=== PATIENT | female | born 1955 | race Caucasian/White ===

== ENCOUNTER 2022-06-09 13:28 | Inpatient (IN) ==
--- NOTE | 2022-06-09 14:03 | Emergency Department Note ---
Impression & Plan Acute respiratory failure with hypoxia, Right lower lobe pneumonia ED Provider Note Name: RAMSES MOREIRA Age: 67 Sex: F Arrives Via: Walk-In Informant: Patient ED Provider: Ariel Gamez MD Chief Complaint: Shortness of breath Impression: As per impressions above Medical Decision Makin-year-old female with a history of lung cancer metastasized to lymph nodes, CLL amongst other medical issues. She arrives for worsening shortness of breath over the last few days. She is significantly hypoxic on arrival and quite short of breath. Her laboratory work-up is consistent with an elevated D-dimer but given her history CTA had already been ordered. Her examination does not reveal any acute abnormalities other than mildly tachycardic on arrival. A CT was obtained which reveals consolidation in the right lower lobe. I would favor this to be pneumonia possibly obstructive in nature as opposed to just the mask especially given the significant worsening over the last few days. In that setting blood cultures and lactic were obtained along with giving her empiric IV Zosyn. I did obtain a MRSA swab which is negative so we will hold off on vanco mycin at this time. In the setting of hypoxia and infiltrate hospitalist was consulted for further management and evaluation. Prior Medical Record and Triage/Nursing Notes reviewed by Me Additional history obtained from chart Differentials:Reactive airway disease, pneumonia, pneumothorax, COPD, CHF, infections, cardiac ischemia, pulmonary embolism, musculoskeletal, gastrointestinal, as well as other pathologies. Vital Signs: reviewed and remarkable for hypoxia, tachy Interventions: nss bolus, zosyn iv Labs:Reviewed and remarkable for elevated dimer Imaging:CTA of the chest as per radiologist read on chart, consolidation right lower lobe and multiple lymph node swelling. I did note to patient that the lymph nodes appear larger and she is aware of this. EKG: Per My Interpretation: Indication shob: NSR 98 bpm, qtc 434. No Ectopy. No Ischemia. Compared to EKG 02/14/22, no significant changes. Cardiac/Tele Monitoring: Cardiac Monitoring: An Order was placed for continuous cardiac monitoring. The monitor shows a rate of 90 with a normal sinus rhythm. Consults:Dr Esvin ACOSTA hospitalist Plan: Disposition:Hospitalization. Condition: Good History of Present Illness:67-year-old female arrives for evaluation of shortness of breath. Patient notes 3 days of increasing shortness of breath. Worse with exertion. She has no chest pain, syncope, lightheadedness, nausea, vomiting, fevers, chills, abdominal pain, back pain or other concerning symptoms. She notes that she had some swelling in the right ankle for the last few months. She has had x-rays as well as an ultrasound of the right leg wi thout any acute findings. He denies any history of DVT or PE but does have a family history of PE in her mother. Patient notes that she was recently started on immunotherapy for her lung cancer which over the summer she received chemotherapy and radiation. She also has a history of CLL. Patient denies any falls, trauma, injury. She denies any symptoms when laying still but as soon as she started exerting herself she becomes very short of breath and weak. She was sent by PCP for further evaluation. ROS: See above HPI for pertinent positives & negatives. A total of 10 systems reviewed and were otherwise negative. 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 EYES: No scleral icterus, unremarkable pupils. ENT: Mucous membranes moist, no nasal congestion. NECK: No masses appreciated, nomeningismus, trachea is midline. RESPIRATORY: Moderate dyspnea/tachypnea. Clear to auscultation and equal bilaterally. No wheeze, no rhonchi. CARDIOVASCULAR: Regular rate and rhythm.No murmurs, rubs, gallops appreciated. GASTROINTESTINAL: Abdomen soft, non-tender, no peritonitis.Bowel sounds positive.No masses appreciated. BACK: No midline tenderness, no CVA tenderness EXTREMITIES: Normal motion all extremities, no cyanosis, no edema. NEUROLOGIC: Alert and oriented, no acute motor or sensory deficits, no focal weakness, cranial nerves grossly intact. SKIN: No rash, no jaundice, no diaphoresis. PSYCH: Appropriate GCS: 15 ED Course: Times/Reassessments: Multiple repeat evaluations patient feeling much better on nasal cannula O2 and agreeable to hospitalization. Ariel Gamez MD Past Med/Surg History Medical History Chronic lymphocytic leukemia Depression GERD (gastroesophageal reflux disease) History of squamous cell carcinoma of skin On chest and on abdomen Hypercholesterolemia Motion sickness Nausea and vomiting after administration of anesthetic agent Non-small cell lung cancer with metastasis Osteoporosis Primary cancer of right lower lobe of lung (12/13/21) SNHL (sensorineural hearing loss) Ulcerative proctitis Surgical History Dental root implant present Ganglion cyst right wrist 1993 History of biopsy (01/23/22) Lymph Node, Left Axilla, Core Biopsy History of bronchoscopy (12/13/21) Fiberoptic Bronchoscopy + Endobronchial Ultrasound with Transbronchial [place] Aspiration of LN Dr. Compa Lemons at [facility] History of colonoscopy with polypectomy History of squamous cell carcinoma excision x2--one off chest, one off abdomen History of tooth extraction Hx of colonoscopy Port-A-Cath in place (02/19/22) Port Placement with Fluoroscope(Right) - Patel Shea, DO S/P biopsy of cervix Family History Mother Bone cancer unknown primary Cancer Sister Uterine cancer Cancer Grandfather (Maternal) Pancreatic cancer Cancer Family/Other Family hx of colon cancer cousin Grandmother (Paternal) Cancer Melanoma Family/Other Cancer Father No problems noted. Sister No problems noted. Other Colorectal cancer Has no children Denies family history of Ovarian cancer Prostate cancer No family history of adverse response to anesthesia No family history of bleeding disorder Heart disease Allergies Myocardial infarction Breast cancer Hypertension Stroke Asthma Social History (Updated 06/09/22 @ 17:49 by Lilly Mcallister MD) Smoking Status: Former smoker Tobacco Type: Cigarettes Age Started Using Tobacco: 20; Age Quit Using Tobacco: 41; packs per day: 1; Years Smoked: 20; Number of Years Since Quit: 25; Second Hand Exposure: No; Hx Alcohol Use: No Hx Substance Use: No Preferred Language: Turkish Communication Ability: Effective Visual Impairment: No Limitations 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: Normal Naval Engineer Required: No Beliefs That Will Affect Care: None marital status: Current Living Situation: Alone current occupational status: retired 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 Uncoded 06/09/22 17:56 Home Meds Home Medications Medication Instructions Recorded Confirmed pantoprazole 40 mg tablet,delayed 40 mg PO QAM 12/20/21 06/09/22 release mesalamine 1,000 mg rectal 1 g AZ QPM 02/13/22 06/09/22 suppository raloxifene 60 mg tablet 60 mg PO QAM 02/13/22 06/09/22 gabapentin 300 mg capsule 300 mg PO TID 06/09/22 06/09/22 multivitamin with minerals 1 tab PO DAILY 06/09/22 06/09/22 (Multiple Vitamin-Minerals tablet) Previous Rx's Medication Instructions Recorded bupropion HCl 300 mg 24 hr tablet, 300 mg PO QAM #90 tabs 05/02/22 extended release Results & Data (ED) Vital Signs Vital Signs - 24 hr 06/09/22 13:47 06/09/22 14:23 06/09/22 14:44 Temperature 36.6 C Temperature Source Temporal Artery Scan Pulse Rate 102 H Pulse Rate [Apical] Pulse Rate from SpO2 Sensor Respiratory Rate 22 Respiratory Effort / Characteristics Non-Labored Respiratory Depth Normal Blood Pressure 131/70 117/81 Blood Pressure Mean 90 93 Pulse Oximetry 84 L 82 L Oxygen Delivery Method Room Air Room Air Oxygen Flow Rate 0 Sepsis Recent Fever Within 48 Hours No Sepsis New/Unexplained Change in Mental Status N/A Sepsis Action Taken by Nursing No Action Required Oxygen Flow Rate - Titration 3 Pulse Oximetry Post Tiitration 96 06/09/22 14:44 06/09/22 15:07 06/09/22 15:07 Temperature Temperature Source Pulse Rate 92 H Pulse Rate [Apical] Pulse Rate from SpO2 Sensor 93 H 98 H Respiratory Rate 18 Respiratory Effort / Characteristics Respiratory Depth Blood Pressure 138/88 Blood Pressure Mean 104 Pulse Oximetry 93 97 Oxygen Delivery Method Oxygen Flow Rate Sepsis Recent Fever Within 48 Hours Sepsis New/Unexplained Change in Mental Status Sepsis Action Taken by Nursing Oxygen Flow Rate - Titration Pulse Oximetry Post Tiitration 06/09/22 15:40 Temperature Temperature Source Pulse Rate Pulse Rate [Apical] 95 H Pulse Rate from SpO2 Sensor Respiratory Rate 16 Respiratory Effort / Characteristics Respiratory Depth Blood Pressure Blood Pressure Mean Pulse Oximetry 96 Oxygen Delivery Method Oxygen Flow Rate Sepsis Recent Fever Within 48 Hours Sepsis New/Unexplained Change in Mental Status Sepsis Action Taken by Nursing Oxygen Flow Rate - Titration Pulse Oximetry Post Tiitration Laboratory Data Result diagrams: 06/09/22 14:10 06/09/22 14:10 Lab Results 06/09/22 06/09/22 06/09/22 Range/Units 14:10 14:10 14:10 WBC 13.21 H (4.8-10.8) K/ul RBC 3.83 L (3.93-5.22) M/uL Hgb 11.5 L (12.0-16.0) g/dl POC Hgb (12.0-16.0) g/dl Hct 33.5 L (34.1-44.9) % POC Hct (37-47) % MCV 87.5 (80.0-100.0) fL MCH 30.0 (25.0-34.0) pg MCHC 34.3 (32.0-36.0) g/dL RDW Std Deviation 49.5 H (36.4-46.3) fL RDW Coeff of Aftab 15.6 H (11.5-14.5) % Plt Count 147 (130-400) K/uL MPV 9.2 L (9.4-12.3) fL Immature Gran % (Auto) 0.3 % Neut % (Auto) 27.1 % Lymph % (Auto) 62.9 % Porter % (Auto) 8.4 % Eos % (Auto) 0.9 % Baso % (Auto) 0.4 % Neut # (Auto) 3.58 (1.4-6.5) K/uL Lymph # (Auto) 8.31 H (1.2-3.4) K/uL Porter # (Auto) 1.11 H (0.24-0.82) K/uL Eos # (Auto) 0.12 (0-0.50) K/uL Baso # (Auto) 0.05 (0-0.2) K/uL Immature Gran # (Auto) 0.04 H (0.00-0.02) K/uL Smudge Cells Present PT 10.9 (9.0-12.0) Seconds INR 1.0 (0.9-1.1) APTT 29.0 (21.0-31.0) Seconds PTT Ratio 1.1 D-Dimer 3170 H* (0-500) ug/L FEU POC Sodium (135-144) mmol/L Sodium 138 (136-145) mmol/L POC Potassium (3.3-5.0) mmol/L Potassium 4.1 (3.5-5.1) mmol/L POC Chloride (101-112) mmol/L Chloride 107 (98-107) mmol/L Carbon Dioxide 23 (21-32) mmol/L POC Total CO2 (24-31) mmol/L Anion Gap 8 (3-11) POC Anion Gap (16-25) mmol/L POC BUN (7-18) mg/dl BUN 21 (6-23) mg/dl Creatinine 0.77 (0.6-1.2) mg/dl POC Creatinine (0.6-1.3) mg/dl Est Cr Clr Drug Dosing 61.1 ml/min Est GFR ( Amer) 93.9 ml/min Est GFR (Non-Af Amer) 81.0 ml/min BUN/Creatinine Ratio 27.3 H (10-20) Glucose 85 (70-99(Fasting)) mg/dl POC Glucose (other) (70-99) mg/dl Lactate (0.4-2.0) mmol/L Calcium 8.8 (8.5-10.1) mg/dl POC Ioniz Calcium Eloise (1.12-1.32) mmol/l Magnesium 1.8 (1.7-2.4) mg/dl Troponin I High Sens 7.4 (0-14) pg/ml Adenovirus (PCR) (NotDetected) B. pertussis DNA (PCR) (NotDetected) B.parapertussis DNA PCR (NotDetected) C. pneumoniae DNA (PCR) (NotDetected) Coronavirus OC43 (PCR) (NotDetected) Coronavirus HKU1 (PCR) (NotDetected) Coronavirus 229E (PCR) (NotDetected) SARS-CoV-2 (PCR) (NotDetected) Coronavirus NL63 (PCR) (NotDetected) Human Metapneumovir PCR (NotDetected) Influenza Type A (PCR) (NotDetected) Influenza Type B (PCR) (NotDetected) M. pneumoniae (PCR) (NotDetected) Parainfluenza 1 (PCR) (NotDetected) Parainfluenza 2 (PCR) (NotDetected) Parainfluenza 3 (PCR) (NotDetected) Parainfluenza 4 (PCR) (NotDetected) RSV (PCR) (NotDetected) Entero/Rhino (PCR) (NotDetected) 06/09/22 06/09/22 06/09/22 Range/Units 14:10 14:19 15:32 WBC (4.8-10.8) K/ul RBC (3.93-5.22) M/uL Hgb (12.0-16.0) g/dl POC Hgb 11.2 L (12.0-16.0) g/dl Hct (34.1-44.9) % POC Hct 33 L (37-47) % MCV (80.0-100.0) fL MCH (25.0-34.0) pg MCHC (32.0-36.0) g/dL RDW Std Deviation (36.4-46.3) fL RDW Coeff of Aftab (11.5-14.5) % Plt Count (130-400) K/uL MPV (9.4-12.3) fL Immature Gran % (Auto) % Neut % (Auto) % Lymph % (Auto) % Porter % (Auto) % Eos % (Auto) % Baso % (Auto) % Neut # (Auto) (1.4-6.5) K/uL Lymph # (Auto) (1.2-3.4) K/uL Porter # (Auto) (0.24-0.82) K/uL Eos # (Auto) (0-0.50) K/uL Baso # (Auto) (0-0.2) K/uL Immature Gran # (Auto) (0.00-0.02) K/uL Smudge Cells PT (9.0-12.0) Seconds INR (0.9-1.1) APTT (21.0-31.0) Seconds PTT Ratio D-Dimer (0-500) ug/L FEU POC Sodium 138 (135-144) mmol/L Sodium (136-145) mmol/L POC Potassium 4.1 (3.3-5.0) mmol/L Potassium (3.5-5.1) mmol/L POC Chloride 107 (101-112) mmol/L Chloride (98-107) mmol/L Carbon Dioxide (21-32) mmol/L POC Total CO2 21 L (24-31) mmol/L Anion Gap (3-11) POC Anion Gap 15.0 L (16-25) mmol/L POC BUN 19 H (7-18) mg/dl BUN (6-23) mg/dl Creatinine (0.6-1.2) mg/dl POC Creatinine 0.8 (0.6-1.3) mg/dl Est Cr Clr Drug Dosing ml/min Est GFR ( Amer) ml/min Est GFR (Non-Af Amer) ml/min BUN/Creatinine Ratio (10-20) Glucose (70-99(Fasting)) mg/dl POC Glucose (other) 89 (70-99) mg/dl Lactate 0.7 (0.4-2.0) mmol/L Calcium (8.5-10.1) mg/dl POC Ioniz Calcium Eloise 1.14 (1.12-1.32) mmol/l Magnesium (1.7-2.4) mg/dl Troponin I High Sens (0-14) pg/ml Adenovirus (PCR) Not Detected (NotDetected) B. pertussis DNA (PCR) Not Detected (NotDetected) B.parapertussis DNA PCR Not Detected (NotDetected) C. pneumoniae DNA (PCR) Not Detected (NotDetected) Coronavirus OC43 (PCR) Not Detected (NotDetected) Coronavirus HKU1 (PCR) Not Detected (NotDetected) Coronavirus 229E (PCR) Not Detected (NotDetected) SARS-CoV-2 (PCR) Not Detected (NotDetected) Coronavirus NL63 (PCR) Not Detected (NotDetected) Human Metapneumovir PCR Not Detected (NotDetected) Influenza Type A (PCR) Not Detected (NotDetected) Influenza Type B (PCR) Not Detected (NotDetected) M. pneumoniae (PCR) Not Detected (NotDetected) Parainfluenza 1 (PCR) Not Detected (NotDetected) Parainfluenza 2 (PCR) Not Detected (NotDetected) Parainfluenza 3 (PCR) Not Detected (NotDetected) Parainfluenza 4 (PCR) Not Detected (NotDetected) RSV (PCR) Not Detected (NotDetected) Entero/Rhino (PCR) Not Detected (NotDetected) Administered Medications Discontinued Medications Sodium Chloride (Nss 1000ml) 1,000 mls @ 999 mls/hr IV .[id number] ONE Stop: 06/09/22 16:19 Last Infusion: 06/09/22 16:53 Dose: 0 mls/hr Documented By: Admin: 06/09/22 15:39 Dose: 999 mls/hr Documented By: KV Piperacillin Sod/Tazobactam Sod (Zosyn) 4.5 gm in 120 mls @ 240 mls/hr IV NOW ONE Stop: 06/09/22 15:48 Last Infusion: 06/09/22 16:53 Dose: 0 mls/hr Documented By: Admin: 06/09/22 15:39 Dose: 240 mls/hr Documented By: KV Ioversol (Optiray 320 500ml) 105 ml IV ONCE ONE Stop: 06/09/22 15:04 Last Admin: 06/09/22 15:03 Dose: 105 ml Documented By: JAR Imaging Data Radiologist's Impression: Chest CTA 06/09/22 13:59 CT ANGIOGRAPHY OF THE CHEST, PULMONARY EMBOLUS PROTOCOL CLINICAL HISTORY: Shortness of breath. Lung cancer. Lymphoma. COMPARISON STUDY: Chest CT April 18, 2022. PET/CT December 11, 2021. TECHNIQUE: Following IV administration of 105 mL of Optiray, helical axial images of the chest were obtained utilizing the pulmonary embolus protocol. Maximal intensity projections and sagittal and coronal reformats were viewed on an independent 3D workstation. IV contrast was administered without complication. Automated exposure control was utilized for the study. A dose lowering technique was utilized adhering to the principles of ALARA. CT DOSE: 247.67 mGy.cm FINDINGS: Right internal jugular [id number] is in place. No pulmonary emboli are identified. There is no thoracic aortic dissection. Size of the heart is normal. There is no pericardial effusion. A small right pleural effusion has developed since CT of April 18, 2022. There is no pneumothorax. There is a 7.2 x 4.7 cm masslike opacity within the right lower lobe. This has increased since exam of April 18, 2022 and is at site of primary tumor shown on CT of January 15, 2022. Differentiation between the known malignancy and consolidation is difficult. Multifocal airspace opacities within the right lung have developed since prior CT. There is underlying emphysema. Interlobular septal thickening is greater within the right lung. A few patchy left lung opacities are present. Enlarged bilateral axillary lymph nodes are similar to prior chest CT. These have decreased in size since earlier PET/CT. Right supraclavicular and mediastinal lymphadenopathy has progressed since CT of April 18, 2022. Index right supraclavicular lymph node on axial image 259 of 298 measures 2.2 x 1.7 cm. It previously measured 1.6 x 1 cm. Right paratracheal lymph node on image 216 measures 2.8 x 2 cm. It previously measured 1.9 x 1.6 cm. These lymph nodes are heterogeneous. Mild splenomegaly is unchanged. No suspicious lesions are identified within the bony thorax. IMPRESSION: 1. No pulmonary emboli identified. 2. Progression of right subclavicular and mediastinal lymphadenopathy. This adenopathy is likely neoplastic and favors progression of metastatic lung cancer over lymphoma. 3. Increase in size of a right lower lobe masslike opacity at site of known tumor. Differentiation between the primary tumor and consolidation is difficult however this favors progression of the primary tumor. 4. Multifocal airspace opacities within the right lung which could reflect pneumonia or post radiation change. Small right pleural effusion. 5. Asymmetric interlobular septal thickening within the right lung. This may reflect asymmetric pulmonary edema however lymphangitic spread of tumor could a ppear similar. 6. No significant change in bilateral axillary lymphadenopathy which favors lymphoma. ACT 112: Negative or not required by law. Electronically signed by: José Miguel Denis M.D. 06/09/2022 3:41 PM Discharge Plan Visit Data Chief Complaint: Referred by Doctor Stated Complaint: REF BY , POSSIBLE BLOOD CLOT IN LUNG ED Provider: Ariel Gamez Discharge Problem: Acute respiratory failure with hypoxia, Right lower lobe pneumonia : Right lower lobe pneumonia Qualifiers: Pneumonia type: due to unspecified organism Qualified Code(s): J18.9 - Pneumonia, unspecified organism
[2022-06-09 14:29] LABS: Hematocrit (blood only) 33.5 % (34.1-44.9); Hemoglobin 11.5 g/dl (12.0-16.0); Mean Corpuscular Hgb Conc 34.3 g/dL (32.0-36.0); Mean Corpuscular Volume 87.5 fL (80.0-100.0); Mean Platelet Volume 9.2 fL (9.4-12.3); Platelet Count 147 K/uL (130-400); RDW Coefficient of Variation 15.6 % (11.5-14.5); RDW Standard Deviation 49.5 fL (36.4-46.3); Red Blood Count 3.83 M/uL (3.93-5.22); White Blood Count 13.21 K/ul (4.8-10.8)
[2022-06-09 14:31] LABS: iSTAT Creatinine 0.8 mg/dl (0.6-1.3); iSTAT Hemoglobin 11.2 g/dl (12.0-16.0); iSTAT Ionized Calcium 1.14 mmol/l (1.12-1.32); iSTAT Potassium 4.1 mmol/L (3.3-5.0)
[2022-06-09 14:45] LABS: Partial Thromboplastin Ratio 1.1; Prothrombin Time 10.9 Seconds (9.0-12.0)
[2022-06-09 14:51] LABS: D Dimer 3170 ug/L FEU (0-500)
[2022-06-09 14:57] LABS: Troponin I High Sensitivity 7.4 pg/ml (0-14)
[2022-06-09] MEDS ORDERED: OPTIRAY 320 500ml IV ONE (15:03)
[2022-06-09] MEDS ORDERED: PIPERACILLIN/TAZOBACTAM 4.5 GM/120 ML BAG IV ONE (15:19)
[2022-06-09] MEDS ORDERED: SODIUM CHLORIDE 0.9% 1000ML 1,000 ML IV ONE (15:19)
[2022-06-09 15:20] LABS: BUN Creatinine Ratio 27.3 (10-20); Calcium 8.8 mg/dl (8.5-10.1); Creatinine Clr Calc Pharmacy 61.1 ml/min; Est GFR (African American) 93.9 ml/min; Magnesium 1.8 mg/dl (1.7-2.4); Potassium 4.1 mmol/L (3.5-5.1)
[2022-06-09 15:36] LABS: Adenovirus PCR Not Detected (NotDetected); Bordetella parapertussis PCR Not Detected (NotDetected); Bordetella pertussis PCR Not Detected (NotDetected); Chlamydia pneumoniae PCR Not Detected (NotDetected); Coronavirus 229E PCR Not Detected (NotDetected); Coronavirus CoV-2 (COVID19)PCR Not Detected (NotDetected); Coronavirus HKU1 PCR Not Detected (NotDetected); Coronavirus NL63 PCR Not Detected (NotDetected); Coronavirus OC43PCR Not Detected (NotDetected); Human Metapneumovirus PCR Not Detected (NotDetected); Influenza A PCR Not Detected (NotDetected); Influenza B PCR Not Detected (NotDetected); Mycoplasma pneumoniae PCR Not Detected (NotDetected); Parainfluenza Virus 1 PCR Not Detected (NotDetected); Parainfluenza Virus 2 PCR Not Detected (NotDetected); Parainfluenza Virus 3 PCR Not Detected (NotDetected); Parainfluenza Virus 4 PCR Not Detected (NotDetected); Respiratory Syncytial VirusPCR Not Detected (NotDetected); Rhinovirus/Enterovirus PCR Not Detected (NotDetected)
[2022-06-09 15:40] LABS: Basophils # (auto) 0.05 K/uL (0-0.2); Basophils % (auto) 0.4 %; Eosinophils # (auto) 0.12 K/uL (0-0.50); Eosinophils % (auto) 0.9 %; Immature Granulocytes # (auto) 0.04 K/uL (0.00-0.02); Immature Granulocytes % (auto) 0.3 %; Lymphocytes # (auto) 8.31 K/uL (1.2-3.4); Lymphocytes % (auto) 62.9 %; Monocytes # (auto) 1.11 K/uL (0.24-0.82); Monocytes % (auto) 8.4 %; Neutrophils # (auto) 3.58 K/uL (1.4-6.5); Neutrophils % (auto) 27.1 %; Smudge Cells Present
--- NOTE | 2022-06-09 15:42 | CT Scan Report ---
CT ANGIOGRAPHY OF THE CHEST, PULMONARY EMBOLUS PROTOCOL CLINICAL HISTORY: Shortness of breath. Lung cancer. Lymphoma. COMPARISON STUDY: Chest CT April 18, 2022. PET/CT December 11, 2021. TECHNIQUE: Following IV administration of 105 mL of Optiray, helical axial images of the chest were o btained utilizing the pulmonary embolus protocol. Maximal intensity projections and sagittal and cor onal reformats were viewed on an independent 3D workstation. IV contrast was administered without co mplication. Automated exposure control was utilized for the study. A dose lowering technique was ut ilized adhering to the principles of ALARA. CT DOSE: 247.67 mGy.cm FINDINGS: Right internal jugular [id number] is in place. No pulmonary emboli are identified. Ther e is no thoracic aortic dissection. Size of the heart is normal. There is no pericardial effusion. A small right pleural effusion has developed since CT of April 18, 2022. There is no pneumothorax. T here is a 7.2 x 4.7 cm masslike opacity within the right lower lobe. This has increased since exam of April 18, 2022 and is at site of primary tumor shown on CT of January 15, 2022. Differentiation betwe en the known malignancy and consolidation is difficult. Multifocal airspace opacities within the righ t lung have developed since prior CT. There is underlying emphysema. Interlobular septal thickening i s greater within the right lung. A few patchy left lung opacities are present. Enlarged bilateral axi llary lymph nodes are similar to prior chest CT. These have decreased in size since earlier PET/CT. R ight supraclavicular and mediastinal lymphadenopathy has progressed since CT of April 18, 2022. In dex right supraclavicular lymph node on axial image 259 of 298 measures 2.2 x 1.7 cm. It previously m easured 1.6 x 1 cm. Right paratracheal lymph node on image 216 measures 2.8 x 2 cm. It previously rebecca sured 1.9 x 1.6 cm. These lymph nodes are heterogeneous. Mild splenomegaly is unchanged. No suspiciou s lesions are identified within the bony thorax. IMPRESSION: 1. No pulmonary emboli identified. 2. Progression of right subclavicular and mediastinal lymphadenopathy. This adenopathy is likely neop lastic and favors progression of metastatic lung cancer over lymphoma. 3. Increase in size of a right lower lobe masslike opacity at site of known tumor. Differentiation be tween the primary tumor and consolidation is difficult however this favors progression of the primary tumor. 4. Multifocal airspace opacities within the right lung which could reflect pneumonia or post radiatio n change. Small right pleural effusion. 5. Asymmetric interlobular septal thickening within the right lung. This may reflect asymmetric pulmo nary edema however lymphangitic spread of tumor could appear similar. 6. No significant change in bilateral axillary lymphadenopathy which favors lymphoma. ACT 112: Negative or not required by law. Electronically signed by: José Miguel Denis M.D. 06/09/2022 3:41 PM
--- NOTE | 2022-06-09 16:39 | History & Physical Report ---
Date of Service June 09, 2022 Assessment & Plan (1) Pneumonia: Plan: Patient presents with chills but no objective fever, leukocytosis, tachycardia, mild sputum production, and chest CT images consistent with infiltrates in the right lower lobe around her known lung mass Could be pneumonia versus immunotherapy induced pneumonitis versus radiation pneumonitis? Also with acute respiratory failure with hypoxia requiring supplemental O2 as below Afebrile but had subjective chills at home. With leukocytosis and tachycardia---> sepsis, POA Was given a dose of IV Zosyn in the ER [facility] viral respiratory panel is negative -Admit to PCU for telemetry monitoring -Continue supplemental O2 to keep pulse ox greater than 92% -Continue IV Zosyn for now to cover for gram-negative pneumonia -Check MRSA swab and start vancomycin if MRSA swab is positive -Follow blood cultures -Check sputum culture -Consult pulmonology given complexity of case-appreciate any further recommendations -Check proBNP and procalcitonin to further delineate if there is any component of heart failure and procalcitonin to see if points more towards bacterial infection -Add flutter valve and incentive spirometry for pulmonary toilet -DuoNebs [id number] (2) Acute respiratory failure with hypoxia: Plan: Secondary to history of lung cancer and with possible pneumonia as above Also with [id number] smoking history DuoNebs, supplemental O2 as above (3) Non-small cell lung cancer with metastasis: Plan: First diagnosed in 11/2021, with mets to bone marrow and lymph nodes with massive retroperitoneal and mediastinal lymphadenopathy There is still a possibility that this may be breast primary versus lung primary as per oncology notes. Further testing on tumor sample is pending on this as well as a pending breast MRI MRI brain 12/2021 without evidence of metastatic disease Initially completed chemotherapy with carboplatin and paclitaxel completed on 04/03/2022 and radiation therapy Now on durvalumab immunotherapy-just received second round last week Follows with Dr. Lama of oncology. (4) Neuropathy: Plan: Suffering with right ankle pain and swelling that was spontaneous without traumatic event since being on chemotherapy Seen by orthopedic surgery who thought this was a neuropathic issue Recently started on gabapentin by her PCP -Continue gabapentin 300 Mg p.o. 3 times daily -Can also give acetaminophen as needed for pain (5) CLL (chronic lymphocytic leukemia): Plan: Followed by oncology since 2018, with shotty lymphadenopathy of the cervical/supraclavicular/axillary regions and lymphocytosis. Considered to be intermediate risk due to FISH +13 q. deletion Not on specific therapy for this (6) Depression: Plan: Continue home bupropion (7) Osteoporosis: Plan: Continue home raloxifene (8) Ulcerative proctitis: Plan: Continue home SC mesalamine No acute issues Plan DVT prophylaxis-Lovenox Disposition-admit to PCU DNR/DNI as per discussion with patient She designates her sister, Patricia Adame, as her healthcare power of director of photography/spokesperson if she is unable to make decisions for herself. History of Present Illness Chief Complaint: Shortness of breath Primary Care Provider: Deirdre Vallecillo MD This patient is a 67-year-old female with a history of metastatic non-small cell lung cancer, CLL with lymphadenopathy, depression, osteoporosis, ulcerative proctitis, GERD, who presents to the ER with increasing shortness of breath and was found to be hypoxic and have possibly postobstructive pneumonia. She reports slight increase in sputum production but no hemoptysis over the last couple of days along with some chills but no documented fevers at home. She denies chest pains or nausea or vomiting, no abdominal pains or diarrhea. She has now started on immunotherapy and had her second dose this past week of Imfinzi. She was noted to be hypoxic with a pulse ox in the low 80s on arrival and was placed on supplemental O2 and feels much improved already. She was afebrile and mildly tachycardic in the ER but not tachypneic and her blood pressures were normal. In the ER, she was found to have an elevated WBC count of 13.2 but also with a known history of CLL, mild anemia with hemoglobin of 11.5, elevated D-dimer at 3170, and a negative bio fire viral respiratory panel to include a negative COVID-19. Chemistry was otherwise unremarkable and troponin was negative. A lactate was negative. A CT angiogram of the chest was performed which was negative for PE but did show progression of right subclavicular and mediastinal lymphadenopathy as well as increase in the size of an RLL masslike opacity at site of known tumor with differentiation between the primary tumor and consolidation difficult, also with multifocal airspace opacities in the right lung which could reflect pneumonia or postradiation change and a small right pleural effusion. Also with asymmetric interlobular septal thickening within the right lung which may reflect asymmetric pulmonary edema versus lymphangitic spread of tumor. Bilateral axillary lymphadenopathy was unchanged which is known secondary to her CLL. She will be admitted for acute respiratory failure with hypoxia and likely pneumonia in the setting of lung cancer. Cannot exclude some sort of immunotherapy induced pneumonitis or other atypical or opportunistic lung infection. Allergies Allergy/AdvReac Type Severity Reaction Status Date / Time No Known Drug Allergies Allergy Verified 06/09/22 17:50 RED MEAT AdvReac . Uncoded 06/09/22 17:56 Home Medications Medication Instructions Recorded Confirmed Type pantoprazole 40 mg tablet,delayed 40 mg PO QAM 12/20/21 06/09/22 History release mesalamine 1,000 mg rectal 1 g SC QPM 02/13/22 06/09/22 History suppository raloxifene 60 mg tablet 60 mg PO QAM 02/13/22 06/09/22 History bupropion HCl 300 mg 24 hr tablet, 300 mg PO QAM #90 tabs 05/02/22 06/09/22 Rx extended release gabapentin 300 mg capsule 300 mg PO TID 06/09/22 06/09/22 History multivitamin with minerals 1 tab PO DAILY 06/09/22 06/09/22 History (Multiple Vitamin-Minerals tablet) Past Med/Surg History Medical History Chronic lymphocytic leukemia Depression GERD (gastroesophageal reflux disease) History of squamous cell carcinoma of skin On chest and on abdomen Hypercholesterolemia Motion sickness Nausea and vomiting after administration of anesthetic agent Non-small cell lung cancer with metastasis Osteoporosis Primary cancer of right lower lobe of lung (12/13/21) SNHL (sensorineural hearing loss) Ulcerative proctitis Surgical History Dental root implant present Ganglion cyst right wrist 1993 History of biopsy (01/23/22) Lymph Node, Left Axilla, Core Biopsy History of bronchoscopy (12/13/21) Fiberoptic Bronchoscopy + Endobronchial Ultrasound with Transbronchial [place] Aspiration of LN Dr. Compa Lemons at [facility] History of colonoscopy with polypectomy History of squamous cell carcinoma excision x2--one off chest, one off abdomen History of tooth extraction Hx of colonoscopy Port-A-Cath in place (02/19/22) Port Placement with Fluoroscope(Right) - Patel Shea, S/P biopsy of cervix Family History Mother Bone cancer unknown primary Cancer Sister Uterine cancer Cancer Grandfather (Maternal) Pancreatic cancer Cancer Family/Other Family hx of colon cancer cousin Grandmother (Paternal) Cancer Melanoma Family/Other Cancer Father No problems noted. Sister No problems noted. Other Colorectal cancer Has no children Denies family history of Ovarian cancer Prostate cancer No family history of adverse response to anesthesia No family history of bleeding disorder Heart disease Allergies Myocardial infarction Breast cancer Hypertension Stroke Asthma Social History (Updated 06/09/22 @ 17:49 by Lilly Mcallister MD) Smoking Status: Former smoker Tobacco Type: Cigarettes Age Started Using Tobacco: 20; Age Quit Using Tobacco: 41; packs per day: 1; Years Smoked: 20; Number of Years Since Quit: 25; Second Hand Exposure: No; Hx Alcohol Use: No Hx Substance Use: No Preferred Language: Thai Communication Ability: Effective Visual Impairment: No Limitations 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: Normal 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 Surface Required: No Beliefs That Will Affect Care: None marital status: Current Living Situation: Alone current occupational status: retired 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 This came on spontaneously and without injury. She has been seen by orthopedics who thought it was neuropathic in nature. She was unable To get a neurology appointment until several months from now. Her PCP recently started her on gabapentin last week and she has been slowly titrating up. No constipation or diarrhea, no abdominal pains, no nausea or vomiting, no headaches, no sore throat. Did just have a cyst removed from her upper mid back about a week ago and sutures remain in place Physical Exam Constitutional: WD/WN, vitals as above Eyes: PERRL, conjunctivae normal, anicteric sclerae ENMT: external ear and nose normal, oropharynx normal Neck: trachea midline, no thyromegaly Respiratory: normal respiratory effort; no cough Auscultation: + diminished lung sounds (Right lung base) and + crackles (right base); no rhonchi and no wheezes Cardiovascular: Rate/Rhythm: regular rate and regular rhythm Heart Sounds: no murmur Vessels: dorsalis pedis pulses present; no JVD Extremities: + edema (Trace right ankle edema, no edema on the left leg) Chest (Breasts): Chest: + vascular access device or port (Right anterior chest wall port accessed without surrounding erythema) Gastrointestinal (Abdomen): normal bowel sounds, soft, nontender, no hepatosplenomegaly Musculoskeletal: Extremities: + extremities abnormal to inspection (Right ankle trace edema, no erythema, FROM right ankle, no TTP), no cyanosis and no clubbing Skin: no rashes, warm and dry Mid upper back with 3 cm incision with running stitch, surrounding dark red discoloration of the skin but also with maculopapular erythematous rash in a rectangular pattern where the adhesive from the Band-Aid is placed-bandage removed Neurologic: moves all extremities and awake; no focal motor deficits Psychiatric: A+Ox3, euthymic affect Results & Data Results & Data ([facility]) Vital Signs (Past 12 Hours) Vital Signs Temp Pulse Pulse Resp BP Pulse Ox O2 Del Method 06/09/22 15:40 95 H 16 96 06/09/22 15:07 97 06/09/22 15:07 138/88 06/09/22 14:44 92 H 18 93 06/09/22 14:44 117/81 06/09/22 14:23 82 L Room Air 06/09/22 13:47 36.6 C 102 H 22 131/70 84 L Room Air O2 Flow Rate 06/09/22 15:40 06/09/22 15:07 06/09/22 15:07 06/09/22 14:44 06/09/22 14:44 06/09/22 14:23 0 06/09/22 13:47 Laboratory Results 10/24/22 10/24/22 10/24/22 Range/Units 15:32 14:19 14:10 WBC (4.8-10.8) K/ul RBC (3.93-5.22) M/uL Hgb (12.0-16.0) g/dl POC Hgb 11.2 L (12.0-16.0) g/dl Hct (34.1-44.9) % POC Hct 33 L (37-47) % MCV (80.0-100.0) fL MCH (25.0-34.0) pg MCHC (32.0-36.0) g/dL RDW Std Deviation (36.4-46.3) fL RDW Coeff of Aftab (11.5-14.5) % Plt Count (130-400) K/uL MPV (9.4-12.3) fL Immature Gran % (Auto) % Neut % (Auto) % Lymph % (Auto) % [place] % (Auto) % Eos % (Auto) % Baso % (Auto) % Neut # (Auto) (1.4-6.5) K/uL Lymph # (Auto) (1.2-3.4) K/uL [place] # (Auto) (0.24-0.82) K/uL Eos # (Auto) (0-0.50) K/uL Baso # (Auto) (0-0.2) K/uL Immature Gran # (Auto) (0.00-0.02) K/uL Smudge Cells PT (9.0-12.0) Seconds INR (0.9-1.1) APTT (21.0-31.0) Seconds PTT Ratio D-Dimer (0-500) ug/L FEU POC Sodium 138 (135-144) mmol/L Sodium (136-145) mmol/L POC Potassium 4.1 (3.3-5.0) mmol/L Potassium (3.5-5.1) mmol/L POC Chloride 107 (101-112) mmol/L Chloride (98-107) mmol/L Carbon Dioxide (21-32) mmol/L POC Total CO2 21 L (24-31) mmol/L Anion Gap (3-11) POC Anion Gap 15.0 L (16-25) mmol/L POC BUN 19 H (7-18) mg/dl BUN (6-23) mg/dl Creatinine (0.6-1.2) mg/dl POC Creatinine 0.8 (0.6-1.3) mg/dl Est Cr Clr Drug Dosing ml/min Est GFR ( Amer) ml/min Est GFR (Non-Af Amer) ml/min BUN/Creatinine Ratio (10-20) Glucose (70-99(Fasting)) mg/dl POC Glucose (other) 89 (70-99) mg/dl Lactate 0.7 (0.4-2.0) mmol/L Calcium (8.5-10.1) mg/dl POC Ioniz Calcium Eloise 1.14 (1.12-1.32) mmol/l Magnesium (1.7-2.4) mg/dl Troponin I High Sens (0-14) pg/ml Adenovirus (PCR) Not Detected (NotDetected) B. pertussis DNA (PCR) Not Detected (NotDetected) B.parapertussis DNA PCR Not Detected (NotDetected) C. pneumoniae DNA (PCR) Not Detected (NotDetected) Coronavirus OC43 (PCR) Not Detected (NotDetected) Coronavirus HKU1 (PCR) Not Detected (NotDetected) Coronavirus 229E (PCR) Not Detected (NotDetected) SARS-CoV-2 (PCR) Not Detected (NotDetected) Coronavirus NL63 (PCR) Not Detected (NotDetected) Human Metapneumovir PCR Not Detected (NotDetected) Influenza Type A (PCR) Not Detected (NotDetected) Influenza Type B (PCR) Not Detected (NotDetected) M. pneumoniae (PCR) Not Detected (NotDetected) Parainfluenza 1 (PCR) Not Detected (NotDetected) Parainfluenza 2 (PCR) Not Detected (NotDetected) Parainfluenza 3 (PCR) Not Detected (NotDetected) Parainfluenza 4 (PCR) Not Detected (NotDetected) RSV (PCR) Not Detected (NotDetected) Entero/Rhino (PCR) Not Detected (NotDetected) 06/09/22 06/09/22 06/09/22 Range/Units 14:10 14:10 14:10 WBC 13.21 H (4.8-10.8) K/ul RBC 3.83 L (3.93-5.22) M/uL Hgb 11.5 L (12.0-16.0) g/dl POC Hgb (12.0-16.0) g/dl Hct 33.5 L (34.1-44.9) % POC Hct (37-47) % MCV 87.5 (80.0-100.0) fL MCH 30.0 (25.0-34.0) pg MCHC 34.3 (32.0-36.0) g/dL RDW Std Deviation 49.5 H (36.4-46.3) fL RDW Coeff of Aftab 15.6 H (11.5-14.5) % Plt Count 147 (130-400) K/uL MPV 9.2 L (9.4-12.3) fL Immature Gran % (Auto) 0.3 % Neut % (Auto) 27.1 % Lymph % (Auto) 62.9 % [place] % (Auto) 8.4 % Eos % (Auto) 0.9 % Baso % (Auto) 0.4 % Neut # (Auto) 3.58 (1.4-6.5) K/uL Lymph # (Auto) 8.31 H (1.2-3.4) K/uL [place] # (Auto) 1.11 H (0.24-0.82) K/uL Eos # (Auto) 0.12 (0-0.50) K/uL Baso # (Auto) 0.05 (0-0.2) K/uL Immature Gran # (Auto) 0.04 H (0.00-0.02) K/uL Smudge Cells Present PT 10.9 (9.0-12.0) Seconds INR 1.0 (0.9-1.1) APTT 29.0 (21.0-31.0) Seconds PTT Ratio 1.1 D-Dimer 3170 H* (0-500) ug/L FEU POC Sodium (135-144) mmol/L Sodium 138 (136-145) mmol/L POC Potassium (3.3-5.0) mmol/L Potassium 4.1 (3.5-5.1) mmol/L POC Chloride (101-112) mmol/L Chloride 107 (98-107) mmol/L Carbon Dioxide 23 (21-32) mmol/L POC Total CO2 (24-31) mmol/L Anion Gap 8 (3-11) POC Anion Gap (16-25) mmol/L POC BUN (7-18) mg/dl BUN 21 (6-23) mg/dl Creatinine 0.77 (0.6-1.2) mg/dl POC Creatinine (0.6-1.3) mg/dl Est Cr Clr Drug Dosing 61.1 ml/min Est GFR ( Amer) 93.9 ml/min Est GFR (Non-Af Amer) 81.0 ml/min BUN/Creatinine Ratio 27.3 H (10-20) Glucose 85 (70-99(Fasting)) mg/dl POC Glucose (other) (70-99) mg/dl Lactate (0.4-2.0) mmol/L Calcium 8.8 (8.5-10.1) mg/dl POC Ioniz Calcium [place]oise (1.12-1.32) mmol/l Magnesium 1.8 (1.7-2.4) mg/dl Troponin I High Sens 7.4 (0-14) pg/ml Adenovirus (PCR) (NotDetected) B. pertussis DNA (PCR) (NotDetected) B.parapertussis DNA PCR (NotDetected) C. pneumoniae DNA (PCR) (NotDetected) Coronavirus OC43 (PCR) (NotDetected) Coronavirus HKU1 (PCR) (NotDetected) Coronavirus 229E (PCR) (NotDetected) SARS-CoV-2 (PCR) (NotDetected) Coronavirus NL63 (PCR) (NotDetected) Human Metapneumovir PCR (NotDetected) Influenza Type A (PCR) (NotDetected) Influenza Type B (PCR) (NotDetected) M. pneumoniae (PCR) (NotDetected) Parainfluenza 1 (PCR) (NotDetected) Parainfluenza 2 (PCR) (NotDetected) Parainfluenza 3 (PCR) (NotDetected) Parainfluenza 4 (PCR) (NotDetected) RSV (PCR) (NotDetected) Entero/Rhino (PCR) (NotDetected) Diagnostic Findings Chest CTA 06/09/22 13:59 CT ANGIOGRAPHY OF THE CHEST, PULMONARY EMBOLUS PROTOCOL CLINICAL HISTORY: Shortness of breath. Lung cancer. Lymphoma. COMPARISON STUDY: Chest CT April 18, 2022. PET/CT December 11, 2021. TECHNIQUE: Following IV administration of 105 mL of Optiray, helical axial images of the chest were obtained utilizing the pulmonary embolus protocol. Maximal intensity projections and sagittal and coronal reformats were viewed on an independent 3D workstation. IV contrast was administered without complication. Automated exposure control was utilized for the study. A dose lowering technique was utilized adhering to the principles of ALARA. CT DOSE: 247.67 mGy.cm FINDINGS: Right internal jugular [id number] is in place. No pulmonary emboli are identified. There is no thoracic aortic dissection. Size of the heart is normal. There is no pericardial effusion. A small right pleural effusion has developed since CT of April 18, 2022. There is no pneumothorax. There is a 7.2 x 4.7 cm masslike opacity within the right lower lobe. This has increased since exam of April 18, 2022 and is at site of primary tumor shown on CT of January 15, 2022. Differentiation between the known malignancy and consolidation is difficult. Multifocal airspace opacities within the right lung have developed since prior CT. There is underlying emphysema. Interlobular septal thickening is greater within the right lung. A few patchy left lung opacities are present. Enlarged bilateral axillary lymph nodes are similar to prior chest CT. These have decreased in size since earlier PET/CT. Right supraclavicular and mediastinal lymphadenopathy has progressed since CT of April 18, 2022. Index right supraclavicular lymph node on axial image 259 of 298 measures 2.2 x 1.7 cm. It previously measured 1.6 x 1 cm. Right paratracheal lymph node on image 216 measures 2.8 x 2 cm. It previously measured 1.9 x 1.6 cm. These lymph nodes are heterogeneous. Mild splenomegaly is unchanged. No suspicious lesions are identified within the bony thorax. IMPRESSION: 1. No pulmonary emboli identified. 2. Progression of right subclavicular and mediastinal lymphadenopathy. This adenopathy is likely neoplastic and favors progression of metastatic lung cancer over lymphoma. 3. Increase in size of a right lower lobe masslike opacity at site of known tumor. Differentiation between the primary tumor and consolidation is difficult however this favors progression of the primary tumor. 4. Multifocal airspace opacities within the right lung which could reflect pneumonia or post radiation change. Small right pleural effusion. 5. Asymmetric interlobular septal thickening within the right lung. This may reflect asymmetric pulmonary edema however lymphangitic spread of tumor could appear similar. 6. No significant change in bilateral axillary lymphadenopathy which favors lymphoma. ACT 112: Negative or not required by law. Electronically signed by: José Miguel Denis M.D. 06/09/2022 3:41 PM ECG Additional Comments: ECG on 06/09/2022 with normal sinus rhythm, normal rates, no ischemic changes Code Status & VTE Plan Code Status DNR/DNI as discussed with patient VTE Prophylaxis Plan VTE Prophylaxis will be ordered: Yes PG Care Time/CCT Total # of Minutes Spent Total Time Spent with Patient: Total time spent is greater than 50% in coordination of care (as documented) at patient's floor/unit and/or counseling patient: Coding Level of Care Code 18547 Initial Inpt Care Lvl 3 Diagnoses Pneumonia J18.9 Acute respiratory failure with hypoxia J96.01 Non-small cell lung cancer with metastasis C34.90 Neuropathy G62.9 CLL (chronic lymphocytic leukemia) C91.10 Depression F32.9 Osteoporosis M81.0 Ulcerative proctitis K51.20
[2022-06-09 18:33] LABS: Appearance Urine Clear (Clear); Bilirubin Urine Negative (Negative); Blood Urine Negative (Negative); Color Urine Yellow; Glucose Urine UA Negative (Negative); Ketones Urine Negative (Negative); Leukocyte Esterase Urine Negative (Negative); Nitrite Urine Negative (Negative); Protein Urine Negative (Negative); Specific Gravity Urine 1.034 (1.000-1.030); Urobilinogen Urine Negative (Negative)
[2022-06-09] MEDS ORDERED: POLYETHYLENE (MIRALAX) 17 GM PACK PO PRN (19:45)
[2022-06-09] MEDS ORDERED: ONDANSETRON INJ 2 MG/ML 2 ML VIAL IV PRN (19:45)
[2022-06-09] MEDS: ENOXAPARIN INJ 40 MG/0.4 ML SYR SQ SCH (20:40)
[2022-06-09] MEDS: GABAPENTIN 300 MG CAP PO SCH (20:40)
[2022-06-09] MEDS: PIPERACILLIN/TAZOBACTAM 3.375 GM in DEXTROSE 5% 100 ML IV SCH (20:41)
[2022-06-09] MEDS: ALBUT/IPRATROP 3MG/0.5MG NEB 3 ML VIAL NEB SCH (20:44)
[2022-06-10] MEDS: PIPERACILLIN/TAZOBACTAM 3.375 GM in DEXTROSE 5% 100 ML IV SCH ×3 (04:36→22:26)
--- NOTE | 2022-06-10 06:03 | Electrocardiogram Report ---
Test Reason : Blood Pressure : / mmHG Vent. Rate : 098 BPM Atrial Rate : 098 BPM P-R Int : 148 ms QRS Dur : 080 ms QT Int : 340 ms P-R-T Axes : 058 060 063 degrees QTc Int : 434 ms Normal sinus rhythm Nonspecific ST abnormality When compared with ECG of 14-FEB-2022 10:48, No significant change Confirmed by Adeel Luz ([id number]) on 06/10/2022 6:03:24 AM Referred By: REFERRED SELF Confirmed By:Adeel Luz
[2022-06-10 06:19] LABS: Hematocrit (blood only) 30.5 % (34.1-44.9); Hemoglobin 10.2 g/dl (12.0-16.0); Mean Corpuscular Hgb Conc 33.4 g/dL (32.0-36.0); Mean Corpuscular Volume 89.7 fL (80.0-100.0); Platelet Count 144 K/uL (130-400); RDW Coefficient of Variation 15.1 % (11.5-14.5); RDW Standard Deviation 48.4 fL (36.4-46.3); White Blood Count 10.94 K/ul (4.8-10.8)
[2022-06-10 06:46] LABS: Albumin Globulin Ratio 1.4 (0.9-2); Albumin Level 3.3 gm/dl (3.4-5.0); Bilirubin,Total 0.6 mg/dl (0.2-1.0); Calcium 8.4 mg/dl (8.5-10.1); Creatinine Clr Calc Pharmacy 53.5 ml/min; Est GFR (African American) 83.3 ml/min; Est GFR (Non-African American) 71.9 ml/min; Globulin 2.3 gm/dl (2.5-4.0); Magnesium 1.8 mg/dl (1.7-2.4); Potassium 3.7 mmol/L (3.5-5.1); Total Protein 5.6 gm/dl (6.0-8.3)
[2022-06-10] MEDS: ALBUT/IPRATROP 3MG/0.5MG NEB 3 ML VIAL NEB SCH ×4 (07:07→17:57)
[2022-06-10 07:51] LABS: Basophils # (auto) 0.03 K/uL (0-0.2); Basophils % (auto) 0.3 %; Eosinophils # (auto) 0.11 K/uL (0-0.50); Immature Granulocytes # (auto) 0.02 K/uL (0.00-0.02); Immature Granulocytes % (auto) 0.2 %; Lymphocytes # (auto) 6.61 K/uL (1.2-3.4); Lymphocytes % (auto) 60.4 %; Monocytes # (auto) 1.02 K/uL (0.24-0.82); Monocytes % (auto) 9.3 %; Neutrophils # (auto) 3.15 K/uL (1.4-6.5); Neutrophils % (auto) 28.8 %; Smudge Cells Present
--- NOTE | 2022-06-10 09:11 | Pulmonary Consultation ---
Date of Consultation June 10, 2022 Assessment & Plan (1) Acute respiratory failure with hypoxia: (2) Non-small cell lung cancer with metastasis: (3) COPD with emphysema: (4) Abnormal CT scan of lung: Plan CT chest 06/09/2022 personally reviewed: Centrilobular emphysema appreciated bilaterally with mild interlobular thickening Right-sided pleural effusion with right lower lobe mass Mediastinal adenopathy at station 2P, 10R -- Acute respiratory failure with hypoxia Multifactorial Worsening of underlying lung cancer is a possibility Although the patient's BNP is negative I do see some interlobular thickening which could be lymphatic spread from underlying cancer Respiratory bio fire negative BNP 25 Procalcitonin 0.96 --COPD with emphysema Not on any inhalers at home I will start the patient on Anoro to be used on a daily basis Not in exacerbation, no need for steroids -- Metastatic non-small cell lung cancer Adenocarcinoma of unknown primary S/p chemoradiation, carboplatin/paclitaxel completed 04/03/2022 -- History of CLL Plan: Continue with antibiotic I did speak with Dr. Lama Start the patient on Anoro. Plan will be to see if he can biopsy right upper lobe supraclavicular lymph node so radiology. Consult placed Case discussed with Please note the above document was generated using voice recognition software. It may contain grammatical, syntax or spelling errors.Any formal questions or concerns about the content, text or information contained within the body of this dictation should be directly addressed to the provider for clarification. History of Present Illness Attending Physician: Tulio Altman History of Present Illness 67-year-old female admitted to the hospital for worsening shortness of breath Past medical history: Undifferentiated adenocarcinoma metastatic, CLL, COPD with emphysema, GERD Pulmonary were consulted for history of cancer as well as enlarging lung mass Patient is follows up with Dr. Lemons as an outpatient. Previous records and notes reviewed At the time of examination patient was saturating 93% on 5 L, I was able to go down to 4 L where she maintained a saturation around 90-91% She says she is feeling better after coming to the hospital She is coughing and bringing up clear phlegm. Denies any hemoptysis No chest pain No nausea or vomiting No diarrhea, no dysuria Does complain of tingling sensation in the right foot which has been chronic. No headache or blurry vision. Social history: Quit smoking approximately 10 years ago Allergies Allergy/AdvReac Type Severity Reaction Status Date / Time No Known Drug Allergies Allergy Verified 06/09/22 17:50 RED MEAT AdvReac . Uncoded 06/09/22 17:56 Home Medications Medication Instructions Recorded Confirmed Type pantoprazole 40 mg tablet,delayed 40 mg PO QAM 12/20/21 06/09/22 History release mesalamine 1,000 mg rectal 1 g CA QPM 02/13/22 06/09/22 History suppository raloxifene 60 mg tablet 60 mg PO QAM 02/13/22 06/09/22 History bupropion HCl 300 mg 24 hr tablet, 300 mg PO QAM #90 tabs 05/02/22 06/09/22 Rx extended release gabapentin 300 mg capsule 300 mg PO TID 06/09/22 06/09/22 History multivitamin with minerals 1 tab PO DAILY 06/09/22 06/09/22 History (Multiple Vitamin-Minerals tablet) Patient History Medical History Chronic lymphocytic leukemia Depression GERD (gastroesophageal reflux disease) History of squamous cell carcinoma of skin On chest and on abdomen Hypercholesterolemia Motion sickness Nausea and vomiting after administration of anesthetic agent Non-small cell lung cancer with metastasis Osteoporosis Primary cancer of right lower lobe of lung (12/13/21) SNHL (sensorineural hearing loss) Ulcerative proctitis Surgical History Dental root implant present Ganglion cyst right wrist 1993 History of biopsy (01/23/22) Lymph Node, Left Axilla, Core Biopsy History of bronchoscopy (12/13/21) Fiberoptic Bronchoscopy + Endobronchial Ultrasound with Transbronchial [place] Aspiration of LN Dr. Compa Lemons at [facility] History of colonoscopy with polypectomy History of squamous cell carcinoma excision x2--one off chest, one off abdomen History of tooth extraction Hx of colonoscopy Port-A-Cath in place (02/19/22) Port Placement with Fluoroscope(Right) - Patel Shea, DO S/P biopsy of cervix Family History Mother Bone cancer unknown primary Cancer Sister Uterine cancer Cancer Grandfather (Maternal) Pancreatic cancer Cancer Family/Other Family hx of colon cancer cousin Grandmother (Paternal) Cancer Melanoma Family/Other Cancer Father No problems noted. Sister No problems noted. Other Colorectal cancer Has no children Denies family history of Ovarian cancer Prostate cancer No family history of adverse response to anesthesia No family history of bleeding disorder Heart disease Allergies Myocardial infarction Breast cancer Hypertension Stroke Asthma Social History (Updated 06/09/22 @ 17:49 by Lilly Mcallister MD) Smoking Status: Former smoker Tobacco Type: Cigarettes Age Started Using Tobacco: 20; Age Quit Using Tobacco: 41; packs per day: 1; Years Smoked: 20; Number of Years Since Quit: 25; Second Hand Exposure: No; Hx Alcohol Use: No Hx Substance Use: No Preferred Language: Northern Irish Communication Ability: Effective Visual Impairment: No Limitations 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: Normal Estate Planning Counselor Required: No Beliefs That Will Affect Care: None marital status: Current Living Situation: Alone current occupational status: retired 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 How many Children do You have: 0 Feels Safe at Home: Yes Childhood Exposure to Second-Hand Smoke: Yes Diet Comment: No red meat caffeine: Yes during the past year weight has: decreased > 10 lbs Dental Care, Regularly: Yes Physical Activity Frequency: Daily Seatbelt Use: always Sunscreen Use: Yes Assistive Devices: None Review of Systems Review of Systems: All systems reviewed & are unremarkable except as noted in HPI & below Physical Exam Physical Exam: Constitutional: No acute distress HEENT: EOMI, PERRLA Respiratory system: Decreased air entry bilaterally, no wheeze, no rhonchi, positive crackles bilateral lower lobes more on the right side CVS: S1-S2 positive, no murmurs or gallops Abdomen: Soft, nontender, nondistended, positive bowel sounds x4 Extremities: +2 pulses bilaterally radialis/ dorsalis pedis, no cyanosis, no edema Neuro: Awake alert oriented x3 Psych: Normal mood and affect G/U: No Ruff Skin: no rashes, warm and dry Lymphatic: no cervical or axillary lymphadenopathy Results & Data Results & Data ([facility]) Vital Signs (Past 12 Hours) Vital Signs Temp Pulse Pulse Resp BP Pulse Ox O2 Del Method 06/10/22 07:48 36.6 C 105 H 19 102/64 91 Nasal Cannula 06/10/22 07:08 91 H 18 92 Nasal Cannula 06/10/22 03:00 37.2 C 105 H 16 111/66 91 Nasal Cannula 06/09/22 22:45 36.7 C 66 18 127/72 94 Nasal Cannula 06/10/22 00:37 116 H O2 Flow Rate 06/10/22 07:48 5 06/10/22 07:08 5 06/10/22 03:00 5 06/09/22 22:45 5 06/10/22 00:37 Laboratory Results 06/10/22 05:46 06/10/22 05:46 PG Care Time/CCT Total # of Minutes Spent Total Time Spent with Patient: Total time spent is greater than 50% in coordination of care (as documented) at patient's floor/unit and/or counseling patient: Coding Level of Care Code 22804 Initial Inpt Care Lvl 3 Diagnoses Acute respiratory failure with hypoxia J96.01 Non-small cell lung cancer with metastasis C34.90 COPD with emphysema J43.[address] scan of lung R91.8
[2022-06-10] MEDS: buPROPion XL 300 MG TABCR PO SCH (09:32)
[2022-06-10] MEDS: GABAPENTIN 300 MG CAP PO SCH ×3 (09:32→22:26)
[2022-06-10] MEDS: PANTOprazole 40 MG TAB PO SCH (09:33)
[2022-06-10] MEDS: CEROVITE ADV FORMULA TAB PO SCH (09:33)
[2022-06-10] MEDS: RALOXIFENE HCL 60 MG TAB PO SCH (09:34)
[2022-06-10] MEDS: ACETAMINOPHEN 325 MG TAB PO PRN ×4 (09:37→22:26)
[2022-06-10] MEDS: UMECLIDINIUM/VILANTEROL 62.5/25MCG 7 PUFFS/INHALER INH SCH (10:38)
--- NOTE | 2022-06-10 15:29 | Ultrasound Report ---
ULTRASOUND GUIDED CORE BIOPSY AND FINE NEEDLE ASPIRATION OF RIGHT SUPRACLAVICULAR LYMPH NODE CLINICAL HISTORY: Supraclavicular right sided LN biopsy COMPARISON STUDY: Chest CT June 09, 2022. PROCEDURE: Sonography of the right supraclavicular region demonstrated multiple pathologically enlarg ed supraclavicular lymph nodes. Index 1.8 cm right supraclavicular lymph node was targeted for biopsy . The procedure, risks and benefits were discussed with the patient and informed written consent was obtained. The procedure was performed by Dr. Denis following a timeout. Skin of the right neck wa s prepped and draped in sterile fashion and local anesthesia was achieved with 1% lidocaine. Under di rect ultrasound guidance, a 25-gauge fine needle aspiration of the right supraclavicular lymph node w as performed. Suspicious cells were noted. An 18-gauge core sample was then obtained. Samples were de emed preliminarily adequate. The patient tolerated the procedure well and no immediate complications were evident. IMPRESSION: Successful ultrasound guided core biopsy and fine-needle aspiration of a right supraclav icular lymph node. ACT 112: Negative or not required by law. Electronically signed by: José Miguel Denis M.D. 06/10/2022 3:28 PM
--- NOTE | 2022-06-10 17:30 | XRay Report ---
XR ankle RT 2V CLINICAL HISTORY: pain, swelling R ankle COMPARISON STUDY: Right ankle 05/08/2022. FINDINGS: Mild soft tissue swelling within the right ankle, unchanged. No acute fracture or dislocati on. The ankle mortise is intact. Mild cartilage space narrowing at the tibiotalar joint, unchanged. N o erosive changes. IMPRESSION: Mild soft tissue swelling within the right ankle. No fractures. ACT 112: Negative or not required by law. Electronically signed by: Ramo Mcintosh M.D. 06/10/2022 5:29 PM
[2022-06-10] MEDS: DICLOFENAC SOD 1% GEL 100 GM TUBE EXT SCH ×2 (17:47→22:27)
--- NOTE | 2022-06-10 19:48 | Hospitalist Progress Note ---
Date of Service June 10, 2022 Assessment & Plan (1) Pneumonia: Plan: chest CT with infiltrates in the right lower lobe around her known lung mass Could be pneumonia versus immunotherapy induced pneumonitis versus radiation pneumonitis elevated procal suggestive of infectious process cont zosyn IV MRSA swab neg thus defer on MRSA coverage appreciate pulmonary consultation and recs cont NC O2 + pulmonary toilet (2) Sepsis: Plan: 2nd to RLL pneumonia blood cx's thus far negative (3) Acute respiratory failure with hypoxia: Plan: 2nd to RLL pneumonia abx nebs O2 (4) Non-small cell lung cancer with metastasis: Plan: First diagnosed in 11/2021, with mets to bone marrow and lymph nodes with massive retroperitoneal and mediastinal lymphadenopathy There is still a possibility that this may be breast primary versus lung primary as per oncology notes. Further testing on tumor sample is pending on this as well as a pending breast MRI MRI brain 12/2021 without evidence of metastatic disease Initially completed chemotherapy with carboplatin and paclitaxel completed on 04/03/2022 and radiation therapy Now on durvalumab immunotherapy-just received second round last week Follows with Dr. Lama of oncology. s/p supraclavicular lymph node biopsy on the right today to delineate if extensive lymphadenopathy is from this issue vs CLL vs other (5) Neuropathy: Plan: ? neuropathy of distal RLE ? continue gabapentin but it has not been helpful to date see below under R ankle pain. (6) CLL (chronic lymphocytic leukemia): Plan: Followed by oncology since 2018. Considered to be intermediate risk due to FISH +13 q. deletion She has not required Rx s/p supraclavicular lymph node bx today to exclude that the lymphadenopathy seen is due to metastatic disease from the lung (or breast) vs CLL or other (7) Depression: Plan: Continue home bupropion (8) Osteoporosis: Plan: Continue home raloxifene (9) Ulcerative proctitis: Plan: Continue home [place] mesalamine (10) Right ankle pain: Plan: etiology uncertain. prior x-rays unremarkable. no response to gabapentin. will repeat x-rays again. doppler to r/o DVT. if the above are negative then ankle MRI to r/o ligamentous injury, tendon injury, joint issue. in meantime - voltaren gel 4gm qid. Plan DVT prophylaxis-Lovenox She designates her sister, Patricia Adame, as her healthcare power of county attorney/spokesperson if she is unable to make decisions for herself. Admission and Anticipated Discharge Date Admission Date: June 09, 2022 Subjective patient's main complaint is that of right ankle pain that radiates into the right achilles region hurts both day and night hurts to weight-bear started on gabapentin recently for such without improvement the right ankle and foot are mildly swollen she denies any prior injury her breathing is more comfortable today she is less dyspneic she is coughing although sputum production is not that great patient underwent uncomplicated supraclavicular lymph node biopsy as ordered by pulmonary Review of Systems Review of Systems: gen - no fevers cv - no chest pain pulm - no dyspnea at rest GI - no abd pain, nausea, emesis Physical Exam Physical Exam: gen - NAD, pleasant, thin mouth - MMM neck - no JVD heart - RRR, s1 s2, no murmur lungs - rales R base, otherwise CTA b/l abd - soft NT ND BS+ ext - pulses 2+ b/l feet musculo - right ankle - moderate swelling, pain over ankle mortise with compression, no pain with eversion in inversion; mild pain with flexion/extension; no pain over lateral ankle ligaments or the achilles skin - no rash Results & Data Results & Data ([facility]) Vital Signs (Past 12 Hours) Vital Signs Temp Pulse Resp BP Pulse Ox O2 Del Method O2 Flow Rate 06/10/22 17:57 75 18 89 L Nasal Cannula 3.5 06/10/22 15:33 36.9 C 101 H 19 130/76 91 Nasal Cannula 3.5 06/10/22 11:25 36.6 C 94 H 18 112/67 92 Nasal Cannula 5 06/10/22 11:09 91 H 18 94 Nasal Cannula 5 06/10/22 09:59 Nasal Cannula 5 06/10/22 07:48 36.6 C 105 H 19 102/64 91 Nasal Cannula 5 PG Care Time/CCT Total # of Minutes Spent Total Time Spent with Patient: Total time spent is greater than 50% in coordination of care (as documented) at patient's floor/unit and/or counseling patient: Coding Level of Care Code 83351 Subseq Hosp Care Lvl 3 Diagnoses Pneumonia J18.9 Sepsis A41.9 Acute respiratory failure with hypoxia J96.01 Non-small cell lung cancer with metastasis C34.90 Neuropathy G62.9 CLL (chronic lymphocytic leukemia) C91.10 Depression F32.9 Osteoporosis M81.0 Ulcerative proctitis K51.20 Right ankle pain M25.571
[2022-06-11] MEDS: ACETAMINOPHEN 325 MG TAB PO PRN ×2 (04:31→10:34)
[2022-06-11] MEDS: PIPERACILLIN/TAZOBACTAM 3.375 GM in DEXTROSE 5% 100 ML IV SCH ×3 (04:32→21:15)
[2022-06-11] MEDS: ALBUT/IPRATROP 3MG/0.5MG NEB 3 ML VIAL NEB SCH ×4 (05:35→18:13)
[2022-06-11 06:13] LABS: Hematocrit (blood only) 31.5 % (34.1-44.9); Hemoglobin 10.5 g/dl (12.0-16.0); Mean Corpuscular Hemoglobin 29.8 pg (25.0-34.0); Mean Corpuscular Hgb Conc 33.3 g/dL (32.0-36.0); Mean Corpuscular Volume 89.5 fL (80.0-100.0); Platelet Count 140 K/uL (130-400); RDW Coefficient of Variation 15.3 % (11.5-14.5); RDW Standard Deviation 48.7 fL (36.4-46.3); Red Blood Count 3.52 M/uL (3.93-5.22); White Blood Count 11.07 K/ul (4.8-10.8)
--- NOTE | 2022-06-11 06:30 | Ultrasound Report ---
US venous doppler LE RT HISTORY: 67 years-old Female right distal leg pain, cancer; eval DVT acute pain and swelling of the right lower extremity COMPARISON: 04/28/2022 TECHNIQUE: Multiple real-time sonographic images of the right lower extremity deep venous structures were obtained assessing grayscale appearance, color and spectral flow. FINDINGS: Normal flow, compressibility, phasicity and augmentation. Right inguinal adenopathy with lymph nodes measuring up to 1.9 x 0.7 cm. IMPRESSION: No sonographic evidence of deep venous thrombosis. ACT 112: Negative or not required by law. The above report was generated using voice recognition software. It may contain grammatical, syntax o r spelling errors. Electronically signed by: Brandon Morales M.D. 06/11/2022 6:28 AM
[2022-06-11 06:34] LABS: BUN Creatinine Ratio 19.8 (10-20); Calcium 8.6 mg/dl (8.5-10.1); Creatinine Clr Calc Pharmacy 56.5 ml/min; Est GFR (African American) 82.2 ml/min; Est GFR (Non-African American) 70.9 ml/min; Potassium 3.7 mmol/L (3.5-5.1)
[2022-06-11] MEDS: UMECLIDINIUM/VILANTEROL 62.5/25MCG 7 PUFFS/INHALER INH SCH (08:09)
[2022-06-11] MEDS: CEROVITE ADV FORMULA TAB PO SCH (08:09)
[2022-06-11] MEDS: GABAPENTIN 300 MG CAP PO SCH ×3 (08:09→20:21)
[2022-06-11] MEDS: RALOXIFENE HCL 60 MG TAB PO SCH (08:09)
[2022-06-11] MEDS: PANTOprazole 40 MG TAB PO SCH (08:09)
[2022-06-11] MEDS: buPROPion XL 300 MG TABCR PO SCH (08:10)
[2022-06-11] MEDS: DICLOFENAC SOD 1% GEL 100 GM TUBE EXT SCH ×4 (08:10→20:21)
--- NOTE | 2022-06-11 09:09 | Pulmonology Progress Note ---
Date of Service June 11, 2022 Assessment & Plan (1) Acute respiratory failure with hypoxia: (2) Non-small cell lung cancer with metastasis: (3) COPD with emphysema: (4) Abnormal CT scan of lung: Plan CT chest 06/09/2022 personally reviewed: Centrilobular emphysema appreciated bilaterally with mild interlobular thickening Right-sided pleural effusion with right lower lobe mass Mediastinal adenopathy at station 2P, 10R -- Acute respiratory failure with hypoxia Multifactorial Worsening of underlying lung cancer is a possibility Although the patient's BNP is negative I do see some interlobular thickening which could be lymphatic spread from underlying cancer Respiratory bio fire negative BNP 25 Procalcitonin 0.96 --COPD with emphysema Not on any inhalers at home I will start the patient on Anoro to be used on a daily basis Not in exacerbation, no need for steroids -- Metastatic non-small cell lung cancer Adenocarcinoma of unknown primary S/p chemoradiation, carboplatin/paclitaxel completed 04/03/2022 The right lower lobe mass is increasing in size along with right hilar and mediastinal lymphadenopathy S/p ultrasound-guided biopsy of the supraclavicular lymph node on the right side. We will await pathology if it is nondiagnostic then would recommend to have CT-guided biopsy of the right lower lobe lung mass -- History of CLL Plan: Continue with antibiotic Give a dose of Lasix 20 mg today. S/p ultrasound-guided biopsy of the supraclavicular lymph node on the right side. We will await pathology if it is nondiagnostic then would recommend to have CT-guided biopsy of the right lower lobe lung mass Case discussed with Please note the above document was generated using voice recognition software. It may contain grammatical, syntax or spelling errors.Any formal questions or concerns about the content, text or information contained within the body of this dictation should be directly addressed to the provider for clarification. Admission and Anticipated Discharge Date Admission Date: June 09, 2022 Subjective Patient seen and examined at bedside. No acute distress, no adverse events overnight She was saturating 90% on 4 L nasal cannula at rest Overall stated she is feeling the same. Coughing up clear phlegm. Denies any hemoptysis. Fair appetite. Review of Systems 2 Review of Systems: All systems reviewed & are unremarkable except as noted in Subjective Physical Exam Physical Exam: Constitutional: No acute distress HEENT: EOMI, PERRLA Respiratory system: Decreased air entry bilaterally, no wheeze, no rhonchi, positive crackles bilateral lower lobes more on the right side CVS: S1-S2 positive, no murmurs or gallops Abdomen: Soft, nontender, nondistended, positive bowel sounds x4 Extremities: +2 pulses bilaterally radialis/ dorsalis pedis, no cyanosis, no edema Neuro: Awake alert oriented x3 Psych: Normal mood and affect G/U: No Ruff Skin: no rashes, warm and dry Lymphatic: no cervical or axillary lymphadenopathy Results & Data Results & Data ([facility]) Vital Signs (Past 12 Hours) Vital Signs Temp Pulse Resp BP Pulse Ox O2 Del Method O2 Flow Rate 06/11/22 07:50 36.3 C L 89 18 110/66 91 Nasal Cannula 4 06/11/22 07:41 Nasal Cannula 4 06/11/22 02:57 36.5 C 84 18 105/64 92 Room Air 06/10/22 22:54 37.0 C 91 H 20 135/72 91 Room Air 06/10/22 22:17 Nasal Cannula 4 Laboratory Results 06/11/22 05:51 06/11/22 05:51 PG Care Time/CCT Total # of Minutes Spent Total Time Spent with Patient: Total time spent is greater than 50% in coordination of care (as documented) at patient's floor/unit and/or counseling patient: Coding Level of Care Code 38556 Subseq Hosp Care Lvl 2 Diagnoses Acute respiratory failure with hypoxia J96.01 Non-small cell lung cancer with metastasis C34.90 COPD with emphysema J43.[address] scan of lung R91.8
--- NOTE | 2022-06-11 11:32 | Magnetic Resonance Report ---
MR ankle RT wo con CLINICAL HISTORY: 67 years-old Female with ongoing pain, swelling. Subacute pain and swelling of the right ankle, most pronounced laterally. History of lung cancer. COMPARISON: Duplex venous Doppler study of same day, right foot and ankle radiographs 05/08/2022, ankl e radiographs 06/10/2022. TECHNIQUE: Multiplanar, multi sequence MRI of the right ankle was performed without contrast. FINDINGS: LATERAL LIGAMENT COMPLEX: Mild thickening of the anterior talofibular ligament suggestive of chronic sprain. The calcaneofibular ligament and posterior talofibular ligaments are intact. SYNDESMOTIC LIGAMENTS: Mild thickening of the anterior-inferior tibiofibular ligament, interosseous m embrane and posterior-inferior tibiofibular ligament suggestive of chronic sprain. DELTOID LIGAMENT COMPLEX: The superficial and deep components of the deltoid ligament are intact. ANTERIOR TENDONS: The tibialis anterior, extensor hallucis longus and extensor digitorum longus tendo ns are normal in position, morphology and signal. LATERAL TENDONS: The peroneus longus and brevis tendons are intact. Mild tenosynovitis of the peroneu s longus. MEDIAL TENDONS: The posterior tibialis, flexor digitorum longus and flexor hallucis longus tendons ar e intact. Mild tenosynovitis of the tibialis posterior. PLANTAR FASCIA: The medial and lateral bundles of the plantar fascia are normal in morphology and sig nal. There is no evidence of acute plantar fasciitis or tear. No evidence of plantar fascial nodule s. ACHILLES TENDON: The Achilles tendon is normal in position, morphology and signal. No associated burs itis. SINUS TARSI: Edema noted within the sinus Tarsi. The interosseous and cervical ligaments are normal. The navicular-calcaneal (spring) ligament is without acute abnormality. TARSAL TUNNEL: There are no obstructing lesions within the tarsal tunnel. BONE MARROW: There is diffuse marrow replacement with correspondingly decreased T1 and increased T2/S TIR signal throughout the foot, ankle and lower leg. No acute pathologic fracture identified. There i s diffuse periosteal edema. There is additional diffuse subcutaneous, deep tissue and intramuscular edema throughout the foot and ankle. IMPRESSION: 1. Diffuse marrow replacement throughout the imaged bony structures suggestive of osseous metastasis. Findings appear to have progressed from the comparison 05/08/2022 radiographs. 2. Additional subcutaneous, deep tissue and intramuscular edema is also likely related to the aforeme ntioned metastatic disease. A nonspecific cellulitis with myositis could appear similarly. 3. No acute pathologic fracture identified. ACT 112: Negative or not required by law. The above report was generated using voice recognition software. It may contain grammatical, syntax o r spelling errors. Electronically signed by: Brandon Morales M.D. 06/11/2022 11:31 AM
[2022-06-11] MEDS ORDERED: FUROSEMIDE INJ 20 MG/2 ML VIAL IV ONE (12:04)
[2022-06-11] MEDS: oxyCODONE HCL IR 5 MG TAB (IMMEDIATE RELEASE) PO PRN ×2 (12:09→16:40)
[2022-06-11] MEDS ORDERED: oxyCODONE HCL IR 5 MG TAB (IMMEDIATE RELEASE) PO STA (17:59)
--- NOTE | 2022-06-11 19:15 | Hospitalist Progress Note ---
Date of Service June 11, 2022 Assessment & Plan (1) Pneumonia: Plan: Chest CT with infiltrates in the right lower lobe around her known lung mass Could be pneumonia versus immunotherapy induced pneumonitis versus radiation pneumonitis elevated procal suggestive of infectious process cont zosyn IV - day #3 of such MRSA swab neg thus defer on MRSA coverage this evening her oxygen requirement worsened from 4 L to 10 L NC CXR obtained - my reading - extensive infiltrates right base; I don't see obvious pulmonary edema Perhaps she has mucous plugging of the right lung vs new-onset PEs vs worsening immunotherapy-induced pneumonitis vs worsening bacterial pneumonia vs other Plan - * continue aggressive pulmonary toilet * low threshold to repeat her chest CTA as she was off lovenox for 2 days for her lymph node biopsy; however, CTA chest just a few days ago was neg for PE * consider IV steroids * may need to go on high-flow NC tonight if things worsen further * consider additional IV lasix 20mg tonight but she received such earlier in the day and she had no clinical change with such (2) Sepsis: Plan: 2nd to RLL pneumonia blood cx's remain negative (3) Acute respiratory failure with hypoxia: Plan: worse this evening 2nd to RLL pneumonia, extensive lung ca can't rule out pulm edema can't rule out new PE can't rule out immunotherapy-induced pneumonitis cont IV abx cont pulm toilet consider repeat CTA chest consider another dose of IV lasix tonight stop oxycodone - perhaps this led to modest hypoventilating and worsening of her hypoxia switch the oxy to norco which tends to be less sedating (4) Non-small cell lung cancer with metastasis: Plan: First diagnosed in 11/2021, with mets to bone marrow and lymph nodes with massive retroperitoneal and mediastinal lymphadenopathy There is still a possibility that this may be breast primary versus lung primary as per oncology notes. Further testing on tumor sample is pending on this as well as a pending breast MRI MRI brain 12/2021 without evidence of metastatic disease Initially completed chemotherapy with carboplatin and paclitaxel completed on 04/03/2022 and radiation therapy Now on durvalumab immunotherapy-just received second round last week Follows with Dr. Lama of oncology. s/p supraclavicular lymph node biopsy 06/10 this showed metastatic adenocarcinoma R ankle MRI also showed bone mets as the cause of her pain (5) CLL (chronic lymphocytic leukemia): Plan: Followed by oncology since 2018. Considered to be intermediate risk due to FISH +13 q. deletion She has not required Rx s/p supraclavicular lymph node bx 06/10 -- enlarged lymph node is not from CLL but metastatic adenocarcinoma (6) Depression: Plan: Continue home bupropion (7) Osteoporosis: Plan: Continue home raloxifene (8) Ulcerative proctitis: Plan: Continue home [place] mesalamine (9) Right ankle pain: Plan: x-rays neg for fracture doppler RLE neg for DVT R ankle MRI is positive for bone mets voltaren gel, heat helpful but does not relief pain tried 5mg of oxycodone - this helped, but did not give complete relief increased to 10mg of oxycodone - this led to her being slightly "off" thus, change oxy to norco 7.5mg prn consider palliative radiation to right ankle (10) Tachycardia: Plan: this is sinus tach. she has had low-grade sinus tach (low 100s) since admission. attributed to sepsis, her respiratory issues/pneumonia, nebs, anxiety, etc. tachycardia worse this evening -- will stop the duonebs; she is not wheezing, and she does not feel any better with the nebs. worsening tachycardia could be sign of PE - if tachycardia persists consider repeat study. dedicated EKG ordered but still pending Plan DVT prophylaxis-Lovenox; resume such today She designates her sister, Patricia Adame, as her healthcare power of [place] attorney/spokesperson if she is unable to make decisions for herself. total time today over 3 separate visits - 70 minutes Admission and Anticipated Discharge Date Admission Date: June 09, 2022 Subjective multiple visits to pt's room today first was on am rounds we discussed her right leg imaging results which ultimately showed, via ankle MRI, that she has bone mets she was distraught by this news she did mention the combination of pain meds with voltaren gel does help she has also been using heat to the right ankle with respect to her breathing she reports things are "a little better" still coughing; minimal sputum production mild dyspnea with walking to the bathroom 2nd visit was to inform her that I had corresponded with both rad onc and oncology about the bone mets in the right ankle discussed that XRT might be an option for her for pain relief at the 2nd visit she reported that the oxycodone 5mg was not taking away the pain that well a 2nd dose of oxycodone was ordered for her about 1844 I was informed by her nurse that her HR was in the 120-130 range and that her O2 had been increased from 4l to 10l by respiratory she received a duoneb about 1800 I went to reassess her about 1899 she was resting comfortably in bed without any distress she denied feeling dyspneic she was slightly fuzzy when talking about her care - likely due to recent oxycodone usage denied any chest pain she did state she was tired and that it was an emotionally exhausting day for her finally, she reported that she did not notice any change in her breathing when she took the duonebs Review of Systems Review of Systems: gen - no fevers or chills cv - no chest pain pulm - no dyspnea at rest, mild cough gi - no abd pain or nausea/vomiting Physical Exam Physical Exam: gen - NAD, tearful at times today due to the news about her ankle, etc mouth - MMM neck - no JVD heart - tachy, RR, s1 s2, no murmur lungs - rales extending from R base to about [address] up back; fine rales L base; no wheezes; no increased work of breathing abd - soft NT ND BS+ ext - pulses 2+ b/l feet musculo - right ankle - mild swelling, pain over ankle mortise with compression like yesterday psych - tearful, but a/o x 3 throughout the day (slightly a little "off" during 3rd visit likely due to recent oxycodone usage) Results & Data Results & Data ([facility]) Vital Signs (Past 12 Hours) Vital Signs Temp Pulse Resp BP Pulse Ox O2 Del Method O2 Flow Rate 06/11/22 18:16 117 H 18 90 Nasal Cannula 10 06/11/22 16:27 36.7 C 117 H 19 108/69 91 Nasal Cannula 4 06/11/22 14:47 115 H 20 90 Nasal Cannula 5 06/11/22 11:36 36.6 C 103 H 129/78 92 Nasal Cannula 06/11/22 11:08 101 H 18 90 Nasal Cannula 4 06/11/22 07:50 36.3 C L 89 18 110/66 91 Nasal Cannula 4 06/11/22 07:41 Nasal Cannula 4 Laboratory Results Laboratory Results - last 24 hr 06/09/22 06/11/22 06/11/22 Unknown 05:51 05:51 WBC 11.07 H RBC 3.52 L Hgb 10.5 L Hct 31.5 L MCV 89.5 MCH 29.8 MCHC 33.3 RDW Std Deviation 48.7 H RDW Coeff of Aftab 15.3 H Plt Count 140 MPV 9.0 L Sodium 138 Potassium 3.7 Chloride 107 Carbon Dioxide 24 Anion Gap 7 BUN 17 Creatinine 0.86 Est Cr Clr Drug Dosing 56.5 Est GFR ( Amer) 82.2 Est GFR (Non-Af Amer) 70.9 BUN/Creatinine Ratio 19.8 Glucose 87 Calcium 8.6 Bacon-TRK (I[facility]) Pending FISH Oncology Pending IHC St[facility]p [facility] Pending PG Care Time/CCT Total # of Minutes Spent Total Time Spent with Patient: Total time spent is greater than 50% in coordination of care (as documented) at patient's floor/unit and/or counseling patient: Prolonged Care Time Prolonged Care Time: Yes Total Prolonged Care Time: 70 Coding Level of Care Code 89798 Subseq Hosp Care Lvl 3 (25 - SIGNIFICANT, SEPARATELY IDENTIFIABLE ) Diagnoses Pneumonia J18.9 Sepsis A41.9 Acute respiratory failure with hypoxia J96.01 Non-small cell lung cancer with metastasis C34.90 CLL (chronic lymphocytic leukemia) C91.10 Depression F32.9 Osteoporosis M81.0 Ulcerative proctitis K51.20 Right ankle pain M25.571 Tachycardia R00.0 Additional Codes Prolonged Care Time - Prolonged Care Time: Yes ([id number])
[2022-06-11] MEDS ORDERED: ALBUT/IPRATROP 3MG/0.5MG NEB 3 ML VIAL NEB PRN (19:37)
[2022-06-11] MEDS ORDERED: MELATONIN 3 MG TAB PO PRN (19:40)
--- NOTE | 2022-06-11 19:49 | XRay Report ---
SINGLE VIEW CHEST CLINICAL HISTORY: Hypoxia. FINDINGS: An AP, portable, upright chest radiograph is compared to study dated 02/18/2022 and correlate d with chest CT dated 06/09/2022. A right internal jugular central venous infusion port is unchanged in position. The cardiomediastinal silhouette is unremarkable noting atherosclerotic calcification of the thoracic aorta.. Emphysema and chronic interstitial thickening is similar to previous. There is airspace consolidation in the right mid to lower lung. Right basilar opacity likely corresponds to marshal serna's known lung mass. There is a small right pleural effusion. Scarring/atelectasis is seen at the right lung base. No pneumothorax is seen. The skeletal structures are osteopenic. The bony thorax is grossly intact. IMPRESSION: 1. Emphysema and right lower lobe lung mass. 2. Airspace consolidation in the right mid lung could represent pneumonia/aspiration pneumonitis vers us treatment related change. Clinical correlation will be essential. 3. Small right pleural effusion. ACT 112: Negative or not required by law. Electronically signed by: Edwin Wilhelm M.D. 06/11/2022 7:46 PM
[2022-06-11] MEDS: ENOXAPARIN INJ 40 MG/0.4 ML SYR SQ SCH (21:17)
[2022-06-11] MEDS ORDERED: oxyCODONE HCL IR 5 MG TAB (IMMEDIATE RELEASE) PO PRN (22:00)
[2022-06-11] MEDS ORDERED: HYDROCODONE/ACETAMINOPHEN 7.5/325MG TAB PO PRN (22:00)
--- NOTE | 2022-06-12 01:53 | Communication Note ---
Date of Service: June 12, 2022 cxr w/ emphysema, RLL lung mass, and airspace consolidation at R mid lung. is already on zosyn. considered cta if worsened tachycardia or o2 req beyond 10L. defer for now. will order abg and procal w/ am labs. on my exam ~2AM, rate 113 (per telemetry, 90s-100s), breathing comfortably, on 10L O2. denies chest pain or SOB. R middle lung field w/ inspiratory crackles. zosyn dose 3.375 q8 (extended infusion. at next dose (~1PM, will increase to 4.5 q8) given the severity of the presumed CAP vs aspiration, requiring 10L of supplemental oxygen.
[2022-06-12] MEDS: PIPERACILLIN/TAZOBACTAM 3.375 GM in DEXTROSE 5% 100 ML IV SCH (04:48)
[2022-06-12 06:28] LABS: Base Excess ABG 0.1 mEq/L (-9-1.8); HCO3 ABG 24 mmol/L (19-24); Oxygen Saturation ABG 94.4 % (90-95); PCO2 ABG 34 mmHg (35-46); PO2 ABG 68 mmHg (80-95); pH ABG 7.45 (7.35-7.45)
[2022-06-12 06:30] LABS: Allen Test Pos (Pos); Hematocrit (blood only) 33.9 % (34.1-44.9); Hemoglobin 11.5 g/dl (12.0-16.0); Mean Corpuscular Hemoglobin 30.3 pg (25.0-34.0); Mean Corpuscular Hgb Conc 33.9 g/dL (32.0-36.0); Mean Corpuscular Volume 89.2 fL (80.0-100.0); Mean Platelet Volume 9.2 fL (9.4-12.3); Platelet Count 170 K/uL (130-400); RDW Standard Deviation 48.3 fL (36.4-46.3); White Blood Count 13.87 K/ul (4.8-10.8)
[2022-06-12 07:22] LABS: Albumin Globulin Ratio 1.2 (0.9-2); Albumin Level 3.6 gm/dl (3.4-5.0); BUN Creatinine Ratio 27.5 (10-20); Bilirubin,Total 0.7 mg/dl (0.2-1.0); C Reactive Protein 2.07 mg/dl (0-0.5); Creatinine Clr Calc Pharmacy 58.9 ml/min; Est GFR (African American) 89.7 ml/min; Est GFR (Non-African American) 77.4 ml/min; Globulin 2.9 gm/dl (2.5-4.0); Magnesium 1.8 mg/dl (1.7-2.4); Potassium 3.8 mmol/L (3.5-5.1); Total Protein 6.5 gm/dl (6.0-8.3)
[2022-06-12 07:23] LABS: Basophils # (auto) 0.04 K/uL (0-0.2); Basophils % (auto) 0.3 %; Eosinophils # (auto) 0.11 K/uL (0-0.50); Eosinophils % (auto) 0.8 %; Immature Granulocytes # (auto) 0.04 K/uL (0.00-0.02); Immature Granulocytes % (auto) 0.3 %; Lymphocytes # (auto) 6.94 K/uL (1.2-3.4); Monocytes # (auto) 1.37 K/uL (0.24-0.82); Monocytes % (auto) 9.9 %; Neutrophils # (auto) 5.37 K/uL (1.4-6.5); Neutrophils % (auto) 38.7 %
[2022-06-12] MEDS: buPROPion XL 300 MG TABCR PO SCH (08:14)
[2022-06-12] MEDS: UMECLIDINIUM/VILANTEROL 62.5/25MCG 7 PUFFS/INHALER INH SCH (08:14)
[2022-06-12] MEDS: RALOXIFENE HCL 60 MG TAB PO SCH (08:14)
[2022-06-12] MEDS: PANTOprazole 40 MG TAB PO SCH (08:14)
[2022-06-12] MEDS: GABAPENTIN 300 MG CAP PO SCH ×3 (08:15→20:39)
[2022-06-12] MEDS: CEROVITE ADV FORMULA TAB PO SCH (08:15)
[2022-06-12] MEDS: DICLOFENAC SOD 1% GEL 100 GM TUBE EXT SCH ×4 (08:15→20:38)
[2022-06-12] MEDS ORDERED: FUROSEMIDE INJ 20 MG/2 ML VIAL IV ONE (08:57)
--- NOTE | 2022-06-12 08:58 | Pulmonology Progress Note ---
Date of Service June 12, 2022 Assessment & Plan (1) Acute respiratory failure with hypoxia: (2) Non-small cell lung cancer with metastasis: (3) COPD with emphysema: (4) Abnormal CT scan of lung: Plan CT chest 06/09/2022 personally reviewed: Centrilobular emphysema appreciated bilaterally with mild interlobular thickening Right-sided pleural effusion with right lower lobe mass Mediastinal adenopathy at station 2P, 10R -- Acute respiratory failure with hypoxia Multifactorial Worsening of underlying lung cancer is a possibility Although the patient's BNP is negative I do see some interlobular thickening which could be lymphatic spread from underlying cancer Respiratory bio fire negative BNP 25 Procalcitonin 0.96 --COPD with emphysema Not on any inhalers at home I will start the patient on Anoro to be used on a daily basis Not in exacerbation, no need for steroids -- Metastatic non-small cell lung cancer Adenocarcinoma of unknown primary S/p chemoradiation, carboplatin/paclitaxel completed 04/03/2022 The right lower lobe mass is increasing in size along with right hilar and mediastinal lymphadenopathy S/p ultrasound-guided biopsy of the supraclavicular lymph node on the right side. Positive for poorly differentiated adenocarcinoma --Abnormal chest CT The interlobular thickening which the patient has could be lymphatic spread of the underlying cancer Patient also got radiation on the right side radiation pneumonitis can present the same way Patient is already being treated for possible pneumonia -- History of CLL Plan: Given a dose of Lasix today Because of the need of oxygen requirement significantly as overnight. Abdomen change Lovenox to 50 mg every 12 hours. Patient did have right lower extremity Doppler done on 06/10/2022 which was negative. I will do Doppler bilateral lower extremities to see if she has any DVT. Patient already had a CTA chest done on 06/09/2022 which did not show PE. If the lower extremity Dopplers are negative bilaterally then I will consider CTA. Please note the above document was generated using voice recognition software. It may contain grammatical, syntax or spelling errors.Any formal questions or concerns about the content, text or information contained within the body of this dictation should be directly addressed to the provider for clarification. Admission and Anticipated Discharge Date Admission Date: June 09, 2022 Subjective Patient seen and examined at bedside. No acute distress Overnight patient desaturated while going to the commode. Her oxygen re quirement has gone up to 10 L now from 4 L. She was saturating 91% on 10 L nasal cannula the time of examination Denies any chest pain Occasional cough with clear phlegm. No nausea or vomiting Review of Systems Review of Systems: All systems reviewed & are unremarkable except as noted in Subjective Physical Exam Physical Exam: Constitutional: No acute distress HEENT: EOMI, PERRLA Respiratory system: Decreased air entry bilaterally, no wheeze, no rhonchi, positive crackles bilateral lower lobes more on the right side CVS: S1-S2 positive, no murmurs or gallops Abdomen: Soft, nontender, nondistended, positive bowel sounds x4 Extremities: +2 pulses bilaterally radialis/ dorsalis pedis, no cyanosis, no demetra ma Neuro: Awake alert oriented x3 Psych: Normal mood and affect G/U: No Ruff Skin: no rashes, warm and dry Lymphatic: no cervical or axillary lymphadenopathy Results & Data Results & Data ([facility]) Vital Signs (Past 12 Hours) Vital Signs Temp Pulse Pulse Resp BP Pulse Ox O2 Del Method 06/12/22 07:41 36.7 C 106 H 107/67 91 Nasal Cannula 06/12/22 03:45 37.0 C 102 H 16 106/70 90 Nasal Cannula 06/12/22 00:37 112 H 06/11/22 23:43 Nasal Cannula 06/11/22 22:50 36.9 C 116 H 20 98/62 L 90 Nasal Cannula O2 Flow Rate 06/12/22 07:41 9 06/12/22 03:45 10 06/12/22 00:37 06/11/22 23:43 10 06/11/22 22:50 8 Laboratory Results 06/12/22 06:04 06/12/22 06:04 PG Care Time/CCT Total # of Minutes Spent Total Time Spent with Patient: Total time spent is greater than 50% in coordination of care (as documented) at patient's floor/unit and/or counseling patient: Coding Level of Care Code 93662 Subseq Hosp Care Lvl 3 Diagnoses Acute respiratory failure with hypoxia J96.01 Non-small cell lung cancer with metastasis C34.90 COPD with emphysema J43.[address] scan of lung R91.8
[2022-06-12] MEDS ORDERED: oxyCODONE/APAP 7.5/325MG TAB PO PRN (09:29)
[2022-06-12] MEDS ORDERED: KETOROLAC TROMETHAMINE 15 MG/ML VIAL IV ONE (09:45)
[2022-06-12] MEDS: DOXYCYCLINE HYCLATE 100 MG in DEXTROSE 5% 100 ML IV SCH ×2 (10:30→20:39)
[2022-06-12] MEDS: PIPERACILLIN/TAZOBACTAM 4.5 GM in DEXTROSE 5% 100 ML IV SCH ×2 (13:08→20:39)
--- NOTE | 2022-06-12 15:48 | Ultrasound Report ---
ULTRASOUND BILATERAL LOWER EXTREMITY VENOUS CLINICAL HISTORY: Leg pain. Cancer history. COMPARISON STUDY: Right lower extremity venous ultrasound dated 06/10/2022. TECHNIQUE: Real-time, grayscale, and color Doppler sonography of the deep veins of the right and left lower extremity was performed from the inguinal crease to the calf. Compression and augmentation wer e utilized. FINDINGS: There is no sonographic evidence of deep venous thrombosis identified in the right or left lower extremity. The common femoral, superficial femoral, and popliteal veins are patent and normally compressible bilaterally. The greater saphenous vein and the profunda femoris vein at the junction w ith the common femoral vein are clear in both legs. The visualized calf veins are patent bilaterally. IMPRESSION: There is no sonographic evidence of deep venous thrombosis identified in the right or lef t lower extremity. ACT 112: Negative or not required by law. Electronically signed by: Edwin Wilhelm M.D. 06/12/2022 3:46 PM
--- NOTE | 2022-06-12 16:20 | XRay Report ---
XR chest 1V portable HISTORY: Shortness of breath. COMPARISON: Chest 06/11/2022. FINDINGS: No pneumothorax. The heart remains normal in size. Emphysema again noted. A right jugular P ort-A-Cath terminates in the SVC. Right perihilar airspace opacity and a small right pleural effusion persist. Left basilar linear densities favor subsegmental atelectasis. The patient's known right janis g mass is obscured by the airspace opacity. IMPRESSION: No change in the right perihilar airspace opacity/mass and small right pleural effusion. ACT 112: Negative or not required by law. Electronically signed by: Ramo Mcintosh M.D. 06/12/2022 4:19 PM
[2022-06-12] MEDS: KETOROLAC TROMETHAMINE 15 MG/ML VIAL IV PRN ×2 (16:24→22:33)
[2022-06-12] MEDS: ACETAMINOPHEN 325 MG TAB PO SCH ×2 (16:26→20:37)
--- NOTE | 2022-06-12 19:46 | Hospitalist Progress Note ---
Date of Service June 12, 2022 Assessment & Plan (1) Pneumonia: Plan: Chest CT with infiltrates in the right lower lobe around her known lung mass Could be pneumonia versus immunotherapy induced pneumonitis versus radiation pneumonitis elevated procal suggestive of infectious process cont zosyn IV - day #4 of such MRSA swab neg thus defer on MRSA coverage Worsening oxygen requirement but no worsening dyspneawork-up thus far fairly bland, appreciate pulmonary input. Continue supportive care Continue flutter valve, add incentive spirometer (2) Sepsis: Plan: 2nd to RLL pneumonia Improving (3) Acute respiratory failure with hypoxia: Plan: Related to pneumonia, extensive lung cancer, probably pulmonary edema, hard to rule out immunotherapy induced pneumonitiscontinue IV antibiotics pulmonary toilet Lasix supportive care further work-up as per pulmonary. Fortunately she does not show worse dyspnea although she does have much escalated oxygen requirement (4) Non-small cell lung cancer with metastasis: Plan: Escalated pain regimenpain control better. Outpatient follow-up with hematology/oncology as well as radiation oncology (5) CLL (chronic lymphocytic leukemia): Plan: Followed by oncology since 2018. Considered to be intermediate risk due to FISH +13 q. 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 Admission and Anticipated Discharge Date Admission Date: June 09, 2022 Subjective Pain under better control. Needing more oxygen, but not having any more dyspnea. Discussed the big picture of her situation as best as I could, answered all questions the best my ability. Reviewed pathology with her. Review of Systems Review of Systems: All systems reviewed & are unremarkable except as noted in HPI & below Physical Exam Physical Exam: In general she is awake and alert pleasant no distress. HEENT normocephalic atraumatic mucous membranes moist. Breathing unlabored but her lungs shows coarse scattered rhonchi and mucus sounds throughout. Breathing shows no accessory muscle use, no conversational dyspnea. Skin shows no rashes no pallor or icterus. Results & Data Results & Data ([facility]) Vital Signs (Past 12 Hours) Vital Signs Temp Pulse Pulse Resp BP Pulse Ox O2 Del Method 06/12/22 19:37 97.9 F 99 H 18 112/75 91 Free Flow/Blow-by 06/12/22 16:36 98.1 F 94 H 19 112/72 95 Nasal Cannula 06/12/22 12:18 97.7 F 100 H 19 112/75 90 Nasal Cannula 06/12/22 08:00 106 H 06/12/22 08:00 High Flow Nasal Cannula O2 Flow Rate 06/12/22 19:37 10 06/12/22 16:36 10 06/12/22 12:18 10 06/12/22 08:00 06/12/22 08:00 PG Care Time/CCT Total # of Minutes Spent Total Time Spent with Patient: Total time spent is greater than 50% in coordination of care (as documented) at patient's floor/unit and/or counseling patient: Coding Level of Care Code 06188 Subseq Hosp Care Lvl 3 Diagnoses Pneumonia J18.9 Sepsis A41.9 Acute respiratory failure with hypoxia J96.01 Non-small cell lung cancer with metastasis C34.90 CLL (chronic lymphocytic leukemia) C91.10 Depression F32.9 Osteoporosis M81.0 Ulcerative proctitis K51.20 Right ankle pain M25.571 Tachycardia R00.0
[2022-06-12] MEDS ORDERED: ENOXAPARIN INJ 60 MG/0.6 ML SYR SQ SCH (21:00)
[2022-06-13 05:59] LABS: Hematocrit (blood only) 32.8 % (34.1-44.9); Mean Corpuscular Hgb Conc 33.5 g/dL (32.0-36.0); Mean Corpuscular Volume 89.4 fL (80.0-100.0); Mean Platelet Volume 9.3 fL (9.4-12.3); Platelet Count 164 K/uL (130-400); RDW Coefficient of Variation 14.7 % (11.5-14.5); RDW Standard Deviation 47.4 fL (36.4-46.3); Red Blood Count 3.67 M/uL (3.93-5.22); White Blood Count 13.64 K/ul (4.8-10.8)
[2022-06-13] MEDS: PIPERACILLIN/TAZOBACTAM 4.5 GM in DEXTROSE 5% 100 ML IV SCH ×3 (06:01→19:33)
[2022-06-13 06:23] LABS: BUN Creatinine Ratio 31.3 (10-20); Calcium 8.8 mg/dl (8.5-10.1); Creatinine Clr Calc Pharmacy 49.1 ml/min; Est GFR (African American) 71.9 ml/min; Est GFR (Non-African American) 62.1 ml/min; Potassium 3.6 mmol/L (3.5-5.1)
[2022-06-13 07:18] LABS: Basophils # (auto) 0.05 K/uL (0-0.2); Basophils % (auto) 0.4 %; Eosinophils # (auto) 0.21 K/uL (0-0.50); Eosinophils % (auto) 1.5 %; Immature Granulocytes # (auto) 0.04 K/uL (0.00-0.02); Immature Granulocytes % (auto) 0.3 %; Monocytes # (auto) 1.14 K/uL (0.24-0.82); Monocytes % (auto) 8.4 %; Neutrophils % (auto) 26.4 %; Smudge Cells Present
--- NOTE | 2022-06-13 08:12 | Hospitalist Progress Note ---
Date of Service June 13, 2022 Assessment & Plan (1) Pneumonia: Plan: Chest CT with infiltrates in the right lower lobe around her known lung mass Could be pneumonia versus immunotherapy (last 2 weeks ago) induced pneumonitis versus radiation pneumonitis (radiation in april 07) elevated procal suggestive of infectious process cont zosyn IV - day #5 of such MRSA swab neg thus defer on MRSA coverage Worsening oxygen requirement but no worsening dyspnea Pulmonology consulted, started Anoro, solumedrol, possibility of PE low Continue flutter valve, add incentive spirometer (2) Sepsis: Plan: 2nd to RLL pneumonia Improving Note CBC shows lymph predominance (3) Acute respiratory failure with hypoxia: Plan: Related to pneumonia, extensive lung cancer, probably pulmonary edema, hard to rule out immunotherapy induced pneumonitiscontinue IV antibiotics pulmonary toilet Lasix supportive care further work-up as per pulmonary. Fortunately she does not show worse dyspnea although she does have much escalated oxygen requirement (4) Non-small cell lung cancer with metastasis: Plan: Escalated pain regimenpain control better. Outpatient follow-up with hematology/oncology as well as radiation oncology (5) CLL (chronic lymphocytic leukemia): Plan: Followed by oncology since 2018. Considered to be intermediate risk due to FISH +13 q. deletion She has not required Rx s/p supraclavicular lymph node bx 06/10 -- enlarged lymph node is not from CLL but metastatic adenocarcinoma (6) Depression: Plan: Continue home bupropion (7) Osteoporosis: Plan: Continue home raloxifene (8) Ulcerative proctitis: Plan: Continue home [place] mesalamine (9) Right ankle pain: Plan: x-rays neg for fracture doppler RLE neg for DVT R ankle MRI is positive for bone mets Escalated pain regimenbetter pain control today consider palliative radiation to right ankle (10) Tachycardia: Plan: Sinus/reactive Plan DVT prophylaxis-Lovenox She designates her sister, Patricia Adame, as her healthcare power of edge stitcher/spokesperson if she is unable to make decisions for herself. Admission and Anticipated Discharge Date Admission Date: June 09, 2022 Supervising Physician Co-Signing Physician Notes I personally examined the patient and verified all arriola points of history and exam, discussed case, and agree with decision making with Dr Byrne. Breathing feels pretty good. No significant dyspnea. Still needing pretty significant amounts of oxygen though. Pain under control. Vitals noted, in general she is awake and alert pleasant no distress. HEENT normocephalic atraumatic mucous membranes moist. Lungs show a little bit more open air entry but ongoing rales diffusely throughout the right lung left is surprisingly clear, no accessory muscle use good effort no wheezing. Acute hypoxic respiratory failureappearing to be due to mass, obstructive pneumonia, surrounding inflammationclinically stable feeling well, seems to be slowly improving. Continue current care, follow closely. Pain controlled. Otherwise as above. Subjective Patient seen at bedside, calm comfortable cooperative, states her breathing is slightly better today compared to yesterday. She complains of pain in her ankle secondary to her cancer. She is aware at this time we are continuing her antibiotics and other treatments and monitoring her for changes. She does not have home oxygen but understands she may end up with a new oxygen requirement. Denies nausea vomitting Review of Systems Review of Systems: see hpi Physical Exam Constitutional: well developed, well nourished, cooperative and comfortable Eyes: PERRL, conjunctivae normal, anicteric sclerae ENMT: external ear and nose normal, oropharynx normal Neck: trachea midline, no thyromegaly Respiratory: Auscultation: + crackles (R>L) Cardiovascular: Rate/Rhythm: regular rate and regular rhythm Extremities: no edema Gastrointestinal (Abdomen): Inspection/Auscultation: abdomen normal to inspection Percussion/Palpation: abdomen soft; abdomen nontender Skin: no rashes, warm and dry Results & Data Results & Data ([facility]) Vital Signs (Past 12 Hours) Vital Signs Temp Pulse Pulse Resp BP Pulse Ox O2 Del Method 06/13/22 07:26 36.5 C 98 H 20 112/69 91 High Flow Nasal Cannula 06/13/22 03:26 90 18 100/62 92 Free Flow/Blow-by 06/12/22 23:14 36.6 C 93 H 18 104/65 94 Free Flow/Blow-by 06/12/22 22:55 Nasal Cannula 06/12/22 22:54 107 H O2 Flow Rate 06/13/22 07:26 10 06/13/22 03:26 10 06/12/22 23:14 10 06/12/22 22:55 10 06/12/22 22:54 Diagnostic Findings Laboratory Results WBC 13.64 K/ul (4.8-10.8) H 06/13/22 05:36 RBC 3.67 M/uL (3.93-5.22) L 06/13/22 05:36 Hgb 11.0 g/dl (12.0-16.0) L 06/13/22 05:36 POC Hgb 11.2 g/dl (12.0-16.0) L 06/09/22 14:19 Hct 32.8 % (34.1-44.9) L 06/13/22 05:36 POC Hct 33 % (37-47) L 06/09/22 14:19 MCV 89.4 fL (80.0-100.0) 06/13/22 05:36 MCH 30.0 pg (25.0-34.0) 06/13/22 05:36 MCHC 33.5 g/dL (32.0-36.0) 06/13/22 05:36 RDW Std Deviation 47.4 fL (36.4-46.3) H 06/13/22 05:36 RDW Coeff of Aftab 14.7 % (11.5-14.5) H 06/13/22 05:36 Plt Count 164 K/uL (130-400) 06/13/22 05:36 MPV 9.3 fL (9.4-12.3) L 06/13/22 05:36 Immature Gran % (Auto) 0.3 % 06/13/22 05:36 Neut % (Auto) 26.4 % 06/13/22 05:36 Lymph % (Auto) 63.0 % 06/13/22 05:36 [place] % (Auto) 8.4 % 06/13/22 05:36 Eos % (Auto) 1.5 % 06/13/22 05:36 Baso % (Auto) 0.4 % 06/13/22 05:36 Neut # (Auto) 3.60 K/uL (1.4-6.5) 06/13/22 05:36 Lymph # (Auto) 8.60 K/uL (1.2-3.4) H 06/13/22 05:36 [place] # (Auto) 1.14 K/uL (0.24-0.82) H 06/13/22 05:36 Eos # (Auto) 0.21 K/uL (0-0.50) 06/13/22 05:36 Baso # (Auto) 0.05 K/uL (0-0.2) 06/13/22 05:36 Immature Gran # (Auto) 0.04 K/uL (0.00-0.02) H 06/13/22 05:36 Smudge Cells Present 06/13/22 05:36 PT 10.9 Seconds (9.0-12.0) 06/09/22 14:10 INR 1.0 (0.9-1.1) 06/09/22 14:10 APTT 29.0 Seconds (21.0-31.0) 06/09/22 14:10 PTT Ratio 1.1 06/09/22 14:10 D-Dimer 3170 ug/L FEU (0-500) H* 06/09/22 14:10 ABG pH 7.45 (7.35-7.45) 06/12/22 06:04 ABG pCO2 34 mmHg (35-46) L 06/12/22 06:04 ABG pO2 68 mmHg (80-95) L 06/12/22 06:04 ABG HCO3 24 mmol/L (19-24) 06/12/22 06:04 ABG O2 Saturation 94.4 % (90-95) 06/12/22 06:04 ABG Base Excess 0.1 mEq/L (-9-1.8) 06/12/22 06:04 Jeremi Test Pos (Pos) 06/12/22 06:04 Oxygen Given 06/12/22 06:04 POC Sodium 138 mmol/L (135-144) 06/09/22 14:19 Sodium 134 mmol/L (136-145) L 06/13/22 05:36 POC Potassium 4.1 mmol/L (3.3-5.0) 06/09/22 14:19 Potassium 3.6 mmol/L (3.5-5.1) 06/13/22 05:36 POC Chloride 107 mmol/L (101-112) 06/09/22 14:19 Chloride 101 mmol/L (98-107) 06/13/22 05:36 Carbon Dioxide 24 mmol/L (21-32) 06/13/22 05:36 POC Total CO2 21 mmol/L (24-31) L 06/09/22 14:19 Anion Gap 9 (3-11) 06/13/22 05:36 POC Anion Gap 15.0 mmol/L (16-25) L 06/09/22 14:19 POC BUN 19 mg/dl (7-18) H 06/09/22 14:19 BUN 30 mg/dl (6-23) H 06/13/22 05:36 Creatinine 0.96 mg/dl (0.6-1.2) 06/13/22 05:36 POC Creatinine 0.8 mg/dl (0.6-1.3) 06/09/22 14:19 Est Cr Clr Drug Dosing 49.1 ml/min 06/13/22 05:36 Est GFR ( Amer) 71.9 ml/min 06/13/22 05:36 Est GFR (Non-Af Amer) 62.1 ml/min 06/13/22 05:36 BUN/Creatinine Ratio 31.3 (10-20) H 06/13/22 05:36 Glucose 89 mg/dl (70-99(Fasting)) 06/13/22 05:36 POC Glucose (other) 89 mg/dl (70-99) 06/09/22 14:19 Lactate 0.7 mmol/L (0.4-2.0) 06/09/22 15:32 Calcium 8.8 mg/dl (8.5-10.1) 06/13/22 05:36 POC Ioniz Calcium [place] 1.14 mmol/l (1.12-1.32) 06/09/22 14:19 Magnesium 1.8 mg/dl (1.7-2.4) 06/12/22 06:04 Total Bilirubin 0.7 mg/dl (0.2-1.0) 06/12/22 06:04 AST 38 U/L (13-39) 06/12/22 06:04 ALT 25 U/L (7-52) 06/12/22 06:04 Alkaline Phosphatase 219 U/L (34-104) H 06/12/22 06:04 Troponin I High Sens 7.4 pg/ml (0-14) 06/09/22 14:10 C-Reactive Protein 2.07 mg/dl (0-0.5) H 06/12/22 06:04 B-Natriuretic Peptide 25 pg/ml (0-100) 06/09/22 17:03 Total Protein 6.5 gm/dl (6.0-8.3) 06/12/22 06:04 Albumin 3.6 gm/dl (3.4-5.0) 06/12/22 06:04 Globulin 2.9 gm/dl (2.5-4.0) 06/12/22 06:04 Albumin/Globulin Ratio 1.2 (0.9-2) 06/12/22 06:04 Procalcitonin 1.66 ng/ml (0-0.5) H 06/12/22 06:04 Urine Color Yellow 06/09/22 17:03 Urine Appearance Clear (Clear) 06/09/22 17:03 Urine pH 5.0 (4.5-7.5) 06/09/22 17:03 Ur Specific [place] 1.034 (1.000-1.030) H 06/09/22 17:03 Urine Protein Negative (Negative) 06/09/22 17:03 Urine Glucose (UA) Negative (Negative) 06/09/22 17:03 Urine Ketones Negative (Negative) 06/09/22 17:03 Urine Blood Negative (Negative) 06/09/22 17:03 Urine Nitrite Negative (Negative) 06/09/22 17:03 Urine Bilirubin Negative (Negative) 06/09/22 17:03 Urine Urobilinogen Negative (Negative) 06/09/22 17:03 Ur Leukocyte Esterase Negative (Negative) 06/09/22 17:03 Nasal Screen MRSA (PCR) Negative (Negative) 06/09/22 17:03 Adenovirus (PCR) Not Detected (NotDetected) 06/09/22 14:10 B. pertussis DNA (PCR) Not Detected (NotDetected) 06/09/22 14:10 B.parapertussis DNA PCR Not Detected (NotDetected) 06/09/22 14:10 C. pneumoniae DNA (PCR) Not Detected (NotDetected) 06/09/22 14:10 Coronavirus OC43 (PCR) Not Detected (NotDetected) 06/09/22 14:10 Coronavirus HKU1 (PCR) Not Detected (NotDetected) 06/09/22 14:10 Coronavirus 229E (PCR) Not Detected (NotDetected) 06/09/22 14:10 SARS-CoV-2 (PCR) Not Detected (NotDetected) 06/09/22 14:10 Coronavirus NL63 (PCR) Not Detected (NotDetected) 06/09/22 14:10 Human Metapneumovir PCR Not Detected (NotDetected) 06/09/22 14:10 Influenza Type A (PCR) Not Detected (NotDetected) 06/09/22 14:10 Influenza Type B (PCR) Not Detected (NotDetected) 06/09/22 14:10 M. pneumoniae (PCR) Not Detected (NotDetected) 06/09/22 14:10 Parainfluenza 1 (PCR) Not Detected (NotDetected) 06/09/22 14:10 Parainfluenza 2 (PCR) Not Detected (NotDetected) 06/09/22 14:10 Parainfluenza 3 (PCR) Not Detected (NotDetected) 06/09/22 14:10 Parainfluenza 4 (PCR) Not Detected (NotDetected) 06/09/22 14:10 RSV (PCR) Not Detected (NotDetected) 06/09/22 14:10 Entero/Rhino (PCR) Not Detected (NotDetected) 06/09/22 14:10 Impressions Chest CTA 06/09/22 13:59 CT ANGIOGRAPHY OF THE CHEST, PULMONARY EMBOLUS PROTOCOL CLINICAL HISTORY: Shortness of breath. Lung cancer. Lymphoma. COMPARISON STUDY: Chest CT April 18, 2022. PET/CT December 11, 2021. TECHNIQUE: Following IV administration of 105 mL of Optiray, helical axial images of the chest were obtained utilizing the pulmonary embolus protocol. Maximal intensity projections and sagittal and coronal reformats were viewed on an independent 3D workstation. IV contrast was administered without complication. Automated exposure control was utilized for the study. A dose lowering technique was utilized adhering to the principles of ALARA. CT DOSE: 247.67 mGy.cm FINDINGS: Right internal jugular [id number] is in place. No pulmonary emboli are identified. There is no thoracic aortic dissection. Size of the heart is normal. There is no pericardial effusion. A small right pleural effusion has developed since CT of April 18, 2022. There is no pneumothorax. There is a 7.2 x 4.7 cm masslike opacity within the right lower lobe. This has increased since exam of April 18, 2022 and is at site of primary tumor shown on CT of January 15, 2022. Differentiation between the known malignancy and consolidation is difficult. Multifocal airspace opacities within the right lung have developed since prior CT. There is underlying emphysema. Interlobular septal thickening is greater within the right lung. A few patchy left lung opacities are present. Enlarged bilateral axillary lymph nodes are similar to prior chest CT. These have decreased in size since earlier PET/CT. Right supraclavicular and mediastinal lymphadenopathy has progressed since CT of April 18, 2022. Index right supraclavicular lymph node on axial image 259 of 298 measures 2.2 x 1.7 cm. It previously measured 1.6 x 1 cm. Right paratracheal lymph node on image 216 measures 2.8 x 2 cm. It previously measured 1.9 x 1.6 cm. These lymph nodes are heterogeneous. Mild splenomegaly is unchanged. No suspicious lesions are identified within the bony thorax. IMPRESSION: 1. No pulmonary emboli identified. 2. Progression of right subclavicular and mediastinal lymphadenopathy. This adenopathy is likely neoplastic and favors progression of metastatic lung cancer over lymphoma. 3. Increase in size of a right lower lobe masslike opacity at site of known tumor. Differentiation between the primary tumor and consolidation is difficult however this favors progression of the primary tumor. 4. Multifocal airspace opacities within the right lung which could reflect pneumonia or post radiation change. Small right pleural effusion. 5. Asymmetric interlobular septal thickening within the right lung. This may reflect asymmetric pulmonary edema however lymphangitic spread of tumor could appear similar. 6. No significant change in bilateral axillary lymphadenopathy which favors lymphoma. ACT 112: Negative or not required by law. Electronically signed by: José Miguel Denis M.D. 06/09/2022 3:41 PM Aspiration 06/10/22 13:07 ULTRASOUND GUIDED CORE BIOPSY AND FINE NEEDLE ASPIRATION OF RIGHT SUPRACLAVICULAR LYMPH NODE CLINICAL HISTORY: Supraclavicular right sided LN biopsy COMPARISON STUDY: Chest CT June 09, 2022. PROCEDURE: Sonography of the right supraclavicular region demonstrated multiple pathologically enlarged supraclavicular lymph nodes. Index 1.8 cm right supraclavicular lymph node was targeted for biopsy. The procedure, risks and benefits were discussed with the patient and informed written consent was obtained. The procedure was performed by Dr. Denis following a timeout. Skin of the right neck was prepped and draped in sterile fashion and local anesthesia was achieved with 1% lidocaine. Under direct ultrasound guidance, a 25-gauge fine needle aspiration of the right supraclavicular lymph node was performed. Suspicious cells were noted. An 18-gauge core sample was then obtained. Samples were deemed preliminarily adequate. The patient tolerated the procedure well and no immediate complications were evident. IMPRESSION: Successful ultrasound guided core biopsy and fine-needle aspiration of a right supraclavicular lymph node. ACT 112: Negative or not required by law. Electronically signed by: José Miguel Denis M.D. 06/10/2022 3:28 PM Lymph Node Biopsy Ultrasound 06/10/22 15:07 ULTRASOUND GUIDED CORE BIOPSY AND FINE NEEDLE ASPIRATION OF RIGHT SUPRACLAVICULAR LYMPH NODE CLINICAL HISTORY: Supraclavicular right sided LN biopsy COMPARISON STUDY: Chest CT June 09, 2022. PROCEDURE: Sonography of the right supraclavicular region demonstrated multiple pathologically enlarged supraclavicular lymph nodes. Index 1.8 cm right supraclavicular lymph node was targeted for biopsy. The procedure, risks and benefits were discussed with the patient and informed written consent was obtained. The procedure was performed by Dr. Denis following a timeout. Skin of the right neck was prepped and draped in sterile fashion and local anesthesia was achieved with 1% lidocaine. Under direct ultrasound guidance, a 25-gauge fine needle aspiration of the right supraclavicular lymph node was performed. Suspicious cells were noted. An 18-gauge core sample was then obtained. Samples were deemed preliminarily adequate. The patient tolerated the procedure well and no immediate complications were evident. IMPRESSION: Successful ultrasound guided core biopsy and fine-needle aspiration of a right supraclavicular lymph node. ACT 112: Negative or not required by law. Electronically signed by: José Miguel Denis M.D. 06/10/2022 3:28 PM Ankle X-Ray 06/10/22 16:30 XR ankle RT 2V CLINICAL HISTORY: pain, swelling R ankle COMPARISON STUDY: Right ankle 05/08/2022. FINDINGS: Mild soft tissue swelling within the right ankle, unchanged. No acute fracture or dislocation. The ankle mortise is intact. Mild cartilage space narrowing at the tibiotalar joint, unchanged. No erosive changes. IMPRESSION: Mild soft tissue swelling within the right ankle. No fractures. ACT 112: Negative or not required by law. Electronically signed by: Ramo Mcintosh M.D. 06/10/2022 5:29 PM Ankle MRI 06/10/22 19:48 MR ankle RT wo con CLINICAL HISTORY: 67 years-old Female with ongoing pain, swelling. Subacute pain and swelling of the right ankle, most pronounced laterally. History of lung cancer. COMPARISON: Duplex venous Doppler study of same day, right foot and ankle radiographs 05/08/2022, ankle radiographs 06/10/2022. TECHNIQUE: Multiplanar, multi sequence MRI of the right ankle was performed without contrast. FINDINGS: LATERAL LIGAMENT COMPLEX: Mild thickening of the anterior talofibular ligament suggestive of chronic sprain. The calcaneofibular ligament and posterior talofibular ligaments are intact. SYNDESMOTIC LIGAMENTS: Mild thickening of the anterior-inferior tibiofibular ligament, interosseous membrane and posterior-inferior tibiofibular ligament suggestive of chronic sprain. DELTOID LIGAMENT COMPLEX: The superficial and deep components of the deltoid ligament are intact. ANTERIOR TENDONS: The tibialis anterior, extensor hallucis longus and extensor digitorum longus tendons are normal in position, morphology and signal. LATERAL TENDONS: The peroneus longus and brevis tendons are intact. Mild tenosynovitis of the peroneus longus. MEDIAL TENDONS: The posterior tibialis, flexor digitorum longus and flexor hallucis longus tendons are intact. Mild tenosynovitis of the tibialis posterior. PLANTAR FASCIA: The medial and lateral bundles of the plantar fascia are normal in morphology and signal. There is no evidence of acute plantar fasciitis or tear. No evidence of plantar fascial nodules. ACHILLES TENDON: The Achilles tendon is normal in position, morphology and signal. No associated bursitis. SINUS TARSI: Edema noted within the sinus Tarsi. The interosseous and cervical ligaments are normal. The navicular-calcaneal (spring) ligament is without acute abnormality. TARSAL TUNNEL: There are no obstructing lesions within the tarsal tunnel. BONE MARROW: There is diffuse marrow replacement with correspondingly decreased T1 and increased T2/STIR signal throughout the foot, ankle and lower leg. No acute pathologic fracture identified. There is diffuse periosteal edema. There is additional diffuse subcutaneous, deep tissue and intramuscular edema throughout the foot and ankle. IMPRESSION: 1. Diffuse marrow replacement throughout the imaged bony structures suggestive of osseous metastasis. Findings appear to have progressed from the comparison 05/08/2022 radiographs. 2. Additional subcutaneous, deep tissue and intramuscular edema is also likely related to the aforementioned metastatic disease. A nonspecific cellulitis with myositis could appear similarly. 3. No acute pathologic fracture identified. ACT 112: Negative or not required by law. The above report was generated using voice recognition software. It may contain grammatical, syntax or spelling errors. Electronically signed by: Brandon Morales M.D. 06/11/2022 11:31 AM Chest X-Ray 06/12/22 07:00 XR chest 1V portable HISTORY: Shortness of breath. COMPARISON: Chest 06/11/2022. FINDINGS: No pneumothorax. The heart remains normal in size. Emphysema again noted. A right jugular Port-A-Cath terminates in the SVC. Right perihilar airspace opacity and a small right pleural effusion persist. Left basilar linear densities favor subsegmental atelectasis. The patient's known right lung mass is obscured by the airspace opacity. IMPRESSION: No change in the right perihilar airspace opacity/mass and small right pleural effusion. ACT 112: Negative or not required by law. Electronically signed by: Ramo Mcintosh M.D. 06/12/2022 4:19 PM Venous Doppler Study 06/12/22 15:00 ULTRASOUND BILATERAL LOWER EXTREMITY VENOUS CLINICAL HISTORY: Leg pain. Cancer history. COMPARISON STUDY: Right lower extremity venous ultrasound dated 06/10/2022. TECHNIQUE: Real-time, grayscale, and color Doppler sonography of the deep veins of the right and left lower extremity was performed from the inguinal crease to the calf. Compression and augmentation were utilized. FINDINGS: There is no sonographic evidence of deep venous thrombosis identified in the right or left lower extremity. The common femoral, superficial femoral, and popliteal veins are patent and normally compressible bilaterally. The greater saphenous vein and the profunda femoris vein at the junction with the common femoral vein are clear in both legs. The visualized calf veins are patent bilaterally. IMPRESSION: There is no sonographic evidence of deep venous thrombosis identified in the right or left lower extremity. ACT 112: Negative or not required by law. Electronically signed by: Edwin Wilhelm M.D. 06/12/2022 3:46 PM Medications Administered Current Inpatient Medications Acetaminophen (Acetaminophen 325 Mg Tab) 650 mg PO TID KRIS Stop: 07/12/22 14:59 Last Admin: 06/13/22 12:33 Dose: Not Given Albuterol (Albut/Ipratrop 3mg/0.5mg Neb 3 Ml Vial) 3 ml NEB QIDR PRN; Protocol PRN Reason: dyspnea/wheezing/cough Stop: 07/09/22 19:44 Bupropion HCl (Bupropion Xl 300 Mg Tabcr) 300 mg PO QAM KRIS Stop: 07/10/22 08:59 Last Admin: 06/13/22 09:17 Dose: 300 mg Diclofenac Sodium (Diclofenac Sod 1% Gel 100 Gm Tube) 4 gm EXT QID KRIS; Protocol Stop: 07/10/22 16:59 Last Admin: 06/13/22 13:10 Dose: 4 gm Docusate Sodium (Docusate Sodium 100 Mg Cap) 100 mg PO DAILY KRIS Stop: 07/13/22 08:59 Last Admin: 06/13/22 09:22 Dose: 100 mg Enoxaparin Sodium (Enoxaparin Inj 40 Mg/0.4 Ml Syr) 40 mg SQ DAILY KRIS Stop: 07/13/22 08:59 Last Admin: 06/13/22 09:18 Dose: 40 mg Gabapentin (Gabapentin 300 Mg Cap) 300 mg PO TID KRIS Stop: 07/09/22 20:59 Last Admin: 06/13/22 13:11 Dose: 300 mg Heparin Sodium (Porcine) (Heparin 100 Unit/Ml 5ml Flush) 5 ml FLUSH PRN PRN PRN Reason: Flush Stop: 07/11/22 01:08 Piperacillin Sod/Tazobactam (Sod 4.5 gm/ Dextrose) 120 mls @ 30 mls/hr IV Q8H KRIS; Protocol Stop: 06/19/22 12:59 Last Admin: 06/13/22 13:10 Dose: 30 mls/hr Doxycycline Hyclate 100 mg/ (Dextrose) 110 mls @ 50 mls/hr IV Q12H KRIS Stop: 06/19/22 09:59 Last Infusion: 06/13/22 12:34 Dose: Infused Methylprednisolone 40 mg/ (Syringe) 0.64 mls @ 1.5 mls/min IV Q8H KRIS Stop: 07/13/22 08:29 Last Admin: 06/13/22 09:16 Dose: 1.5 mls/min Ketorolac Tromethamine (Ketorolac Tromethamine 15 Mg/Ml Vial) 15 mg IV Q6H PRN PRN Reason: MODERATE Pain Stop: 06/17/22 09:40 Last Admin: 06/13/22 09:21 Dose: 15 mg Melatonin (Melatonin 3 Mg Tab) 3 mg PO HS PRN PRN Reason: Sleep Stop: 07/11/22 19:39 Miscellaneous (Order Awaiting Action [Mesalamine 1,000 Mg Suppository]) 1 each N/A QS [facility] Stop: 07/10/22 00:00 Last Admin: 06/13/22 09:15 Dose: Not Given Multivitamins/Minerals (Cerovite Adv Formula Tab) 1 tab PO DAILY KRIS Stop: 07/10/22 08:59 Last Admin: 06/13/22 09:17 Dose: 1 tab Ondansetron HCl (Ondansetron Inj 2 Mg/Ml 2 Ml Vial) 4 mg IV Q6H PRN PRN Reason: Nausea Stop: 07/09/22 19:44 Oxycodone/Acetaminophen (Oxycodone/Apap 7.5/325mg Tab) 1 tab PO Q4H PRN PRN Reason: SEVERE Pain Stop: 06/26/22 09:28 Last Admin: 06/13/22 12:33 Dose: 1 tab Pantoprazole Sodium (Pantoprazole 40 Mg Tab) 40 mg PO QAM [facility] Stop: 07/10/22 08:59 Last Admin: 06/13/22 09:17 Dose: 40 mg Polyethylene Glycol (Polyethylene (Miralax) 17 Gm Pack) 17 gm PO DAILY PRN PRN Reason: Constipation Stop: 07/09/22 19:44 Raloxifene HCl (Raloxifene Hcl 60 Mg Tab) 60 mg PO QAM KRIS Stop: 07/10/22 08:59 Last Admin: 06/13/22 09:17 Dose: 60 mg Umeclidinium/Vilanterol (Umeclidinium/Vilanterol 62.5/25mcg 7 Puffs/Inhaler) 1 puffs INH QDR KRIS Stop: 07/10/22 09:14 Last Admin: 06/13/22 09:16 Dose: 1 puffs Resident Activity Tracking Resident Involvement: Resident Care Provided Care Provided: Adult Hospital Medicine
[2022-06-13] MEDS: ACETAMINOPHEN 325 MG TAB PO SCH ×3 (08:22→19:25)
--- NOTE | 2022-06-13 08:45 | Pulmonology Progress Note ---
Date of Service June 13, 2022 Assessment & Plan (1) Acute respiratory failure with hypoxia: (2) Non-small cell lung cancer with metastasis: (3) COPD with emphysema: (4) Abnormal CT scan of lung: Plan CT chest 06/09/2022 personally reviewed: Centrilobular emphysema appreciated bilaterally with mild interlobular thickening Right-sided pleural effusion with right lower lobe mass Mediastinal adenopathy at station 2P, 10R -- Acute respiratory failure with hypoxia Multifactorial Worsening of underlying lung cancer is a possibility Although the patient's BNP is negative I do see some interlobular thickening which could be lymphatic spread from underlying cancer Patient is also getting immunotherapy, pneumonitis from it is also possibility --> patient started on Solu-Medrol .Doppler bilateral lower extremity - 06/12/2022 Respiratory bio fire negative BNP 25 Procalcitonin 0.96 --COPD with emphysema Not on any inhalers at home I will start the patient on Anoro to be used on a daily basis Not in exacerbation, no need for steroids -- Metastatic non-small cell lung cancer Adenocarcinoma of unknown primary S/p chemoradiation, carboplatin/paclitaxel completed 04/03/2022 The right lower lobe mass is increasing in size along with right hilar and mediastinal lymphadenopathy S/p ultrasound-guided biopsy of the supraclavicular lymph node on the right side. Positive for poorly differentiated adenocarcinoma --Abnormal chest CT The interlobular thickening which the patient has could be lymphatic spread of the underlying cancer Patient also got radiation on the right side radiation pneumonitis can present the same way Patient is already being treated for possible pneumonia -- History of CLL Plan: Continue with Solu-Medrol 40 mg every 8 hours O2 supplementation to keep O2 saturation 90-92% Incentive spirometry will be beneficial Change Lovenox to prophylactic dose again as possibility of PE is low. Case was discussed with RN Please note the above document was generated using voice recognition software. It may contain grammatical, syntax or spelling errors.Any formal questions or concerns about the content, text or information contained within the body of this dictation should be directly addressed to the provider for clarification. Admission and Anticipated Discharge Date Admission Date: June 09, 2022 Subjective Patient seen and examined at bedside. No acute distress, no adverse events overnight. Patient is still requiring 10 L of oxygen. She is saturating 90-91% on 8 Overall she feels the same when it comes to her breathing Denies any chest pain, has been bringing up phlegm, no hemoptysis No nausea or vomiting Patient does complain of pain in the right ankle. She has been getting pain medications for it Review of Systems Review of Systems: All systems reviewed & are unremarkable except as noted in Subjective Physical Exam Physical Exam: Constitutional: No acute distress HEENT: EOMI, PERRLA Respiratory system: Decreased air entry bilaterally, no wheeze, no rhonchi, positive crackles bilateral lower lobes more on the right side CVS: S1-S2 positive, no murmurs or gallops Abdomen: Soft, nontender, nondistended, positive bowel sounds x4 Extremities: +2 pulses bilaterally radialis/ dorsalis pedis, no cyanosis, no edema Neuro: Awake alert oriented x3 Psych: Normal mood and affect G/U: No Ruff Skin: no rashes, warm and dry Lymphatic: no cervical or axillary lymphadenopathy Results & Data Results & Data ([facility]) Vital Signs (Past 12 Hours) Vital Signs Temp Pulse Pulse Resp BP Pulse Ox O2 Del Method 06/13/22 07:26 36.5 C 98 H 20 112/69 91 High Flow Nasal Cannula 06/13/22 03:26 90 18 100/62 92 Free Flow/Blow-by 06/12/22 23:14 36.6 C 93 H 18 104/65 94 Free Flow/Blow-by 06/12/22 22:55 Nasal Cannula 06/12/22 22:54 107 H O2 Flow Rate 06/13/22 07:26 10 06/13/22 03:26 10 06/12/22 23:14 10 06/12/22 22:55 10 06/12/22 22:54 Laboratory Results 06/13/22 05:36 06/13/22 05:36 PG Care Time/CCT Total # of Minutes Spent Total Time Spent with Patient: Total time spent is greater than 50% in coordination of care (as documented) at patient's floor/unit and/or counseling patient: Coding Level of Care Code 91372 Subseq Hosp Care Lvl 2 Diagnoses Acute respiratory failure with hypoxia J96.01 Non-small cell lung cancer with metastasis C34.90 COPD with emphysema J43.[address] scan of lung R91.8
[2022-06-13] MEDS: methylPREDNISolone 40 MG in SYRINGE 0 ML IV SCH ×3 (09:16→22:45)
[2022-06-13] MEDS: DICLOFENAC SOD 1% GEL 100 GM TUBE EXT SCH ×4 (09:16→19:26)
[2022-06-13] MEDS: UMECLIDINIUM/VILANTEROL 62.5/25MCG 7 PUFFS/INHALER INH SCH (09:16)
[2022-06-13] MEDS: GABAPENTIN 300 MG CAP PO SCH ×3 (09:16→19:27)
[2022-06-13] MEDS: PANTOprazole 40 MG TAB PO SCH (09:17)
[2022-06-13] MEDS: buPROPion XL 300 MG TABCR PO SCH (09:17)
[2022-06-13] MEDS: CEROVITE ADV FORMULA TAB PO SCH (09:17)
[2022-06-13] MEDS: RALOXIFENE HCL 60 MG TAB PO SCH (09:17)
[2022-06-13] MEDS: ENOXAPARIN INJ 40 MG/0.4 ML SYR SQ SCH (09:18)
[2022-06-13] MEDS: KETOROLAC TROMETHAMINE 15 MG/ML VIAL IV PRN ×3 (09:21→22:44)
[2022-06-13] MEDS: DOCUSATE SODIUM 100 MG CAP PO SCH (09:22)
[2022-06-13] MEDS: DOXYCYCLINE HYCLATE 100 MG in DEXTROSE 5% 100 ML IV SCH ×2 (10:19→19:32)
[2022-06-13] MEDS ORDERED: Nursing to Pharmacy Communication SCH (16:45)
[2022-06-13] MEDS: HEPARIN 100 UNIT/ML 5ML FLUSH FLUSH PRN (17:08)
--- NOTE | 2022-06-13 19:33 | Billing Data ---
Date of Service June 13, 2022 Coding Level of Care Code 71182 Subseq Hosp Care Lvl 3
--- NOTE | 2022-06-13 22:54 | Electrocardiogram Report ---
Test Reason : Blood Pressure : / mmHG Vent. Rate : 107 BPM Atrial Rate : 107 BPM P-R Int : 168 ms QRS Dur : 082 ms QT Int : 348 ms P-R-T Axes : 054 047 051 degrees QTc Int : 464 ms Sinus tachycardia Possible Anterior infarct , age undetermined Abnormal ECG When compared with ECG of 09-JUN-2022 14:00, No significant change was found Confirmed by Adeel Luz ([id number]) on 06/13/2022 10:54:03 PM Referred By: REFERRED SELF Confirmed By:Adeel Luz
[2022-06-14] MEDS: PIPERACILLIN/TAZOBACTAM 4.5 GM in DEXTROSE 5% 100 ML IV SCH ×3 (04:08→22:51)
[2022-06-14] MEDS: KETOROLAC TROMETHAMINE 15 MG/ML VIAL IV PRN ×2 (05:33→17:59)
[2022-06-14 06:10] LABS: Hematocrit (blood only) 30.6 % (34.1-44.9); Hemoglobin 10.5 g/dl (12.0-16.0); Mean Corpuscular Hgb Conc 34.3 g/dL (32.0-36.0); Mean Corpuscular Volume 87.4 fL (80.0-100.0); Mean Platelet Volume 9.8 fL (9.4-12.3); Platelet Count 186 K/uL (130-400); RDW Coefficient of Variation 14.2 % (11.5-14.5); RDW Standard Deviation 44.4 fL (36.4-46.3); White Blood Count 14.03 K/ul (4.8-10.8)
[2022-06-14 06:35] LABS: BUN Creatinine Ratio 42.7 (10-20); Calcium 8.7 mg/dl (8.5-10.1); Creatinine Clr Calc Pharmacy 62.5 ml/min; Est GFR (African American) 96.9 ml/min; Est GFR (Non-African American) 83.6 ml/min; Potassium 4.2 mmol/L (3.5-5.1)
--- NOTE | 2022-06-14 06:57 | Hospitalist Progress Note ---
Date of Service June 14, 2022 Assessment & Plan (1) Pneumonia: Plan: Chest CT with infiltrates in the right lower lobe around her known lung mass Could be pneumonia versus immunotherapy (last 2 weeks ago) induced pneumonitis versus radiation pneumonitis (radiation in april 07) elevated procal suggestive of infectious process cont zosyn IV - day #6 MRSA swab neg thus defer on MRSA coverage gradually improving oxygen requirements dropping from 10L --> 5L CXR today relatively unchanged from previous Worsening oxygen requirement but no worsening dyspnea Pulmonology consulted, started Anoro, solumedrol, possibility of PE low Continue flutter valve, add incentive spirometer (2) Sepsis: Plan: 2nd to RLL pneumonia Improving Note CBC shows lymph predominance (3) Acute respiratory failure with hypoxia: Plan: Related to pneumonia, extensive lung cancer, probably pulmonary edema, hard to rule out immunotherapy induced pneumonitiscontinue IV antibiotics pulmonary toilet Lasix supportive care further work-up as per pulmonary. Fortunately she does not show worse dyspnea although she does have much escalated oxygen requirement (4) Non-small cell lung cancer with metastasis: Plan: Escalated pain regimenpain control better. Outpatient follow-up with hematology/oncology as well as radiation oncology (5) CLL (chronic lymphocytic leukemia): Plan: Followed by oncology since 2018. Considered to be intermediate risk due to FISH +13 q. deletion She has not required Rx s/p supraclavicular lymph node bx 06/10 -- enlarged lymph node is not from CLL but metastatic adenocarcinoma (6) Depression: Plan: Continue home bupropion (7) Osteoporosis: Plan: Continue home raloxifene (8) Ulcerative proctitis: Plan: Continue home PA mesalamine (9) Right ankle pain: Plan: x-rays neg for fracture doppler RLE neg for DVT R ankle MRI is positive for bone mets Escalated pain regimen- scheduled tylenol, PRN percocet, NA calcitonin consider palliative radiation to right ankle (10) Tachycardia: Plan: Sinus/reactive Plan DVT prophylaxis-Lovenox She designates her sister, Patricia Adame, as her healthcare power of commercial attorney/spokesperson if she is unable to make decisions for herself. Admission and Anticipated Discharge Date Admission Date: June 09, 2022 Supervising Physician Co-Signing Physician Notes I personally examined the patient and verified all arriola points of history and exam, discussed case, and agree with decision making with Dr Byrne. Breathing feeling better. Feeling better overall. Asks a lot of good questions about going home. Vitals noted, in general she is awake and alert pleasant no distress. HEENT normocephalic atraumatic mucous membranes moist. Breathing unlabored no accessory muscle use good effort. Skin shows no rashes no pallor or icterus. Neuro without focal deficits. Now down to 5 L. Acute hypoxic respiratory failureappearing to be due to mass, obstructive pneumonia, surrounding inflammationclinically stable feeling well, seems to be slowly improving. Continue current care, follow closely. Pain controlled. Otherwise as above. Probably home in the next few days on home oxygenwould definitely want to make sure we have coordinated plans with hematology/oncology and radiation oncology prior to discharge as well Subjective Patient seen at bedside, calm comfortable cooperative, breathing slightly better today states she is slowly better, would like to know for how long she will be in the hospital and if she can get dry shampoo. Denies SOB while on O2 and minimally while walking to bathroom, no chest pain abd pain. Patient states she has been getting visitors and is happy to see them. She understands we are continuing our current course and watching for improvement. Review of Systems Review of Systems: see hpi Physical Exam Constitutional: well developed, well nourished, cooperative and comfortable Eyes: PERRL, conjunctivae normal, anicteric sclerae ENMT: external ear and nose normal, oropharynx normal Neck: trachea midline, no thyromegaly Respiratory: Auscultation: + crackles (R>L) Cardiovascular: Rate/Rhythm: regular rate and regular rhythm Extremities: no edema Gastrointestinal (Abdomen): Inspection/Auscultation: abdomen normal to inspection Percussion/Palpation: abdomen soft; abdomen nontender Skin: no rashes, warm and dry Results & Data Results & Data ([facility]) Vital Signs (Past 12 Hours) Vital Signs Temp Pulse Pulse Resp BP Pulse Ox O2 Del Method 06/14/22 03:31 36.5 C 95 H 18 118/65 93 Oxymask 06/13/22 23:08 36.7 C 102 H 20 108/67 92 Oxymask 06/13/22 22:55 102 H 06/13/22 20:42 Oxymask 06/13/22 19:37 36.4 C L 99 H 20 117/70 92 Oxymask O2 Flow Rate 06/14/22 03:31 10 06/13/22 23:08 10 06/13/22 22:55 06/13/22 20:42 10 06/13/22 19:37 10 Diagnostic Findings Laboratory Results WBC 14.03 K/ul (4.8-10.8) H 06/14/22 05:31 RBC 3.50 M/uL (3.93-5.22) L 06/14/22 05:31 Hgb 10.5 g/dl (12.0-16.0) L 06/14/22 05:31 POC Hgb 11.2 g/dl (12.0-16.0) L 06/09/22 14:19 Hct 30.6 % (34.1-44.9) L 06/14/22 05:31 POC Hct 33 % (37-47) L 06/09/22 14:19 MCV 87.4 fL (80.0-100.0) 06/14/22 05:31 MCH 30.0 pg (25.0-34.0) 06/14/22 05:31 MCHC 34.3 g/dL (32.0-36.0) 06/14/22 05:31 RDW Std Deviation 44.4 fL (36.4-46.3) 06/14/22 05:31 RDW Coeff of Aftab 14.2 % (11.5-14.5) 06/14/22 05:31 Plt Count 186 K/uL (130-400) 06/14/22 05:31 MPV 9.8 fL (9.4-12.3) 06/14/22 05:31 Immature Gran % (Auto) 0.1 % 06/14/22 05:31 Neut % (Auto) 27.5 % 06/14/22 05:31 Lymph % (Auto) 68.0 % 06/14/22 05:31 Lares % (Auto) 4.3 % 06/14/22 05:31 Eos % (Auto) 0.0 % 06/14/22 05:31 Baso % (Auto) 0.1 % 06/14/22 05:31 Neut # (Auto) 3.85 K/uL (1.4-6.5) 06/14/22 05:31 Lymph # (Auto) 9.54 K/uL (1.2-3.4) H 06/14/22 05:31 Lares # (Auto) 0.61 K/uL (0.24-0.82) 06/14/22 05:31 Eos # (Auto) 0.00 K/uL (0-0.50) 06/14/22 05:31 Baso # (Auto) 0.01 K/uL (0-0.2) 06/14/22 05:31 Immature Gran # (Auto) 0.02 K/uL (0.00-0.02) 06/14/22 05:31 Smudge Cells Present 06/14/22 05:31 PT 10.9 Seconds (9.0-12.0) 06/09/22 14:10 INR 1.0 (0.9-1.1) 06/09/22 14:10 APTT 29.0 Seconds (21.0-31.0) 06/09/22 14:10 PTT Ratio 1.1 06/09/22 14:10 D-Dimer 3170 ug/L FEU (0-500) H* 06/09/22 14:10 ABG pH 7.45 (7.35-7.45) 06/12/22 06:04 ABG pCO2 34 mmHg (35-46) L 06/12/22 06:04 ABG pO2 68 mmHg (80-95) L 06/12/22 06:04 ABG HCO3 24 mmol/L (19-24) 06/12/22 06:04 ABG O2 Saturation 94.4 % (90-95) 06/12/22 06:04 ABG Base Excess 0.1 mEq/L (-9-1.8) 06/12/22 06:04 Jeremi Test Pos (Pos) 06/12/22 06:04 Oxygen Given 06/12/22 06:04 POC Sodium 138 mmol/L (135-144) 06/09/22 14:19 Sodium 132 mmol/L (136-145) L 06/14/22 05:31 POC Potassium 4.1 mmol/L (3.3-5.0) 06/09/22 14:19 Potassium 4.2 mmol/L (3.5-5.1) 06/14/22 05:31 POC Chloride 107 mmol/L (101-112) 06/09/22 14:19 Chloride 99 mmol/L (98-107) 06/14/22 05:31 Carbon Dioxide 26 mmol/L (21-32) 06/14/22 05:31 POC Total CO2 21 mmol/L (24-31) L 06/09/22 14:19 Anion Gap 7 (3-11) 06/14/22 05:31 POC Anion Gap 15.0 mmol/L (16-25) L 06/09/22 14:19 POC BUN 19 mg/dl (7-18) H 06/09/22 14:19 BUN 32 mg/dl (6-23) H 06/14/22 05:31 Creatinine 0.75 mg/dl (0.6-1.2) 06/14/22 05:31 POC Creatinine 0.8 mg/dl (0.6-1.3) 06/09/22 14:19 Est Cr Clr Drug Dosing 62.5 ml/min 06/14/22 05:31 Est GFR ( Amer) 96.9 ml/min 06/14/22 05:31 Est GFR (Non-Af Amer) 83.6 ml/min 06/14/22 05:31 BUN/Creatinine Ratio 42.7 (10-20) H 06/14/22 05:31 Glucose 139 mg/dl (70-99(Fasting)) H 06/14/22 05:31 POC Glucose (other) 89 mg/dl (70-99) 06/09/22 14:19 Lactate 0.7 mmol/L (0.4-2.0) 06/09/22 15:32 Calcium 8.7 mg/dl (8.5-10.1) 06/14/22 05:31 POC Ioniz Calcium Eloise 1.14 mmol/l (1.12-1.32) 06/09/22 14:19 Magnesium 1.8 mg/dl (1.7-2.4) 06/12/22 06:04 Total Bilirubin 0.7 mg/dl (0.2-1.0) 06/12/22 06:04 AST 38 U/L (13-39) 06/12/22 06:04 ALT 25 U/L (7-52) 06/12/22 06:04 Alkaline Phosphatase 219 U/L (34-104) H 06/12/22 06:04 Troponin I High Sens 7.4 pg/ml (0-14) 06/09/22 14:10 C-Reactive Protein 2.07 mg/dl (0-0.5) H 06/12/22 06:04 B-Natriuretic Peptide 25 pg/ml (0-100) 06/09/22 17:03 Total Protein 6.5 gm/dl (6.0-8.3) 06/12/22 06:04 Albumin 3.6 gm/dl (3.4-5.0) 06/12/22 06:04 Globulin 2.9 gm/dl (2.5-4.0) 06/12/22 06:04 Albumin/Globulin Ratio 1.2 (0.9-2) 06/12/22 06:04 Procalcitonin 1.66 ng/ml (0-0.5) H 06/12/22 06:04 Urine Color Yellow 06/09/22 17:03 Urine Appearance Clear (Clear) 06/09/22 17:03 Urine pH 5.0 (4.5-7.5) 06/09/22 17:03 Ur Specific [place] 1.034 (1.000-1.030) H 06/09/22 17:03 Urine Protein Negative (Negative) 06/09/22 17:03 Urine Glucose (UA) Negative (Negative) 06/09/22 17:03 Urine Ketones Negative (Negative) 06/09/22 17:03 Urine Blood Negative (Negative) 06/09/22 17:03 Urine Nitrite Negative (Negative) 06/09/22 17:03 Urine Bilirubin Negative (Negative) 06/09/22 17:03 Urine Urobilinogen Negative (Negative) 06/09/22 17:03 Ur Leukocyte Esterase Negative (Negative) 06/09/22 17:03 Nasal Screen MRSA (PCR) Negative (Negative) 06/09/22 17:03 Adenovirus (PCR) Not Detected (NotDetected) 06/09/22 14:10 B. pertussis DNA (PCR) Not Detected (NotDetected) 06/09/22 14:10 B.parapertussis DNA PCR Not Detected (NotDetected) 06/09/22 14:10 C. pneumoniae DNA (PCR) Not Detected (NotDetected) 06/09/22 14:10 Coronavirus OC43 (PCR) Not Detected (NotDetected) 06/09/22 14:10 Coronavirus HKU1 (PCR) Not Detected (NotDetected) 06/09/22 14:10 Coronavirus 229E (PCR) Not Detected (NotDetected) 06/09/22 14:10 SARS-CoV-2 (PCR) Not Detected (NotDetected) 06/09/22 14:10 Coronavirus NL63 (PCR) Not Detected (NotDetected) 06/09/22 14:10 Human Metapneumovir PCR Not Detected (NotDetected) 06/09/22 14:10 Influenza Type A (PCR) Not Detected (NotDetected) 06/09/22 14:10 Influenza Type B (PCR) Not Detected (NotDetected) 06/09/22 14:10 M. pneumoniae (PCR) Not Detected (NotDetected) 06/09/22 14:10 Parainfluenza 1 (PCR) Not Detected (NotDetected) 06/09/22 14:10 Parainfluenza 2 (PCR) Not Detected (NotDetected) 06/09/22 14:10 Parainfluenza 3 (PCR) Not Detected (NotDetected) 06/09/22 14:10 Parainfluenza 4 (PCR) Not Detected (NotDetected) 06/09/22 14:10 RSV (PCR) Not Detected (NotDetected) 06/09/22 14:10 Entero/Rhino (PCR) Not Detected (NotDetected) 06/09/22 14:10 Impressions Chest CTA 06/09/22 13:59 CT ANGIOGRAPHY OF THE CHEST, PULMONARY EMBOLUS PROTOCOL CLINICAL HISTORY: Shortness of breath. Lung cancer. Lymphoma. COMPARISON STUDY: Chest CT April 18, 2022. PET/CT December 11, 2021. TECHNIQUE: Following IV administration of 105 mL of Optiray, helical axial images of the chest were obtained utilizing the pulmonary embolus protocol. Maximal intensity projections and sagittal and coronal reformats were viewed on an independent 3D workstation. IV contrast was administered without complication. Automated exposure control was utilized for the study. A dose lowering technique was utilized adhering to the principles of ALARA. CT DOSE: 247.67 mGy.cm FINDINGS: Right internal jugular [id number] is in place. No pulmonary emboli are identified. There is no thoracic aortic dissection. Size of the heart is normal. There is no pericardial effusion. A small right pleural effusion has developed since CT of April 18, 2022. There is no pneumothorax. There is a 7.2 x 4.7 cm masslike opacity within the right lower lobe. This has increased since exam of April 18, 2022 and is at site of primary tumor shown on CT of January 15, 2022. Differentiation between the known malignancy and consolidation is difficult. Multifocal airspace opacities within the right lung have developed since prior CT. There is underlying emphysema. Interlobular septal thickening is greater within the right lung. A few patchy left lung opacities are present. Enlarged bilateral axillary lymph nodes are similar to prior chest CT. These have decreased in size since earlier PET/CT. Right supraclavicular and mediastinal lymphadenopathy has progressed since CT of April 18, 2022. Index right supraclavicular lymph node on axial image 259 of 298 measures 2.2 x 1.7 cm. It previously measured 1.6 x 1 cm. Right paratracheal lymph node on image 216 measures 2.8 x 2 cm. It previously measured 1.9 x 1.6 cm. These lymph nodes are heterogeneous. Mild splenomegaly is unchanged. No suspicious lesions are identified within the bony thorax. IMPRESSION: 1. No pulmonary emboli identified. 2. Progression of right subclavicular and mediastinal lymphadenopathy. This adenopathy is likely neoplastic and favors progression of metastatic lung cancer over lymphoma. 3. Increase in size of a right lower lobe masslike opacity at site of known tumor. Differentiation between the primary tumor and consolidation is difficult however this favors progression of the primary tumor. 4. Multifocal airspace opacities within the right lung which could reflect pneumonia or post radiation change. Small right pleural effusion. 5. Asymmetric interlobular septal thickening within the right lung. This may reflect asymmetric pulmonary edema however lymphangitic spread of tumor could appear similar. 6. No significant change in bilateral axillary lymphadenopathy which favors lymphoma. ACT 112: Negative or not required by law. Electronically signed by: José Miguel Denis M.D. 06/09/2022 3:41 PM Aspiration 06/10/22 13:07 ULTRASOUND GUIDED CORE BIOPSY AND FINE NEEDLE ASPIRATION OF RIGHT SUPRACLAVICULAR LYMPH NODE CLINICAL HISTORY: Supraclavicular right sided LN biopsy COMPARISON STUDY: Chest CT June 09, 2022. PROCEDURE: Sonography of the right supraclavicular region demonstrated multiple pathologically enlarged supraclavicular lymph nodes. Index 1.8 cm right supraclavicular lymph node was targeted for biopsy. The procedure, risks and benefits were discussed with the patient and informed written consent was obtained. The procedure was performed by Dr. Denis following a timeout. Skin of the right neck was prepped and draped in sterile fashion and local anesthesia was achieved with 1% lidocaine. Under direct ultrasound guidance, a 25-gauge fine needle aspiration of the right supraclavicular lymph node was performed. Suspicious cells were noted. An 18-gauge core sample was then obtained. Samples were deemed preliminarily adequate. The patient tolerated the procedure well and no immediate complications were evident. IMPRESSION: Successful ultrasound guided core biopsy and fine-needle aspiration of a right supraclavicular lymph node. ACT 112: Negative or not required by law. Electronically signed by: José Miguel Denis M.D. 06/10/2022 3:28 PM Lymph Node Biopsy Ultrasound 06/10/22 15:07 ULTRASOUND GUIDED CORE BIOPSY AND FINE NEEDLE ASPIRATION OF RIGHT SUPRACLAVICULAR LYMPH NODE CLINICAL HISTORY: Supraclavicular right sided LN biopsy COMPARISON STUDY: Chest CT June 09, 2022. PROCEDURE: Sonography of the right supraclavicular region demonstrated multiple pathologically enlarged supraclavicular lymph nodes. Index 1.8 cm right supraclavicular lymph node was targeted for biopsy. The procedure, risks and benefits were discussed with the patient and informed written consent was obtained. The procedure was performed by Dr. Denis following a timeout. Skin of the right neck was prepped and draped in sterile fashion and local anesthesia was achieved with 1% lidocaine. Under direct ultrasound guidance, a 25-gauge fine needle aspiration of the right supraclavicular lymph node was performed. Suspicious cells were noted. An 18-gauge core sample was then obtained. Samples were deemed preliminarily adequate. The patient tolerated the procedure well and no immediate complications were evident. IMPRESSION: Successful ultrasound guided core biopsy and fine-needle aspiration of a right supraclavicular lymph node. ACT 112: Negative or not required by law. Electronically signed by: José Miguel Denis M.D. 06/10/2022 3:28 PM Ankle X-Ray 06/10/22 16:30 XR ankle RT 2V CLINICAL HISTORY: pain, swelling R ankle COMPARISON STUDY: Right ankle 05/08/2022. FINDINGS: Mild soft tissue swelling within the right ankle, unchanged. No acute fracture or dislocation. The ankle mortise is intact. Mild cartilage space narrowing at the tibiotalar joint, unchanged. No erosive changes. IMPRESSION: Mild soft tissue swelling within the right ankle. No fractures. ACT 112: Negative or not required by law. Electronically signed by: Ramo Mcintosh M.D. 06/10/2022 5:29 PM Ankle MRI 06/10/22 19:48 MR ankle RT wo con CLINICAL HISTORY: 67 years-old Female with ongoing pain, swelling. Subacute pain and swelling of the right ankle, most pronounced laterally. History of lung cancer. COMPARISON: Duplex venous Doppler study of same day, right foot and ankle radiographs 05/08/2022, ankle radiographs 06/10/2022. TECHNIQUE: Multiplanar, multi sequence MRI of the right ankle was performed without contrast. FINDINGS: LATERAL LIGAMENT COMPLEX: Mild thickening of the anterior talofibular ligament suggestive of chronic sprain. The calcaneofibular ligament and posterior talofibular ligaments are intact. SYNDESMOTIC LIGAMENTS: Mild thickening of the anterior-inferior tibiofibular ligament, interosseous membrane and posterior-inferior tibiofibular ligament suggestive of chronic sprain. DELTOID LIGAMENT COMPLEX: The superficial and deep components of the deltoid ligament are intact. ANTERIOR TENDONS: The tibialis anterior, extensor hallucis longus and extensor digitorum longus tendons are normal in position, morphology and signal. LATERAL TENDONS: The peroneus longus and brevis tendons are intact. Mild tenosynovitis of the peroneus longus. MEDIAL TENDONS: The posterior tibialis, flexor digitorum longus and flexor hallucis longus tendons are intact. Mild tenosynovitis of the tibialis posterior. PLANTAR FASCIA: The medial and lateral bundles of the plantar fascia are normal in morphology and signal. There is no evidence of acute plantar fasciitis or tear. No evidence of plantar fascial nodules. ACHILLES TENDON: The Achilles tendon is normal in position, morphology and signal. No associated bursitis. SINUS TARSI: Edema noted within the sinus Tarsi. The interosseous and cervical ligaments are normal. The navicular-calcaneal (spring) ligament is without acute abnormality. TARSAL TUNNEL: There are no obstructing lesions within the tarsal tunnel. BONE MARROW: There is diffuse marrow replacement with correspondingly decreased T1 and increased T2/STIR signal throughout the foot, ankle and lower leg. No acute pathologic fracture identified. There is diffuse periosteal edema. There is additional diffuse subcutaneous, deep tissue and intramuscular edema throughout the foot and ankle. IMPRESSION: 1. Diffuse marrow replacement throughout the imaged bony structures suggestive of osseous metastasis. Findings appear to have progressed from the comparison 05/08/2022 radiographs. 2. Additional subcutaneous, deep tissue and intramuscular edema is also likely related to the aforementioned metastatic disease. A nonspecific cellulitis with myositis could appear similarly. 3. No acute pathologic fracture identified. ACT 112: Negative or not required by law. The above report was generated using voice recognition software. It may contain grammatical, syntax or spelling errors. Electronically signed by: Brandon Morales M.D. 06/11/2022 11:31 AM Venous Doppler Study 06/12/22 15:00 ULTRASOUND BILATERAL LOWER EXTREMITY VENOUS CLINICAL HISTORY: Leg pain. Cancer history. COMPARISON STUDY: Right lower extremity venous ultrasound dated 06/10/2022. TECHNIQUE: Real-time, grayscale, and color Doppler sonography of the deep veins of the right and left lower extremity was performed from the inguinal crease to the calf. Compression and augmentation were utilized. FINDINGS: There is no sonographic evidence of deep venous thrombosis identified in the right or left lower extremity. The common femoral, superficial femoral, and popliteal veins are patent and normally compressible bilaterally. The greater saphenous vein and the profunda femoris vein at the junction with the common femoral vein are clear in both legs. The visualized calf veins are patent bilaterally. IMPRESSION: There is no sonographic evidence of deep venous thrombosis identified in the right or left lower extremity. ACT 112: Negative or not required by law. Electronically signed by: Edwin Wilhelm M.D. 06/12/2022 3:46 PM Chest X-Ray 06/14/22 07:00 XR chest 1V portable CLINICAL HISTORY: Follow. Lung cancer. COMPARISON STUDY: Chest CT June 09, 2022. Chest radiograph June 12, 2022. FINDINGS: Right internal jugular [id number] is in place. There is no pneumothorax. A trace right pleural effusion is unchanged. Right perihilar and right lower lung airspace opacity similar to prior exam. Right lower lobe mass is better depicted on prior CT. Asymmetric interstitial thickening within the right lung is present. Cardiac size is normal. Mediastinal contours are stable. IMPRESSION: No change in appearance of the chest. Right perihilar/basilar airspace opacity and mass, better depicted on prior chest CT. Small right pleural effusion. ACT 112: Negative or not required by law. Electronically signed by: José Miguel Denis M.D. 06/14/2022 7:21 AM Medications Administered Current Inpatient Medications Acetaminophen (Acetaminophen 325 Mg Tab) 650 mg PO TID [facility] Stop: 07/12/22 14:59 Last Admin: 06/14/22 08:45 Dose: 650 mg Albuterol (Albut/Ipratrop 3mg/0.5mg Neb 3 Ml Vial) 3 ml NEB QIDR PRN; Protocol PRN Reason: dyspnea/wheezing/cough Stop: 07/09/22 19:44 Bupropion HCl (Bupropion Xl 300 Mg Tabcr) 300 mg PO QAM [facility] Stop: 07/10/22 08:59 Last Admin: 06/14/22 08:45 Dose: 300 mg Calcitonin [place] (Calcitonin [place] Na 200 Iu/Ac 3.7 Ml Btl) 1 sprays NA DAILY [facility] Stop: 07/14/22 08:59 Last Admin: 06/14/22 10:08 Dose: 1 sprays Diclofenac Sodium (Diclofenac Sod 1% Gel 100 Gm Tube) 4 gm EXT QID KRIS; Protocol Stop: 07/10/22 16:59 Last Admin: 06/14/22 12:47 Dose: 4 gm Docusate Sodium (Docusate Sodium 100 Mg Cap) 100 mg PO DAILY [facility] Stop: 07/13/22 08:59 Last Admin: 06/14/22 08:45 Dose: 100 mg Enoxaparin Sodium (Enoxaparin Inj 40 Mg/0.4 Ml Syr) 40 mg SQ DAILY KRIS Stop: 07/13/22 08:59 Last Admin: 06/14/22 08:46 Dose: 40 mg Gabapentin (Gabapentin 300 Mg Cap) 300 mg PO TID KRIS Stop: 07/09/22 20:59 Last Admin: 06/14/22 08:45 Dose: 300 mg Heparin Sodium (Porcine) (Heparin 100 Unit/Ml 5ml Flush) 5 ml FLUSH PRN PRN PRN Reason: Flush Stop: 07/11/22 01:08 Last Admin: 06/13/22 17:08 Dose: 5 ml Piperacillin Sod/Tazobactam (Sod 4.5 gm/ Dextrose) 120 mls @ 30 mls/hr IV Q8H [facility]; Protocol Stop: 06/19/22 12:59 Last Admin: 06/14/22 12:47 Dose: 30 mls/hr Doxycycline Hyclate 100 mg/ (Dextrose) 110 mls @ 50 mls/hr IV Q12H [facility] Stop: 06/19/22 09:59 Last Infusion: 06/14/22 11:35 Dose: Infused Methylprednisolone 40 mg/ (Syringe) 0.64 mls @ 1.5 mls/min IV Q8H KRIS Stop: 07/13/22 08:29 Last Admin: 06/14/22 08:44 Dose: 1.5 mls/min Ketorolac Tromethamine (Ketorolac Tromethamine 15 Mg/Ml Vial) 15 mg IV Q6H PRN PRN Reason: MODERATE Pain Stop: 06/17/22 09:40 Last Admin: 06/14/22 05:33 Dose: 15 mg Melatonin (Melatonin 3 Mg Tab) 3 mg PO HS PRN PRN Reason: Sleep Stop: 07/11/22 19:39 Multivitamins/Minerals (Cerovite Adv Formula Tab) 1 tab PO DAILY [facility] Stop: 07/10/22 08:59 Last Admin: 06/14/22 08:45 Dose: 1 tab Ondansetron HCl (Ondansetron Inj 2 Mg/Ml 2 Ml Vial) 4 mg IV Q6H PRN PRN Reason: Nausea Stop: 07/09/22 19:44 Oxycodone/Acetaminophen (Oxycodone/Apap 7.5/325mg Tab) 1 tab PO BID PRN PRN Reason: SEVERE Pain Stop: 06/26/22 09:28 Last Admin: 06/14/22 09:11 Dose: 1 tab Pantoprazole Sodium (Pantoprazole 40 Mg Tab) 40 mg PO QAM [facility] Stop: 07/10/22 08:59 Last Admin: 06/14/22 08:45 Dose: 40 mg Polyethylene Glycol (Polyethylene (Miralax) 17 Gm Pack) 17 gm PO DAILY PRN PRN Reason: Constipation Stop: 07/09/22 19:44 Raloxifene HCl (Raloxifene Hcl 60 Mg Tab) 60 mg PO QAM [facility] Stop: 07/10/22 08:59 Last Admin: 06/14/22 08:45 Dose: 60 mg Umeclidinium/Vilanterol (Umeclidinium/Vilanterol 62.5/25mcg 7 Puffs/Inhaler) 1 puffs INH QDR [facility] Stop: 07/10/22 09:14 Last Admin: 06/14/22 08:45 Dose: 1 puffs Resident Activity Tracking Resident Involvement: Resident Care Provided Care Provided: Adult Hospital Medicine
[2022-06-14 07:14] LABS: Basophils # (auto) 0.01 K/uL (0-0.2); Basophils % (auto) 0.1 %; Immature Granulocytes # (auto) 0.02 K/uL (0.00-0.02); Immature Granulocytes % (auto) 0.1 %; Lymphocytes # (auto) 9.54 K/uL (1.2-3.4); Monocytes # (auto) 0.61 K/uL (0.24-0.82); Monocytes % (auto) 4.3 %; Neutrophils # (auto) 3.85 K/uL (1.4-6.5); Neutrophils % (auto) 27.5 %; Smudge Cells Present
--- NOTE | 2022-06-14 07:23 | XRay Report ---
XR chest 1V portable CLINICAL HISTORY: Follow. Lung cancer. COMPARISON STUDY: Chest CT June 09, 2022. Chest radiograph June 12, 2022. FINDINGS: Right internal jugular [id number] is in place. There is no pneumothorax. A trace right p leural effusion is unchanged. Right perihilar and right lower lung airspace opacity similar to prior exam. Right lower lobe mass is better depicted on prior CT. Asymmetric interstitial thickening within the right lung is present. Cardiac size is normal. Mediastinal contours are stable. IMPRESSION: No change in appearance of the chest. Right perihilar/basilar airspace opacity and mass, better depicted on prior chest CT. Small right pleural effusion. ACT 112: Negative or not required by law. Electronically signed by: José Miguel Denis M.D. 06/14/2022 7:21 AM
--- NOTE | 2022-06-14 08:30 | Pulmonology Progress Note ---
Date of Service June 14, 2022 Assessment & Plan (1) Acute respiratory failure with hypoxia: (2) Non-small cell lung cancer with metastasis: (3) COPD with emphysema: (4) Abnormal CT scan of lung: Plan CT chest 06/09/2022 personally reviewed: Centrilobular emphysema appreciated bilaterally with mild interlobular thickening Right-sided pleural effusion with right lower lobe mass Mediastinal adenopathy at station 2P, 10R -- Acute respiratory failure with hypoxia Multifactorial Worsening of underlying lung cancer is a possibility Although the patient's BNP is negative I do see some interlobular thickening which could be lymphatic spread from underlying cancer Patient is also getting immunotherapy, pneumonitis from it is also possibility --> patient started on Solu-Medrol 06/13/2022 Doppler bilateral lower extremity - 06/12/2022 Respiratory bio fire negative BNP 25 Procalcitonin 0.96 --COPD with emphysema Not on any inhalers at home I will start the patient on Anoro to be used on a daily basis Not in exacerbation, no need for steroids -- Metastatic non-small cell lung cancer Adenocarcinoma of unknown primary S/p chemoradiation, carboplatin/paclitaxel completed 04/03/2022 The right lower lobe mass is increasing in size along with right hilar and mediastinal lymphadenopathy S/p ultrasound-guided biopsy of the supraclavicular lymph node on the right side. Positive for poorly differentiated adenocarcinoma --Abnormal chest CT The interlobular thickening which the patient has could be lymphatic spread of the underlying cancer Patient also got radiation on the right side radiation pneumonitis can present the same way Patient is already being treated for possible pneumonia -- History of CLL Plan: Chest x-ray from today shows mild improvement on the right side compared to before. Continue with Solu-Medrol 40 every 8 hours Incentive spirometry will benefit Case was discussed with TAMAR Zabala at bedside Please note the above document was generated using voice recognition software. It may contain grammatical, syntax or spelling errors.Any formal questions or concerns about the content, text or information contained within the body of this dictation should be directly addressed to the provider for clarification. Admission and Anticipated Discharge Date Admission Date: June 09, 2022 Subjective Seen and examined at bedside. No acute distress, no adverse events overnight Patient was saturating 97% on 10 L. I was able to go down to 7 L she was able to still maintain a saturation of 94% Overall she says she is feeling better Does complain of right leg pain still which for which she has been getting pain medication Denies any chest pain, no headache, no nausea or vomiting Fair appetite Review of Systems Review of Systems: All systems reviewed & are unremarkable except as noted in Subjective Physical Exam Physical Exam: Constitutional: No acute distress HEENT: EOMI, PERRLA Respiratory system: Decreased air entry bilaterally, no wheeze, no rhonchi, positive crackles bilateral lower lobes more on the right side CVS: S1-S2 positive, no murmurs or gallops Abdomen: Soft, nontender, nondistended, positive bowel sounds x4 Extremities: +2 pulses bilaterally radialis/ dorsalis pedis, no cyanosis, no edema Neuro: Awake alert oriented x3 Psych: Normal mood and affect G/U: No Ruff Skin: no rashes, warm and dry Lymphatic: no cervical or axillary lymphadenopathy Results & Data Results & Data ([facility]) Vital Signs (Past 12 Hours) Vital Signs Temp Pulse Pulse Resp BP Pulse Ox O2 Del Method 06/14/22 07:16 36.6 C 93 H 18 110/59 L 93 Nasal Cannula 06/14/22 03:31 36.5 C 95 H 18 118/65 93 Oxymask 06/13/22 23:08 36.7 C 102 H 20 108/67 92 Oxymask 06/13/22 22:55 102 H 06/13/22 20:42 Oxymask O2 Flow Rate 06/14/22 07:16 10 06/14/22 03:31 10 06/13/22 23:08 10 06/13/22 22:55 06/13/22 20:42 10 Laboratory Results 06/14/22 05:31 06/14/22 05:31 PG Care Time/CCT Total # of Minutes Spent Total Time Spent with Patient: Total time spent is greater than 50% in coordination of care (as documented) at patient's floor/unit and/or counseling patient: Coding Level of Care Code 07186 Subseq Hosp Care Lvl 2 Diagnoses Acute respiratory failure with hypoxia J96.01 Non-small cell lung cancer with metastasis C34.90 COPD with emphysema J43.[address] scan of lung R91.8
[2022-06-14] MEDS: methylPREDNISolone 40 MG in SYRINGE 0 ML IV SCH ×3 (08:44→23:04)
[2022-06-14] MEDS: RALOXIFENE HCL 60 MG TAB PO SCH (08:45)
[2022-06-14] MEDS: DOCUSATE SODIUM 100 MG CAP PO SCH (08:45)
[2022-06-14] MEDS: ACETAMINOPHEN 325 MG TAB PO SCH ×3 (08:45→20:39)
[2022-06-14] MEDS: buPROPion XL 300 MG TABCR PO SCH (08:45)
[2022-06-14] MEDS: CEROVITE ADV FORMULA TAB PO SCH (08:45)
[2022-06-14] MEDS: GABAPENTIN 300 MG CAP PO SCH ×3 (08:45→20:40)
[2022-06-14] MEDS: PANTOprazole 40 MG TAB PO SCH (08:45)
[2022-06-14] MEDS: UMECLIDINIUM/VILANTEROL 62.5/25MCG 7 PUFFS/INHALER INH SCH (08:45)
[2022-06-14] MEDS: DICLOFENAC SOD 1% GEL 100 GM TUBE EXT SCH ×4 (08:46→20:40)
[2022-06-14] MEDS: ENOXAPARIN INJ 40 MG/0.4 ML SYR SQ SCH (08:46)
[2022-06-14] MEDS: oxyCODONE/APAP 7.5/325MG TAB PO PRN ×2 (09:11→23:41)
[2022-06-14] MEDS: DOXYCYCLINE HYCLATE 100 MG in DEXTROSE 5% 100 ML IV SCH ×2 (09:12→20:46)
[2022-06-14] MEDS: CALCITONIN SALMON NA 200 IU/AC 3.7 ML BTL SCH (10:08)
--- NOTE | 2022-06-14 17:39 | Billing Data ---
Date of Service June 14, 2022 Coding Level of Care Code 98372 Subseq Hosp Care Lvl 3
[2022-06-15] MEDS: KETOROLAC TROMETHAMINE 15 MG/ML VIAL IV PRN ×4 (02:19→22:01)
[2022-06-15] MEDS: PIPERACILLIN/TAZOBACTAM 4.5 GM in DEXTROSE 5% 100 ML IV SCH ×3 (05:58→20:05)
[2022-06-15 06:45] LABS: Hematocrit (blood only) 30.7 % (34.1-44.9); Hemoglobin 10.4 g/dl (12.0-16.0); Mean Corpuscular Hemoglobin 30.3 pg (25.0-34.0); Mean Corpuscular Hgb Conc 33.9 g/dL (32.0-36.0); Mean Corpuscular Volume 89.5 fL (80.0-100.0); Mean Platelet Volume 9.3 fL (9.4-12.3); Platelet Count 202 K/uL (130-400); RDW Coefficient of Variation 14.2 % (11.5-14.5); RDW Standard Deviation 45.9 fL (36.4-46.3); Red Blood Count 3.43 M/uL (3.93-5.22); White Blood Count 20.38 K/ul (4.8-10.8)
--- NOTE | 2022-06-15 06:53 | Hospitalist Progress Note ---
Date of Service June 15, 2022 Assessment & Plan (1) Pneumonia: Plan: Chest CT with infiltrates in the right lower lobe around her known lung mass Could be pneumonia versus immunotherapy (last 2 weeks ago) induced pneumonitis versus radiation pneumonitis (radiation in april 07) elevated procal suggestive of infectious process cont zosyn IV - day #7, can likely discontinue once her oxygen requirements are minimalized MRSA swab neg thus defer on MRSA coverage gradually improving oxygen requirements dropping from 10L --> 5L --> 3L CXR latest relatively unchanged from previous Worsening oxygen requirement but no worsening dyspnea Pulmonology consulted, started Anoro, solumedrol, possibility of PE low will start downtitrating solumedrol Continue flutter valve, add incentive spirometer (2) Sepsis: Plan: 2nd to RLL pneumonia Improving Note CBC shows lymph predominance (3) Acute respiratory failure with hypoxia: Plan: Related to pneumonia, extensive lung cancer, probably pulmonary edema, hard to rule out immunotherapy induced pneumonitiscontinue IV antibiotics pulmonary toilet Lasix supportive care further work-up as per pulmonary. Fortunately she does not show worse dyspnea although she does have much escalated oxygen requirement (4) Non-small cell lung cancer with metastasis: Plan: Escalated pain regimenpain control better. Outpatient follow-up with hematology/oncology as well as radiation oncology (5) CLL (chronic lymphocytic leukemia): Plan: Followed by oncology since 2018. Considered to be intermediate risk due to FISH +13 q. deletion She has not required Rx s/p supraclavicular lymph node bx 06/10 -- enlarged lymph node is not from CLL but metastatic adenocarcinoma (6) Depression: Plan: Continue home bupropion (7) Osteoporosis: Plan: Continue home raloxifene (8) Ulcerative proctitis: Plan: Continue home [place] mesalamine (9) Right ankle pain: Plan: x-rays neg for fracture doppler RLE neg for DVT R ankle MRI is positive for bone mets Escalated pain regimen- scheduled tylenol, PRN percocet, NA calcitonin, lidocaine patch consider palliative radiation to right ankle (10) Tachycardia: Plan: Sinus/reactive Plan DVT prophylaxis-Lovenox She designates her sister, Patricia Adame, as her healthcare power of collection supervisor/spokesperson if she is unable to make decisions for herself. Admission and Anticipated Discharge Date Admission Date: June 09, 2022 Supervising Physician Co-Signing Physician Notes I personally examined the patient and verified all arriola points of history and exam, discussed case, and agree with decision making with Dr Byrne. Continues to feel better overall. No new complaints today. Vitals noted, in general she is awake and alert pleasant no distress. HEENT normocephalic atraumatic mucous membranes moist. Breathing unlabored no accessory muscle use good effort. Skin shows no rashes no pallor or icterus. Neuro without focal deficits. Now down to 23 L. Acute hypoxic respiratory failureappearing to be due to mass, obstructive pneumonia, surrounding inflammationclinically stable feeling well, showing slow but steady improvement. Continue current care, follow closely. Pain controlled. Otherwise as above. Probably home in the next few days on home oxygenwould definitely want to make sure we have coordinated plans with hematology/oncology and radiation oncology prior to discharge as well, otherwise as above Subjective Patient seen at bedside, calm comfortable cooperative. Her O2 is down to 3L today tolerating well denies sob or pain. She has a friend with her today. States her ankle pain acted up last night toradol and percocet helped but was too sedating, wonders about her pain control for outpatient. Patient aware we are waiting for her oxygen requirements to decrease before sending her home. She states she has a follow up with Ele [facility] in Oncology on thursday that she would like to keep. Otherwise she was able to wash her hair yesterday and feels better. Review of Systems Review of Systems: see hpi Physical Exam Constitutional: well developed, well nourished, cooperative and comfortable Eyes: PERRL, conjunctivae normal, anicteric sclerae ENMT: external ear and nose normal, oropharynx normal Neck: trachea midline, no thyromegaly Respiratory: Auscultation: + crackles (R>L) left lung improved from yesterday Cardiovascular: Rate/Rhythm: regular rate and regular rhythm Extremities: no edema Gastrointestinal (Abdomen): Inspection/Auscultation: abdomen normal to inspection Percussion/Palpation: abdomen soft; abdomen nontender Skin: no rashes, warm and dry Results & Data Results & Data ([facility]) Vital Signs (Past 12 Hours) Vital Signs Temp Pulse Pulse Resp BP Pulse Ox O2 Del Method 06/15/22 00:00 93 H 06/14/22 22:32 36.7 C 90 18 134/74 95 Nasal Cannula 06/14/22 20:00 Nasal Cannula O2 Flow Rate 06/15/22 00:00 06/14/22 22:32 5 06/14/22 20:00 5 Laboratory Results 06/15/22 06/15/22 Range/Units 06: 06:29 WBC 20.38 H (4.8-10.8) K/ul RBC 3.43 L (3.93-5.22) M/uL Hgb 10.4 L (12.0-16.0) g/dl Hct 30.7 L (34.1-44.9) % MCV 89.5 (80.0-100.0) fL MCH 30.3 (25.0-34.0) pg MCHC 33.9 (32.0-36.0) g/dL RDW Std Deviation 45.9 (36.4-46.3) fL RDW Coeff of Aftab 14.2 (11.5-14.5) % Plt Count 202 (130-400) K/uL MPV 9.3 L (9.4-12.3) fL Sodium 130 L (136-145) mmol/L Potassium 4.7 (3.5-5.1) mmol/L Chloride 100 (98-107) mmol/L Carbon Dioxide 24 (21-32) mmol/L Anion Gap 6 (3-11) BUN 30 H (6-23) mg/dl Creatinine 0.72 (0.6-1.2) mg/dl Est Cr Clr Drug Dosing 67.5 ml/min Est GFR ( Amer) 101.9 ml/min Est GFR (Non-Af Amer) 87.9 ml/min BUN/Creatinine Ratio 41.7 H (10-20) Glucose 116 H (70-99(Fasting)) mg/dl Calcium 8.7 (8.5-10.1) mg/dl Medications Administered Current Inpatient Medications Acetaminophen (Acetaminophen 325 Mg Tab) 650 mg PO BID KRIS Stop: 07/15/22 20:59 Albuterol (Albut/Ipratrop 3mg/0.5mg Neb 3 Ml Vial) 3 ml NEB QIDR PRN; Protocol PRN Reason: dyspnea/wheezing/cough Stop: 07/09/22 19:44 Bupropion HCl (Bupropion Xl 300 Mg Tabcr) 300 mg PO QAM [facility] Stop: 07/10/22 08:59 Last Admin: 06/15/22 09:47 Dose: 300 mg Calcitonin [place] (Calcitonin [place] Na 200 Iu/Ac 3.7 Ml Btl) 1 sprays NA DAILY KRIS Stop: 07/14/22 08:59 Last Admin: 06/15/22 09:49 Dose: 1 sprays Diclofenac Sodium (Diclofenac Sod 1% Gel 100 Gm Tube) 4 gm EXT QID [facility]; Protocol Stop: 07/10/22 16:59 Last Admin: 06/15/22 12:49 Dose: 4 gm Docusate Sodium (Docusate Sodium 100 Mg Cap) 100 mg PO DAILY [facility] Stop: 07/13/22 08:59 Last Admin: 06/15/22 09:47 Dose: 100 mg Enoxaparin Sodium (Enoxaparin Inj 40 Mg/0.4 Ml Syr) 40 mg SQ DAILY [facility] Stop: 07/13/22 08:59 Last Admin: 06/15/22 09:46 Dose: 40 mg Gabapentin (Gabapentin 300 Mg Cap) 300 mg PO TID [facility] Stop: 07/09/22 20:59 Last Admin: 06/15/22 13:37 Dose: 300 mg Heparin Sodium (Porcine) (Heparin 100 Unit/Ml 5ml Flush) 5 ml FLUSH PRN PRN PRN Reason: Flush Stop: 07/11/22 01:08 Last Admin: 06/13/22 17:08 Dose: 5 ml Piperacillin Sod/Tazobactam (Sod 4.5 gm/ Dextrose) 120 mls @ 30 mls/hr IV Q8H [facility]; Protocol Stop: 06/19/22 12:59 Last Admin: 06/15/22 12:49 Dose: 30 mls/hr Doxycycline Hyclate 100 mg/ (Dextrose) 110 mls @ 50 mls/hr IV Q12H [facility] Stop: 06/19/22 09:59 Last Infusion: 06/15/22 12:08 Dose: Infused Methylprednisolone 40 mg/ (Syringe) 0.64 mls @ 1.5 mls/min IV Q12 [facility] Stop: 07/15/22 20:59 Ketorolac Tromethamine (Ketorolac Tromethamine 15 Mg/Ml Vial) 15 mg IV Q6H PRN PRN Reason: MODERATE Pain Stop: 06/17/22 09:40 Last Admin: 06/15/22 08:22 Dose: 15 mg Lidocaine (Lidocaine 5% 1 Patch) 1 patch TD QAM [facility] Stop: 07/15/22 14:14 Melatonin (Melatonin 3 Mg Tab) 3 mg PO HS PRN PRN Reason: Sleep Stop: 07/11/22 19:39 Last Admin: 06/14/22 23:41 Dose: 3 mg Miscellaneous (Remove Lidoderm Patch) 1 each N/A DAILY@2100 [facility] Stop: 07/15/22 20:59 Multivitamins/Minerals (Cerovite Adv Formula Tab) 1 tab PO DAILY [facility] Stop: 07/10/22 08:59 Last Admin: 06/15/22 09:47 Dose: 1 tab Ondansetron HCl (Ondansetron Inj 2 Mg/Ml 2 Ml Vial) 4 mg IV Q6H PRN PRN Reason: Nausea Stop: 07/09/22 19:44 Oxycodone/Acetaminophen (Oxycodone/Acetaminophen 5mg/325mg Tab) 1 tab PO TID PRN PRN Reason: Severe Pain Stop: 06/29/22 14:13 Pantoprazole Sodium (Pantoprazole 40 Mg Tab) 40 mg PO QAM [facility] Stop: 07/10/22 08:59 Last Admin: 06/15/22 09:48 Dose: 40 mg Polyethylene Glycol (Polyethylene (Miralax) 17 Gm Pack) 17 gm PO DAILY PRN PRN Reason: Constipation Stop: 07/09/22 19:44 Raloxifene HCl (Raloxifene Hcl 60 Mg Tab) 60 mg PO QAM [facility] Stop: 07/10/22 08:59 Last Admin: 06/15/22 09:47 Dose: 60 mg Umeclidinium/Vilanterol (Umeclidinium/Vilanterol 62.5/25mcg 7 Puffs/Inhaler) 1 puffs INH QDR [facility] Stop: 07/10/22 09:14 Last Admin: 06/15/22 08:24 Dose: 1 puffs Resident Activity Tracking Resident Involvement: Resident Care Provided Care Provided: Adult [place] [facility] Medicine
[2022-06-15 07:14] LABS: BUN Creatinine Ratio 41.7 (10-20); Calcium 8.7 mg/dl (8.5-10.1); Creatinine Clr Calc Pharmacy 67.5 ml/min; Est GFR (African American) 101.9 ml/min; Est GFR (Non-African American) 87.9 ml/min; Potassium 4.7 mmol/L (3.5-5.1)
[2022-06-15] MEDS: oxyCODONE/APAP 7.5/325MG TAB PO PRN (08:21)
[2022-06-15] MEDS: UMECLIDINIUM/VILANTEROL 62.5/25MCG 7 PUFFS/INHALER INH SCH (08:24)
[2022-06-15] MEDS: methylPREDNISolone 40 MG in SYRINGE 0 ML IV SCH ×2 (08:25→20:04)
[2022-06-15] MEDS: ENOXAPARIN INJ 40 MG/0.4 ML SYR SQ SCH (09:46)
[2022-06-15] MEDS: GABAPENTIN 300 MG CAP PO SCH ×3 (09:46→20:03)
[2022-06-15] MEDS: buPROPion XL 300 MG TABCR PO SCH (09:47)
[2022-06-15] MEDS: DOCUSATE SODIUM 100 MG CAP PO SCH (09:47)
[2022-06-15] MEDS: CEROVITE ADV FORMULA TAB PO SCH (09:47)
[2022-06-15] MEDS: RALOXIFENE HCL 60 MG TAB PO SCH (09:47)
[2022-06-15] MEDS: DICLOFENAC SOD 1% GEL 100 GM TUBE EXT SCH ×4 (09:48→20:05)
[2022-06-15] MEDS: PANTOprazole 40 MG TAB PO SCH (09:48)
[2022-06-15] MEDS: CALCITONIN SALMON NA 200 IU/AC 3.7 ML BTL SCH (09:49)
[2022-06-15] MEDS: DOXYCYCLINE HYCLATE 100 MG in DEXTROSE 5% 100 ML IV SCH ×2 (09:53→21:51)
--- NOTE | 2022-06-15 10:12 | Pulmonology Progress Note ---
Date of Service June 15, 2022 Assessment & Plan (1) Acute respiratory failure with hypoxia: (2) Non-small cell lung cancer with metastasis: (3) COPD with emphysema: (4) Abnormal CT scan of lung: Plan CT chest 06/09/2022 personally reviewed: Centrilobular emphysema appreciated bilaterally with mild interlobular thickening Right-sided pleural effusion with right lower lobe mass Mediastinal adenopathy at station 2P, 10R -- Acute respiratory failure with hypoxia Multifactorial Worsening of underlying lung cancer is a possibility Although the patient's BNP is negative I do see some interlobular thickening which could be lymphatic spread from underlying cancer Patient is also getting immunotherapy, pneumonitis from it is also possibility --> patient started on Solu-Medrol 06/13/2022 Doppler bilateral lower extremity - 06/12/2022 Respiratory bio fire negative BNP 25 Procalcitonin 0.96 --COPD with emphysema Not on any inhalers at home I will start the patient on Anoro to be used on a daily basis Not in exacerbation, no need for steroids -- Metastatic non-small cell lung cancer Adenocarcinoma of unknown primary S/p chemoradiation, carboplatin/paclitaxel completed 04/03/2022 The right lower lobe mass is increasing in size along with right hilar and mediastinal lymphadenopathy S/p ultrasound-guided biopsy of the supraclavicular lymph node on the right side. Positive for poorly differentiated adenocarcinoma --Abnormal chest CT The interlobular thickening which the patient has could be lymphatic spread of the underlying cancer Patient also got radiation on the right side radiation pneumonitis can present the same way Patient is already being treated for possible pneumonia -- History of CLL Plan: Go down on Solu-Medrol to 40 mg every 12 hours Gradually titrate down O2 to keep O2 saturation between 90-92% Pulmonary continue to follow Please note the above document was generated using voice recognition software. It may contain grammatical, syntax or spelling errors.Any formal questions or concerns about the content, text or information contained within the body of this dictation should be directly addressed to the provider for clarification. Admission and Anticipated Discharge Date Admission Date: June 09, 2022 Subjective Patient seen and examined at bedside. No acute distress, no adverse events overnight. Patient was saturating 98% on 5 L nasal cannula. However was able to go down to 3 L. Overall Comfortable breathing she is feeling much better. Her main issue is the right lower ankle pain. Fair appetite, denies any nausea or vomiting Review of Systems Review of Systems: All systems reviewed & are unremarkable except as noted in Subjective Physical Exam Physical Exam: Constitutional: No acute distress HEENT: EOMI, PERRLA Respiratory system: Decreased air entry bilaterally, no wheeze, no rhonchi, positive crackles bilateral lower lobes more on the right side CVS: S1-S2 positive, no murmurs or gallops Abdomen: Soft, nontender, nondistended, positive bowel sounds x4 Extremities: +2 pulses bilaterally radialis/ dorsalis pedis, no cyanosis, no edema Neuro: Awake alert oriented x3 Psych: Normal mood and affect G/U: No Ruff Skin: no rashes, warm and dry Lymphatic: no cervical or axillary lymphadenopathy Results & Data Results & Data ([facility]) Vital Signs (Past 12 Hours) Vital Signs Temp Pulse Pulse Resp BP Pulse Ox O2 Del Method 06/15/22 08:00 81 06/15/22 08:00 Nasal Cannula 06/15/22 08:00 36.5 C 81 18 95 Nasal Cannula 06/15/22 00:00 93 H 06/14/22 22:32 36.7 C 90 18 134/74 95 Nasal Cannula O2 Flow Rate 06/15/22 08:00 06/15/22 08:00 5 06/15/22 08:00 5 06/15/22 00:00 06/14/22 22:32 5 Laboratory Results 06/15/22 06:29 06/15/22 06:29 PG Care Time/CCT Total # of Minutes Spent Total Time Spent with Patient: Total time spent is greater than 50% in coordination of care (as documented) at patient's floor/unit and/or counseling patient: Coding Level of Care Code 89589 Subseq Hosp Care Lvl 2 Diagnoses Acute respiratory failure with hypoxia J96.01 Non-small cell lung cancer with metastasis C34.90 COPD with emphysema J43.[address] scan of lung R91.8
[2022-06-15] MEDS: ACETAMINOPHEN 325 MG TAB PO SCH ×3 (10:43→20:01)
[2022-06-15] MEDS ORDERED: oxyCODONE/ACETAMINOPHEN 5mg/325mg TAB PO PRN (14:14)
[2022-06-15] MEDS: LIDOCAINE 5% 1 PATCH TD SCH (15:07)
--- NOTE | 2022-06-15 19:04 | Billing Data ---
Date of Service June 15, 2022 Coding Level of Care Code 71678 Subseq Hosp Care Lvl 3
[2022-06-16] MEDS ORDERED: oxyCODONE/ACETAMINOPHEN 5mg/325mg TAB PO STA (00:29)
[2022-06-16] MEDS: PIPERACILLIN/TAZOBACTAM 4.5 GM in DEXTROSE 5% 100 ML IV SCH (04:34)
[2022-06-16] MEDS: KETOROLAC TROMETHAMINE 15 MG/ML VIAL IV PRN ×3 (04:34→20:59)
--- NOTE | 2022-06-16 07:08 | Hospitalist Progress Note ---
Date of Service June 16, 2022 Assessment & Plan (1) Pneumonia: Plan: Chest CT with infiltrates in the right lower lobe around her known lung mass Could be pneumonia versus immunotherapy (last 2 weeks ago) induced pneumonitis versus radiation pneumonitis (radiation in april 07) elevated procal suggestive of infectious process cont zosyn IV - day #8, discontinued MRSA swab neg thus defer on MRSA coverage gradually improving oxygen requirements dropping from 10L --> 2L CXR latest relatively unchanged from previous Worsening oxygen requirement but no worsening dyspnea Pulmonology consulted, started Anoro, solumedrol, possibility of PE low will start downtitrating solumedrol --> 40 mg prednisone daily, taper over 2- 4 weeks May need 2 step at discharge stop abx Continue flutter valve, add incentive spirometer (2) Sepsis: Plan: 2nd to RLL pneumonia Improving Note CBC shows lymph predominance (3) Acute respiratory failure with hypoxia: Plan: Related to pneumonia, extensive lung cancer, probably pulmonary edema, hard to rule out immunotherapy induced pneumonitiscontinue IV antibiotics pulmonary toilet Lasix supportive care further work-up as per pulmonary. Fortunately she does not show worse dyspnea although she does have much escalated oxygen requirement (4) Non-small cell lung cancer with metastasis: Plan: Escalated pain regimenpain control better Consulted Pain management daily meloxicam, switch to hydrocodone/acetaminophen, lidoderm patch, IV dilaudid for breakthrough pain Consulted Rad Onc, palliative radiation to right ankle started today (5) CLL (chronic lymphocytic leukemia): Plan: Followed by oncology since 2018. Considered to be intermediate risk due to FISH +13 q. deletion She has not required Rx s/p supraclavicular lymph node bx 06/10 -- enlarged lymph node is not from CLL but metastatic adenocarcinoma (6) Depression: Plan: Continue home bupropion (7) Osteoporosis: Plan: Continue home raloxifene (8) Ulcerative proctitis: Plan: Continue home CO mesalamine (9) Right ankle pain: Plan: x-rays neg for fracture doppler RLE neg for DVT R ankle MRI is positive for bone mets Escalated pain regimen, pain management and rad onc consulted (10) Tachycardia: Plan: Sinus/reactive Plan DVT prophylaxis-Lovenox She designates her sister, Patricia Adame, as her healthcare power of securities attorney/spokesperson if she is unable to make decisions for herself. Admission and Anticipated Discharge Date Admission Date: June 09, 2022 Supervising Physician Co-Signing Physician Notes I also saw the patient confirmed arriola portions of the history and physical examination. I agree with the impression plan as noted the resident documentation. EXAM 127/79, 91, 19, 36.4, 90% on nasal cannula 2 L/min Generally good spirits. She has no new complaints this afternoon Respirations are nonlabored Heart is regular DATA WBC 31.11, hemoglobin 11.2, platelet count 241 Sodium 129, potassium 4.0, BUN 26, creatinine 0.64 Procalcitonin 0.95 IMPRESSION & PLAN Acute respiratory failure with hypoxia Stage IIIa NSCLC chronic lymphocytic leukemia Bony metastatic disease to the right ankle Appreciate consultations from pulmonary medicine, pain management, and radiation oncology Simulation completed today, plan is for palliative external beam radiation therapy to the right ankle, 10 fractions Changes to pain medications as recommended by pain management Continue to titrate oxygen; could complete two-step tomorrow to see if home oxygen is necessary Subjective Patient seen at bedside, calm comfortable cooperative. Currently on 2L NC tolerating well willing to try room air only. Per nursing her right ankle pain is no longer managable with her PRN pain medication, would like pain management consulted as patient has had difficulty getting in touch with them. Patient understands radiation has been consulted as well for her ankle. Otherwise she is doing well. Review of Systems Review of Systems: see hpi Physical Exam Constitutional: well developed, well nourished, cooperative and comfortable Eyes: PERRL, conjunctivae normal, anicteric sclerae ENMT: external ear and nose normal, oropharynx normal Neck: trachea midline, no thyromegaly Respiratory: Auscultation: + crackles (R>L) Cardiovascular: Rate/Rhythm: regular rate and regular rhythm Extremities: no edema Gastrointestinal (Abdomen): Inspection/Auscultation: abdomen normal to inspection Percussion/Palpation: abdomen soft; abdomen nontender Skin: no rashes, warm and dry Results & Data Results & Data ([facility]) Vital Signs (Past 12 Hours) Vital Signs Temp Pulse Pulse Resp BP Pulse Ox O2 Del Method 06/15/22 23:14 90 06/15/22 22:33 36.7 C 91 H 17 148/74 H 90 Nasal Cannula 06/15/22 19:15 Nasal Cannula 06/15/22 20:31 36.6 C 86 20 127/79 91 Nasal Cannula O2 Flow Rate 06/15/22 23:14 06/15/22 22:33 2 06/15/22 19:15 3 06/15/22 20:31 2 Laboratory Results 06/16/22 06/16/22 06/16/22 Range/Units 12:17 07:33 07:33 WBC 31.11 H* (4.8-10.8) K/ul RBC 3.71 L (3.93-5.22) M/uL Hgb 11.2 L (12.0-16.0) g/dl Hct 33.0 L (34.1-44.9) % MCV 88.9 (80.0-100.0) fL MCH 30.2 (25.0-34.0) pg MCHC 33.9 (32.0-36.0) g/dL RDW Std Deviation 45.9 (36.4-46.3) fL RDW Coeff of Aftab 14.3 (11.5-14.5) % Plt Count 241 (130-400) K/uL MPV 9.4 (9.4-12.3) fL Immature Gran % (Auto) 0.4 % Neut % (Auto) 24.5 % Lymph % (Auto) 70.2 % [place] % (Auto) 4.7 % Eos % (Auto) 0.0 % Baso % (Auto) 0.2 % Neut # (Auto) 7.63 H (1.4-6.5) K/uL Lymph # (Auto) 21.85 H (1.2-3.4) K/uL [place] # (Auto) 1.45 H (0.24-0.82) K/uL Eos # (Auto) 0.01 (0-0.50) K/uL Baso # (Auto) 0.05 (0-0.2) K/uL Immature Gran # (Auto) 0.12 H (0.00-0.02) K/uL Smudge Cells Present Sodium 129 L (136-145) mmol/L Potassium 4.0 (3.5-5.1) mmol/L Chloride 97 L (98-107) mmol/L Carbon Dioxide 25 (21-32) mmol/L Anion Gap 7 (3-11) BUN 26 H (6-23) mg/dl Creatinine 0.64 (0.6-1.2) mg/dl Est Cr Clr Drug Dosing 78.2 ml/min Est GFR ( Amer) 108.5 ml/min Est GFR (Non-Af Amer) 93.6 ml/min BUN/Creatinine Ratio 40.6 H (10-20) Glucose 76 (70-99(Fasting)) mg/dl Calcium 8.8 (8.5-10.1) mg/dl Procalcitonin 0.95 H (0-0.5) ng/ml Bacon-TRK ([facility]) 06/09/22 Range/Units Unknown WBC (4.8-10.8) K/ul RBC (3.93-5.22) M/uL Hgb (12.0-16.0) g/dl Hct (34.1-44.9) % MCV (80.0-100.0) fL MCH (25.0-34.0) pg MCHC (32.0-36.0) g/dL RDW Std Deviation (36.4-46.3) fL RDW Coeff of Aftab (11.5-14.5) % Plt Count (130-400) K/uL MPV (9.4-12.3) fL Immature Gran % (Auto) % Neut % (Auto) % Lymph % (Auto) % [place] % (Auto) % Eos % (Auto) % Baso % (Auto) % Neut # (Auto) (1.4-6.5) K/uL Lymph # (Auto) (1.2-3.4) K/uL [place] # (Auto) (0.24-0.82) K/uL Eos # (Auto) (0-0.50) K/uL Baso # (Auto) (0-0.2) K/uL Immature Gran # (Auto) (0.00-0.02) K/uL Smudge Cells Sodium (136-145) mmol/L Potassium (3.5-5.1) mmol/L Chloride (98-107) mmol/L Carbon Dioxide (21-32) mmol/L Anion Gap (3-11) BUN (6-23) mg/dl Creatinine (0.6-1.2) mg/dl Est Cr Clr Drug Dosing ml/min Est GFR ( Amer) ml/min Est GFR (Non-Af Amer) ml/min BUN/Creatinine Ratio (10-20) Glucose (70-99(Fasting)) mg/dl Calcium (8.5-10.1) mg/dl Procalcitonin (0-0.5) ng/ml Bacon-TRK ([facility]) Medications Administered Current Inpatient Medications Acetaminophen (Acetaminophen 325 Mg Tab) 650 mg PO BID KRIS Stop: 07/15/22 20:59 Last Admin: 06/16/22 08:25 Dose: 650 mg Hydrocodone Bitart/Acetaminophen (Hydrocodone/Acetamophen 5/325mg Tab) 1 tab PO Q4H PRN PRN Reason: Pain Stop: 06/30/22 15:40 Hydrocodone Bitart/Acetaminophen (Hydrocodone/Acetamophen 5/325mg Tab) 2 tab PO Q4H PRN PRN Reason: Pain Stop: 06/30/22 15:40 Albuterol (Albut/Ipratrop 3mg/0.5mg Neb 3 Ml Vial) 3 ml NEB QIDR PRN; Protocol PRN Reason: dyspnea/wheezing/cough Stop: 07/09/22 19:44 Bupropion HCl (Bupropion Xl 300 Mg Tabcr) 300 mg PO QAM KRIS Stop: 07/10/22 08:59 Last Admin: 06/16/22 08:26 Dose: 300 mg Calcitonin Drift (Calcitonin Drift Na 200 Iu/Ac 3.7 Ml Btl) 1 sprays NA DAILY KRIS Stop: 07/14/22 08:59 Last Admin: 06/16/22 08:27 Dose: 1 sprays Diclofenac Sodium (Diclofenac Sod 1% Gel 100 Gm Tube) 4 gm EXT QID KRIS; Protocol Stop: 07/10/22 16:59 Last Admin: 06/16/22 16:59 Dose: Not Given Docusate Sodium (Docusate Sodium 100 Mg Cap) 100 mg PO DAILY KRIS Stop: 07/13/22 08:59 Last Admin: 06/16/22 08:25 Dose: 100 mg Enoxaparin Sodium (Enoxaparin Inj 40 Mg/0.4 Ml Syr) 40 mg SQ DAILY KRIS Stop: 07/13/22 08:59 Last Admin: 06/16/22 08:25 Dose: 40 mg Gabapentin (Gabapentin 300 Mg Cap) 300 mg PO TID KRIS Stop: 07/09/22 20:59 Last Admin: 06/16/22 13:56 Dose: 300 mg Heparin Sodium (Porcine) (Heparin 100 Unit/Ml 5ml Flush) 5 ml FLUSH PRN PRN PRN Reason: Flush Stop: 07/11/22 01:08 Last Admin: 06/13/22 17:08 Dose: 5 ml Hydromorphone HCl (Hydromorphone Inj 0.5 Mg/0.5 Ml Syr) 0.5 mg IV Q6H PRN PRN Reason: Pain Stop: 06/30/22 15:40 Ketorolac Tromethamine (Ketorolac Tromethamine 15 Mg/Ml Vial) 15 mg IV Q6H PRN PRN Reason: MODERATE Pain Stop: 06/17/22 09:40 Last Admin: 06/16/22 12:56 Dose: 15 mg Lidocaine (Lidocaine 5% 1 Patch) 1 patch TD QAM [facility] Stop: 07/15/22 14:14 Last Admin: 06/16/22 08:25 Dose: 1 patch Melatonin (Melatonin 3 Mg Tab) 3 mg PO HS PRN PRN Reason: Sleep Stop: 07/11/22 19:39 Last Admin: 06/14/22 23:41 Dose: 3 mg Meloxicam (Meloxicam 7.5 Mg Tab) 15 mg PO QAM [facility] Stop: 07/16/22 15:59 Last Admin: 06/16/22 16:28 Dose: 15 mg Miscellaneous (Remove Lidoderm Patch) 1 each N/A DAILY@2100 [facility] Stop: 07/15/22 20:59 Last Admin: 06/15/22 20:05 Dose: 1 each Multivitamins/Minerals (Cerovite Adv Formula Tab) 1 tab PO DAILY KRIS Stop: 07/10/22 08:59 Last Admin: 06/16/22 08:26 Dose: 1 tab Ondansetron HCl (Ondansetron Inj 2 Mg/Ml 2 Ml Vial) 4 mg IV Q6H PRN PRN Reason: Nausea Stop: 07/09/22 19:44 Pantoprazole Sodium (Pantoprazole 40 Mg Tab) 40 mg PO QAM [facility] Stop: 07/10/22 08:59 Last Admin: 06/16/22 08:26 Dose: 40 mg Polyethylene Glycol (Polyethylene (Miralax) 17 Gm Pack) 17 gm PO DAILY PRN PRN Reason: Constipation Stop: 07/09/22 19:44 Prednisone (Prednisone 20 Mg Tab) 20 mg PO BID [facility] Stop: 07/16/22 20:59 Raloxifene HCl (Raloxifene Hcl 60 Mg Tab) 60 mg PO QAM [facility] Stop: 07/10/22 08:59 Last Admin: 06/16/22 08:24 Dose: 60 mg Umeclidinium/Vilanterol (Umeclidinium/Vilanterol 62.5/25mcg 7 Puffs/Inhaler) 1 puffs INH QDR [facility] Stop: 07/10/22 09:14 Last Admin: 06/16/22 08:23 Dose: 1 puffs Resident Activity Tracking Resident Involvement: Resident Care Provided Care Provided: Adult Hospital Medicine
--- NOTE | 2022-06-16 07:14 | XRay Report ---
XR chest 1V portable CLINICAL HISTORY: f/u COMPARISON STUDY: Chest radiograph June 14, 2022. Chest CT June 09, 2022. FINDINGS: Right internal jugular [id number] remains in place. There is no pneumothorax. Trace righ t pleural effusion is noted. Right mid and lower lung airspace opacity is noted. Associated interstit ial thickening is present. Appearance of the chest is similar to prior exam. Linear left basilar opac ity is present. Cardiac size is normal. Mediastinal contours are stable. IMPRESSION: No significant change in appearance of the chest. Right perihilar and basilar airspace o pacity and mass, better depicted on prior chest CT. Small right pleural effusion. ACT 112: Negative or not required by law. Electronically signed by: José Miguel Denis M.D. 06/16/2022 7:13 AM
[2022-06-16 08:16] LABS: Hemoglobin 11.2 g/dl (12.0-16.0); Mean Corpuscular Hemoglobin 30.2 pg (25.0-34.0); Mean Corpuscular Hgb Conc 33.9 g/dL (32.0-36.0); Mean Corpuscular Volume 88.9 fL (80.0-100.0); Mean Platelet Volume 9.4 fL (9.4-12.3); Platelet Count 241 K/uL (130-400); RDW Coefficient of Variation 14.3 % (11.5-14.5); RDW Standard Deviation 45.9 fL (36.4-46.3); Red Blood Count 3.71 M/uL (3.93-5.22); White Blood Count 31.11 K/ul (4.8-10.8)
[2022-06-16] MEDS: UMECLIDINIUM/VILANTEROL 62.5/25MCG 7 PUFFS/INHALER INH SCH (08:23)
[2022-06-16] MEDS: RALOXIFENE HCL 60 MG TAB PO SCH (08:24)
[2022-06-16] MEDS: GABAPENTIN 300 MG CAP PO SCH ×3 (08:24→21:05)
[2022-06-16] MEDS: ENOXAPARIN INJ 40 MG/0.4 ML SYR SQ SCH (08:25)
[2022-06-16] MEDS: DOCUSATE SODIUM 100 MG CAP PO SCH (08:25)
[2022-06-16] MEDS: ACETAMINOPHEN 325 MG TAB PO SCH ×3 (08:25→22:48)
[2022-06-16] MEDS: LIDOCAINE 5% 1 PATCH TD SCH (08:25)
[2022-06-16] MEDS: PANTOprazole 40 MG TAB PO SCH (08:26)
[2022-06-16] MEDS: buPROPion XL 300 MG TABCR PO SCH (08:26)
[2022-06-16] MEDS: CEROVITE ADV FORMULA TAB PO SCH (08:26)
[2022-06-16] MEDS: methylPREDNISolone 40 MG in SYRINGE 0 ML IV SCH (08:27)
[2022-06-16] MEDS: DICLOFENAC SOD 1% GEL 100 GM TUBE EXT SCH ×4 (08:27→21:05)
[2022-06-16] MEDS: CALCITONIN SALMON NA 200 IU/AC 3.7 ML BTL SCH (08:27)
[2022-06-16 08:34] LABS: BUN Creatinine Ratio 40.6 (10-20); Calcium 8.8 mg/dl (8.5-10.1); Creatinine Clr Calc Pharmacy 78.2 ml/min; Est GFR (African American) 108.5 ml/min; Est GFR (Non-African American) 93.6 ml/min
[2022-06-16 09:46] LABS: Basophils # (auto) 0.05 K/uL (0-0.2); Basophils % (auto) 0.2 %; Eosinophils # (auto) 0.01 K/uL (0-0.50); Immature Granulocytes # (auto) 0.12 K/uL (0.00-0.02); Immature Granulocytes % (auto) 0.4 %; Lymphocytes # (auto) 21.85 K/uL (1.2-3.4); Lymphocytes % (auto) 70.2 %; Monocytes # (auto) 1.45 K/uL (0.24-0.82); Monocytes % (auto) 4.7 %; Neutrophils # (auto) 7.63 K/uL (1.4-6.5); Neutrophils % (auto) 24.5 %; Smudge Cells Present
--- NOTE | 2022-06-16 09:59 | Radiation OncologyConsultation ---
Date of Consultation June 16, 2022 Assessment & Plan (1) Pain from bone metastases: Ms. Solorzano is a 67-year-old female with a known history of stage IIIA adenocarcinoma of the lung. She finished combined radiation and chemotherapy on 04/02/2022. She received 6000 cGy. Chemotherapy was comprised of weekly Taxol and carboplatin. Shortly after completing her treatment she began to develop pain in her right ankle. Pain was intermittent but progressive. She was seen and x-rays were obtained. No fractures were seen. She also had a venous Doppler and she had no DVT. She then developed issues with shortness of breath with minimal exertion and was admitted. Currently treated and improving. She continues to have pain in the ankle which is generalized at 5. Oral pain medications do help. Pain can increase to a level 8. There had been swelling in the ankle which improved with steroid therapy as an outpatient. The swelling recurred and now has improved with receiving steroids as an inpatient. She underwent an MRI of the ankle which has shown metastatic disease. Stage IV. Our office has been consulted to evaluate and treat for palliation of pain. Patient was in agreement to undergo CT simulation and begin treatment to the ankle. She will be brought to our office today for the simulation and will begin treatment when treatment plans are complete. Plan ATTENDING ADDENDUM Assessment: Ms. Solorzano is a 67 year old female with a history of CLL who was recently treated for locally advanced NSCLC. She completed concurrent chemotherapy and radiation therapy recently (6000 cGy, 30 fractions, 04/02/2022) and has been on maintenance Durvalumab underneath supervision of Dr. Lama. The patient was recently admitted to the hospital for acute respiratory failure and during this hospital course she has been diagnosed with metastatic lung cancer involving multiple areas. She has been complaining of pain involving her right ankle and MRI imaging did confirm presence of metastatic disease. We have been asked to evaluate her for consideration of palliative external beam radiation therapy. Recommendation: Palliative external beam radiation therapy to right ankle. 10 fractions. Plan: 1. CT simulation today to expedite treatment planning process. Plan for radiation therapy which can be completed in the inpatient or outpatient setting. 2. Pain control as per primary medical team. 3. Patient to follow-up with medical oncology to determine further course for systemic therapy. Dr. Lama. 4. Recommend primary team order bone scan for patient. 5. Patient and family encouraged to call us with any further questions or concerns. Rationale/Explanation of Treatment: I explained the indications, alternatives, benefits, risks and side effects of external beam radiation therapy. I then went on to discuss the acute and late side effects of radiation therapy which include, but are not limited to: skin erythema, dry/moist desquamation, pruritus, skin edema, skin necrosis, hyperpigmentation, telangiectasia, wound complications, lymphedema, pain, decreased range of motion, decreased range of motion and/or loss of function of extremity, bone fracture, pain, neuropathy, secondary malignancy. I then went on to discuss the procedures and scheduling of radiation therapy. History of Present Illness Reason for Consultation: Right ankle pain Requesting Physician: Dr. Altman Attending Physician: Avni Magallon DO History of Present Illness Radiation History 2018 diagnosis of CLL. 10/2021. Development of nausea and weight loss. 11/01/2021. Abdominal ultrasound. Multiple masses/nodules of the ab 11/08/2021. CT abdomen/pelvis. Numerous markedly enlarged mediastinal nodes. Additional enlarged retroperitoneal and jethro hepatitis nodes. 12/11/2021. PET/CT. Right lower lobe lung mass. 4.2 cm markedly FDG avid. FDG avid subcentimeter satellite nodules right lower lobe. Bulky FDG avid right hilar adenopathy. 12/13/2021. Bronchoscopy with EBUS. 10 R lymph node aspiration. Malignant cells consistent with metastatic non-small cell carcinoma. Adenocarcinoma. Stage cT2b N2 M0. Stage III A. 01/06/2022. Thoracic surgery evaluation. 01/17/2022. Pelvis MRI. Changes at the ileum favor lymphoma involvement. 04/02/2022. Status post completion of combined radiation and chemotherapy. She received 6000 cGy utilizing volumetric modulated arc therapy. Chemotherapy comprised of Taxol and carboplatin. Development of right ankle pain. 06/09/2022. Admission with shortness of breath. 06/10/2022. Right ankle MRI. Diffuse marrow replacement throughout the imaged bone structures suggestive of osseous metastasis. Findings appear to have progressed from the comparison of 05/08/2022 radiographs. HPI History Of Present Illness Ms. Solorzano has a prior history of CLL diagnosed proximately 4 years ago. Recent work-up showed a lung lesion with further studies to evaluate it. 2018. Patient diagnosed with CLL, deletion 13 q. via FISH. 11/01/2021. Ultrasound of the abdomen performed for nausea. This showed multiple masses or nodes in the abdomen measuring 6.0 x 2.8 x 4.1 cm. These are consistent with the diagnosis of CLL. 11/08/2021. CT of the abdomen and pelvis with IV contrast and oral. Numerous markedly enlarged mediastinal nodes are seen measuring up to 3 cm in diameter. Additional enlarged retroperitoneal and jethro hepatis nodes are noted. 12/11/2021. PET CT scan performed. This showed a 4.2 cm markedly FDG avid right lower lobe lung mass. The appearance strongly favors a primary bronchogenic neoplasm. Tissue sampling is recommended. In FDG avid subcentimeter satellite nodule in the right lower lobe as well as bulky FDG avid right hilar adenopathy favoring metastatic lung cancer. There were numerous prominent lymph nodes in the lower neck that were not demonstrably FDG avid but difficult to evaluate due to the small size. There are mildly enlarged and FDG avid axillary lymph nodes as well as bulky/confluent FDG avid mesenteric and retroperitoneal lymph nodes there were mildly enlarged and degenerative iliac chain nodes. These are consistent with a history of lymphoma. There was an indeterminant focus of FDG activity in the medial right ilium with no bony lesion identified. Follow-up is recommended. 12/13/2021. Dr. Lemons performed an Endo bronchial ultrasound with transbronchial needle aspiration of lymph nodes. He performed a cyst somatic brief inspection of mediastinal lymph node stations including 2R, 2L, 4R, 4L, 7, 10/11 L and 10/11 R. Pathologic adenopathy was identified in the level 10 R station. Under direct ultrasound visualization utilizing a 21-gauge needle the 10 R lymph node station was sampled. Pathology confirmed malignant cells present in lymph node 10 R consistent with metastatic non-small cell cancer, NOS. The cytologic appearance is more in keeping with adenocarcinoma. HER2 was negative by FISH. Case #: [id number]. 12/17/2021. MRI of the brain with and without contrast was performed and was unremarkable with no evidence of metastatic disease. 12/26/2021. Patient is presented at the multidisciplinary lung cancer conference. Recommendation was to proceed with definitive chemoradiation. Patient will be seen by Dr. Ricci and by radiation oncology. 01/01/2022. Patient seen by Ele Nunes ([facility]). They discussed systemic chemotherapy consistent with cisplatin/docetaxel every 3 weeks for 4 cycles. We discussed MRI of the pelvis to rule out bony disease in the right ilium and discussed possible surgical intervention following adjuvant chemotherapy. 01/02/2022. Patient was seen in follow-up secondary to ulcerative proctitis, nausea and CLL. Conservative management was recommended. 01/06/2022. Dr. Mendoza performed a telehealth visit with the patient. He again discussed the need for MRI of the pelvis to rule out right ilium activity and a CT of the chest with IV contrast to understand relationship between FDG avid relatively bulky hilar adenopathy in the right pulmonary artery for surgical planning. He reviewed the use of neoadjuvant chemotherapy and immunotherapy and possible subsequent surgery. 01/15/2022. Patient undergoes CT of the chest with contrast. This shows interval increase in the size of the lobular necrotic mass within the right lower lobe currently measuring 5.4 x 4.2 cm. There was interval progression of the lymphadenopathy within the chest. 01/21/2022. Patient undergoes bilateral digital screening mammogram. This showed no mammographic evidence of breast malignancy with a 1 year screening recommended. There was incomplete visualization of the prominent appearing bilateral axillary lymph node likely concordant with a history of CLL. Lymph node biopsy was discussed. 01/22/2022. MRI of the pelvis performed. This showed diffuse marrow signal abnormality throughout the hips and bony pelvis of indeterminate significance. A 1.6 cm focal enhancing lesion in the medial right lower ileum adjacent to the SI joint is noted. This corresponds to the focus of abnormal FDG uptake on the recent PET CT scan. The lesion is pathologically indeterminant with neoplasm with diagnosis of exclusion. Lymphomatous involvement is favored over metastatic lung cancer as there are no corresponded findings on recent CT imaging. It also noted a possible second 6 mm enhancing lesion within the left iliac wing. Abdominal pelvic lymphadenopathy noted. 01/23/2022. Ultrasound-guided biopsy of the left abnormal axillary lymph node with clip placement. This showed evidence of chronic lymphocytic leukemia/small lymphocytic lymphoma. Case #: [id number]. 01/23/2022. Patient presented at the multidisciplinary pulmonary lung conference. Dr. Mendoza was present and felt the patient would be best served by chemoradiation with no role for surgery at this time. 01/29/2022. Patient seen in radiation oncology for evaluation and discussion of the role of definitive chemoradiation as primary treatment for her right lower lobe lung cancer with mediastinal and hilar adenopathy. 03/2022. Development of right ankle pain. 04/28/2022. Venous Doppler negative for DVT. 05/08/2022. Right ankle x-rays. Mild soft tissue swelling with no osseous abnormality identified. 06/09/2022. Admission with shortness of breath. Patient has been complaining of months long issue involving right ankle. 06/10/2022. Right ankle MRI. Diffuse marrow replacement throughout the imaged bone structures suggestive of osseous metastasis. Findings appear to have progressed from the comparison of 05/08/2022 radiographs. Allergies Allergy/AdvReac Type Severity Reaction Status Date / Time No Known Drug Allergies Allergy Verified 06/09/22 17:50 Home Medications Medication Instructions Recorded Confirmed Type pantoprazole 40 mg tablet,delayed 40 mg PO QAM 12/20/21 06/09/22 History release mesalamine 1,000 mg rectal 1 g WA QPM 02/13/22 06/09/22 History suppository raloxifene 60 mg tablet 60 mg PO QAM 02/13/22 06/09/22 History bupropion HCl 300 mg 24 hr tablet, 300 mg PO QAM #90 tabs 05/02/22 06/09/22 Rx extended release gabapentin 300 mg capsule 300 mg PO TID 06/09/22 06/09/22 History multivitamin with minerals 1 tab PO DAILY 06/09/22 06/09/22 History (Multiple Vitamin-Minerals tablet) Patient History Medical History Chronic lymphocytic leukemia Depression GERD (gastroesophageal reflux disease) History of squamous cell carcinoma of skin On chest and on abdomen Hypercholesterolemia Motion sickness Nausea and vomiting after administration of anesthetic agent Non-small cell lung cancer with metastasis Osteoporosis Primary cancer of right lower lobe of lung (12/13/21) SNHL (sensorineural hearing loss) Ulcerative proctitis Surgical History Dental root implant present Ganglion cyst right wrist 1993 History of biopsy (01/23/22) Lymph Node, Left Axilla, Core Biopsy History of bronchoscopy (12/13/21) Fiberoptic Bronchoscopy + Endobronchial Ultrasound with Transbronchial [place] Aspiration of LN Dr. Compa Lemons at [facility] History of colonoscopy with polypectomy History of squamous cell carcinoma excision x2--one off chest, one off abdomen History of tooth extraction Hx of colonoscopy Port-A-Cath in place (02/19/22) Port Placement with Fluoroscope(Right) - Patel Shea, DO S/P biopsy of cervix Family History Mother Bone cancer unknown primary Cancer Sister Uterine cancer Cancer Grandfather (Maternal) Pancreatic cancer Cancer Family/Other Family hx of colon cancer cousin Grandmother (Paternal) Cancer Melanoma Family/Other Cancer Father No problems noted. Sister No problems noted. Other Colorectal cancer Has no children Denies family history of Ovarian cancer Prostate cancer No family history of adverse response to anesthesia No family history of bleeding disorder Heart disease Allergies Myocardial infarction Breast cancer Hypertension Stroke Asthma Social History (Updated 06/09/22 @ 17:49 by Lilly Mcallister MD) Smoking Status: Former smoker Tobacco Type: Cigarettes Age Started Using Tobacco: 20; Age Quit Using Tobacco: 41; packs per day: 1; Years Smoked: 20; Number of Years Since Quit: 25; Second Hand Exposure: No; Hx Alcohol Use: No Hx Substance Use: No Preferred Language: Trinidadian Communication Ability: Effective Visual Impairment: No Limitations 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: Normal Wool Sacker Required: No Beliefs That Will Affect Care: None marital status: Current Living Situation: Alone current occupational status: retired 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 Rule out immunotherapy, chemotherapy or radiation pneumonia. Cardiovascular: no problem reported Gastrointestinal: + nausea Related to pain medication. Genitourinary: no problem reported Musculoskeletal: See history of present illness. Physical Exam Constitutional: + thin Eyes: PERRL, conjunctivae normal, anicteric sclerae ENMT: Ears: no hearing impairment Neck: trachea midline, no thyromegaly Respiratory: no respiratory distress and no retractions Auscultation: + diminished lung sounds O2 at 2 L/min via nasal cannula. Cardiovascular: RRR, no murmur, no edema Musculoskeletal: Lidocaine patch dorsum of the right ankle. Mild pain on dorsiflexion and extension. Currently no ankle edema. Good range of motion. Skin: Healing area of her right mid back from recent excision of a cyst. Psychiatric: A+Ox3, euthymic affect Results (Rad Onc) [facility], [phone] Magnetic Resonance Report Patient: RAMSES SOLORZANO Date: 06/09/22#: [id number]: [address] ID:[id number]: Date: 1955[facility] Zip: [place], [place] [address]Epa: 67Location: 4WSex: FRoom/Bed: [address] Phy: Tulio Altman MDDiagnosis: PNEUMONIA, HYPOXIAPri Phy: Deirdre Vallecillo MDService Date: 06/10/22Fa Phy:Interpreting Phy: Brandon MoralesAdmit Phy: Lilly Mcallister MD Ordering Phy: Tulio Altman MD cc: ~ MR ankle RT wo con CLINICAL HISTORY: 67 years-old Female with ongoing pain, swelling. Subacute pain and swelling of the right ankle, most pronounced laterally. History of lung cancer. COMPARISON: Duplex venous Doppler study of same day, right foot and ankle radiographs 05/08/2022, ankle radiographs 06/10/2022. TECHNIQUE: Multiplanar, multi sequence MRI of the right ankle was performed without contrast. FINDINGS: LATERAL LIGAMENT COMPLEX: Mild thickening of the anterior talofibular ligament suggestive of chronic sprain. The calcaneofibular ligament and posterior talofibular ligaments are intact. SYNDESMOTIC LIGAMENTS: Mild thickening of the anterior-inferior tibiofibular ligament, interosseous membrane and posterior-inferior tibiofibular ligament suggestive of chronic sprain. DELTOID LIGAMENT COMPLEX: The superficial and deep components of the deltoid ligament are intact. ANTERIOR TENDONS: The tibialis anterior, extensor hallucis longus and extensor digitorum longus tendons are normal in position, morphology and signal. LATERAL TENDONS: The peroneus longus and brevis tendons are intact. Mild tenosynovitis of the peroneus longus. MEDIAL TENDONS: The posterior tibialis, flexor digitorum longus and flexor hallucis longus tendons are intact. Mild tenosynovitis of the tibialis posterior. PLANTAR FASCIA: The medial and lateral bundles of the plantar fascia are normal in morphology and signal. There is no evidence of acute plantar fasciitis or tear. No evidence of plantar fascial nodules. ACHILLES TENDON: The Achilles tendon is normal in position, morphology and signal. No associated bursitis. SINUS TARSI: Edema noted within the sinus Tarsi. The interosseous and cervical ligaments are normal. The navicular-calcaneal (spring) ligament is without acute abnormality. TARSAL TUNNEL: There are no obstructing lesions within the tarsal tunnel. BONE MARROW: There is diffuse marrow replacement with correspondingly decreased T1 and increased T2/STIR signal throughout the foot, ankle and lower leg. No acute pathologic fracture identified. There is diffuse periosteal edema. There is additional diffuse subcutaneous, deep tissue and intramuscular edema throughout the foot and ankle. IMPRESSION: 1. Diffuse marrow replacement throughout the imaged bony structures suggestive of osseous metastasis. Findings appear to have progressed from the comparison 05/08/2022 radiographs. 2. Additional subcutaneous, deep tissue and intramuscular edema is also likely related to the aforementioned metastatic disease. A nonspecific cellulitis with myositis could appear similarly. 3. No acute pathologic fracture identified. ACT 112: Negative or not required by law. The above report was generated using voice recognition software. It may contain grammatical, syntax or spelling errors. Time Spent Midlevel I spent [10] minutes in preparation for this follow up evaluation including reviewing all the clinical records, reviewing laboratory studies, pathology reports and imaging results. I spent [30] minutes with direct face to face interaction with the patient and/or family including performing a physical exam and answering all questions. I spent [10] minutes documenting this patient's visit.
[2022-06-16] MEDS: DOXYCYCLINE HYCLATE 100 MG in DEXTROSE 5% 100 ML IV SCH (10:04)
--- NOTE | 2022-06-16 12:38 | Pulmonology Progress Note ---
Date of Service June 16, 2022 Assessment & Plan (1) Acute respiratory failure with hypoxia: (2) Non-small cell lung cancer with metastasis: (3) COPD with emphysema: (4) Abnormal CT scan of lung: Plan Impression: 67-year-old female with advanced non-small cell lung cancer despite chemotherapy admitted with increasing oxygen requirement and diffuse parenchymal abnormalities. Differential includes tumor emboli syndrome, progression of underlying malignancy with lymphangitic spread, or chemotherapy/immunotherapy related pulmonary toxicity. She is been treated empirically with steroids and appears to have had significant improvement with this intervention. No evidence of ongoing infection Recommendations: 1. Acute on chronic hypoxemic respiratory failure: Multifactorial. At this point time her oxygen saturations are improving with empiric therapy, see comments below. Continue supplemental oxygen titrated to keep saturations at or above 89%. May require two-step evaluation supplemental oxygen at discharge 2. Differential diagnosis for parenchymal abnormalities as noted above. Would continue steroids but can likely transition to prednisone 40 mg a day. If this is immunotherapy or chemotherapy grade 3 pulmonary toxicity, steroid taper over the next 2 to 4 weeks would be reasonable. Typically, would not recommend rechallenge of those agents but will defer to medical oncology as she may not have other good alternatives. Follow-up imaging per medical oncology 3. COPD: Not particularly bronchospastic. Nevertheless on steroids. Continue Anoro. 4. Advanced non-small cell lung cancer in the setting of advanced CLL. Unfortunately the patient appears to be manifesting signs of an aggressive malignancy which appears to be progressing despite chemoimmunotherapy. Addressing goals of care is certainly reasonable although the patient is already a DO NOT RESUSCITATE DO NOT INTUBATE. Unclear what other options from a chemotherapeutic standpoint the patient may have at this point time. 5. Do not see an indication of infection so antibiotics will be discontinued. Admission and Anticipated Discharge Date Admission Date: June 09, 2022 Subjective Patient seen and examined. EMR reviewed. Discussed with off going p ulmonologist. Patient states that from a respiratory standpoint she feels better. Her oxygen requirement continues to decrease. She is not coughing or expectorating phlegm. She is having difficulty sleeping largely secondary to pain issues in her ankle. She is pending evaluation by radiation oncology this morning Review of Systems Review of Systems: All systems reviewed & are unremarkable except as noted in Subjective Physical Exam Physical Exam: Constitutional: No acute distress Respiratory system: Decreased air entry bilaterally, no wheeze, no rhonchi, positive crackles bilateral lower lobes more on the right side CVS: S1-S2 positive, no murmurs or gallops Abdomen: Soft, nontender, nondistended, positive bowel sounds x4 Extremities: +2 pulses bilaterally radialis/ dorsalis pedis, no cyanosis, no edema Neuro: Awake alert oriented x3 Psych: Normal mood and affect G/U: No Ruff Skin: no rashes, warm and dry Lymphatic: no cervical or axillary lymphadenopathy Results & Data Results & Data ([facility]) Vital Signs (Past 12 Hours) Vital Signs Temp Pulse Pulse Resp BP Pulse Ox O2 Del Method 06/16/22 08:24 36.4 C L 78 20 144/80 H 91 Nasal Cannula 06/16/22 07:54 92 H 06/16/22 07:54 Nasal Cannula O2 Flow Rate 06/16/22 08:24 2.0 06/16/22 07:54 06/16/22 07:54 2 Laboratory Results 06/16/22 07:33 06/16/22 07:33 Diagnostic Findings No new imaging PG Care Time/CCT Total # of Minutes Spent Total Time Spent with Patient: Total time spent is greater than 50% in coordination of care (as documented) at patient's floor/unit and/or counseling patient: Coding Level of Care Code 42675 Subseq Hosp Care Lvl 3 Diagnoses Acute respiratory failure with hypoxia J96.01 Non-small cell lung cancer with metastasis C34.90 COPD with emphysema J43.[address] scan of lung R91.8
[2022-06-16] MEDS ORDERED: HYDROCODONE/ACETAMOPHEN 5/325MG TAB PO PRN (15:41)
[2022-06-16] MEDS ORDERED: HYDROmorphone INJ 0.5 MG/0.5 ML SYR IV PRN (15:41)
--- NOTE | 2022-06-16 15:52 | Pain Management Consultation ---
Date of Consultation June 16, 2022 Assessment & Plan (1) Pain from bone metastases: (2) Right ankle pain: (3) Neuropathy: (4) CLL (chronic lymphocytic leukemia): Plan 1. Recommend utilization of meloxicam 15 mg p.o. every morning as well as Lidoderm patch to assist with pain. 2. Recommend conversion from oxycodone to hydrocodone/acetaminophen 325 mg 1 to 2 tablets pending pain score every 4 hours as needed. We discussed preplanning of at least 30 minutes prior to activity and the patient expresses understanding and all questions were answered. 3. Recommend utilization of IV hydromorphone 0.5 mg IV every 6 as needed pain not controlled with oral medications. 4. Recommend continuation of gabapentin at current dosing. 5. If this is not sufficient to control her pain in combination with radiation therapy may consider utilization of Butrans patch in the future. 6. Recommend continuation of bowel regimen. 7. Thank you very much for this consultation. Please call should you have questions likewise the patient may follow-up in our office postdischarge if desired. History of Present Illness Attending Physician: Avni Magallon DO History of Present Illness 67-year-old female with known history of stage III adenocarcinoma of the lung who finished radiation therapy and chemotherapy on 8 03/03/2022. She subsequently developed right ankle pain and presented to the [facility] emergency room for admission. Stage IV metastatic disease was noted on MRI of the right ankle. Patient states that her pain is solely in her right ankle and is characterized as deep aching cramping pain ranging between 6- 10 of 10 currently 6 out of 10. She states that pain is worst in the evening and best in the morning. She is unable to find any satisfactory pain control at this time and notes that her sleep has been dramatically decreased in volume with pain. She reports that oxycodone is effective in diminishing her pain but leaves her feeling confused and unable to find words at times. She does admit to mild constipation but has been utilizing stool softeners with good benefit. She underwent CT simulation for right ankle palliative radiation therapy this afternoon. She has found mild benefit with Toradol dosing as well as putting direct pressure and massage on the area. She admits to some mild shortness of breath which is being treated by medicine and denies other constitutional complaints at this visit. Pain Assessment Full Body Front + Back: 1. Allergies Allergy/AdvReac Type Severity Reaction Status Date / Time No Known Drug Allergies Allergy Verified 06/09/22 17:50 Home Medications Medication Instructions Recorded Confirmed Type pantoprazole 40 mg tablet,delayed 40 mg PO QAM 12/20/21 06/09/22 History release mesalamine 1,000 mg rectal 1 g FL QPM 02/13/22 06/09/22 History suppository raloxifene 60 mg tablet 60 mg PO QAM 02/13/22 06/09/22 History bupropion HCl 300 mg 24 hr tablet, 300 mg PO QAM #90 tabs 05/02/22 06/09/22 Rx extended release gabapentin 300 mg capsule 300 mg PO TID 06/09/22 06/09/22 History multivitamin with minerals 1 tab PO DAILY 06/09/22 06/09/22 History (Multiple Vitamin-Minerals tablet) Patient History Medical History Chronic lymphocytic leukemia Depression GERD (gastroesophageal reflux disease) History of squamous cell carcinoma of skin On chest and on abdomen Hypercholesterolemia Motion sickness Nausea and vomiting after administration of anesthetic agent Non-small cell lung cancer with metastasis Osteoporosis Primary cancer of right lower lobe of lung (12/13/21) SNHL (sensorineural hearing loss) Ulcerative proctitis Surgical History Dental root implant present Ganglion cyst right wrist 1993 History of biopsy (01/23/22) Lymph Node, Left Axilla, Core Biopsy History of bronchoscopy (12/13/21) Fiberoptic Bronchoscopy + Endobronchial Ultrasound with Transbronchial [place] Aspiration of LN Dr. Compa Lemons at [facility] History of colonoscopy with polypectomy History of squamous cell carcinoma excision x2--one off chest, one off abdomen History of tooth extraction Hx of colonoscopy Port-A-Cath in place (02/19/22) Port Placement with Fluoroscope(Right) - Patel Shea DO S/P biopsy of cervix Family History Mother Bone cancer unknown primary Cancer Sister Uterine cancer Cancer Grandfather (Maternal) Pancreatic cancer Cancer Family/Other Family hx of colon cancer cousin Grandmother (Paternal) Cancer Melanoma Family/Other Cancer Father No problems noted. Sister No problems noted. Other Colorectal cancer Has no children Denies family history of Ovarian cancer Prostate cancer No family history of adverse response to anesthesia No family history of bleeding disorder Heart disease Allergies Myocardial infarction Breast cancer Hypertension Stroke Asthma Social History Smoking Status: Former smoker Tobacco Type: Cigarettes Age Started Using Tobacco: 20; Age Quit Using Tobacco: 41; packs per day: 1; Years Smoked: 20; Number of Years Since Quit: 25; Second Hand Exposure: No; Hx Alcohol Use: No Hx Substance Use: No Preferred Language: Lithuanian Communication Ability: Effective Visual Impairment: No Limitations 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: Normal [employer]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 Beliefs That Will Affect Care: None marital status: Current Living Situation: Alone current occupational status: retired 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 How many Children do You have: 0 Feels Safe at Home: Yes Childhood Exposure to Second-Hand Smoke: Yes Diet Comment: No red meat caffeine: Yes during the past year weight has: decreased > 10 lbs Dental Care, Regularly: Yes Physical Activity Frequency: Daily Seatbelt Use: always Sunscreen Use: Yes Assistive Devices: None Physical Exam Constitutional: WD/WN, vitals as above Eyes: PERRL, conjunctivae normal, anicteric sclerae ENMT: external ear and nose normal, oropharynx normal Neck: normal visual inspection Respiratory: normal respiratory effort; no respiratory distress Cardiovascular: Extremities: + edema (RLE ankle to toes) warm extremities Gastrointestinal (Abdomen): Inspection/Auscultation: abdomen normal to inspection; abdomen not distended Musculoskeletal: no cyanosis or clubbing, extremities motor strength 5/5 Psychiatric: A+Ox3, euthymic affect Insight: good insight Judgement: good judgement Results (Pain Clinic) Diagnostic Review MRI: non enhanced, reports reviewed and findings discussed with patient MRI Findings: 06/10/22 MR ankle RT wo con CLINICAL HISTORY: 67 years-old Female with ongoing pain, swelling. Subacute pain and swelling of the right ankle, most pronounced laterally. History of lung cancer. COMPARISON: Duplex venous Doppler study of same day, right foot and ankle radiographs 05/08/2022, ankle radiographs 06/10/2022. TECHNIQUE: Multiplanar, multi sequence MRI of the right ankle was performed without contrast. FINDINGS: LATERAL LIGAMENT COMPLEX: Mild thickening of the anterior talofibular ligament suggestive of chronic sprain. The calcaneofibular ligament and posterior talofibular ligaments are intact. SYNDESMOTIC LIGAMENTS: Mild thickening of the anterior-inferior tibiofibular ligament, interosseous membrane and posterior-inferior tibiofibular ligament suggestive of chronic sprain. DELTOID LIGAMENT COMPLEX: The superficial and deep components of the deltoid ligament are intact. ANTERIOR TENDONS: The tibialis anterior, extensor hallucis longus and extensor digitorum longus tendons are normal in position, morphology and signal. LATERAL TENDONS: The peroneus longus and brevis tendons are intact. Mild tenosynovitis of the peroneus longus. MEDIAL TENDONS: The posterior tibialis, flexor digitorum longus and flexor hallucis longus tendons are intact. Mild tenosynovitis of the tibialis posterior. PLANTAR FASCIA: The medial and lateral bundles of the plantar fascia are normal in morphology and signal. There is no evidence of acute plantar fasciitis or tear. No evidence of plantar fascial nodules. ACHILLES TENDON: The Achilles tendon is normal in position, morphology and signal. No associated bursitis. SINUS TARSI: Edema noted within the sinus Tarsi. The interosseous and cervical ligaments are normal. The navicular-calcaneal (spring) ligament is without acute abnormality. TARSAL TUNNEL: There are no obstructing lesions within the tarsal tunnel. BONE MARROW: There is diffuse marrow replacement with correspondingly decreased T1 and increased T2/STIR signal throughout the foot, ankle and lower leg. No acute pathologic fracture identified. There is diffuse periosteal edema. There is additional diffuse subcutaneous, deep tissue and intramuscular edema throughout the foot and ankle. IMPRESSION: 1. Diffuse marrow replacement throughout the imaged bony structures suggestive of osseous metastasis. Findings appear to have progressed from the comparison 05/08/2022 radiographs. 2. Additional subcutaneous, deep tissue and intramuscular edema is also likely related to the aforementioned metastatic disease. A nonspecific cellulitis with myositis could appear similarly. 3. No acute pathologic fracture identified.
[2022-06-16] MEDS: MELOXICAM 7.5 MG TAB PO SCH (16:28)
[2022-06-16] MEDS: HYDROCODONE/ACETAMOPHEN 5/325MG TAB PO PRN (20:59)
[2022-06-16] MEDS: predniSONE 20 MG TAB PO SCH (21:05)
[2022-06-17] MEDS: KETOROLAC TROMETHAMINE 15 MG/ML VIAL IV PRN (05:50)
[2022-06-17 06:30] LABS: Hematocrit (blood only) 33.4 % (34.1-44.9); Hemoglobin 11.4 g/dl (12.0-16.0); Mean Corpuscular Hemoglobin 30.4 pg (25.0-34.0); Mean Corpuscular Hgb Conc 34.1 g/dL (32.0-36.0); Mean Corpuscular Volume 89.1 fL (80.0-100.0); Mean Platelet Volume 9.1 fL (9.4-12.3); Platelet Count 231 K/uL (130-400); RDW Coefficient of Variation 14.3 % (11.5-14.5); RDW Standard Deviation 45.9 fL (36.4-46.3); Red Blood Count 3.75 M/uL (3.93-5.22); White Blood Count 29.82 K/ul (4.8-10.8)
[2022-06-17 06:55] LABS: BUN Creatinine Ratio 43.8 (10-20); Calcium 8.7 mg/dl (8.5-10.1); Creatinine Clr Calc Pharmacy 78.2 ml/min; Est GFR (African American) 108.5 ml/min; Est GFR (Non-African American) 93.6 ml/min; Potassium 4.7 mmol/L (3.5-5.1)
--- NOTE | 2022-06-17 07:13 | Hospitalist Progress Note ---
Date of Service June 17, 2022 Assessment & Plan (1) Pneumonia: Plan: Chest CT with infiltrates in the right lower lobe around her known lung mass Could be pneumonia versus immunotherapy (last 2 weeks ago) induced pneumonitis versus radiation pneumonitis (radiation in april 07) elevated procal suggestive of infectious process started zosyn IV - day #8, discontinued MRSA swab neg thus defer on MRSA coverage gradually improving oxygen requirements dropping from 10L --> 2L CXR latest relatively unchanged from previous Worsening oxygen requirement but no worsening dyspnea Pulmonology consulted, started Anoro, solumedrol, possibility of PE low will start downtitrating solumedrol --> 40 mg prednisone daily, taper over 2- 4 weeks May need 2 step at discharge - ordered stop abx pulmonary issues significantly improved Continue flutter valve, add incentive spirometer (2) Non-small cell lung cancer with metastasis: Plan: Escalated pain regimenpain control better Consulted Pain management daily meloxicam, switch to hydrocodone/acetaminophen, lidoderm patch, IV dilaudid for breakthrough pain. Added Butran patch Consulted Rad Onc, palliative radiation to right ankle started today (3) Sepsis: Plan: 2nd to RLL pneumonia resolved Note CBC shows lymph predominance (4) Acute respiratory failure with hypoxia: Plan: Related to pneumonia, extensive lung cancer, probably pulmonary edema, hard to rule out immunotherapy induced pneumonitiscontinue IV antibiotics pulmonary toilet Lasix supportive care further work-up as per pulmonary. Fortunately she does not show worse dyspnea although she does have much escalated oxygen requirement (5) CLL (chronic lymphocytic leukemia): Plan: Followed by oncology since 2018. Considered to be intermediate risk due to FISH +13 q. deletion She has not required Rx s/p supraclavicular lymph node bx 06/10 -- enlarged lymph node is not from CLL but metastatic adenocarcinoma (6) Depression: Plan: Continue home bupropion (7) Osteoporosis: Plan: Continue home raloxifene (8) Ulcerative proctitis: Plan: Continue home MD mesalamine (9) Right ankle pain: Plan: x-rays neg for fracture doppler RLE neg for DVT R ankle MRI is positive for bone mets Escalated pain regimen, pain management and rad onc consulted Palliative radiation started 06/17 (10) Tachycardia: Plan: Sinus/reactive Plan DVT prophylaxis-Lovenox She designates her sister, Patricia Adame, as her healthcare power of creative technologist/spokesperson if she is unable to make decisions for herself. Admission and Anticipated Discharge Date Admission Date: June 09, 2022 Supervising Physician Co-Signing Physician Notes I also saw the patient confirmed arriola portions of the history and physical examination. I also discussed the case with both pulmonary medicine and radiation oncology. Unfortunate she did have some pain overnight which required IV pain medications. Fortunately, this morning, she is actually feeling better. She had her radiation treatment simulation yesterday and tentative plan is to start later today. I agree with the impression plan as noted the resident documentation. EXAM 115/75, 88, 18, 36.4, 90% on nasal cannula 2 L/min Generally good spirits. She has no new complaints this afternoon Respirations are nonlabored Heart is regular DATA WBC 29.82, hemoglobin 11.4, platelet count 231 Sodium 126, potassium 4.7, BUN 28, creatinine 0.64 IMPRESSION & PLAN Acute respiratory failure with hypoxia Stage IIIa NSCLC chronic lymphocytic leukemia Bony metastatic disease to the right ankle Appreciate consultations from pulmonary medicine, pain management, and radiation oncology Radiation therapy to right foot today Add Butrans patch 5 mcg every 72 hours Continue to titrate oxygen; could complete two-step tomorrow to see if home oxygen is necessary If we can adequately control pain, she may be ready for discharge after her second fraction tomorrow Subjective Patient seen at bedside, calm comfortable cooperative. However required IV pain medication for ankle pain overnight. Patient understands we are waiting for palliative radiation of her ankle, hopefully afterwards pain more managable. Review of Systems Review of Systems: see hpi Physical Exam Constitutional: well developed, well nourished, cooperative and comfortable Eyes: PERRL, conjunctivae normal, anicteric sclerae ENMT: external ear and nose normal, oropharynx normal Neck: trachea midline, no thyromegaly Respiratory: Auscultation: + crackles (R>L) Cardiovascular: Rate/Rhythm: regular rate and regular rhythm Extremities: no edema Gastrointestinal (Abdomen): Inspection/Auscultation: abdomen normal to inspection Percussion/Palpation: abdomen soft; abdomen nontender Skin: no rashes, warm and dry Results & Data Results & Data ([facility]) Vital Signs (Past 12 Hours) Vital Signs Temp Pulse Pulse Resp BP Pulse Ox O2 Del Method 06/17/22 04:00 36.6 C 83 18 118/65 92 Nasal Cannula 06/17/22 00:00 101 H 06/16/22 22:53 93 High Flow Nasal Cannula 06/16/22 22:53 36.3 C L 89 20 135/76 87 L Nasal Cannula, High Flow Nasal Cannula 06/16/22 20:30 Nasal Cannula O2 Flow Rate 06/17/22 04:00 4 06/17/22 00:00 06/16/22 22:53 4 06/16/22 22:53 2 06/16/22 20:30 2 Laboratory Results 06/17/22 06/17/22 06/17/22 Range/Units 08:56 08:56 05:44 WBC (4.8-10.8) K/ul RBC (3.93-5.22) M/uL Hgb (12.0-16.0) g/dl Hct (34.1-44.9) % MCV (80.0-100.0) fL MCH (25.0-34.0) pg MCHC (32.0-36.0) g/dL RDW Std Deviation (36.4-46.3) fL RDW Coeff of Aftab (11.5-14.5) % Plt Count (130-400) K/uL MPV (9.4-12.3) fL Immature Gran % (Auto) % Neut % (Auto) % Lymph % (Auto) % [place] % (Auto) % Eos % (Auto) % Baso % (Auto) % Neut # (Auto) (1.4-6.5) K/uL Lymph # (Auto) (1.2-3.4) K/uL [place] # (Auto) (0.24-0.82) K/uL Eos # (Auto) (0-0.50) K/uL Baso # (Auto) (0-0.2) K/uL Immature Gran # (Auto) (0.00-0.02) K/uL Smudge Cells Sodium 126 L (136-145) mmol/L Potassium 4.7 (3.5-5.1) mmol/L Chloride 95 L (98-107) mmol/L Carbon Dioxide 25 (21-32) mmol/L Anion Gap 6 (3-11) BUN 28 H (6-23) mg/dl Creatinine 0.64 (0.6-1.2) mg/dl Est Cr Clr Drug Dosing 78.2 ml/min Est GFR ( Amer) 108.5 ml/min Est GFR (Non-Af Amer) 93.6 ml/min BUN/Creatinine Ratio 43.8 H (10-20) Glucose 91 (70-99(Fasting)) mg/dl Osmolality 274 L (280-300) mOsm/kg Calcium 8.7 (8.5-10.1) mg/dl TSH 2.188 (0.300-4.500) uIu/ml Free T4 1.26 (0.61-1.60) ng/dl 06/17/22 Range/Units 05:44 WBC 29.82 H (4.8-10.8) K/ul RBC 3.75 L (3.93-5.22) M/uL Hgb 11.4 L (12.0-16.0) g/dl Hct 33.4 L (34.1-44.9) % MCV 89.1 (80.0-100.0) fL MCH 30.4 (25.0-34.0) pg MCHC 34.1 (32.0-36.0) g/dL RDW Std Deviation 45.9 (36.4-46.3) fL RDW Coeff of Aftab 14.3 (11.5-14.5) % Plt Count 231 (130-400) K/uL MPV 9.1 L (9.4-12.3) fL Immature Gran % (Auto) 0.5 % Neut % (Auto) 23.7 % Lymph % (Auto) 72.4 % [place] % (Auto) 3.2 % Eos % (Auto) 0.0 % Baso % (Auto) 0.2 % Neut # (Auto) 7.09 H (1.4-6.5) K/uL Lymph # (Auto) 21.58 H (1.2-3.4) K/uL [place] # (Auto) 0.95 H (0.24-0.82) K/uL Eos # (Auto) 0.00 (0-0.50) K/uL Baso # (Auto) 0.06 (0-0.2) K/uL Immature Gran # (Auto) 0.14 H (0.00-0.02) K/uL Smudge Cells Present Sodium (136-145) mmol/L Potassium (3.5-5.1) mmol/L Chloride (98-107) mmol/L Carbon Dioxide (21-32) mmol/L Anion Gap (3-11) BUN (6-23) mg/dl Creatinine (0.6-1.2) mg/dl Est Cr Clr Drug Dosing ml/min Est GFR ( Amer) ml/min Est GFR (Non-Af Amer) ml/min BUN/Creatinine Ratio (10-20) Glucose (70-99(Fasting)) mg/dl Osmolality (280-300) mOsm/kg Calcium (8.5-10.1) mg/dl TSH (0.300-4.500) uIu/ml Free T4 (0.61-1.60) ng/dl Resident Activity Tracking Resident Involvement: Resident Care Provided Care Provided: Adult Hospital Medicine
[2022-06-17 07:22] LABS: Basophils # (auto) 0.06 K/uL (0-0.2); Basophils % (auto) 0.2 %; Immature Granulocytes # (auto) 0.14 K/uL (0.00-0.02); Immature Granulocytes % (auto) 0.5 %; Lymphocytes # (auto) 21.58 K/uL (1.2-3.4); Lymphocytes % (auto) 72.4 %; Monocytes # (auto) 0.95 K/uL (0.24-0.82); Monocytes % (auto) 3.2 %; Neutrophils # (auto) 7.09 K/uL (1.4-6.5); Neutrophils % (auto) 23.7 %; Smudge Cells Present
[2022-06-17] MEDS: HYDROCODONE/ACETAMOPHEN 5/325MG TAB PO PRN ×3 (07:48→21:58)
[2022-06-17] MEDS: HEPARIN 100 UNIT/ML 5ML FLUSH FLUSH PRN (08:45)
[2022-06-17] MEDS: UMECLIDINIUM/VILANTEROL 62.5/25MCG 7 PUFFS/INHALER INH SCH (08:56)
[2022-06-17] MEDS: GABAPENTIN 300 MG CAP PO SCH ×3 (08:57→20:06)
[2022-06-17] MEDS: LIDOCAINE 5% 1 PATCH TD SCH (08:57)
[2022-06-17] MEDS: PANTOprazole 40 MG TAB PO SCH (08:57)
[2022-06-17] MEDS: CALCITONIN SALMON NA 200 IU/AC 3.7 ML BTL SCH (08:57)
[2022-06-17] MEDS: RALOXIFENE HCL 60 MG TAB PO SCH (08:57)
[2022-06-17] MEDS: buPROPion XL 300 MG TABCR PO SCH (08:57)
[2022-06-17] MEDS: DICLOFENAC SOD 1% GEL 100 GM TUBE EXT SCH ×4 (08:57→20:05)
[2022-06-17] MEDS: predniSONE 20 MG TAB PO SCH ×2 (08:57→20:06)
[2022-06-17] MEDS: DOCUSATE SODIUM 100 MG CAP PO SCH (08:57)
[2022-06-17] MEDS: CEROVITE ADV FORMULA TAB PO SCH (08:57)
[2022-06-17] MEDS: ENOXAPARIN INJ 40 MG/0.4 ML SYR SQ SCH (08:58)
[2022-06-17] MEDS: ACETAMINOPHEN 325 MG TAB PO SCH ×2 (09:55→20:04)
[2022-06-17 10:10] LABS: Thyroid Stimulating Hormone 2.188 uIu/ml (0.300-4.500)
[2022-06-17 10:12] LABS: T4 Free Thyroxine 1.26 ng/dl (0.61-1.60)
--- NOTE | 2022-06-17 10:44 | Pulmonology Progress Note ---
Date of Service June 17, 2022 Assessment & Plan (1) Acute respiratory failure with hypoxia: (2) Non-small cell lung cancer with metastasis: (3) COPD with emphysema: (4) Abnormal CT scan of lung: Plan Impression: 67-year-old female with advanced non-small cell lung cancer despite chemotherapy admitted with increasing oxygen requirement and diffuse parenchymal abnormalities. Differential includes tumor emboli syndrome, progression of underlying malignancy with lymphangitic spread, or chemotherapy/immunotherapy related pulmonary toxicity. She is been treated empirically with steroids and appears to have had significant improvement with this intervention. No evidence of ongoing infection Recommendations: 1. Acute on chronic hypoxemic respiratory failure: Multifactorial. At this point time her oxygen saturations are improving with empiric therapy, see comments below. Continue supplemental oxygen titrated to keep saturations at or above 89%. May require two-step evaluation supplemental oxygen at discharge 2. Differential diagnosis for parenchymal abnormalities as noted above. Would continue steroids at prednisone 40 mg a day with plans to taper over the next 4 weeks. Typically, would not recommend rechallenge of those agents but will defer to medical oncology as she may not have other good alternatives. Follow- up imaging per medical oncology 3. COPD: Not particularly bronchospastic. Nevertheless on steroids. Continue Anoro. 4. Advanced non-small cell lung cancer with bone marrow biopsy showing adenocarcinoma with immunohistologic will characteristics of breast cancer in the setting of advanced CLL. Unfortunately the patient appears to be manifesting signs of an aggressive malignancy which appears to be progressing despite chemoimmunotherapy. Follow-up with medical oncology. Discussed with admitting service at bedside. At this point time, her pulmonary issues appear to be significantly improved. She can likely be dismissed from the hospital once her other medical issues are adequately addressed. Pulmonary will sign off at this point time. Feel free to contact us with additional questions or concerns Admission and Anticipated Discharge Date Admission Date: June 09, 2022 Subjective Patient seen and examined. MAR reviewed. Patient continues to have issues with right foot pain. Fortunately from a respiratory standpoint, she appears improved. She is not coughing or wheezing. She is no experiencing any chest pain. She continues to require oxygen intermittently. Review of Systems Review of Systems: All systems reviewed & are unremarkable except as noted in Subjective Physical Exam Constitutional: WD/WN, vitals as above Neck: trachea midline, no thyromegaly Respiratory: no respiratory distress, no labored breathing, no cough and not tachypneic Auscultation: + crackles; no wheezes Cardiovascular: RRR, no murmur, no edema Gastrointestinal (Abdomen): normal bowel sounds, soft, nontender, no hepatosplenomegaly Musculoskeletal: Extremities: extremities normal to inspection Skin: no rashes, warm and dry Neurologic: Nonfocal exam Lymphatic: no cervical lymphadenopathy Results & Data Results & Data ([facility]) Vital Signs (Past 12 Hours) Vital Signs Temp Pulse Pulse Pulse Pulse Pulse Pulse 06/17/22 08:00 87 06/17/22 08:41 96 H 94 H 107 H 108 H 06/17/22 07:32 36.5 C 80 06/17/22 04:00 36.6 C 83 06/17/22 00:00 101 H 06/16/22 22:53 06/16/22 22:53 36.3 C L 89 Pulse Pulse Resp Resp Resp Resp Resp 06/17/22 08:00 06/17/22 08:41 99 H 101 H 16 16 18 18 06/17/22 07:32 18 06/17/22 04:00 18 06/17/22 00:00 06/16/22 22:53 06/16/22 22:53 20 Resp Resp BP Pulse Ox Pulse Ox Pulse Ox Pulse Ox 06/17/22 08:00 06/17/22 08:41 18 16 87 L 91 92 06/17/22 07:32 112/67 92 06/17/22 04:00 118/65 92 06/17/22 00:00 06/16/22 22:53 93 06/16/22 22:53 135/76 87 L Pulse Ox Pulse Ox Pulse Ox O2 Del Method O2 Flow Rate O2 Flow Rate O2 Flow Rate 06/17/22 08:00 06/17/22 08:41 86 L 91 81 L 2 3 06/17/22 07:32 Nasal Cannula 3 06/17/22 04:00 Nasal Cannula 4 06/17/22 00:00 06/16/22 22:53 High Flow Nasal Cannula 4 06/16/22 22:53 Nasal Cannula, High Flow Nasal Cannula 2 O2 Flow Rate O2 Flow Rate O2 Flow Rate 06/17/22 08:00 06/17/22 08:41 4 3 3 06/17/22 07:32 06/17/22 04:00 06/17/22 00:00 06/16/22 22:53 06/16/22 22:53 Laboratory Results 06/17/22 05:44 06/17/22 05:44 Diagnostic Findings No new imaging PG Care Time/CCT Total # of Minutes Spent Total Time Spent with Patient: Total time spent is greater than 50% in coordination of care (as documented) at patient's floor/unit and/or counseling patient: Coding Level of Care Code 45046 Subseq Hosp Care Lvl 2 Diagnoses Acute respiratory failure with hypoxia J96.01 Non-small cell lung cancer with metastasis C34.90 COPD with emphysema J43.[address] scan of lung R91.8
[2022-06-17] MEDS: MELOXICAM 7.5 MG TAB PO SCH (11:17)
[2022-06-17] MEDS ORDERED: BUPRENORPHINE 5 MCG/HR TDSY TD SCH (12:30)
[2022-06-17] MEDS: CHECK BUPRENORPHINE PATCH SCH (16:00)
[2022-06-18] MEDS: HYDROCODONE/ACETAMOPHEN 5/325MG TAB PO PRN ×2 (02:01→18:00)
[2022-06-18] MEDS ORDERED: oxyCODONE HCL IR 5 MG TAB (IMMEDIATE RELEASE) PO STA (06:21)
[2022-06-18 06:41] LABS: BUN Creatinine Ratio 38.6 (10-20); Calcium 8.5 mg/dl (8.5-10.1); Creatinine Clr Calc Pharmacy 89.3 ml/min; Est GFR (African American) 112.7 ml/min; Est GFR (Non-African American) 97.3 ml/min; Hematocrit (blood only) 32.5 % (34.1-44.9); Hemoglobin 10.9 g/dl (12.0-16.0); Mean Corpuscular Hgb Conc 33.5 g/dL (32.0-36.0); Mean Corpuscular Volume 89.5 fL (80.0-100.0); Mean Platelet Volume 9.1 fL (9.4-12.3); Platelet Count 249 K/uL (130-400); Potassium 4.5 mmol/L (3.5-5.1); RDW Coefficient of Variation 14.4 % (11.5-14.5); RDW Standard Deviation 46.3 fL (36.4-46.3); Red Blood Count 3.63 M/uL (3.93-5.22); White Blood Count 34.62 K/ul (4.8-10.8)
[2022-06-18 07:07] LABS: Basophils # (auto) 0.05 K/uL (0-0.2); Basophils % (auto) 0.1 %; Immature Granulocytes # (auto) 0.12 K/uL (0.00-0.02); Immature Granulocytes % (auto) 0.3 %; Lymphocytes # (auto) 26.68 K/uL (1.2-3.4); Lymphocytes % (auto) 77.1 %; Monocytes # (auto) 1.19 K/uL (0.24-0.82); Monocytes % (auto) 3.4 %; Neutrophils # (auto) 6.58 K/uL (1.4-6.5); Neutrophils % (auto) 19.1 %; Smudge Cells Present
--- NOTE | 2022-06-18 07:19 | Hospitalist Progress Note ---
Date of Service June 18, 2022 Assessment & Plan (1) Pneumonia: Plan: Chest CT with infiltrates in the right lower lobe around her known lung mass Could be pneumonia versus immunotherapy (last 2 weeks ago) induced pneumonitis versus radiation pneumonitis (radiation in april 07) elevated procal suggestive of infectious process started zosyn IV - day #8, discontinued MRSA swab neg thus defer on MRSA coverage gradually improving oxygen requirements dropping from 10L --> 2L CXR latest relatively unchanged from previous Worsening oxygen requirement but no worsening dyspnea Pulmonology consulted, started Anoro, solumedrol, possibility of PE low will start downtitrating solumedrol --> 40 mg prednisone daily, taper over 2- 4 weeks May need 2 step at discharge - ordered stop abx pulmonary issues significantly improved Continue flutter valve, add incentive spirometer (2) Non-small cell lung cancer with metastasis: Plan: Escalated pain regimenpain control better Consulted Pain management daily meloxicam, switch to hydrocodone/acetaminophen, lidoderm patch, IV dilaudid for breakthrough pain. Added Butran patch Consulted Rad Onc, palliative radiation to right ankle started today (3) Sepsis: Plan: 2nd to RLL pneumonia resolved Note CBC shows lymph predominance (4) Acute respiratory failure with hypoxia: Plan: Related to pneumonia, extensive lung cancer, probably pulmonary edema, hard to rule out immunotherapy induced pneumonitiscontinue IV antibiotics pulmonary toilet Lasix supportive care further work-up as per pulmonary. Fortunately she does not show worse dyspnea although she does have much escalated oxygen requirement (5) CLL (chronic lymphocytic leukemia): Plan: Followed by oncology since 2018. Considered to be intermediate risk due to FISH +13 q. deletion She has not required Rx s/p supraclavicular lymph node bx 06/10 -- enlarged lymph node is not from CLL but metastatic adenocarcinoma (6) Depression: Plan: Continue home bupropion (7) Osteoporosis: Plan: Continue home raloxifene (8) Ulcerative proctitis: Plan: Continue home [place] mesalamine (9) Right ankle pain: Plan: x-rays neg for fracture doppler RLE neg for DVT R ankle MRI is positive for bone mets Escalated pain regimen, pain management and rad onc consulted Palliative radiation started 06/17 (10) Tachycardia: Plan: Sinus/reactive Plan DVT prophylaxis-Lovenox She designates her sister, Patricia Adame, as her healthcare power of patent prosecution attorney/spokesperson if she is unable to make decisions for herself. Admission and Anticipated Discharge Date Admission Date: June 09, 2022 Results & Data Results & Data ([facility]) Vital Signs (Past 12 Hours) Vital Signs Temp Pulse Pulse Resp BP BP Pulse Ox 06/18/22 02:00 36.4 C L 88 16 124/64 90 06/18/22 00:48 78 06/17/22 20:00 06/17/22 19:43 36.5 C 88 16 112/69 96 O2 Del Method O2 Flow Rate 06/18/22 02:00 Nasal Cannula 3 06/18/22 00:48 06/17/22 20:00 Nasal Cannula 3 06/17/22 19:43 High Flow Nasal Cannula 3
[2022-06-18] MEDS: UMECLIDINIUM/VILANTEROL 62.5/25MCG 7 PUFFS/INHALER INH SCH (08:22)
[2022-06-18] MEDS: CHECK BUPRENORPHINE PATCH SCH ×3 (08:22→16:24)
[2022-06-18] MEDS: CALCITONIN SALMON NA 200 IU/AC 3.7 ML BTL SCH (08:23)
[2022-06-18] MEDS: DICLOFENAC SOD 1% GEL 100 GM TUBE EXT SCH ×3 (08:23→16:24)
[2022-06-18] MEDS: LIDOCAINE 5% 1 PATCH TD SCH (08:23)
[2022-06-18] MEDS: ACETAMINOPHEN 325 MG TAB PO SCH (08:24)
[2022-06-18] MEDS: predniSONE 20 MG TAB PO SCH (08:24)
[2022-06-18] MEDS: GABAPENTIN 300 MG CAP PO SCH ×2 (08:24→13:08)
[2022-06-18] MEDS: ENOXAPARIN INJ 40 MG/0.4 ML SYR SQ SCH (08:25)
[2022-06-18] MEDS: RALOXIFENE HCL 60 MG TAB PO SCH (08:26)
[2022-06-18] MEDS: CEROVITE ADV FORMULA TAB PO SCH (08:26)
[2022-06-18] MEDS: DOCUSATE SODIUM 100 MG CAP PO SCH (08:26)
[2022-06-18] MEDS: PANTOprazole 40 MG TAB PO SCH (08:26)
[2022-06-18] MEDS: buPROPion XL 300 MG TABCR PO SCH (08:26)
[2022-06-18] MEDS: MELOXICAM 7.5 MG TAB PO SCH (08:27)
[2022-06-18 11:12] VITALS: TEMP 97.7
[2022-06-18] MEDS: HEPARIN 100 UNIT/ML 5ML FLUSH FLUSH PRN (14:43)
[2022-06-18 15:59] VITALS: PULSE 94; O2SAT 93
--- NOTE | 2022-06-18 16:40 | Discharge Summary ---
Date of Service June 18, 2022 Admission HPI Per Admitting Provider This patient is a 67-year-old female with a history of metastatic non-small cell lung cancer, CLL with lymphadenopathy, depression, osteoporosis, ulcerative proctitis, GERD, who presents to the ER with increasing shortness of breath and was found to be hypoxic and have possibly postobstructive pneumonia. She reports slight increase in sputum production but no hemoptysis over the last couple of days along with some chills but no documented fevers at home. She denies chest pains or nausea or vomiting, no abdominal pains or diarrhea. She has now started on immunotherapy and had her second dose this past week of Imfinzi. She was noted to be hypoxic with a pulse ox in the low 80s on arrival and was placed on supplemental O2 and feels much improved already. She was afebrile and mildly tachycardic in the ER but not tachypneic and her blood pressures were normal. In the ER, she was found to have an elevated WBC count of 13.2 but also with a known history of CLL, mild anemia with hemoglobin of 11.5, elevated D-dimer at 3170, and a negative Soum viral respiratory panel to include a negative COVID-19. Chemistry was otherwise unremarkable and troponin was negative. A lactate was negative. A CT angiogram of the chest was performed which was negative for PE but did show progression of right subclavicular and mediastinal lymphadenopathy as well as increase in the size of an RLL masslike opacity at site of known tumor with differentiation between the primary tumor and consolidation difficult, also with multifocal airspace opacities in the right lung which could reflect pneumonia or postradiation change and a small right pleural effusion. Also with asymmetric interlobular septal thickening within the right lung which may reflect asymmetric pulmonary edema versus lymphangitic spread of tumor. Bilateral axillary lymphadenopathy was unchanged which is known secondary to her CLL. She will be admitted for acute respiratory failure with hypoxia and likely pneumonia in the setting of lung cancer. Cannot exclude some sort of immunotherapy induced pneumonitis or other atypical or opportunistic lung infection. Admission Exam Per Admitting Provider Constitutional: WD/WN, vitals as above Eyes: PERRL, conjunctivae normal, anicteric sclerae ENMT: external ear and nose normal, oropharynx normal Neck: trachea midline, no thyromegaly Respiratory: normal respiratory effort; no cough Auscultation: + diminished lung sounds (Right lung base) and + crackles (right base); no rhonchi and no wheezes Cardiovascular: Rate/Rhythm: regular rate and regular rhythm Heart Sounds: no murmur Vessels: dorsalis pedis pulses present; no JVD Extremities: + edema (Trace right ankle edema, no edema on the left leg) Chest (Breasts): Chest: + vascular access device or port (Right anterior chest wall port accessed without surrounding erythema) Gastrointestinal (Abdomen): normal bowel sounds, soft, nontender, no hepatosplenomegaly Musculoskeletal: Extremities: + extremities abnormal to inspection (Right ankle trace edema, no erythema, FROM right ankle, no TTP), no cyanosis and no clubbing Skin: no rashes, warm and dry Mid upper back with 3 cm incision with running stitch, surrounding dark red discoloration of the skin but also with maculopapular erythematous rash in a rectangular pattern where the adhesive from the Band-Aid is placed-bandage removed Neurologic: moves all extremities and awake; no focal motor deficits Psychiatric: A+Ox3, euthymic affect Principal Diagnosis Radiation Pneumonitis with Hypoxia Discharge Exam Constitutional WD/WN, vitals as above Eyes PERRL, conjunctivae normal, anicteric sclerae ENMT external ear and nose normal, oropharynx normal Neck trachea midline, no thyromegaly Respiratory normal respiratory effort Auscultation: + crackles (minimal crackles b/l lower lungs) Cardiovascular RRR, no murmur, no edema Gastrointestinal (Abdomen) normal bowel sounds, soft, nontender, no hepatosplenomegaly Skin no rashes, warm and dry Psychiatric A+Ox3, euthymic affect Discharge Data Allergies Allergy/AdvReac Type Severity Reaction Status Date / Time No Known Drug Allergies Allergy Verified 06/09/22 17:50 Consultations 06/09/22 16:07 ED Decision to Admit Stat 06/09/22 19:45 Consult Pulmonology Routine 06/16/22 08:01 Consult Radiation Oncology Routine 06/16/22 10:08 Consult Pain Management Routine Ordered Studies 06/09/22 13:59 CT angio chest PE protocol Stat 06/10/22 13:07 US FNA w/img 1st lesion Routine 06/10/22 15:07 US biopsy lymph node Routine 06/10/22 16:30 US venous doppler LE RT Routine 06/10/22 19:48 MR ankle RT wo con Routine 06/12/22 15:00 US venous doppler LE BI Urgent 06/16/22 10:41 CT guide rad therapy pelvis Routine Hospital Course (1) Pneumonia: -started prednisone taper, 7 days 30mg, 7 days 20mg, 7 days 10mg -started meloxicam 15mg daily -started daily lidocaine patch on right ankle -started weekly butran patch -may use tylenol for mild breakthrough pain -started oxycodone 5mg 1-2 tabs q4h PRN for breakthrough pain -sent home on 3-4L O2 -started palliative radiation for right ankle -follow up with PCP or oncology in 1-2 weeks (1) Pneumonia: Chest CT with infiltrates in the right lower lobe around her known lung mass DDx pneumonia versus immunotherapy (last 2 weeks ago) induced pneumonitis versus radiation pneumonitis (radiation in april 07) elevated procal suggestive of infectious process started zosyn IV - day #8, discontinued MRSA swab neg thus defer on MRSA coverage gradually improving oxygen requirements dropping from 10L --> 2L CXR latest relatively unchanged from previous Worsening oxygen requirement but no worsening dyspnea Pulmonology consulted, started Anoro, solumedrol, possibility of PE low Started downtitrating solumedrol --> 40 mg prednisone daily, taper over 2-4 weeks 2 step at discharge - ordered pulmonary issues significantly improved (2) Non-small cell lung cancer with metastasis: Escalated pain regimenpain control better Consulted Pain management daily meloxicam, lidoderm patch, Added Butran patch oxycodone for breakthrough pain Consulted Rad Onc, palliative radiation to right ankle started recieved 2 doses (3) Sepsis: 2nd to RLL pneumonia resolved Note CBC shows lymph predominance (4) Acute respiratory failure with hypoxia: Related to pneumonia, extensive lung cancer, probably pulmonary edema, hard to rule out immunotherapy induced pneumonitiscontinue IV antibiotics pulmonary toilet Lasix supportive care further work-up as per pulmonary. Fortunately she does not show worse dyspnea although she does have much escalated oxygen requirement (5) CLL (chronic lymphocytic leukemia): Followed by oncology since 2018. Considered to be intermediate risk due to FISH +13 q. deletion She has not required Rx s/p supraclavicular lymph node bx 06/10 -- enlarged lymph node is not from CLL but metastatic adenocarcinoma (6) Depression: Continue home bupropion (7) Osteoporosis: Continue home raloxifene (8) Ulcerative proctitis: Continue home [place] mesalamine (9) Right ankle pain: x-rays neg for fracture doppler RLE neg for DVT R ankle MRI is positive for bone mets Escalated pain regimen, pain management and rad onc consulted Palliative radiation started 06/17 (10) Tachycardia: Sinus/reactive (2) Non-small cell lung cancer with metastasis: (3) Sepsis: (4) Acute respiratory failure with hypoxia: (5) CLL (chronic lymphocytic leukemia): (6) Depression: (7) Osteoporosis: (8) Ulcerative proctitis: (9) Right ankle pain: (10) Tachycardia: Total Time Total Time Spent Total Time Spent (In Minutes): 35 mins Discharge Plan Discharge Items Patient Disposition: Home - Self-Care Reason For Visit: PNEUMONIA, HYPOXIA Discharge Diagnosis: Radiation Pneumonitis with Hypoxia Activity: Resume your previous activity Non-emergency contact: Primary Care Provider Call non-emergency contact if: you have any medication questions, your symptoms worsen and you have a fever Follow-up/Referrals: Deirdre Vallecillo MD [Primary Care Provider] - Isidra Lama MD [Physician] - (Schedule f/u in 1-2 weeks) Diet: Regular Addtl Attending Provider Instructions: You were admitted to the hospital for hypoxia, which may be from a combination of pneumonia and radiation. You were treated with antibiotics and steroids, and your symptoms have improved. We will send you home on oxygen to ensure you have proper breathing support while at home. We will send you home on a prednisone taper to allow your lungs to continue to recover. While in the hospital we noted a metastasis to your ankle causing you pain. We have connected you to Radiation Oncology and Pain management, and have started you on a regime to help manage your pain. Please observe the following: Pain Management Once a week, please use a Butran patch to provide penitentiary low level pain relief. This patch should be changed weekly. On a daily basis, please use a lidocaine patch on your ankle. This patch should be changed daily. We will schedule Meloxicam tablets to be taken each morning to keep ahead of the pain. For mild pain, you may use Tylenol 1000mg up to three times a day. For high levels of pain, you may take 1-2 tabs of oxycodone every 4 hours. If this does not help your pain, please call the ED. Please continue with radiation therapy for your ankle. You will require close followup with your PCP given your chronic medical conditions. Do not drive while on these medications, they can be very sedating. You may consider using stool softeners as these medications can also cause constipation. A discharge summary will be sent to your primary care physician to ensure continuity of care. Please bring this discharge summary with you to your next office appointment so that your provider can review it at that time. Follow-up appointments: Make a follow-up appointment with your PCP within the next week. It is very important that you follow up with them shortly after discharge from the hospital. Keep all your follow-up appointments as already scheduled. If you cannot make an appointment, notify your provider. Medications: Your medication list has been reviewed and reconciled upon discharge to ensure accuracy and continuity of care. An updated list of all your medications is included with your hospital discharge paperwork. Please review this list closely, and make note of any changes. * We sent a new medication called Prednisone to your pharmacy. Please take Prednisone 10mg 3 tablets every morning for 7 days. Afterwards, take 2 tabs every morning for 7 days. After that, take 1 tab everymorning for 7 days. Then stop. * We sent a new medication called Butran patch to your pharmacy. This patch should be removed and replaced every 7 days. * We sent a new medication called Oxycodone to your pharmacy. You may take 1-2 tabs every 4 hours as needed for breakthrough pain. * We sent a new medication called Meloxicam to your pharmacy. Please take 1 tab every morning for pain management. * We sent a new medication called Lidocaine patch to your pharmacy. Please apply to your ankle daily. This patch should be removed and replaced on a daily basis. * We sent you home on Oxygen 3 liters at rest, 4 liters with activity. You may decrease your oxygen as tolerated. You may monitor our oxygen levels with a Pulse Oximeter, available at most pharmacies. Aim for an oxygen saturation over 90%. Take your medications as instructed; do not skip a dose of your medicines. Make sure all of your doctors know every medicine you are taking (including fmgw-gyk-bbqpyhk medicines, vitamins, and supplements). Call your primary care provider before taking any new medicines (including kjda-dtp-admeneu medicines, vitamins, and supplements), because some of these may interact with your current medications, or may make your symptoms worse. Tell your primary care provider if you cannot afford your medications. CONTACT YOUR PRIMARY CARE PROVIDER if you experience any of the following: Difficulty breathing, chest pain, abdominal pain Persistent nausea, confusion Difficulty following your treatment plan, or difficulty taking medications CALL 911 OR GO TO THE EMERGENCY DEPARTMENT if you experience any of the following: Sudden, severe abdominal pain or nausea/vomiting Severe chest pain, or chest pain that radiates (moves) to your jaw or arm Sudden, severe shortness of breath or difficulty breathing Thank you for allowing us to participate in your care. Pending Studies at Discharge: No Stand-Alone Forms: My [facility], Smoking Cessation Medications and DC Order Prescriptions: New meloxicam 7.5 mg Tablet 15 mg PO QAM 30 Days Qty: 60 0RF prednisone 10 mg tablet See Rx Instructions .ROUTE .COMPLEX 21 Days Qty: 42 0RF Rx Instructions: 06/19 Take 3 tablets daily for the next 7 days. 06/26 Take 2 tablets daily for the next 7 days 07/03 take 1 tablet daily for the next 7 days lidocaine 5 % Adhesive Patch,Medicated 1 patch transdermal QAM 30 Days Qty: 30 0RF buprenorphine [Butrans] 5 mcg/hour patch weekly 1 patch transdermal Q7D Qty: 2 0RF oxycodone 5 mg tablet 5 mg PO Q4H MDD 1-2 TABS PO q 4 Hr PRN pain Qty: 30 0RF Rx Instructions: instructions are 1-2 TABS PO q 4 hours PRN pain (cancer patient) Continued bupropion HCl 300 mg tablet extended release 24 hr 300 mg PO QAM Qty: 90 1RF pantoprazole 40 mg tablet,delayed release (DR/EC) 40 mg PO QAM Multiple Vitamin-Minerals Tablet 1 tab PO DAILY gabapentin 300 mg capsule 300 mg PO TID raloxifene 60 mg tablet 60 mg PO QAM mesalamine 1,000 mg suppository 1 g [place] QPM Discharge Orders: Discharge Order (Routine); Ordered 06/18/22 Ordered By: Mariya Byrne Admission Data Admit Date/Time: 06/09/22 16:56 Attending Provider: Avni Magallon Admit Provider: Lilly Mcallister Primary Care Provider: Deirdre Vallecillo Other Providers: Lilly Mcallister ; Colt Bryant ; Tulio Altman ; Jose Miguel Kong ; Timoteo Rincon Other Interventions: Discharge Summary Assessment (RN) Last Done: 06/18/22 17:45 Supervising Physician Co-Signing Physician Notes I also saw the patient confirmed arriola portions of the history and physical examination. Upon examination today, late afternoon, she is feeling better overall. She had that her pain control overnight as well and we could meet her pain control needs without the use of intravenous medications. She has now completed 2 fractions of her radiation. Home oxygen has been arranged for her. EXAM 135/71, 94, 18, 36.5, 93% on nasal cannula at 3 L/min Generally good spirits. She has no new complaints this afternoon Respirations are nonlabored Heart is regular DATA WBC 34.62, hemoglobin 10.9, platelet count 249 Sodium 126, potassium 4.5 IMPRESSION & PLAN Acute respiratory failure with hypoxia Stage IIIa NSCLC chronic lymphocytic leukemia Bony metastatic disease to the right ankle Discharge to home today Follow-up with radiation oncology, she has completed 2/10 fractions Continue Butrans patch 5 mcg every 72 hours Appreciate consultations from pulmonary medicine, pain management, and radiation oncology Radiation therapy to right foot today Continue Butrans patch 5 mcg every 7 days For simplicity, change breakthrough medication oxycodone 5-10 mg p.o. every 4 hours as needed pain Continue meloxicam 50 mg p.o. daily To limit side effects, combined prednisone is a daily dose and slowly taper Home oxygen has been arranged Will follow up with medical oncology next week Resident Activity Tracking Resident Involvement: Resident Care Provided Care Provided: Adult [facility]
[2022-06-18 17:46] VITALS: BP 123/74
[2022-06-19] MEDS ORDERED: ACETAMINOPHEN 325 MG TAB PO SCH (09:00)
== END 2022-06-18 18:53 | disposition home or self-care (01) | DRG 853 ==
LOC: ED 13:28 → SUATTDRO 16:56 → 4W 16:56

== ENCOUNTER 2022-07-09 17:27 | Inpatient (IN) ==
--- NOTE | 2022-07-09 18:35 | Emergency Department Note ---
Impression & Plan Hypoxia, Chronic lymphocytic leukemia, SOB (shortness of breath), Pleural effusion, Lung cancer ED Provider Note NAME: RAMSES MOREIRA AGE: 67 SEX: F : 1955 ARRIVES VIA: Walk-In INFORMANT: [Patient] ED PROVIDER(S): [Edwin Briceño MD] CHIEF COMPLAINT: Short of breath HISTORY OF PRESENT ILLNESS: The patient is a 67-year-old female presents to the ER with 4 to 5 days of increasing shortness of breath. She does have lung cancer and typically wears anywhere from 3 to 4 L of oxygen. 4 L with activity, 3 L when she is at rest. In the last few days, she has turned up the oxygen level in order to compensate for her dyspnea. There has been an increased cough, no fever. No sick exposures. No vomiting or diarrhea. Things became so bad today, she presents for evaluation. The patient was in the hospital recently for pneumonia. She felt well when she was discharged. REVIEW OF SYSTEMS: See HPI for pertinent positives and negatives. A total of ten systems were reviewed and were otherwise negative. PMHx/PSHx: See Below SOCIAL HISTORY: See Below. PHYSICAL EXAM: GENERAL: Patient is in moderate respiratory distress. HEENT: No acute trauma, normocephalic atraumatic, mucous membranes moist, no nasal congestion, no scleral icterus. NECK: No stridor, no adenopathy, no meningismus, trachea is midline. LUNGS: The left lung is clear. The right lung has diminished breath sounds throughout. No wheezing or rhonchi. Patient is visibly short of breath and speaking in short sentences. There is an increased respiratory rate. HEART: Tachycardic, regular rhythm, no murmurs. ABDOMEN: Soft, nontender, bowel sounds positive, no peritonitis. EXTREMITIES: No cyanosis or edema, full range of motion of all the joints without pain or difficulty, no signs for acute trauma. NEUROLOGIC: Oriented x 3, no acute motor or sensory deficits, no focal weakness. SKIN: No rash, no jaundice, no diaphoresis. DIFFERENTIAL DIAGNOSIS: Reactive airway disease, pneumonia, pneumothorax, COVID-19, RSV, influenza, COPD, CHF, infection, cardiac ischemia, pulmonary embolism, bronchitis, musculoskeletal, gastrointestinal, as well as other pathologies. EMERGENCY DEPARTMENT COURSE/PROCEDURES: ECG: Indication was shortness of breath. The ECG shows a sinus tachycardia with a rate of 124. There is no ST elevation, no PVCs. There is an old septal infarct. The QTc is 442. Continuous Cardiac Monitoring: An order was placed for continuous cardiac monitoring. The monitor shows a rate of 130 with sinus tachycardia. Critical Care Note: I have personally spent 49 minutes of critical care time in the direct management of this patient. This includes bedside care, interpretation of diagnostic studies, and testing, discussion with consultants, patient, and family members, and other required patient management activities. This 49 minutes is in excess of all separately billable procedures. MEDICAL DECISION MAKING: There is a marked leukocytosis with a white count of 54,000, this is consistent with her history of CLL. She has been running quite high lately. There is a normal hemoglobin and platelet count. Sodium slightly low at 132, not in need of emergent correction. No renal failure. Lactic acid level is not elevated making sepsis less likely. Alk phos was elevated, the remaining liver enzymes were unremarkable. ECG showed a sinus tachycardia, no ischemia. Cardiac enzyme testing x1 was slightly elevated, likely secondary to her dyspnea and mismatch. Procalcitonin level did return elevated. COVID, influenza and RSV test were negative. Chest x-ray shows a very large right-sided pleural effusion. This finding would be consistent with my right lung exam. The patient's pleural effusion is new and I believe the reason she is dyspneic. She is currently on 3 to 4 L of oxygen and sitting on the stretcher, she is comfortable. She has trouble when she tries to exert herself. Her breathing has improved now that she has been sitting still. Patient is in need of a hospital stay, she will likely need a pulmonary procedure to drain the fluid from the right lung. She may need some sort of con tinual drainage device as, with the lung cancer, the fluid is likely to reaccumulate. I did speak with the patient about her findings, she understands the need for a hospital stay. I spoke with case management, the on-call hospitalist was consulted. Of note, the patient was given a 500 cc saline bolus during her stay, she was given 2 g of cefepime IV as empiric antibiotic coverage. Past Med/Surg History Medical History Abnormal CT scan of lung Acute respiratory failure with hypoxia Chronic lymphocytic leukemia Depression GERD (gastroesophageal reflux disease) History of squamous cell carcinoma of skin On chest and on abdomen Hypercholesterolemia Nausea and vomiting after administration of anesthetic agent Non-small cell cancer of right lung Non-small cell lung cancer with metastasis Osteoporosis Primary cancer of right lower lobe of lung (12/13/21) Right lower lobe pneumonia Sepsis SNHL (sensorineural hearing loss) Tachycardia Ulcerative proctitis Surgical History Dental root implant present Ganglion cyst right wrist 1993 History of biopsy (01/23/22) Lymph Node, Left Axilla, Core Biopsy History of bronchoscopy (12/13/21) Fiberoptic Bronchoscopy + Endobronchial Ultrasound with Transbronchial [place] Aspiration of LN Dr. Compa Lemons at [facility] History of colonoscopy with polypectomy History of squamous cell carcinoma excision x2--one off chest, one off abdomen History of tooth extraction Hx of colonoscopy Port-A-Cath in place (02/19/22) Port Placement with Fluoroscope(Right) - Patel Shea, DO S/P biopsy of cervix Family History Mother Bone cancer Cancer Sister Uterine cancer Cancer Grandfather (Maternal) Pancreatic cancer Cancer Family/Other Family hx of colon cancer Grandmother (Paternal) Cancer Family/Other Cancer Father No problems noted. Sister No problems noted. Other Colorectal cancer Has no children Denies family history of Ovarian cancer Prostate cancer No family history of adverse response to anesthesia No family history of bleeding disorder Heart disease Allergies Myocardial infarction Breast cancer Hypertension Stroke Asthma Social History Smoking Status: Never smoker Tobacco Type: Cigarettes Age Started Using Tobacco: 20; Age Quit Using Tobacco: 41; packs per day: 1; Second Hand Exposure: No; Hx Alcohol Use: No Hx Substance Use: No Preferred Language: Sudanese Communication Ability: Effective Visual Impairment: No Limitations 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: Normal Enamel Finisher Required: No Beliefs That Will Affect Care: None marital status: Current Living Situation: Alone current occupational status: retired 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 How many Children do You have: 0 Feels Safe at Home: Yes Childhood Exposure to Second-Hand Smoke: Yes Diet Comment: No red meat caffeine: Yes during the past year weight has: decreased > 10 lbs Dental Care, Regularly: Yes Physical Activity Frequency: Daily Seatbelt Use: always Sunscreen Use: Yes Assistive Devices: Oxygen - Continuous Allergies Allergies Allergy/AdvReac Type Severity Reaction Status Date / Time No Known Allergies Allergy Verified 07/09/22 19:35 Home Meds Home Medications Medication Instructions Recorded Confirmed pantoprazole 40 mg tablet,delayed 40 mg PO QAM 12/20/21 07/09/22 release mesalamine 1,000 mg rectal 1 g MT QPM 02/13/22 07/09/22 suppository gabapentin 300 mg capsule 300 mg PO TID 06/09/22 07/09/22 multivitamin with minerals 1 tab PO DAILY 06/09/22 07/09/22 (Multiple Vitamin-Minerals tablet) acetaminophen 500 mg tablet 500 mg PO Q6H PRN Pain 07/02/22 07/09/22 (Tylenol Extra Strength) lidocaine 5 % topical patch 1 patch transdermal QAM PRN Pain 07/09/22 07/09/22 Previous Rx's Medication Instructions Recorded bupropion HCl 300 mg 24 hr tablet, 300 mg PO QAM #90 tabs 05/02/22 extended release meloxicam 7.5 mg tablet 15 mg PO QAM 30 days #60 tabs 06/18/22 raloxifene 60 mg tablet 60 mg PO QAM #90 tabs 06/19/22 buprenorphine 5 mcg/hour weekly 1 patch transdermal Q7D #4 ea 07/02/22 transdermal patch (Butrans) oxycodone 10 mg tablet 10 mg PO Q4H PRN pain #40 tabs 07/02/22 sulfamethoxazole 800 1 tab PO BID 7 days #14 tabs 07/02/22 mg-trimethoprim 160 mg tablet (Bactrim DS) Portable Oxygen #1 ea 07/04/22 Spacer for Inhaler #1 ea 07/07/22 albuterol sulfate 90 mcg/actuation 2 puff inhalation .COMPLEX PRN 07/07/22 aerosol inhaler (ProAir HFA) shortness of breath or wheezing #8.5 grams Results & Data (ED) Vital Signs Vital Signs - 24 hr 07/09/22 17:39 07/09/22 17:39 07/09/22 18:48 Temperature 36.5 C Temperature Source Temporal Artery Scan Pulse Rate 129 H Pulse Rate [Apical] Pulse Rate from SpO2 Sensor Pulse Rhythm [Apical] Pulse Strength [Apical] Respiratory Rate 24 Respiratory Effort / Characteristics Non-Labored Respiratory Depth Normal Respiratory Pattern Blood Pressure 120/63 Blood Pressure [Right Arm] Blood Pressure Mean 82 Blood Pressure Mean [Right Arm] Blood Pressure Position [Right Arm] Pulse Oximetry 85 L 91 95 Oxygen Delivery Method Nasal Cannula Nasal Cannula Nasal Cannula Oxygen Flow Rate 4 6 5 Sepsis Recent Fever Within 48 Hours No Sepsis New/Unexplained Change in Mental Status N/A Sepsis Action Taken by Nursing No Action Required Oxygen Flow Rate - Titration 07/09/22 19:08 07/09/22 19:08 07/09/22 21:00 Temperature Temperature Source Pulse Rate Pulse Rate [Apical] 125 H 127 H Pulse Rate from SpO2 Sensor Pulse Rhythm [Apical] Regular Regular Pulse Strength [Apical] Normal Normal Respiratory Rate 20 24 Respiratory Effort / Characteristics Non-Labored Spontaneous Respiratory Depth Normal Normal Respiratory Pattern Regular Tachypnea Blood Pressure Blood Pressure [Right Arm] 119/68 Blood Pressure Mean Blood Pressure Mean [Right Arm] 85 Blood Pressure Position [Right Arm] Sitting Pulse Oximetry 97 97 97 Oxygen Delivery Method Nasal Cannula Nasal Cannula Nasal Cannula Oxygen Flow Rate 4 4 Sepsis Recent Fever Within 48 Hours Sepsis New/Unexplained Change in Mental Status Sepsis Action Taken by Nursing Oxygen Flow Rate - Titration 4 07/09/22 18:42 07/09/22 18:42 07/09/22 18:50 Temperature Temperature Source Pulse Rate 125 H 125 H Pulse Rate [Apical] Pulse Rate from SpO2 Sensor 134 H 126 H Pulse Rhythm [Apical] Pulse Strength [Apical] Respiratory Rate 23 22 Respiratory Effort / Characteristics Respiratory Depth Respiratory Pattern Blood Pressure 119/68 Blood Pressure [Right Arm] Blood Pressure Mean 85 Blood Pressure Mean [Right Arm] Blood Pressure Position [Right Arm] Pulse Oximetry 90 96 Oxygen Delivery Method Oxygen Flow Rate Sepsis Recent Fever Within 48 Hours Sepsis New/Unexplained Change in Mental Status Sepsis Action Taken by Nursing Oxygen Flow Rate - Titration 07/09/22 19:00 07/09/22 19:10 07/09/22 19:20 Temperature Temperature Source Pulse Rate 125 H 125 H 124 H Pulse Rate [Apical] Pulse Rate from SpO2 Sensor 126 H 126 H 124 H Pulse Rhythm [Apical] Pulse Strength [Apical] Respiratory Rate 24 23 24 Respiratory Effort / Characteristics Respiratory Depth Respiratory Pattern Blood Pressure Blood Pressure [Right Arm] Blood Pressure Mean Blood Pressure Mean [Right Arm] Blood Pressure Position [Right Arm] Pulse Oximetry 92 97 91 Oxygen Delivery Method Oxygen Flow Rate Sepsis Recent Fever Within 48 Hours Sepsis New/Unexplained Change in Mental Status Sepsis Action Taken by Nursing Oxygen Flow Rate - Titration 07/09/22 19:30 07/09/22 19:40 07/09/22 19:50 Temperature Temperature Source Pulse Rate 123 H 122 H 121 H Pulse Rate [Apical] Pulse Rate from SpO2 Sensor 122 H 122 H 122 H Pulse Rhythm [Apical] Pulse Strength [Apical] Respiratory Rate 22 21 21 Respiratory Effort / Characteristics Respiratory Depth Respiratory Pattern Blood Pressure Blood Pressure [Right Arm] Blood Pressure Mean Blood Pressure Mean [Right Arm] Blood Pressure Position [Right Arm] Pulse Oximetry 94 91 95 Oxygen Delivery Method Oxygen Flow Rate Sepsis Recent Fever Within 48 Hours Sepsis New/Unexplained Change in Mental Status Sepsis Action Taken by Nursing Oxygen Flow Rate - Titration 07/09/22 20:00 07/09/22 20:10 07/09/22 20:20 Temperature Temperature Source Pulse Rate 121 H 121 H 120 H Pulse Rate [Apical] Pulse Rate from SpO2 Sensor 121 H 121 H 120 H Pulse Rhythm [Apical] Pulse Strength [Apical] Respiratory Rate 23 20 24 Respiratory Effort / Characteristics Respiratory Depth Respiratory Pattern Blood Pressure Blood Pressure [Right Arm] Blood Pressure Mean Blood Pressure Mean [Right Arm] Blood Pressure Position [Right Arm] Pulse Oximetry 92 96 97 Oxygen Delivery Method Oxygen Flow Rate Sepsis Recent Fever Within 48 Hours Sepsis New/Unexplained Change in Mental Status Sepsis Action Taken by Nursing Oxygen Flow Rate - Titration 07/09/22 20:30 07/09/22 20:40 07/09/22 20:50 Temperature Temperature Source Pulse Rate 121 H 123 H 119 H Pulse Rate [Apical] Pulse Rate from SpO2 Sensor 121 H 123 H 119 H Pulse Rhythm [Apical] Pulse Strength [Apical] Respiratory Rate 23 20 25 H Respiratory Effort / Characteristics Respiratory Depth Respiratory Pattern Blood Pressure Blood Pressure [Right Arm] Blood Pressure Mean Blood Pressure Mean [Right Arm] Blood Pressure Position [Right Arm] Pulse Oximetry 92 99 96 Oxygen Delivery Method Oxygen Flow Rate Sepsis Recent Fever Within 48 Hours Sepsis New/Unexplained Change in Mental Status Sepsis Action Taken by Nursing Oxygen Flow Rate - Titration 07/09/22 21:00 07/09/22 21:10 Temperature Temperature Source Pulse Rate 123 H 125 H Pulse Rate [Apical] Pulse Rate from SpO2 Sensor 124 H 129 H Pulse Rhythm [Apical] Pulse Strength [Apical] Respiratory Rate 20 22 Respiratory Effort / Characteristics Respiratory Depth Respiratory Pattern Blood Pressure Blood Pressure [Right Arm] Blood Pressure Mean Blood Pressure Mean [Right Arm] Blood Pressure Position [Right Arm] Pulse Oximetry 95 90 Oxygen Delivery Method Oxygen Flow Rate Sepsis Recent Fever Within 48 Hours Sepsis New/Unexplained Change in Mental Status Sepsis Action Taken by Nursing Oxygen Flow Rate - Titration Home Medications Current Medication List: was personally reviewed by me Laboratory Data Attestation: I reviewed the patient's lab results. Result diagrams: 07/09/22 18:15 07/09/22 18:15 Lab Results 07/09/22 07/09/22 07/09/22 Range/Units 18:15 18:15 18:15 WBC 54.83 H* (4.8-10.8) K/ul RBC 4.31 (3.93-5.22) M/uL Hgb 12.4 (12.0-16.0) g/dl Hct 37.6 (34.1-44.9) % MCV 87.2 (80.0-100.0) fL MCH 28.8 (25.0-34.0) pg MCHC 33.0 (32.0-36.0) g/dL RDW Std Deviation 45.2 (36.4-46.3) fL RDW Coeff of Aftab 14.2 (11.5-14.5) % Plt Count 254 (130-400) K/uL MPV 9.5 (9.4-12.3) fL Immature Gran % (Auto) 0.8 % Neut % (Auto) 24.1 % Lymph % (Auto) 71.3 % [place] % (Auto) 3.7 % Eos % (Auto) 0.0 % Baso % (Auto) 0.1 % Neut # (Auto) 13.18 H (1.4-6.5) K/uL Lymph # (Auto) 39.11 H (1.2-3.4) K/uL [place] # (Auto) 2.04 H (0.24-0.82) K/uL Eos # (Auto) 0.00 (0-0.50) K/uL Baso # (Auto) 0.05 (0-0.2) K/uL Immature Gran # (Auto) 0.45 H (0.00-0.02) K/uL Absolute Nucleated RBC 0.02 H (0-0) K/uL Smudge Cells Present Sodium 132 L (136-145) mmol/L Potassium 4.4 (3.5-5.1) mmol/L Chloride 99 (98-107) mmol/L Carbon Dioxide 22 (21-32) mmol/L Anion Gap 11 (3-11) BUN 23 (6-23) mg/dl Creatinine 0.87 (0.6-1.2) mg/dl Est Cr Clr Drug Dosing 53.2 ml/min Est GFR ( Amer) 81.0 ml/min Est GFR (Non-Af Amer) 69.9 ml/min BUN/Creatinine Ratio 26.4 H (10-20) Glucose 114 H (70-99(Fasting)) mg/dl Lactate (0.4-2.0) mmol/L Calcium 8.7 (8.5-10.1) mg/dl Magnesium 2.2 (1.7-2.4) mg/dl Total Bilirubin 0.5 (0.2-1.0) mg/dl AST 39 (13-39) U/L ALT 20 (7-52) U/L Alkaline Phosphatase 231 H (34-104) U/L Troponin I High Sens 14.3 H D (0-14) pg/ml Total Protein 6.5 (6.0-8.3) gm/dl Albumin 3.4 (3.4-5.0) gm/dl Globulin 3.1 (2.5-4.0) gm/dl Albumin/Globulin Ratio 1.1 (0.9-2) Procalcitonin 4.27 H (0-0.5) ng/ml SARS-CoV-2 (PCR) (Negative) Influenza Type A (PCR) (Neg) Influenza Type B (PCR) (Neg) RSV (RT-PCR) (Neg) 07/09/22 07/09/22 Range/Units 18:19 18:55 WBC (4.8-10.8) K/ul RBC (3.93-5.22) M/uL Hgb (12.0-16.0) g/dl Hct (34.1-44.9) % MCV (80.0-100.0) fL MCH (25.0-34.0) pg MCHC (32.0-36.0) g/dL RDW Std Deviation (36.4-46.3) fL RDW Coeff of Aftab (11.5-14.5) % Plt Count (130-400) K/uL MPV (9.4-12.3) fL Immature Gran % (Auto) % Neut % (Auto) % Lymph % (Auto) % [place] % (Auto) % Eos % (Auto) % Baso % (Auto) % Neut # (Auto) (1.4-6.5) K/uL Lymph # (Auto) (1.2-3.4) K/uL [place] # (Auto) (0.24-0.82) K/uL Eos # (Auto) (0-0.50) K/uL Baso # (Auto) (0-0.2) K/uL Immature Gran # (Auto) (0.00-0.02) K/uL Absolute Nucleated RBC (0-0) K/uL Smudge Cells Sodium (136-145) mmol/L Potassium (3.5-5.1) mmol/L Chloride (98-107) mmol/L Carbon Dioxide (21-32) mmol/L Anion Gap (3-11) BUN (6-23) mg/dl Creatinine (0.6-1.2) mg/dl Est Cr Clr Drug Dosing ml/min Est GFR ( Amer) ml/min Est GFR (Non-Af Amer) ml/min BUN/Creatinine Ratio (10-20) Glucose (70-99(Fasting)) mg/dl Lactate 1.3 (0.4-2.0) mmol/L Calcium (8.5-10.1) mg/dl Magnesium (1.7-2.4) mg/dl Total Bilirubin (0.2-1.0) mg/dl AST (13-39) U/L ALT (7-52) U/L Alkaline Phosphatase (34-104) U/L Troponin I High Sens (0-14) pg/ml Total Protein (6.0-8.3) gm/dl Albumin (3.4-5.0) gm/dl Globulin (2.5-4.0) gm/dl Albumin/Globulin Ratio (0.9-2) Procalcitonin (0-0.5) ng/ml SARS-CoV-2 (PCR) NEGATIVE (Negative) Influenza Type A (PCR) Negative (Neg) Influenza Type B (PCR) Negative (Neg) RSV (RT-PCR) Negative (Neg) Administered Medications Discontinued Medications Cefepime HCl (Maxipime) 2,000 mg in 20 mls @ 5 mls/min IV NOW STA; Protocol Stop: 07/09/22 19:26 Last Admin: 07/09/22 19:35 Dose: 5 mls/min Documented By: STEVE Sodium Chloride (Nss 1000ml) 500 mls @ 999 mls/hr IV .Q31M ONE Stop: 07/09/22 19:53 Last Infusion: 07/09/22 20:09 Dose: 0 mls/hr Documented By: Admin: 07/09/22 19:35 Dose: 999 mls/hr Documented By: STEVE Imaging Data Radiologist's Impression: Chest X-Ray 07/09/22 17:43 XR chest 1V portable CLINICAL HISTORY: Dyspnea TECHNIQUE: Single frontal radiograph of the chest was obtained. Comparison: Comparison is made to chest radiograph 06/16/2022 FINDINGS: A port catheter is seen. Calcified aortic knob is seen. A large right pleural ef fusion is seen with underlying atelectasis. Lungs are otherwise clear. IMPRESSION: Large right pleural effusion with underlying atelectasis. This is new from prior exam. ACT 112: Negative or not required by law. Electronically signed by: Victor Manuel Whitaker M.D. 07/09/2022 6:43 PM Discharge Plan Visit Data Chief Complaint: Shortness of Breath/Dyspnea Stated Complaint: SOB ED Provider: Edwin Briceño Discharge Problem: Hypoxia, Chronic lymphocytic leukemia, SOB (shortness of breath), Pleural effusion, Lung cancer Patient Disposition: Admitted As Inpatient Condition: Fair Discharge Instructions Interventions: ED Discharge Assessment Last Done: 07/09/22 22:17 : Lung cancer Qualifiers: Laterality: right Lung location: unspecified part of lung Qualified Code(s): C34.91 - Malignant neoplasm of unspecified part of right bronchus or lung
[2022-07-09 18:36] LABS: Hematocrit (blood only) 37.6 % (34.1-44.9); Hemoglobin 12.4 g/dl (12.0-16.0); Mean Corpuscular Hemoglobin 28.8 pg (25.0-34.0); Mean Corpuscular Volume 87.2 fL (80.0-100.0); Mean Platelet Volume 9.5 fL (9.4-12.3); Nucleated RBC # (auto) 0.02 K/uL (0-0); Platelet Count 254 K/uL (130-400); RDW Coefficient of Variation 14.2 % (11.5-14.5); RDW Standard Deviation 45.2 fL (36.4-46.3); Red Blood Count 4.31 M/uL (3.93-5.22); White Blood Count 54.83 K/ul (4.8-10.8)
--- NOTE | 2022-07-09 18:44 | XRay Report ---
XR chest 1V portable CLINICAL HISTORY: Dyspnea TECHNIQUE: Single frontal radiograph of the chest was obtained. Comparison: Comparison is made to chest radiograph 06/16/2022 FINDINGS: A port catheter is seen. Calcified aortic knob is seen. A large right pleural effusion is seen with u nderlying atelectasis. Lungs are otherwise clear. IMPRESSION: Large right pleural effusion with underlying atelectasis. This is new from prior exam. ACT 112: Negative or not required by law. Electronically signed by: Victor Manuel Whitaker M.D. 07/09/2022 6:43 PM
[2022-07-09 19:10] LABS: Influenza A virus by PCR Negative (Neg); Influenza B virus by PCR Negative (Neg); RSV by PCR Negative (Neg); SARS CoV2 RNA(COVID-19) Ceph NEGATIVE (Negative)
[2022-07-09 19:13] LABS: Troponin I High Sensitivity 14.3 pg/ml (0-14)
[2022-07-09 19:18] LABS: Albumin Globulin Ratio 1.1 (0.9-2); Albumin Level 3.4 gm/dl (3.4-5.0); BUN Creatinine Ratio 26.4 (10-20); Bilirubin,Total 0.5 mg/dl (0.2-1.0); Calcium 8.7 mg/dl (8.5-10.1); Creatinine Clr Calc Pharmacy 53.2 ml/min; Est GFR (Non-African American) 69.9 ml/min; Globulin 3.1 gm/dl (2.5-4.0); Magnesium 2.2 mg/dl (1.7-2.4); Potassium 4.4 mmol/L (3.5-5.1); Total Protein 6.5 gm/dl (6.0-8.3)
[2022-07-09] MEDS ORDERED: SODIUM CHLORIDE 0.9% 1000ML 500 ML IV ONE (19:23)
[2022-07-09] MEDS ORDERED: CEFEPIME 2,000 MG/20 ML VIAL IV STA (19:23)
[2022-07-09 19:35] LABS: Basophils # (auto) 0.05 K/uL (0-0.2); Basophils % (auto) 0.1 %; Immature Granulocytes # (auto) 0.45 K/uL (0.00-0.02); Immature Granulocytes % (auto) 0.8 %; Lymphocytes # (auto) 39.11 K/uL (1.2-3.4); Lymphocytes % (auto) 71.3 %; Monocytes # (auto) 2.04 K/uL (0.24-0.82); Monocytes % (auto) 3.7 %; Neutrophils # (auto) 13.18 K/uL (1.4-6.5); Neutrophils % (auto) 24.1 %; Smudge Cells Present
--- NOTE | 2022-07-09 19:45 | History & Physical Report ---
Date of Service July 09, 2022 Assessment & Plan (1) Acute respiratory failure with hypoxia: Plan: 67yo female with a history of metastatic stage IV lung adenocarcinoma, CLL, COPD, osteoporosis, GERD, and MDD presents with a 4-5-day history of worsening SOB, found to be hypoxic on arrival. Acute hypoxic respiratory failure, right pleural effusion, stage IV lung adenocarcinoma, COPD Hypoxia on arrival improved with 4L NC; suspect tachycardia is secondary to increased WOB Labs primarily notable for marked leukocytosis (54.8), likely related to known metastatic disease, though an active infection could be contributing CXR: large right pleural effusion with underlying atelectasis, new from prior exam CT chest pending Suspect AHRF is due to patient's new pleural effusion, which is possibly secondary to patient's known lung adenocarcinoma, though differential includes pneumonia vs others Received one dose of cefepime in the ED; given risk of aspiration pneumonia vs obstructive bacterial pneumonia, will dc cefepime and start zosyn MRSA nares pending, will hold off on MRSA coverage for now Admit to med/telemetry, titrate spO2 as needed Pulmonary consulted for consideration of thoracentesis NPO at midnight Incentive spirometry Q1HWA Continue home inhaler regimen Of note, patient's chemo regimen was paused after her last admission; see Dr. Lama's note for further information Trend CBC, CMP Encourage ongoing discussions re: palliative care Elevated troponin On admission, hsTroponin elevated to 14.3 EKG: NSR, no overt sign of ischemic change Patient without CP at this time Repeat hsTroponin level ordered Asthma: home regimen inhaler as above CLL: patient is not currently on treatment for her CLL Osteoporosis: continue home raloxifene GERD: continue home protonix MDD: continue home bupropion FEN: NPO at midnight ahead of possible procedure, NSS @ 80mL/hr (x1 bag ordered) Code status: DNR (intubation/ventilation OK) DVT ppx: SCDs Consults: pulmonology PT/OT: ordered Case management: consulted Dispo: med/telemetry (2) Lung cancer: (3) Pleural effusion: (4) SOB (shortness of breath): (5) Chronic lymphocytic leukemia: (6) Depression: (7) GERD (gastroesophageal reflux disease): History of Present Illness Primary Care Provider: Deirdre Vallecillo MD 67yo female with a history of metastatic stage IV lung adenocarcinoma, CLL, osteoporosis, GERD, and MDD presents with a 4-5-day history of worsening SOB, found to be hypoxic on arrival. Patient has been on 3-4L oxygen since being discharged from [facility] on 06/18/22 (details below). Patient notes her oxygen requirement has not increased since then and her spO2 has always been above 92% when she checks, but for the past five days she has had worsening SOB with exertion, and then over the past two or so days, developed SOB at rest. Patient denies fever, chills, headache, vision changes, CP, edema, abdominal pain, nausea, vomiting, dysuria, hematochezia, melena, lightheadedness, dizziness, numbness, tingling, weakness, or other symptoms. Of note, patient was admitted here at [facility] from Jun 09 to Jun 18 of this year with SOB and hypoxia, suspected to be secondary to pneumonia vs radiation pneumonitis +/- pulmonary edema; patient was treated with an eight-day course of zosyn, during which her symptoms and hypoxia improved. During that hospitalization, patient had an oxygen requirement that peaked at 10L; this improved during her hospitalization to 2L. Patient was discharged on 3-4L oxygen as-needed. Additionally patient was discharged with a three-week prednisone tape r. Upon arrival, vitals were notable for tachycardia (100-120s) and hypoxia (85) which normalized with supplemental oxygen. BP was not elevated, no tachypnea, patient afebrile. Initial labs were notable for marked leukocytosis (54.8), mild hyponatremia (132), elevated alk phos (231), and trivially elevated hsTroponin (14.3); no anemia, platelets wnl, no additional electrolyte abnormalities, creatinine not elevated, Tbili not elevated, covid/flu/RSV PCR negative. In the ED, patient received NSS 500mL bolus (x1) and a dose of cefepime. EKG: sinus tachycardia without overt ischemic change Imaging: CXR: large right pleural effusion with underlying atelectasis, new from prior CT chest: pending Allergies Allergy/AdvReac Type Severity Reaction Status Date / Time No Known Allergies Allergy Verified 07/09/22 19:35 Home Medications Medication Instructions Recorded Confirmed Type pantoprazole 40 mg tablet,delayed 40 mg PO QAM 12/20/21 07/09/22 History release mesalamine 1,000 mg rectal 1 g VA QPM 02/13/22 07/09/22 History suppository bupropion HCl 300 mg 24 hr tablet, 300 mg PO QAM #90 tabs 05/02/22 07/09/22 Rx extended release gabapentin 300 mg capsule 300 mg PO TID 06/09/22 07/09/22 History multivitamin with minerals 1 tab PO DAILY 06/09/22 07/09/22 History (Multiple Vitamin-Minerals tablet) meloxicam 7.5 mg tablet 15 mg PO QAM 30 days #60 tabs 06/18/22 07/09/22 Rx raloxifene 60 mg tablet 60 mg PO QAM #90 tabs 06/19/22 07/09/22 Rx acetaminophen 500 mg tablet 500 mg PO Q6H PRN Pain 07/02/22 07/09/22 History (Tylenol Extra Strength) buprenorphine 5 mcg/hour weekly 1 patch transdermal Q7D #4 ea 07/02/22 07/09/22 Rx transdermal patch (Butrans) oxycodone 10 mg tablet 10 mg PO Q4H PRN pain #40 tabs 07/02/22 07/09/22 Rx sulfamethoxazole 800 1 tab PO BID 7 days #14 tabs 07/02/22 07/09/22 Rx mg-trimethoprim 160 mg tablet (Bactrim DS) Portable Oxygen #1 ea 07/04/22 Rx Spacer for Inhaler #1 ea 07/07/22 Rx albuterol sulfate 90 mcg/actuation 2 puff inhalation .COMPLEX PRN 07/07/22 07/09/22 Rx aerosol inhaler (ProAir HFA) shortness of breath or wheezing #8.5 grams lidocaine 5 % topical patch 1 patch transdermal QAM PRN Pain 07/09/22 07/09/22 History Past Med/Surg History Medical History Abnormal CT scan of lung Acute respiratory failure with hypoxia Chronic lymphocytic leukemia Depression GERD (gastroesophageal reflux disease) History of squamous cell carcinoma of skin On chest and on abdomen Hypercholesterolemia Nausea and vomiting after administration of anesthetic agent Non-small cell cancer of right lung Non-small cell lung cancer with metastasis Osteoporosis Primary cancer of right lower lobe of lung (12/13/21) Right lower lobe pneumonia Sepsis SNHL (sensorineural hearing loss) Tachycardia Ulcerative proctitis Surgical History Dental root implant present Ganglion cyst right wrist 1993 History of biopsy (01/23/22) Lymph Node, Left Axilla, Core Biopsy History of bronchoscopy (12/13/21) Fiberoptic Bronchoscopy + Endobronchial Ultrasound with Transbronchial Neddle Aspiration of LN Dr. Compa Lemons at [facility] History of colonoscopy with polypectomy History of squamous cell carcinoma excision x2--one off chest, one off abdomen History of tooth extraction Hx of colonoscopy Port-A-Cath in place (02/19/22) Port Placement with Fluoroscope(Right) - Patel Shea, DO S/P biopsy of cervix Family History Mother Bone cancer Cancer Sister Uterine cancer Cancer Grandfather (Maternal) Pancreatic cancer Cancer Family/Other Family hx of colon cancer Grandmother (Paternal) Cancer Family/Other Cancer Father No problems noted. Sister No problems noted. Other Colorectal cancer Has no children Denies family history of Ovarian cancer Prostate cancer No family history of adverse response to anesthesia No family history of bleeding disorder Heart disease Allergies Myocardial infarction Breast cancer Hypertension Stroke Asthma Social History Smoking Status: Former smoker Tobacco Type: Cigarettes Age Started Using Tobacco: 20; Age Quit Using Tobacco: 41; packs per day: 1; Second Hand Exposure: No; Do You Dip or Chew Tobacco: No; Hx Alcohol Use: No Hx Substance Use: No Preferred Language: Thai Communication Ability: Effective Visual Impairment: No Limitations 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: Normal Custom Bookbinder Required: No Beliefs That Will Affect Care: None marital status: Current Living Situation: Alone current occupational status: retired 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 How many Children do You have: 0 Feels Safe at Home: Yes Childhood Exposure to Second-Hand Smoke: Yes Diet Comment: No red meat caffeine: Yes during the past year weight has: decreased > 10 lbs Dental Care, Regularly: Yes Physical Activity Frequency: Daily Seatbelt Use: always Sunscreen Use: Yes Assistive Devices: None Physical Exam Physical Exam: Constitutional: tired-appearing, no acute distress HEENT: NCAT, no conjunctival injection, MMM CV: tachycardic, rhythm regular, no murmur appreciated, extremities well- perfused, no LE edema Resp: breath sounds diminished in right mid- and lower carmen anteriorly and posteriorly, left breath sounds clear, no wheezes, rhonchi, or crackles appreciated, breathing slightly labored GI: soft, nondistended, nontender, BS normoactive Neuro: alert, oriented, no focal neurologic deficit appreciated Results & Data Results & Data ([facility]) Vital Signs (Past 12 Hours) Vital Signs Temp Pulse Pulse Resp BP BP Pulse Ox 07/09/22 19:08 97 07/09/22 19:08 125 H 20 119/68 97 07/09/22 18:48 95 07/09/22 17:39 91 07/09/22 17:39 36.5 C 129 H 24 120/63 85 L O2 Del Method O2 Flow Rate 07/09/22 19:08 Nasal Cannula 07/09/22 19:08 Nasal Cannula 4 07/09/22 18:48 Nasal Cannula 5 07/09/22 17:39 Nasal Cannula 6 07/09/22 17:39 Nasal Cannula 4 Supervising Physician Co-Signing Physician Notes Attending addendum: I have physically seen this patient, have supervised the medical residents activities, and agree with the H&P unless as otherwise noted. Assessment and Plan: Acute respiratory failure with hypoxia/large right pleural effusion/stage IV lung adenocarcinoma/COPD exacerbation- Nasal cannula oxygen, titrate to keep pulse ox 92-94% Received NSS 500 mils in the ED and cefepime 2 g IV Continue cefepime 2 g IV every 12 hours Duonebs every 4 hours while awake and every 2 hours when necessary. Order MRSA nares Would likely benefit from thoracentesis Consult pulmonology Dr. Lemons Elevated troponin- Troponin 14.3 on admission, likely supply demand mismatch type II Admit to telemetry, follow serial troponins, rhythm monitoring and echocardiogram. CLL- White count increased to 54.3, above the baseline, will follow serially Remaining orders and notations as noted Resident Activity Tracking Resident Involvement: Resident Care Provided and Inventory Audit Clerk Coverage Note Care Provided: Adult Hospital Medicine (1) Lung cancer Laterality: right Lung location: unspecified part of lung Qualified Code(s): C34.91 - Malignant neoplasm of unspecified part of right bronchus or lung
[2022-07-09] MEDS ORDERED: ALBUTEROL HFA 8 GM INHALER INH PRN (21:06)
[2022-07-09] MEDS ORDERED: SODIUM CHLORIDE 0.9% 1000ML 1,000 ML IV SCH (23:07)
[2022-07-09 23:45] LABS: Base Excess ABG -0.8 mEq/L (-9-1.8); HCO3 ABG 22 mmol/L (19-24); Oxygen Saturation ABG 97.1 % (90-95); PCO2 ABG 29 mmHg (35-46); PO2 ABG 73 mmHg (80-95); pH ABG 7.48 (7.35-7.45)
[2022-07-09 23:50] LABS: Allen Test Pos (Pos)
[2022-07-10] MEDS: PIPERACILLIN/TAZOBACTAM 3.375 GM in DEXTROSE 5% 100 ML IV SCH ×2 (00:08→08:17)
[2022-07-10] MEDS ORDERED: FUROSEMIDE 40 MG/4 ML VIAL IV ONE (03:23)
[2022-07-10] MEDS ORDERED: POTASSIUM CHLORIDE CRTAB 20 MEQ TABCR PO STA (03:23)
[2022-07-10 03:24] LABS: Appearance Urine Clear (Clear); Bilirubin Urine Negative (Negative); Blood Urine Negative (Negative); Color Urine Yellow; Glucose Urine UA Negative (Negative); Ketones Urine Negative (Negative); Leukocyte Esterase Urine Negative (Negative); Nitrite Urine Negative (Negative); Protein Urine Negative (Negative); Specific Gravity Urine 1.016 (1.000-1.030); Urobilinogen Urine Negative (Negative); pH Urine 5.5 (4.5-7.5)
[2022-07-10 06:15] LABS: INR 1.1 (0.9-1.1); Prothrombin Time 11.8 Seconds (9.0-12.0)
[2022-07-10 06:18] LABS: Albumin Globulin Ratio 1.1 (0.9-2); Albumin Level 3.3 gm/dl (3.4-5.0); BUN Creatinine Ratio 21.8 (10-20); Bilirubin,Total 0.7 mg/dl (0.2-1.0); Calcium 8.5 mg/dl (8.5-10.1); Creatinine Clr Calc Pharmacy 56.6 ml/min; Est GFR (African American) 92.5 ml/min; Est GFR (Non-African American) 79.8 ml/min; Magnesium 1.9 mg/dl (1.7-2.4); Phosphorus 3.1 mg/dl (2.5-4.9); Total Protein 6.3 gm/dl (6.0-8.3)
[2022-07-10 06:33] LABS: Basophils # (auto) 0.03 K/uL (0-0.2); Basophils % (auto) 0.1 %; Eosinophils # (auto) 0.01 K/uL (0-0.50); Hematocrit (blood only) 35.9 % (34.1-44.9); Hemoglobin 11.8 g/dl (12.0-16.0); Immature Granulocytes # (auto) 0.44 K/uL (0.00-0.02); Immature Granulocytes % (auto) 0.9 %; Lymphocytes # (auto) 36.47 K/uL (1.2-3.4); Mean Corpuscular Hemoglobin 28.8 pg (25.0-34.0); Mean Corpuscular Hgb Conc 32.9 g/dL (32.0-36.0); Mean Corpuscular Volume 87.6 fL (80.0-100.0); Mean Platelet Volume 9.6 fL (9.4-12.3); Monocytes # (auto) 1.99 K/uL (0.24-0.82); Monocytes % (auto) 3.9 %; Neutrophils # (auto) 12.43 K/uL (1.4-6.5); Neutrophils % (auto) 24.1 %; Nucleated RBC # (auto) 0.02 K/uL (0-0); Platelet Count 244 K/uL (130-400); RDW Coefficient of Variation 14.3 % (11.5-14.5); RDW Standard Deviation 45.2 fL (36.4-46.3); Smudge Cells Present; White Blood Count 51.37 K/ul (4.8-10.8)
--- NOTE | 2022-07-10 07:14 | XRay Report ---
SINGLE VIEW CHEST CLINICAL HISTORY: Dyspnea. FINDINGS: An AP, portable, upright chest radiograph is compared to study dated 07/09/2022 and correla vineet with chest CT dated 06/09/2022. A right internal jugular central venous infusion port is unchange d in position. The cardiomediastinal silhouette is largely obscured. There is atherosclerotic calcifi cation of the thoracic aorta. The pulmonary vasculature is noncongested. Emphysema and chronic inters titial thickening is similar to previous. There is a moderate to large right pleural effusion with as sociated atelectasis/consolidation of the right lower lung. The right apex remains aerated. The left lung is grossly clear noting basilar scarring/atelectasis. No pneumothorax is seen. The skeletal stru ctures are osteopenic. The bony thorax is grossly intact. IMPRESSION: 1. Large right pleural effusion with atelectasis/consolidation of the right lower lung. This is simil ar to yesterday. 2. The left lung appears clear. 3. Emphysema. ACT 112: Negative or not required by law. Electronically signed by: Edwin Wilhelm M.D. 07/10/2022 7:12 AM
--- NOTE | 2022-07-10 08:41 | Pulmonary Consultation ---
Date of Consultation July 10, 2022 Assessment & Plan (1) Lung mass: (2) Mediastinal adenopathy: Plan Impression: 66-year-old female with metastatic adenocarcinoma lung in the setting of severe aggressive CLL. She has shown progression despite chemotherapy and was admitted a few weeks ago with progression of metastatic disease and bone pain as well as diffuse pulmonary infiltrates with the differential being pulmonary edema versus pulmonary toxicity from chemotherapeutics. She was discharged on prednisone but returns to the emergency room with increasing shortness of breath, and elevated procalcitonin, and development of a new large right-sided effusion. Y. Recommendations: 1. Right effusion: Suspect malignancy but cannot exclude infection and other etiologies. We discussed sampling versus placement of a Pleurx catheter. Given patient's aggressive malignancy and the rapid accumulation of this fluid as well as need for potential repeated procedures I have recommended proceeding with a Pleurx catheter. She is in agreement and has consented for the procedure. We will drain today and then proceed with drainage on a daily basis. We will send fluid for microbiologic and cytologic analysis as well. 2. Abnormal CT scans: The current CT scan demonstrates significant improvement compared to the prior CT scan. Unclear if this is related to steroids or diuretics. Continue to follow clinically. 3. Hypoxemic respiratory failure: Suspect the patient's effusion with atelectasis is contributing significantly. We will see how she responds to removal of the pleural fluid. Continue to wean oxygen as tolerated with target oxygen saturations around 90%. 4. Infections difficult to exclude in this patient. Procalcitonin is elevated. White blood cell count is unreliable given her severe CLL. She is not had fevers but it seems reasonable to continue with antibiotics pending microbiologic analysis of the pleural fluid. She does not require antipseudomonal coverage so we will de-escalate down to Unasyn. Given recent prednisone use, she is at risk for opportunistic infections however the CT scan does not show evidence concerning for pneumocystis or fungal process. 5. Patient has advancing disease despite therapy. Palliative care consultation will be entered. The above recommendations and plan were discussed with the patient. Questions were answered to the best my ability. She expressed understanding and is in agreement to proceed as outlined. History of Present Illness Attending Physician: Lilly Mcallister MD History of Present Illness Asked by hospitalist to evaluate this patient with hypoxemic respiratory failure and new likely malignant pleural effusion. History is obtained from discussion with patient as well as review the electronic medical record. The patient is a 67-year-old female who I know from the outpatient setting. She had a history of CLL and unfortunately was found to have metastatic lung adenocarcinoma. Her course has been ugerita with progression of disease despite chemotherapeutic agents. She is undergoing palliative radiation to osseous metastatic disease. She was just discharged 06/18 with foot pain likely secondary to chemotherapy as well as hypoxemic respiratory failure. She was treated empirically with prednisone due to concern about potential pulmonary toxicity from her chemotherapeutic/immune regiment. She was seen in medical oncology about a week ago and had follow-up imaging demonstrating a large right sided pleural effusion which was new. She presented to the emergency room yesterday with a 4 to 5-day history of progressive shortness of breath on exertion which has progressed to shortness of breath at rest and was found to be hypoxemic and tachycardic. She has had escalation of her oxygen requirement overnight and is currently on high flow cannula. She denies fevers chills or night sweats. The concept of palliative care has been broached with the patient but she has not been able to formally engage due to being overwhelmed with the rapid progression of her disease and the complexity of her medical issues. She denies any trauma. No fevers chills night sweats or other constitutional symptoms. Allergies Allergy/AdvReac Type Severity Reaction Status Date / Time No Known Allergies Allergy Verified 07/09/22 19:35 Home Medications Medication Instructions Recorded Confirmed Type pantoprazole 40 mg tablet,delayed 40 mg PO QAM 12/20/21 07/09/22 History release mesalamine 1,000 mg rectal 1 g MT QPM 02/13/22 07/09/22 History suppository bupropion HCl 300 mg 24 hr tablet, 300 mg PO QAM #90 tabs 05/02/22 07/09/22 Rx extended release gabapentin 300 mg capsule 300 mg PO TID 06/09/22 07/09/22 History multivitamin with minerals 1 tab PO DAILY 06/09/22 07/09/22 History (Multiple Vitamin-Minerals tablet) meloxicam 7.5 mg tablet 15 mg PO QAM 30 days #60 tabs 06/18/22 07/09/22 Rx raloxifene 60 mg tablet 60 mg PO QAM #90 tabs 06/19/22 07/09/22 Rx acetaminophen 500 mg tablet 500 mg PO Q6H PRN Pain 07/02/22 07/09/22 History (Tylenol Extra Strength) buprenorphine 5 mcg/hour weekly 1 patch transdermal Q7D #4 ea 07/02/22 07/09/22 Rx transdermal patch (Butrans) oxycodone 10 mg tablet 10 mg PO Q4H PRN pain #40 tabs 07/02/22 07/09/22 Rx sulfamethoxazole 800 1 tab PO BID 7 days #14 tabs 07/02/22 07/09/22 Rx mg-trimethoprim 160 mg tablet (Bactrim DS) Portable Oxygen #1 ea 07/04/22 Rx Spacer for Inhaler #1 ea 07/07/22 Rx albuterol sulfate 90 mcg/actuation 2 puff inhalation .COMPLEX PRN 07/07/22 07/09/22 Rx aerosol inhaler (ProAir HFA) shortness of breath or wheezing #8.5 grams lidocaine 5 % topical patch 1 patch transdermal QAM PRN Pain 07/09/22 07/09/22 History Patient History Medical History Abnormal CT scan of lung Acute respiratory failure with hypoxia Chronic lymphocytic leukemia Depression GERD (gastroesophageal reflux disease) History of squamous cell carcinoma of skin On chest and on abdomen Hypercholesterolemia Nausea and vomiting after administration of anesthetic agent Non-small cell cancer of right lung Non-small cell lung cancer with metastasis Osteoporosis Primary cancer of right lower lobe of lung (12/13/21) Right lower lobe pneumonia Sepsis SNHL (sensorineural hearing loss) Tachycardia Ulcerative proctitis Surgical History Dental root implant present Ganglion cyst right wrist 1993 History of biopsy (01/23/22) Lymph Node, Left Axilla, Core Biopsy History of bronchoscopy (12/13/21) Fiberoptic Bronchoscopy + Endobronchial Ultrasound with Transbronchial [place] Aspiration of LN Dr. Compa Lemons at [facility] History of colonoscopy with polypectomy History of squamous cell carcinoma excision x2--one off chest, one off abdomen History of tooth extraction Hx of colonoscopy Port-A-Cath in place (02/19/22) Port Placement with Fluoroscope(Right) - Patel Shea, DO S/P biopsy of cervix Family History Mother Bone cancer Cancer Sister Uterine cancer Cancer Grandfather (Maternal) Pancreatic cancer Cancer Family/Other Family hx of colon cancer Grandmother (Paternal) Cancer Family/Other Cancer Father No problems noted. Sister No problems noted. Other Colorectal cancer Has no children Denies family history of Ovarian cancer Prostate cancer No family history of adverse response to anesthesia No family history of bleeding disorder Heart disease Allergies Myocardial infarction Breast cancer Hypertension Stroke Asthma Social History Smoking Status: Former smoker Tobacco Type: Cigarettes Age Started Using Tobacco: 20; Age Quit Using Tobacco: 41; packs per day: 1; Second Hand Exposure: No; Do You Dip or Chew Tobacco: No; Hx Alcohol Use: No Hx Substance Use: No Preferred Language: Setswana Communication Ability: Effective Visual Impairment: No Limitations 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: Normal Scrap Cutter Required: No Beliefs That Will Affect Care: None marital status: Current Living Situation: Alone current occupational status: retired 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 No additions or deletions Physical Exam Constitutional: WD/WN, vitals as above Neck: trachea midline, no thyromegaly Respiratory: + respiratory distress, + labored breathing, + cough and + tachypneic Auscultation: + crackles; no wheezes Dullness to percussion right lung base detention up Cardiovascular: RRR, no murmur, no edema Gastrointestinal (Abdomen): normal bowel sounds, soft, nontender, no hepatosplenomegaly Musculoskeletal: Extremities: extremities normal to inspection Skin: no rashes, warm and dry Neurologic: Nonfocal exam Lymphatic: no cervical lymphadenopathy Results & Data Results & Data ([facility]) Vital Signs (Past 12 Hours) Vital Signs Temp Pulse Pulse Pulse Resp BP BP 07/10/22 08:17 36.7 C 130 H 22 113/64 07/10/22 07:25 131 H 20 07/10/22 04:00 130 H 26 H 07/10/22 04:15 37.1 C 128 H 20 110/71 07/09/22 23:15 07/09/22 22:45 135 H 32 H 07/09/22 23:08 36.5 C 131 H 30 H 131/77 07/09/22 22:17 07/09/22 21:50 130 H 22 07/09/22 21:40 127 H 23 07/09/22 21:30 126 H 24 07/09/22 21:20 126 H 22 07/09/22 21:10 125 H 22 07/09/22 21:00 123 H 20 07/09/22 20:50 119 H 25 H 07/09/22 20:40 123 H 20 07/09/22 21:00 127 H 24 Pulse Ox O2 Del Method O2 Flow Rate FiO2 07/10/22 08:17 93 High Flow Nasal Cannula 07/10/22 07:25 91 High Flow Nasal Cannula 20 100 07/10/22 04:00 90 High Flow Nasal Cannula 20 100 07/10/22 04:15 92 High Flow Nasal Cannula 07/09/22 23:15 High Flow Nasal Cannula 20 90 07/09/22 22:45 90 High Flow Nasal Cannula 20 07/09/22 23:08 97 Nasal Cannula 5 07/09/22 22:17 BiPAP 07/09/22 21:50 91 07/09/22 21:40 93 07/09/22 21:30 94 07/09/22 21:20 93 07/09/22 21:10 90 07/09/22 21:00 95 07/09/22 20:50 96 07/09/22 20:40 99 07/09/22 21:00 97 Nasal Cannula 4 Critical Care Results & Data Vital Signs (Past 12 Hours) Vital Signs Temp Pulse Pulse Pulse Resp BP BP 07/10/22 08:17 36.7 C 130 H 22 113/64 07/10/22 07:25 131 H 20 07/10/22 04:00 130 H 26 H 07/10/22 04:15 37.1 C 128 H 20 110/71 07/09/22 23:15 07/09/22 22:45 135 H 32 H 07/09/22 23:08 36.5 C 131 H 30 H 131/77 07/09/22 22:17 07/09/22 21:50 130 H 22 Pulse Ox O2 Del Method O2 Flow Rate FiO2 07/10/22 08:17 93 High Flow Nasal Cannula 07/10/22 07:25 91 High Flow Nasal Cannula 20 100 07/10/22 04:00 90 High Flow Nasal Cannula 20 100 07/10/22 04:15 92 High Flow Nasal Cannula 07/09/22 23:15 High Flow Nasal Cannula 20 90 07/09/22 22:45 90 High Flow Nasal Cannula 20 07/09/22 23:08 97 Nasal Cannula 5 07/09/22 22:17 BiPAP 07/09/22 21:50 91 Lab & Micro Results (Past 24 Hours) RBC 4.10 M/uL (3.93-5.22) 07/10/22 WBC 51.37 K/ul (4.8-10.8) H* 07/10/22 Hgb 11.8 g/dl (12.0-16.0) L 07/10/22 Hct 35.9 % (34.1-44.9) 07/10/22 MCV 87.6 fL (80.0-100.0) 07/10/22 MCH 28.8 pg (25.0-34.0) 07/10/22 MCHC 32.9 g/dL (32.0-36.0) 07/10/22 RDW Standard Deviation 45.2 fL (36.4-46.3) 07/10/22 RDW Coefficient of Variation 14.3 % (11.5-14.5) 07/10/22 Plt Count 244 K/uL (130-400) 07/10/22 MPV 9.6 fL (9.4-12.3) 07/10/22 Nucleated RBC Absolute Count (auto) 0.02 K/uL (0-0) H 06/18 4 Neutrophils (%) (Auto) 24.1 % 07/10/22 Lymphocytes (%) (Auto) 71.0 % 07/10/22 Monocytes # (Auto) 1.99 K/uL (0.24-0.82) H 07/10/22 Eosinophils # (Auto) 0.01 K/uL (0-0.50) 07/10/22 Immature Granulocyte % (Auto) 0.9 % 07/10/22 Neutrophils # (Auto) 12.43 K/uL (1.4-6.5) H 07/10/22 Lymphocytes # (Auto) 36.47 K/uL (1.2-3.4) H 07/10/22 Monocytes # (Auto) 1.99 K/uL (0.24-0.82) H 07/10/22 Eosinophils # (Auto) 0.01 K/uL (0-0.50) 07/10/22 Basophils # (Auto) 0.03 K/uL (0-0.2) 07/10/22 Immature Granulocyte # (Auto) 0.44 K/uL (0.00-0.02) H 07/10 Smudge Cells Present 07/10/22 Na 136 mmol/L (136-145) 07/10/22 K 4.0 mmol/L (3.5-5.1) 07/10/22 Cl 100 mmol/L (98-107) 07/10/22 CO2 25 mmol/L (21-32) 07/10/22 Anion Gap 11 (3-11) 07/10/22 BUN 17 mg/dl (6-23) 07/10/22 Creatinine 0.78 mg/dl (0.6-1.2) 07/10/22 Estimated GFR ( Amer) 92.5 ml/min 07/10/22 Estimated GFR (Non-Af Amer) 79.8 ml/min 07/10/22 BUN/Creatinine Ratio 21.8 (10-20) H 07/10/22 Glu 90 mg/dl (70-99(Fasting)) 07/10/22 Ca 8.5 mg/dl (8.5-10.1) 07/10/22 Phosphorus Level 3.1 mg/dl (2.5-4.9) 07/10/22 Total Bilirubin 0.7 mg/dl (0.2-1.0) 07/10/22 AST 38 U/L (13-39) 07/10/22 ALT 19 U/L (7-52) 07/10/22 Alkaline Phosphatase 247 U/L (34-104) H 07/10/22 TP 6.3 gm/dl (6.0-8.3) 07/10/22 Albumin 3.3 gm/dl (3.4-5.0) L 07/10/22 Globulin 3.0 gm/dl (2.5-4.0) 07/10/22 Albumin/Globulin Ratio 1.1 (0.9-2) 07/10/22 Mg 1.9 mg/dl (1.7-2.4) 07/10/22 05:25 Calcium Level 8.5 mg/dl (8.5-10.1) 07/10/22 05:25 Prothromb Time International Ratio 1.1 (0.9-1.1) 07/10/22 05:2 5 Arterial Blood pH 7.48 (7.35-7.45) H 07/09/22 23:31 Arterial Blood Partial Pressure CO2 29 mmHg (35-46) L 07/09/22 23:31 Arterial Blood Partial Pressure O2 73 mmHg (80-95) L 07/09/22 2 3:31 Arterial Blood HCO3 22 mmol/L (19-24) 07/09/22 23:31 Arterial Blood Base Excess -0.8 mEq/L (-9-1.8) 07/09/22 23:31 Arterial Blood Oxygen Saturation 97.1 % (90-95) H 07/09/22 23:3 1 Blood Gas Oxygen Given 4 07/09/22 23:31 Jeremi Test Pos (Pos) 07/09/22 23:31 Diagnostic Findings (Past 24 Hours) Chest X-Ray 07/09/22 17:43 XR chest 1V portable CLINICAL HISTORY: Dyspnea TECHNIQUE: Single frontal radiograph of the chest was obtained. Comparison: Comparison is made to chest radiograph 06/16/2022 FINDINGS: A port catheter is seen. Calcified aortic knob is seen. A large right pleural effusion is seen with underlying atelectasis. Lungs are otherwise clear. IMPRESSION: Large right pleural effusion with underlying atelectasis. This is new from prior exam. ACT 112: Negative or not required by law. Electronically signed by: Victor Manuel Whitaker M.D. 07/09/2022 6:[address] 07/09/22 20:46 CT SCAN OF THE CHEST WITHOUT IV CONTRAST CLINICAL HISTORY: Dyspnea. Hypoxia. Lung cancer. COMPARISON STUDY: Chest x-ray dated 07/09/2022. Chest CT dated 06/09/2022. PET/CT dated 06/25/2022. TECHNIQUE: CT scan of the thorax was performed from the thoracic inlet to the upper abdomen. Images are reviewed in the axial, sagittal, and coronal planes. IV contrast was not administered for this examination as per the referring clinician. A dose lowering technique was utilized adhering to the principles of ALARA. CT DOSE: 200.93 mGy.cm FINDINGS: Thyroid: Normal in size and heterogeneous in attenuation. Thoracic aorta: There is mild atherosclerotic calcification of the thoracic aorta, which is normal in caliber and demonstrates standard 3-vessel arch anatomy. Heart: A right internal jugular central venous infusion port is in place. The heart is normal in size A small pericardial effusion. Lungs and pleural spaces: There is advanced emphysema. The trachea and central airways appear clear. There is a large right pleural effusion with near complete atelectasis of the right lung. Pleural effusion has significantly increased as compared to prior examinations. The right apex remains aerated. Metastatic lesions in the left lower lobe are new from previous. Ortho/Prosthetic Aide lesions are seen on image #216 measuring 8 mm and #227 measuring 6 mm. Lower neck: There is bulky confluent right supraclavicular lymphadenopathy. A rhonda aggregate on image #16 measures approximately 5.5 x 5 cm in aggregate dimension. There are also numerous mildly enlarged left supraclavicular nodes which measure up to 1.7 cm in length. Mediastinum: There is bulky mediastinal lymphadenopathy. A precarinal node on image #100 measures 2.6 x 1.8 cm. Shraddha: Not well assessed without IV contrast. Axillae: There are mildly enlarged bilateral axillary lymph nodes. The largest node on the left measures 1.5 x 0.9 cm. Upper abdomen: There is evidence of multifocal hepatic metastatic disease comment lesions measuring up to 3.3 cm. This is similar to mildly progressive as compared to 06/25/2022 PET examination. There is metastatic adenopathy in the upper abdomen. Skeletal structures: The skeletal structures are osteopenic. Degenerative change and mild hyperkyphosis is noted in the thoracic spine. Skeletal metastases seen on the recent PET/CT are not visualized by CT. IMPRESSION: 1. There is a large right pleural effusion with atelectasis of the right lower lung. This has significantly increased size as compared to 06/25/2022 and is almost certainly malignant. This obscures the patient's known pulmonary lesion. Correlate clinically for evidence of superimposed pneumonia. 2. Advanced emphysema. 3. Pulmonary metastases at the left lung base are new from previous. 4. Multifocal hepatic metastatic disease may have mildly progressed as compared to 06/25/2022. 5. There is bulky mediastinal and supraclavicular lymphadenopathy consistent with metastatic disease. There is also metastatic adenopathy in the upper abdomen. 6. Skeletal metastatic disease seen by PET is not apparent on CT. 7. Additional findings as above. ACT 112: Negative or not required by law. Electronically signed by: Edwin Wilhelm M.D. 07/10/2022 8:40 AM Chest X-Ray 07/10/22 06:30 SINGLE VIEW CHEST CLINICAL HISTORY: Dyspnea. FINDINGS: An AP, portable, upright chest radiograph is compared to study dated 07/09/2022 and correlated with chest CT dated 06/09/2022. A right internal jugular central venous infusion port is unchanged in position. The cardiomediastinal silhouette is largely obscured. There is atherosclerotic calcification of the thoracic aorta. The pulmonary vasculature is noncongested. Emphysema and chronic interstitial thickening is similar to previous. There is a moderate to large right pleural effusion with associated atelectasis/consolidation of the right lower lung. The right apex remains aerated. The left lung is grossly clear noting basilar scarring/atelectasis. No pneumothorax is seen. The skeletal structures are osteopenic. The bony thorax is grossly intact. IMPRESSION: 1. Large right pleural effusion with atelectasis/consolidation of the right lower lung. This is similar to yesterday. 2. The left lung appears clear. 3. Emphysema. ACT 112: Negative or not required by law. Electronically signed by: Edwin Wilhelm M.D. 07/10/2022 7:12 AM Chest X-Ray 07/10/22 09:15 SINGLE VIEW CHEST CLINICAL HISTORY: Status post thoracentesis and chest tube placement. FINDINGS: An AP, portable, upright chest radiograph is compared to chest x-ray and chest CT performed earlier the same day 07/10/2022. A right internal jugular central venous infusion port is unchanged in position. The cardiomediastinal silhouette is partially obscured. There is atherosclerotic calcification of the thoracic aorta. The pulmonary vasculature is noncongested. Emphysema and chronic interstitial thickening is similar to previous. A right-sided chest tube has been placed. The tip projects over the right lung base. There is a moderate residual right pleural effusion with atelectasis/consolidation of the right lower lung. There is improved aeration of the right upper lobe. The left lung is grossly clear noting basilar scarring/atelectasis. No pneumothorax is seen. The skeletal structures are osteopenic. The bony thorax is grossly intact. IMPRESSION: 1. A right-sided chest tube has been placed. No pneumothorax is seen post procedure. 2. There is a moderate residual right pleural effusion with basilar consolidation/atelectasis. The pleural effusion has significantly decreased in size from previous. 3. Emphysema. ACT 112: Negative or not required by law. Electronically signed by: Edwin Wilhelm M.D. 07/10/2022 9:38 AM I & O Totals 24 Hours 07/09/22 07/10/22 07/11/22 06:59 06:59 06:59 Intake Total 615 / 615 Output Total 1875 / 1875 Balance -1260 / -1260 Cumulative 07/09/22 17:27 thru 07/10/22 06:30 Intake Total 615 Output Total 1875 Balance -1260 RT Ventilator Mngmt (Last Documented) Ventilator Ordered Settings Respiratory Rate 22 07/10/22 08:17 Fraction of Inspired Oxygen 100 07/10/22 07:25 Ventilator - PT Measurements Respiratory Rate 22 PG Care Time/CCT Total # of Minutes Spent Total Time Spent with Patient: Total time spent is greater than 50% in coordination of care (as documented) at patient's floor/unit and/or counseling patient: Coding Level of Care Code 35785 Initial Inpt Care Lvl 3 Diagnoses Lung mass R91.8 Mediastinal adenopathy R59.0
--- NOTE | 2022-07-10 08:42 | CT Scan Report ---
CT SCAN OF THE CHEST WITHOUT IV CONTRAST CLINICAL HISTORY: Dyspnea. Hypoxia. Lung cancer. COMPARISON STUDY: Chest x-ray dated 07/09/2022. Chest CT dated 06/09/2022. PET/CT dated 06/25/2022. TECHNIQUE: CT scan of the thorax was performed from the thoracic inlet to the upper abdomen. Images are reviewed in the axial, sagittal, and coronal planes. IV contrast was not administered for this ex amination as per the referring clinician. A dose lowering technique was utilized [facility] to the [facility] CT DOSE: 200.93 mGy.cm FINDINGS: Thyroid: Normal in size and heterogeneous in attenuation. Thoracic aorta: There is mild atherosclerotic calcification of the thoracic aorta, which is normal in caliber and demonstrates standard 3-vessel arch anatomy. Heart: A right internal jugular central venous infusion port is in place. The heart is normal in size A small pericardial effusion. Lungs and pleural spaces: There is advanced emphysema. The trachea and central airways appear clear. There is a large right pleural effusion with near complete atelectasis of the right lung. Pleural eff usion has significantly increased as compared to prior examinations. The right apex remains aerated. Metastatic lesions in the left lower lobe are new from previous. Real Estate Manager lesions are seen on i mage #216 measuring 8 mm and #227 measuring 6 mm. Lower neck: There is bulky confluent right supraclavicular lymphadenopathy. A rhonda aggregate on imag e #16 measures approximately 5.5 x 5 cm in aggregate dimension. There are also numerous mildly enlarg ed left supraclavicular nodes which measure up to 1.7 cm in length. Mediastinum: There is bulky mediastinal lymphadenopathy. A precarinal node on image #100 measures 2.6 x 1.8 cm. Shraddha: Not well assessed without IV contrast. Axillae: There are mildly enlarged bilateral axillary lymph nodes. The largest node on the left measu res 1.5 x 0.9 cm. Upper abdomen: There is evidence of multifocal hepatic metastatic disease comment lesions measuring u p to 3.3 cm. This is similar to mildly progressive as compared to 06/25/2022 PET examination. There is metastatic adenopathy in the upper abdomen. Skeletal structures: The skeletal structures are osteopenic. Degenerative change and mild hyperkyphos is is noted in the thoracic spine. Skeletal metastases seen on the recent PET/CT are not visualized b y CT. IMPRESSION: 1. There is a large right pleural effusion with atelectasis of the right lower lung. This has signifi cantly increased size as compared to 06/25/2022 and is almost certainly malignant. This obscures the p atient's known pulmonary lesion. Correlate clinically for evidence of superimposed pneumonia. 2. Advanced emphysema. 3. Pulmonary metastases at the left lung base are new from previous. 4. Multifocal hepatic metastatic disease may have mildly progressed as compared to 06/25/2022. 5. There is bulky mediastinal and supraclavicular lymphadenopathy consistent with metastatic disease. There is also metastatic adenopathy in the upper abdomen. 6. Skeletal metastatic disease seen by PET is not apparent on CT. 7. Additional findings as above. ACT 112: Negative or not required by law. Electronically signed by: Edwin Wilhelm M.D. 07/10/2022 8:40 AM
[2022-07-10] MEDS ORDERED: LIDOCAINE 1% LOCAL 20 ML VIAL ONE (08:49)
[2022-07-10] MEDS: GABAPENTIN 300 MG CAP PO SCH ×3 (09:40→21:31)
[2022-07-10] MEDS: MELOXICAM 7.5 MG TAB PO SCH (09:40)
[2022-07-10] MEDS: RALOXIFENE HCL 60 MG TAB PO SCH (09:40)
[2022-07-10] MEDS: PANTOprazole 40 MG TAB PO SCH (09:40)
[2022-07-10] MEDS: buPROPion XL 300 MG TABCR PO SCH (09:41)
--- NOTE | 2022-07-10 09:41 | XRay Report ---
SINGLE VIEW CHEST CLINICAL HISTORY: Status post thoracentesis and chest tube placement. FINDINGS: An AP, portable, upright chest radiograph is compared to chest x-ray and chest CT performed earlier the same day 07/10/2022. A right internal jugular central venous infusion port is unchanged in position. The cardiomediastinal silhouette is partially obscured. There is atherosclerotic calcifi cation of the thoracic aorta. The pulmonary vasculature is noncongested. Emphysema and chronic inters titial thickening is similar to previous. A right-sided chest tube has been placed. The tip projects over the right lung base. There is a moderate residual right pleural effusion with atelectasis/consol idation of the right lower lung. There is improved aeration of the right upper lobe. The left lung is grossly clear noting basilar scarring/atelectasis. No pneumothorax is seen. The skeletal structures are osteopenic. The bony thorax is grossly intact. IMPRESSION: 1. A right-sided chest tube has been placed. No pneumothorax is seen post procedure. 2. There is a moderate residual right pleural effusion with basilar consolidation/atelectasis. The pl eural effusion has significantly decreased in size from previous. 3. Emphysema. ACT 112: Negative or not required by law. Electronically signed by: Edwin Wilhelm M.D. 07/10/2022 9:38 AM
[2022-07-10] MEDS: ACETAMINOPHEN 500 MG TAB PO PRN ×2 (09:45→17:42)
--- NOTE | 2022-07-10 10:09 | Procedure Note ---
Procedure Note Date of Service July 10, 2022 Note Procedure: Ultrasound guided right Pleurx catheter placement. Indication: Large pleural effusion in setting of known advanced non-small cell lung cancer Consent: Signed by patient and verified with timeout prior to procedure. Anesthesia: 15 mL's 1% lidocaine without epinephrine locally. [employer] Games Supervisor: Dr. Compa Lemons Estimated blood loss: Less than 10 mL Procedure:appropriate radiographic films had been reviewed prior to commencement of the procedure. Risks and benefits were again discussed with patient consent was verified. The patient was placed in the right side up lateral decubitus position. Limited thoracic ultrasound was performed which revealed a large right-sided effusion with compressive atelectasis. Site appropriate for the pleurotomy was marked. Skin was prepped and draped in normal sterile fashion. Using 1% lidocaine, the skin and soft tissues down to the pleura were anesthetized. A tract extending approximately 8 to 10 cm anteriorly from the pleurotomy site was also infiltrated and a site appropriate for the exit of the Pleurx catheter was marked. A 1 cm skin katelynn was made at the posterior site. The catheter over the needle apparatus was advanced into the pleural space with pleural fluid easily aspirated. Fluid was collected for microbiologic and cytologic analysis at this point time. A wire was passed through the catheter after the needle was removed. The Pleurx catheter was then loaded on the tunneling device. A 1cm skin incision was made at the anterior catheter exit site. The tunneling device with the attached Pleurx catheter were passed from the anterior incision back to the posterior incision until the cuff of the Pleurx catheter resided within the subcutaneous tissues. The catheter was palpated along its course and no kinking was identified. Serial dilatation was then performed over the wire with the pull-away catheter being left in place. The Pleurx was removed from the tunneling mechanism and advanced through the peel-away catheter. The catheter sheath was then peeled back as the Pleurx catheter was advanced into the pleural space. The Pleurx catheter course was palpated and no kinks were felt. It was attached to wall suction and a total of 965 mL's was removed. Using 1-0 silk, 2 stitches were placed at the exit Pleurx site and the catheter secured in place. 2 small silk sutures were used to close the posterior incision. A sterile dressing was applied. The patient tolerated the procedure well without obvious complication. Post procedure x-ray demonstrated the catheter to be in good position with moderate degree of residual pleural effusion Plan on draining the catheter on a daily basis. Await cytology Coding CPT Codes Pulmonary/Thoracic - Pulmonary and Thoracic: 28856 Insert pleural cathereter w/cuff ([id number]) [facility] [place] Procedure Codes (Charges) Pulmonary/Thoracic Procedure 1: Pulmonary and Thoracic: 75887 Insert pleural cathereter w/cuff
--- NOTE | 2022-07-10 10:19 | Electrocardiogram Report ---
Test Reason : Blood Pressure : / mmHG Vent. Rate : 124 BPM Atrial Rate : 124 BPM P-R Int : 116 ms QRS Dur : 078 ms QT Int : 308 ms P-R-T Axes : 053 059 047 degrees QTc Int : 442 ms Poor data quality, interpretation may be adversely affected Sinus tachycardia Poor R wave progression, consider anterior VA vs. lead placement vs. LVH Abnormal ECG When compared with ECG of 11-JUN-2022 23:21, No significant change was found Confirmed by Rip Marquez ([id number]) on 07/10/2022 10:18:43 AM Referred By: REFERRED SELF Confirmed By:Rip Marquez
[2022-07-10] MEDS: AMPICILLIN/SULBACTAM SOD 3,000 MG in 0.9 % SODIUM CHLORIDE 100 ML IV SCH ×3 (10:40→21:31)
[2022-07-10 10:42] LABS: Appearance Pleural Fluid Cloudy; Color Pleural Fluid Amber; RBC Pleural Fluid Auto 23000 /uL; Source Pleural Fluid Right Lung; WBC Pleural Fluid Auto 1017 /uL
--- NOTE | 2022-07-10 11:00 | Hospitalist Progress Note ---
Date of Service July 10, 2022 Assessment & Plan (1) Acute respiratory failure with hypoxia: Plan: Pt is a 67 yo female with PMH of metastatic non small cell lung cancer in current tx, CLL, GERD, COPD, osteoporosis, and depression presenting to the hospital with increased SOB over the past few days found to be hypoxia upon arrival. Acute hypoxic respiratory failure, right pleural effusion, stage IV lung adenocarcinoma, COPD - Hypoxia on arrival improved with 4L NC; suspect tachycardia is secondary to increased WOB - Labs primarily notable for marked leukocytosis (54.8), likely related to known metastatic disease, though an active infection could be contributing - CXR: large right pleural effusion with underlying atelectasis, new from prior exam - CT chest showed right pleural effusion most likely related to malignancy; new mets in left lung base - Suspect AHRF is due to patient's new pleural effusion, which is possibly secondary to patient's known lung adenocarcinoma, though differential includes pneumonia vs others - Received one dose of cefepime in the ED; given risk of aspiration pneumonia vs obstructive bacterial pneumonia, cefepime was d/c and zosyn was started - ABX tailored to unasyn - Blood cultures pending; MRSA nares negative - Incentive spirometry Q1HWA - Continue home inhaler regimen - Of note, patient's chemo regimen was paused after her last admission; see Dr. Lama's note for further information - Thoracentesis performed today removing almost 1 L of fluid and leaving catheter in place for further drainage; post procedural CXR showed no pneumothorax - plan for daily drainage from catheter PRN - fluid microbiology and cytologic analysis pending - palliative care consulted Elevated troponin - On admission, troponin elevated to 14.3, repeat 16.6 - EKG: NSR, no overt sign of ischemic change - Patient without chest pain at this time Asthma: home regimen inhaler as above CLL: patient is not currently on treatment for her CLL Osteoporosis: continue home raloxifene GERD: continue home protonix MDD: continue home bupropion (2) Lung cancer: (3) Pleural effusion: (4) SOB (shortness of breath): (5) Chronic lymphocytic leukemia: (6) Depression: (7) GERD (gastroesophageal reflux disease): Plan FEN: regular diet Code status: DNR (intubation/ventilation OK) DVT ppx: SCDs Dispo: med/telemetry Admission and Anticipated Discharge Date Admission Date: July 09, 2022 Supervising Physician Co-Signing Physician Notes I personally examined the patient and verified all arriola points of history and exam, discussed case, and agree with decision making with Dr. Peng with the following additions/exceptions: S-patient seen after having Pleurx catheter placed. She reports feeling much improved with her breathing. She has a mild cough, clear sputum production, no hemoptysis. She was on high flow nasal cannula when I saw her and breathing comfortably. Discussed her care with the pulmonary PA O- Vitals reviewed Gen: AAOx3, NAD HEENT: Anicteric sclerae, EOMI CV: RRR no mgr nl S1S2 Pulm: Diminished breath sounds at the right base, Pleurx catheter in place with dressing overlying is clean dry and intact Abd: +BS soft NT ND no masses or hernias Ext: No edema, 2+ DP pulses Skin: No rashes, warm/dry Neuro: Full strength throughout Labs and chest x-ray reviewed [id number]-[id number]-old female with metastatic lung cancer here with right-sided pleural effusion and acute respiratory failure with hypoxia possibly pneumonia as well. Now status post Pleurx catheter, oxygenation is improving Continue to wean down off O2 Continue antibiotics in the form of Unasyn as per pulmonology Appreciate pulmonology consultation With ongoing sinus tachycardia likely secondary to pulmonary process-we will follow on telemetry Subjective Pt is a 67 yo female with PMH of metastatic non small cell lung cancer in current tx, CLL, GERD, COPD, osteoporosis, and depression presenting to the hospital with increased SOB over the past few days found to be hypoxia upon arrival. I saw pt this morning after thoracentesis and Pleurx catheter was placed. She stated she is feeling slightly better after the procedure. She is not feeling SOB while sitting but she says the "real test" would be with her walking around. Pt denies chest pain, dizziness, and lightheadedness. She tells me she usually uses 3 L NC at home while resting and 4 L during activity. Review of Systems Review of Systems: All systems reviewed & are unremarkable except as noted in HPI & below Physical Exam Constitutional: NAD. Tachycardic. O2 sat 88-90 w/ high flow oxygen at 25 lpm, 65 O2% Eyes: no conjunctival abnormality Respiratory: Right lung base crackles with decreased breath sounds throughout lungs. Minimal work of breathing. Cardiovascular: RRR. No murmur noted. No LE edema. Skin: no rashes, warm and dry Psychiatric: Alert. Mood and affect congruent. Results & Data Results & Data ([facility]) Vital Signs (Past 12 Hours) Vital Signs Temp Pulse Pulse Pulse Resp BP BP 07/10/22 10:37 127 H 20 07/10/22 10:13 128 H 07/10/22 09:57 07/10/22 08:17 36.7 C 130 H 22 113/64 07/10/22 07:25 131 H 20 07/10/22 04:00 130 H 26 H 07/10/22 04:15 37.1 C 128 H 20 110/71 07/09/22 23:15 07/09/22 23:08 36.5 C 131 H 30 H 131/77 Pulse Ox O2 Del Method O2 Flow Rate FiO2 07/10/22 10:37 85 L High Flow Nasal Cannula 20 60 07/10/22 10:13 07/10/22 09:57 High Flow Nasal Cannula 20 07/10/22 08:17 93 High Flow Nasal Cannula 07/10/22 07:25 91 High Flow Nasal Cannula 20 100 07/10/22 04:00 90 High Flow Nasal Cannula 20 100 07/10/22 04:15 92 High Flow Nasal Cannula 07/09/22 23:15 High Flow Nasal Cannula 20 90 07/09/22 23:08 97 Nasal Cannula 5 Resident Activity Tracking Resident Involvement: Resident Care Provided Care Provided: Adult Hospital Medicine (1) Lung cancer Laterality: right Lung location: unspecified part of lung Qualified Code(s): C34.91 - Malignant neoplasm of unspecified part of right bronchus or lung
[2022-07-10] MEDS: ONDANSETRON INJ 2 MG/ML 2 ML VIAL IV PRN (16:42)
--- NOTE | 2022-07-10 20:07 | Billing Data ---
Date of Service July 10, 2022 Coding Level of Care Code 42116 Subseq Hosp Care Lvl 3
[2022-07-11] MEDS ORDERED: HEPARIN 100 UNIT/ML 5ML FLUSH FLUSH PRN (01:45)
[2022-07-11] MEDS: ACETAMINOPHEN 500 MG TAB PO PRN ×2 (04:13→11:19)
[2022-07-11] MEDS: AMPICILLIN/SULBACTAM SOD 3,000 MG in 0.9 % SODIUM CHLORIDE 100 ML IV SCH (04:13)
[2022-07-11 06:14] LABS: Hematocrit (blood only) 32.1 % (34.1-44.9); Hemoglobin 10.4 g/dl (12.0-16.0); Mean Corpuscular Hemoglobin 28.5 pg (25.0-34.0); Mean Corpuscular Hgb Conc 32.4 g/dL (32.0-36.0); Mean Corpuscular Volume 87.9 fL (80.0-100.0); Mean Platelet Volume 9.8 fL (9.4-12.3); Platelet Count 195 K/uL (130-400); RDW Coefficient of Variation 14.6 % (11.5-14.5); RDW Standard Deviation 46.8 fL (36.4-46.3); Red Blood Count 3.65 M/uL (3.93-5.22); White Blood Count 43.31 K/ul (4.8-10.8)
[2022-07-11 06:25] LABS: Albumin Globulin Ratio 1.1 (0.9-2); Albumin Level 2.8 gm/dl (3.4-5.0); BUN Creatinine Ratio 17.3 (10-20); Bilirubin,Total 0.6 mg/dl (0.2-1.0); Calcium 7.7 mg/dl (8.5-10.1); Creatinine Clr Calc Pharmacy 26.3 ml/min; Est GFR (African American) 36.6 ml/min; Est GFR (Non-African American) 31.5 ml/min; Globulin 2.6 gm/dl (2.5-4.0); Total Protein 5.4 gm/dl (6.0-8.3)
[2022-07-11 08:14] LABS: Basophils # (auto) 0.04 K/uL (0-0.2); Basophils % (auto) 0.1 %; Eosinophils # (auto) 0.02 K/uL (0-0.50); Immature Granulocytes # (auto) 0.37 K/uL (0.00-0.02); Immature Granulocytes % (auto) 0.9 %; Lymphocytes # (auto) 28.96 K/uL (1.2-3.4); Lymphocytes % (auto) 66.9 %; Monocytes # (auto) 1.39 K/uL (0.24-0.82); Monocytes % (auto) 3.2 %; Neutrophils # (auto) 12.53 K/uL (1.4-6.5); Neutrophils % (auto) 28.9 %; Smudge Cells Present
[2022-07-11 08:23] LABS: Eosinophils, Fluid 1 %; Lymphocytes, Fluid 37 %; Mono,Macrophage,Mesothelial 20 %; Neutrophils, Fluid 5 %; Other Cells Pleural Cells 37 %
--- NOTE | 2022-07-11 08:32 | Pulmonology Progress Note ---
Date of Service July 11, 2022 Assessment & Plan (1) Lung mass: (2) Mediastinal adenopathy: Plan Impression: 66-year-old female with metastatic adenocarcinoma lung in the setting of severe aggressive CLL. She has shown progression despite chemotherapy and was admitted a few weeks ago with progression of metastatic disease and bone pain as well as diffuse pulmonary infiltrates with the differential being pulmonary edema versus pulmonary toxicity from chemotherapeutics. She presented for this admission with respiratory distress and a large pleural effusion and is status post Pleurx catheter placement 07/10/2022 with drainage of about a liter of fluid. Fluid is a lymphocytic exudate with cytology pending and likely malignant Recommendations: 1. Right effusion: Follow-up cytology. No indication for infection. Await cytology. Continue drain the Pleurx catheter on a daily basis. 2. Abnormal CT scans: The current CT scan demonstrates significant improvement compared to the prior CT scan. Unclear if this is related to steroids or diuretics. Continue to follow clinically. 3. Hypoxemic respiratory failure: Continue to wean oxygen as tolerated with target oxygen saturations around 90%. 4. Infections difficult to exclude in this patient. Procalcitonin is elevated. White blood cell count is unreliable given her severe CLL. Can de-escalate antibiotics to oral Augmentin as it is impossible to exclude underlying pneumonia and the patient's right hemithorax. 5. Patient has advancing disease despite therapy. Palliative care consultation pending The above recommendations and plan were discussed with the patient. Questions were answered to the best my ability. She expressed understanding and is in agreement to proceed as outlined. Admission and Anticipated Discharge Date Admission Date: July 10, 2022 Subjective Patient seen and examined. EMR reviewed. The patient is sitting up. Her respiratory status looks much improved today. She is coughing less. She is not experiencing any pain. The Pleurx catheter is not yet been drained today. Review of Systems Review of Systems: All systems reviewed & are unremarkable except as noted in Subjective Physical Exam Constitutional: WD/WN, vitals as above Neck: trachea midline, no thyromegaly Respiratory: no respiratory distress, no labored breathing, no cough and not tachypneic Auscultation: + crackles; no wheezes Pleurx catheter site dressed. No tenderness to palpation Cardiovascular: RRR, no murmur, no edema Gastrointestinal (Abdomen): normal bowel sounds, soft, nontender, no hepatosplenomegaly Musculoskeletal: Extremities: extremities normal to inspection Skin: no rashes, warm and dry Lymphatic: no cervical lymphadenopathy Results & Data Results & Data ([facility]) Vital Signs (Past 12 Hours) Vital Signs Temp Pulse Pulse Resp BP Pulse Ox O2 Del Method 07/11/22 03:00 36.8 C 107 H 18 89/61 L 93 Free Flow/Blow-by 07/11/22 00:00 105 H 07/10/22 23:10 Free Flow/Blow-by 07/10/22 21:30 22 93 Free Flow/Blow-by O2 Flow Rate 07/11/22 03:00 12 07/11/22 00:00 07/10/22 23:10 07/10/22 21:30 10 Laboratory Results 07/11/22 05:43 07/11/22 05:43 Pleural fluid studies: Differential 5% neutrophils, 37% lymphocytes, 1% eosinophils, 20% mesothelial cells Pleural pH 7.35 Pleural total protein 4.0 Pleural LDH 1022 Pleural glucose 72 Acid-fast stains negative Gram stain moderate white blood cells with no organisms Cytology pending Diagnostic Findings Post Pleurx catheter chest x-ray independently reviewed. Decrease in the size of the effusion. Catheter appears to be in good position. PG Care Time/CCT Total # of Minutes Spent Total Time Spent with Patient: Total time spent is greater than 50% in coordination of care (as documented) at patient's floor/unit and/or counseling patient: Coding Level of Care Code 09889 Subseq Hosp Care Lvl 2 Diagnoses Lung mass R91.8 Mediastinal adenopathy R59.0
[2022-07-11] MEDS: GABAPENTIN 300 MG CAP PO SCH ×3 (09:00→21:13)
[2022-07-11] MEDS: RALOXIFENE HCL 60 MG TAB PO SCH (09:00)
[2022-07-11] MEDS: MELOXICAM 7.5 MG TAB PO SCH (09:00)
[2022-07-11] MEDS: buPROPion XL 300 MG TABCR PO SCH (09:00)
[2022-07-11] MEDS: PANTOprazole 40 MG TAB PO SCH (09:00)
--- NOTE | 2022-07-11 10:45 | Hospitalist Progress Note ---
Date of Service July 11, 2022 Assessment & Plan (1) Acute respiratory failure with hypoxia: Plan: Pt is a 67 yo female with PMH of metastatic non small cell lung cancer in current tx, CLL, GERD, COPD, osteoporosis, and depression presenting to the hospital with increased SOB over the past few days found to be hypoxia upon arrival. Acute hypoxic respiratory failure, right pleural effusion, stage IV lung adenocarcinoma, COPD - Hypoxia on arrival improved with 4L NC; suspect tachycardia is secondary to increased WOB - Labs primarily notable for marked leukocytosis (54.8), likely related to known metastatic disease, though an active infection could be contributing - CXR: large right pleural effusion with underlying atelectasis, new from prior exam - CT chest showed right pleural effusion most likely related to malignancy; new mets in left lung base - Suspect AHRF is due to patient's new pleural effusion, which is possibly secondary to patient's known lung adenocarcinoma, though differential includes pneumonia vs others - Incentive spirometry Q1HWA - Continue home inhaler regimen - Received one dose of cefepime in the ED; given risk of aspiration pneumonia vs obstructive bacterial pneumonia, cefepime was d/c and zosyn was started - ABX tailored to augmentin d/t effusion likely from malignancy - Blood cultures neg after 24 hrs; MRSA nares negative - pleural fluid shows moderate WBCs and mononucleated cells, neg for acid fast bacilli (awaiting culture) - 07/10 Thoracentesis w/ placement of pleurx cath performed removing almost 1 L of fluid; post procedural CXR showed no pneumothorax - plan for daily drainage from catheter PRN - drained 850 mL today - oxygen requirement decreased to 13 L NC today - pleural fluid is lymphocytic predominant, most likely malignant - cytologic analysis pending - palliative care consult pending JUAN - Cr upon admission 0.78 - Cr today 1.68 - most likely d/t removal of fluid and lack of adequate PO intake - hold meloxicam - proceed with LR at 100 mL/hr x2 bags -Follow BMP in the morning Elevated troponin - On admission, troponin elevated to 14.3, repeat 16.6 - EKG: NSR, no overt sign of ischemic change - Patient without chest pain at this time Asthma: home regimen inhaler as above CLL: patient is not currently on treatment for her CLL Osteoporosis: continue home raloxifene GERD: continue home protonix MDD: continue home bupropion (2) Lung cancer: (3) Pleural effusion: (4) SOB (shortness of breath): (5) Chronic lymphocytic leukemia: (6) Depression: (7) GERD (gastroesophageal reflux disease): (8) Acute kidney injury: Plan FEN: regular diet Code status: DNR (intubation/ventilation OK) DVT ppx: SCDs Dispo: med/telemetry Admission and Anticipated Discharge Date Admission Date: July 10, 2022 Supervising Physician Co-Signing Physician Notes I personally examined the patient and verified all arriola points of history and exam, discussed case, and agree with decision making with Dr. Peng with the following additions/exceptions: S-patient reports feeling better today, still having some pain right-sided chest wall around the site of the Pleurx catheter but also when turning with taking deep breaths. She is coughing somewhat. Weaned off Vapotherm nasal cannula to high flow at 13 L. She is eating and drinking O- Vitals reviewed Gen: AAOx3, NAD HEENT: Anicteric sclerae, EOMI CV: RRR no mgr nl S1S2 Pulm: Diminished breath sounds at the right base, Pleurx catheter in place with dressing overlying is clean dry and intact Abd: +BS soft NT ND no masses or hernias Ext: No edema, 2+ DP pulses Skin: No rashes, warm/dry Neuro: Full strength throughout Labs and chest x-ray reviewed A/[id number]-old female with metastatic lung cancer here with right-sided pleural effusion and acute respiratory failure with hypoxia possibly pneumonia as well. Now status post Pleurx catheter, oxygenation is improving with removal of fluid With tachycardia, acute kidney injury likely secondary to hypovolemia-give 2 L LR and repeat BMP in the morning Continue to wean down off O2 Continue antibiotics but de-escalate to p.o. Augmentin as per pulmonology Appreciate pulmonology consultation With ongoing sinus tachycardia likely secondary to pulmonary process-we will follow on telemetry Subjective Pt is a 67 yo female with PMH of metastatic non small cell lung cancer in current tx, CLL, GERD, COPD, osteoporosis, and depression presenting to the hospital with increased SOB over the past few days found to be hypoxia upon arrival. Pt feeling slightly better today. She still hasn't walked around yet because she is feeling too tired but she would like to soon. She endorses no new chest pain or worsening SOB. Review of Systems Review of Systems: All systems reviewed & are unremarkable except as noted in Subjective Physical Exam Constitutional: NAD. Tachycardic. Eyes: no conjunctival abnormality Respiratory: CTA on left side. Right sided rhonchi heard at base. Mild work to breath. Cardiovascular: Regular rhythm, tachycardic. No murmur noted. No LE edema. Gastrointestinal (Abdomen): Nontender, +BS. No masses noted. Skin: no rashes, warm and dry Psychiatric: Alert. Mood and affect congruent. Results & Data Results & Data ([facility]) Vital Signs (Past 12 Hours) Vital Signs Temp Pulse Pulse Resp BP Pulse Ox O2 Del Method 07/11/22 10:30 115 H 07/11/22 07:03 High Flow Nasal Cannula 07/11/22 07:50 36.5 C 115 H 22 97/57 L 94 Nasal Cannula 07/11/22 03:00 36.8 C 107 H 18 89/61 L 93 Free Flow/Blow-by 07/11/22 00:00 105 H 07/10/22 23:10 Free Flow/Blow-by O2 Flow Rate 07/11/22 10:30 07/11/22 07:03 12 07/11/22 07:50 13.0 07/11/22 03:00 12 07/11/22 00:00 07/10/22 23:10 Resident Activity Tracking Resident Involvement: Resident Care Provided Care Provided: Adult Hospital Medicine (1) Lung cancer Laterality: right Lung location: unspecified part of lung Qualified Code(s): C34.91 - Malignant neoplasm of unspecified part of right bronchus or lung
[2022-07-11] MEDS: LACTATED RINGER'S 1,000 ML IV SCH (15:40)
[2022-07-11] MEDS: AMOXICILLIN/CLAVULANATE 500 MG TAB PO SCH (17:22)
--- NOTE | 2022-07-11 20:08 | Billing Data ---
Date of Service July 11, 2022 Coding Level of Care Code 57371 Initial Inpt Care Lvl 3
[2022-07-11] MEDS: oxyCODONE HCL IR 5 MG TAB (IMMEDIATE RELEASE) PO PRN (21:12)
--- NOTE | 2022-07-11 23:58 | Billing Data ---
Date of Service July 11, 2022 Coding Level of Care Code 22571 Subseq Hosp Care Lvl 3
[2022-07-12] MEDS: LACTATED RINGER'S 1,000 ML IV SCH (00:09)
[2022-07-12 05:07] LABS: Hematocrit (blood only) 29.4 % (34.1-44.9); Hemoglobin 9.6 g/dl (12.0-16.0); Mean Corpuscular Hemoglobin 28.2 pg (25.0-34.0); Mean Corpuscular Hgb Conc 32.7 g/dL (32.0-36.0); Mean Corpuscular Volume 86.2 fL (80.0-100.0); Platelet Count 194 K/uL (130-400); RDW Coefficient of Variation 14.6 % (11.5-14.5); RDW Standard Deviation 45.4 fL (36.4-46.3); Red Blood Count 3.41 M/uL (3.93-5.22)
[2022-07-12 05:21] LABS: BUN Creatinine Ratio 20.2 (10-20); Calcium 7.9 mg/dl (8.5-10.1); Creatinine Clr Calc Pharmacy 35.6 ml/min; Est GFR (African American) 52.8 ml/min; Est GFR (Non-African American) 45.5 ml/min
[2022-07-12 05:44] LABS: Basophils # (auto) 0.05 K/uL (0-0.2); Basophils % (auto) 0.1 %; Eosinophils # (auto) 0.01 K/uL (0-0.50); Immature Granulocytes # (auto) 0.52 K/uL (0.00-0.02); Lymphocytes # (auto) 35.12 K/uL (1.2-3.4); Lymphocytes % (auto) 68.2 %; Monocytes # (auto) 1.37 K/uL (0.24-0.82); Monocytes % (auto) 2.7 %; Neutrophils # (auto) 14.43 K/uL (1.4-6.5); Polychromasia 1+; Smudge Cells Present
--- NOTE | 2022-07-12 06:36 | Hospitalist Progress Note ---
Date of Service July 12, 2022 Assessment & Plan (1) Acute respiratory failure with hypoxia: Plan: Pt is a 67 yo female with PMH of metastatic non small cell lung cancer in current tx, CLL, GERD, COPD, osteoporosis, and depression presenting to the hospital with increased SOB over the past few days found to be hypoxia upon arrival. Acute hypoxic respiratory failure, right pleural effusion, stage IV lung adenocarcinoma, COPD - Hypoxia on arrival improved with 4L NC; suspect tachycardia is secondary to increased WOB - Labs primarily notable for marked leukocytosis (54.8), likely related to known metastatic disease, though an active infection could be contributing - CXR: large right pleural effusion with underlying atelectasis, new from prior exam - CT chest showed right pleural effusion most likely related to malignancy; new mets in left lung base - Suspect AHRF is due to patient's new pleural effusion, which is possibly secondary to patient's known lung adenocarcinoma, though differential includes pneumonia vs others - Incentive spirometry Q1HWA - Continue home inhaler regimen - Received one dose of cefepime in the ED; given risk of aspiration pneumonia vs obstructive bacterial pneumonia, cefepime was d/c and zosyn was started - ABX tailored to augmentin d/t effusion likely from malignancy - Blood cultures neg after 24 hrs; MRSA nares negative - pleural fluid shows moderate WBCs and mononucleated cells, neg for acid fast bacilli (awaiting culture) - 07/10 Thoracentesis w/ placement of pleurx cath performed removing almost 1 L of fluid; post procedural CXR showed no pneumothorax - plan for daily drainage from catheter PRN - drained 850 mL yesterday - oxygen requirement decreased to 13L NC this morning but after PleurX catheter drained at 12pm, O2 sat dropped to 88-91% -O2 then increased to 15L NC and satting 93-95% -Patient notes some soreness at site of catheter - pleural fluid is lymphocytic predominant, most likely malignant - cytologic analysis pending - palliative care consult pending JUAN - Cr upon admission 0.78 - Cr yesterday 1.68, today 1.24 - most likely d/t removal of fluid and lack of adequate PO intake - holding meloxicam - Received LR at 100 mL/hr x2 bags yesterday, later in the afternoon today (07/12) had a low BP of 84/55- patient was laying down at time of BP and was feeling asymptomatic. -Restated maintenance fluids (NSS @ 80 mL/hr), will continue to monitor BP and encourage PO fluids Elevated troponin - On admission, troponin elevated to 14.3, repeat 16.6 - EKG: NSR, no overt sign of ischemic change - Patient without chest pain at this time Asthma: home regimen inhaler as above CLL: patient is not currently on treatment for her CLL Osteoporosis: continue home raloxifene GERD: continue home protonix MDD: continue home bupropion (2) Lung cancer: (3) Pleural effusion: (4) SOB (shortness of breath): (5) Chronic lymphocytic leukemia: (6) Depression: (7) GERD (gastroesophageal reflux disease): (8) Acute kidney injury: Plan FEN: regular diet Code status: DNR (intubation/ventilation OK) DVT ppx: SCDs Dispo: med/telemetry Admission and Anticipated Discharge Date Admission Date: July 10, 2022 Supervising Physician Co-Signing Physician Notes I personally examined the patient and verified all arriola points of history and exam, discussed case, and agree with decision making with Dr Dong. Feeling okay on significant oxygen. Notes that whenever fluid comes out of her chest with the drainage she feels better for a while. Vitals noted, in general she is awake and alert pleasant no distress, but is on 13 L oxygen while we talk, surprisingly no conversational dyspnea. Good mental status. Skin without rashes pallor or icterus. Severe acute on chronic hypoxic respiratory failureappears to be predominantly cancer and malignant effusion related. Agree with pulmonary hard to rule out infectioncovering for this. Discussed big picture of goals of care with the patientnoting that if we are not able to affect a meaningful change in the cancer, the fluid will likely continue to reaccumulate, discussed that her next steps would be considering in her values whether or not she would want to proceed with something like chemotherapy being offered by hematology/oncology locally, see what the options are at her [facility] appointment next week, or consider more of a palliative goal. Discussed the disease process and how treatment interfaces with her goals of care in detail, and then allowed her time to think/pray/discussed with her family and friends. Otherwise as above Subjective Pt is a 67 y/o female with PMH of metastatic non small cell lung cancer in current tx, CLL, GERD, COPD, osteoporosis, and depression presenting to the hospital with increased SOB over the past few days found to be hypoxia upon arrival. States she is feeling ok today, was able to sleep more last night. Was able to ambulate to bedside commode without dizziness. Has a little soreness at site of the PleurX. States she has been trying to drink more fluids, but unsure of how much she has had to drink today. States she had a bit of diarrhea earlier this morning, but has not had any since. Denies abdominal pain or nausea. Denies chest pain. Review of Systems Review of Systems: As per HPI Physical Exam Eyes: PERRL, conjunctivae normal, anicteric sclerae Neck: trachea midline, no thyromegaly Respiratory: No respiratory distress or labored breathing. Few crackles. Cardiovascular: RRR, no murmur, no edema Gastrointestinal (Abdomen): normal bowel sounds, soft, nontender, no hepatosplenomegaly Skin: no rashes, warm and dry Results & Data Results & Data ([facility]) Vital Signs (Past 12 Hours) Vital Signs Temp Pulse Pulse Resp BP Pulse Ox O2 Del Method 07/12/22 03:00 37.1 C 122 H 24 102/56 L 91 Free Flow/Blow-by 07/12/22 00:00 120 H 07/11/22 22:46 36.7 C 122 H 22 104/60 94 Nasal Cannula 07/11/22 22:41 Free Flow/Blow-by 07/11/22 19:00 36.6 C 123 H 23 93/62 L 92 Nasal Cannula O2 Flow Rate 07/12/22 03:00 11 07/12/22 00:00 07/11/22 22:46 12 07/11/22 22:41 11 07/11/22 19:00 12 Resident Activity Tracking Resident Involvement: Resident Care Provided Care Provided: Adult Hospital Medicine (1) Lung cancer Laterality: right Lung location: unspecified part of lung Qualified Code(s): C34.91 - Malignant neoplasm of unspecified part of right bronchus or lung
[2022-07-12] MEDS: AMOXICILLIN/CLAVULANATE 500 MG TAB PO SCH (09:10)
[2022-07-12] MEDS: GABAPENTIN 300 MG CAP PO SCH ×3 (09:10→20:16)
[2022-07-12] MEDS: buPROPion XL 300 MG TABCR PO SCH (09:10)
[2022-07-12] MEDS: PANTOprazole 40 MG TAB PO SCH (09:11)
[2022-07-12] MEDS: RALOXIFENE HCL 60 MG TAB PO SCH (09:11)
--- NOTE | 2022-07-12 09:45 | Pulmonology Progress Note ---
Date of Service July 12, 2022 Assessment & Plan (1) Lung mass: (2) Mediastinal adenopathy: Plan Impression: 66-year-old female with metastatic adenocarcinoma lung in the setting of severe aggressive CLL. She has shown progression despite chemotherapy and was admitted a few weeks ago with progression of metastatic disease and bone pain as well as diffuse pulmonary infiltrates with the differential being pulmonary edema versus pulmonary toxicity from chemotherapeutics. She presented for this admission with respiratory distress and a large pleural effusion and is status post Pleurx catheter placement 07/10/2022 with drainage of about a liter of fluid. Fluid is a lymphocytic exudate with cytology pending and likely malignant Recommendations: 1. Right effusion: await cytology. No indication for infection. Continue drain the Pleurx catheter on a daily basis. follow up CXR in AM. 2. Abnormal CT scans: The current CT scan demonstrates significant improvement compared to the prior CT scan. Unclear if this is related to steroids or diuretics. Continue to follow clinically. 3. Hypoxemic respiratory failure: Continue to wean oxygen as tolerated with target oxygen saturations around 90%. 4. Infections difficult to exclude in this patient. Procalcitonin is elevated. White blood cell count is unreliable given her severe CLL. Currently on augmenting. PCT in AM to ensure decreasing. 5. Patient has advancing disease despite therapy. Palliative care consultation pending The above recommendations and plan were discussed with the patient. Questions were answered to the best my ability. She expressed understanding Admission and Anticipated Discharge Date Admission Date: July 10, 2022 Subjective Patient seen and examined. EMR reviewed. The patient feels that her breathing is improved. She is down to 12 L oxygen. Her pain is improved. Her catheter was drained for about 800 cc yesterday. She experiencing coughing and that terminated drainage. She is not had any fevers chills night sweats or other constitutional symptoms. Review of Systems Review of Systems: All systems reviewed & are unremarkable except as noted in Subjective Physical Exam Constitutional: WD/WN, vitals as above Neck: trachea midline, no thyromegaly Respiratory: no respiratory distress, no labored breathing, no cough and not tachypneic Auscultation: + crackles; no wheezes Cardiovascular: RRR, no murmur, no edema Gastrointestinal (Abdomen): normal bowel sounds, soft, nontender, no hepatosplenomegaly Musculoskeletal: Extremities: extremities normal to inspection Skin: no rashes, warm and dry Lymphatic: no cervical lymphadenopathy Results & Data Results & Data ([facility]) Vital Signs (Past 12 Hours) Vital Signs Temp Pulse Pulse Resp BP Pulse Ox O2 Del Method 07/12/22 07:00 36.8 C 110 H 19 99/64 L 96 Nasal Cannula 07/12/22 03:00 37.1 C 122 H 24 102/56 L 91 Free Flow/Blow-by 07/12/22 00:00 120 H 07/11/22 22:46 36.7 C 122 H 22 104/60 94 Nasal Cannula 07/11/22 22:41 Free Flow/Blow-by O2 Flow Rate 07/12/22 07:00 13.0 07/12/22 03:00 11 07/12/22 00:00 07/11/22 22:46 12 07/11/22 22:41 11 Laboratory Results 07/12/22 04:28 07/12/22 04:28 Diagnostic Findings No new imaging PG Care Time/CCT Total # of Minutes Spent Total Time Spent with Patient: Total time spent is greater than 50% in coordination of care (as documented) at patient's floor/unit and/or counseling patient: Coding Level of Care Code 91488 Subseq Hosp Care Lvl 2 Diagnoses Lung mass R91.8 Mediastinal adenopathy R59.0
[2022-07-12] MEDS: ACETAMINOPHEN 500 MG TAB PO PRN (13:24)
[2022-07-12] MEDS: SODIUM CHLORIDE 0.9% 500 ML IV SCH (17:46)
[2022-07-12] MEDS: AMOXICILLIN/CLAVULANATE 875 MG TAB PO SCH (17:47)
--- NOTE | 2022-07-12 18:34 | Billing Data ---
Date of Service July 12, 2022 Coding Level of Care Code 73724 Subseq Hosp Care Lvl 3
[2022-07-12] MEDS: oxyCODONE HCL IR 5 MG TAB (IMMEDIATE RELEASE) PO PRN (20:15)
[2022-07-12] MEDS: MELATONIN 3 MG TAB PO PRN (20:15)
[2022-07-13] MEDS ORDERED: SODIUM CHLORIDE 0.9% 1000ML 500 ML IV ONE ×3 (00:09→06:31)
[2022-07-13] MEDS ORDERED: SODIUM CHLORIDE 0.9% 1000ML 250 ML IV ONE (00:12)
[2022-07-13] MEDS: ACETAMINOPHEN 500 MG TAB PO PRN ×3 (00:42→19:46)
[2022-07-13] MEDS: SODIUM CHLORIDE 0.9% 500 ML IV SCH ×4 (02:11→18:40)
[2022-07-13 05:39] LABS: Creatinine Clr Calc Pharmacy 29.4 ml/min; Est GFR (African American) 41.9 ml/min; Est GFR (Non-African American) 36.2 ml/min
--- NOTE | 2022-07-13 07:11 | Hospitalist Progress Note ---
Date of Service July 13, 2022 Assessment & Plan (1) Acute respiratory failure with hypoxia: Plan: Pt is a 67 yo female with PMH of metastatic non small cell lung cancer in current tx, CLL, GERD, COPD, osteoporosis, and depression presenting to the hospital with increased SOB over the past few days found to be hypoxia upon arrival. Acute hypoxic respiratory failure, right pleural effusion, stage IV lung adenocarcinoma, COPD - Hypoxia on arrival improved with 4L NC; suspect tachycardia is secondary to increased WOB - Labs primarily notable for marked leukocytosis (54.8), likely related to known metastatic disease, though an active infection could be contributing - CXR: large right pleural effusion with underlying atelectasis, new from prior exam - CT chest showed right pleural effusion most likely related to malignancy; new mets in left lung base - Suspect AHRF is due to patient's new pleural effusion, which is possibly secondary to patient's known lung adenocarcinoma, though differential includes pneumonia vs others - Incentive spirometry Q1HWA - Continue home inhaler regimen - Received one dose of cefepime in the ED; given risk of aspiration pneumonia vs obstructive bacterial pneumonia, cefepime was d/c and zosyn was started - ABX tailored to augmentin d/t effusion likely from malignancy - Pulmonology: Procal increased today from 4 to 7, Lactic acid WNL. Could consider change of antibiotics if patient clinically worsens - Blood cultures neg after 24 hrs; MRSA nares negative - pleural fluid shows moderate WBCs and mononucleated cells, neg for acid fast bacilli (awaiting culture) - 07/10 Thoracentesis w/ placement of pleurx cath performed removing almost 1 L of fluid; post procedural CXR showed no pneumothorax - plan for daily drainage from catheter PRN - drained 850 mL yesterday - PleurX catheter drained another 150 mL today -O2 then increased to 15L High Flow NC and satting 93-95% -Patient notes some soreness at site of catheter - pleural fluid is lymphocytic predominant, most likely malignant - cytologic analysis pending - palliative care consult pending. Continuing conversations of 2nd opinion from [facility] vs. goals of care JUAN - Cr upon admission 0.78 - Cr today 1.50 1.68 yesterday - most likely d/t removal of fluid and lack of adequate PO intake - holding meloxicam - Later in the afternoon yesterday (07/12) had a low BP of 84/55- patient was laying down at time of BP and was feeling asymptomatic. -Restated maintenance fluids NSS, will continue to monitor BP and encourage PO fluids Elevated troponin - On admission, troponin elevated to 14.3, repeat 16.6 - EKG: NSR, no overt sign of ischemic change - Patient without chest pain at this time Asthma: home regimen inhaler as above CLL: patient is not currently on treatment for her CLL Osteoporosis: continue home raloxifene GERD: continue home protonix MDD: continue home bupropion (2) Lung cancer: (3) Pleural effusion: (4) SOB (shortness of breath): (5) Chronic lymphocytic leukemia: (6) Depression: (7) GERD (gastroesophageal reflux disease): (8) Acute kidney injury: Plan FEN: regular diet Code status: DNR (intubation/ventilation OK) DVT ppx: SCDs Dispo: med/telemetry Admission and Anticipated Discharge Date Admission Date: July 10, 2022 Supervising Physician Co-Signing Physician Notes I personally examined the patient and verified all arriola points of history and exam, discussed case, and agree with decision making with Dr Dong. Feels more or less the same. Asking about possibilities to go home. Discussed her significant oxygen requirement. We also discussed again her follow-up with [facility], and to continue her overall decision making on goals of care even before getting an opinion from them, as it is unfortunately not very likely that they will have a frame shifting recommendation. She seems to be aware that she is pretty weak for considering chemotherapy. Seems to be a little bit more aware that her breathing issues will likely not improve until/unless the malignancy improves. Has a decent amount of ambivalence on whether or not improvement in the cancer is possible. Vitals noted, in general she is awake and alert pleasant no distress, but is on 15 L oxygen while we talk, surprisingly no conversational dyspnea. Good mental status. Skin without rashes pallor or icterus. Severe acute on chronic hypoxic respiratory failureappears to be predominantly cancer and malignant effusion related. Agree with pulmonary hard to rule out infectioncovering for this. Yesterday discussed big picture of goals of care with the patientnoting that if we are not able to affect a meaningful change in the cancer, the fluid will likely continue to reaccumulate, discussed that her next steps would be considering in her values whether or not she would want to proceed with something like chemotherapy being offered by hematology/oncology locally, see what the options are at her [facility] appointment next week, or consider more of a palliative goal. Today resident physician continued goals of care type discussions, it is fairly clear that, understandably, she would like a second opinion from [facility] before making any clear decisions, but we have been cautioning her to not look at that as the only answer, as unfortunately it is likely they will not have major changes of the plan and the could have big impact offer. She continues to weigh her goals and options Otherwise as above Subjective Pt is a 67 y/o female with PMH of metastatic non small cell lung cancer in current tx, CLL, GERD, COPD, osteoporosis, and depression presenting to the hospital with increased SOB over the past few days found to be hypoxia upon arrival. States she is feeling ok today, had increased pain in her knees and lower back today. Had some coughing increased this morning. Denies chest pain/nausea/fever/chills. Review of Systems Review of Systems: As per HPI Physical Exam Eyes: PERRL, conjunctivae normal, anicteric sclerae Neck: trachea midline, no thyromegaly Respiratory: decreased breath sounds, +few crackles Cardiovascular: RRR, no murmur, no edema Gastrointestinal (Abdomen): normal bowel sounds, soft, nontender, no hepatosplenomegaly Skin: no rashes, warm and dry Results & Data Results & Data ([facility]) Vital Signs (Past 12 Hours) Vital Signs Temp Pulse Pulse Resp BP Pulse Ox O2 Del Method 07/13/22 04:00 36.8 C 117 H 20 91/59 L 93 High Flow Nasal Cannula 07/13/22 00:57 36.8 C 124 H 22 108/67 92 Nasal Cannula 07/13/22 00:00 119 H 07/12/22 23:15 37.0 C 124 H 24 92/59 L 90 Nasal Cannula 07/12/22 20:00 Nasal Cannula 07/12/22 19:42 36.5 C 122 H 18 103/69 92 Nasal Cannula O2 Flow Rate 07/13/22 04:00 15 07/13/22 00:57 15 07/13/22 00:00 07/12/22 23:15 15 07/12/22 20:00 15 07/12/22 19:42 15 Resident Activity Tracking Resident Involvement: Resident Care Provided Care Provided: Adult Hospital Medicine (1) Lung cancer Laterality: right Lung location: unspecified part of lung Qualified Code(s): C34.91 - Malignant neoplasm of unspecified part of right bronchus or lung
[2022-07-13 07:30] LABS: Hematocrit (blood only) 31.8 % (34.1-44.9); Hemoglobin 10.1 g/dl (12.0-16.0); Mean Corpuscular Hemoglobin 28.4 pg (25.0-34.0); Mean Corpuscular Hgb Conc 31.8 g/dL (32.0-36.0); Mean Corpuscular Volume 89.3 fL (80.0-100.0); Mean Platelet Volume 9.5 fL (9.4-12.3); Platelet Count 196 K/uL (130-400); RDW Coefficient of Variation 14.8 % (11.5-14.5); Red Blood Count 3.56 M/uL (3.93-5.22); White Blood Count 57.17 K/ul (4.8-10.8)
[2022-07-13 08:13] LABS: Basophils # (auto) 0.05 K/uL (0-0.2); Basophils % (auto) 0.1 %; Eosinophils # (auto) 0.04 K/uL (0-0.50); Eosinophils % (auto) 0.1 %; Immature Granulocytes % (auto) 1.2 %; Lymphocytes # (auto) 40.03 K/uL (1.2-3.4); Monocytes # (auto) 1.98 K/uL (0.24-0.82); Monocytes % (auto) 3.5 %; Neutrophils # (auto) 14.37 K/uL (1.4-6.5); Neutrophils % (auto) 25.1 %; Polychromasia 1+; Smudge Cells Present
[2022-07-13] MEDS: RALOXIFENE HCL 60 MG TAB PO SCH (08:45)
[2022-07-13] MEDS: GABAPENTIN 300 MG CAP PO SCH ×3 (08:45→21:37)
[2022-07-13] MEDS: AMOXICILLIN/CLAVULANATE 875 MG TAB PO SCH ×2 (08:45→17:58)
[2022-07-13] MEDS: PANTOprazole 40 MG TAB PO SCH (08:45)
[2022-07-13] MEDS: buPROPion XL 300 MG TABCR PO SCH (08:46)
--- NOTE | 2022-07-13 09:29 | XRay Report ---
XR chest 1V portable HISTORY: 67 years-old Female effusion follow-up study in a patient with right pleural effusion COMPARISON: Chest radiograph 07/10/2022 TECHNIQUE: AP view of the chest FINDINGS: Cardiac silhouette is normal in size. A right-sided chest tube is noted with distal tip projected ove r the medial right midlung. Right IJ [id number] catheter appears stable. Emphysema with chronic in terstitial coarsening. Right apical pneumothorax, 1.1 cm of pleural separation. Persistent consolidat ion of the right midlung and right lung base with decreased size of the right pleural effusion. Degen erative changes of the shoulders and spine. IMPRESSION: 1. Small right apical pneumothorax. 2. Right-sided chest tube in place with decreased size of the right pleural effusion. 3. Persistent consolidation of the right midlung and right lung base. 4. Emphysema. ACT 112: Negative or not required by law. The above report was generated using voice recognition software. It may contain grammatical, syntax o r spelling errors. Electronically signed by: Brandon Morales M.D. 07/13/2022 9:27 AM
--- NOTE | 2022-07-13 11:13 | Pulmonology Progress Note ---
Date of Service July 13, 2022 Assessment & Plan (1) Lung mass: (2) Mediastinal adenopathy: Plan Impression: 66-year-old female with metastatic adenocarcinoma lung in the setting of severe aggressive CLL. She has shown progression despite chemotherapy and was admitted a few weeks ago with progression of metastatic disease and bone pain as well as diffuse pulmonary infiltrates with the differential being pulmonary edema versus pulmonary toxicity from chemotherapeutics. She presented for this admission with respiratory distress and a large pleural effusion and is status post Pleurx catheter placement 07/10/2022 with drainage of about a liter of fluid. Fluid is a lymphocytic exudate with cytology pending and likely malignant Recommendations: 1. Right effusion: await cytology. Based on the chest x-ray findings and the patient's complaints of cough yesterday with a small apical pneumothorax, will change drainage to every other day. The apical pneumothorax likely represents a pneumo ex vacuo does not require any additional intervention. 2. Abnormal CT scans: The current CT scan demonstrates significant improvement in the parenchymal lung disease compared to the prior CT scan. Unclear if this is related to steroids or diuretics. Continue to follow clinically. Chest x- ray demonstrates significant parenchymal disease in the right lower lobe unclear if this represents reexpansion pulmonary edema or potential progression of malignancy. 3. Hypoxemic respiratory failure: Continue to wean oxygen as tolerated with target oxygen saturations around 90%. 4. Infections difficult to exclude in this patient. Procalcitonin is elevated. White blood cell count is unreliable given her severe CLL. Currently on Augmentin. Procalcitonin this morning up to 7.2 from 4.2. There are reports of lung cancer causing increased serum procalcitonin levels especially with metastatic disease. I think is reasonable to continue her Augmentin for now. If she should clinically decline, would recommend repeat evaluation for other sites of infection and potentially broadening antibiotics. 5. Patient has advancing disease despite therapy. Palliative care consultation pending. Hospice would be appropriate The above recommendations and plan were discussed with the patient. Questions were answered to the best my ability. She expressed understanding Admission and Anticipated Discharge Date Admission Date: July 10, 2022 Subjective Patient continues to use supplemental oxygen. She thinks her breathing is better. She had the catheter drained yesterday but had to stop due to the coughing issues. She does feel that removal of the fluid is beneficial with regards to her breathing. She continues to require high flow oxygen. The patient's main complaints now are increasing foot pain due to osseous metastatic disease. She is not reporting nausea or vomiting. Review of Systems Review of Systems: All systems reviewed & are unremarkable except as noted in Subjective Physical Exam Constitutional: WD/WN, vitals as above Neck: trachea midline, no thyromegaly Respiratory: no respiratory distress, no labored breathing, no cough and not tachypneic Auscultation: + crackles; no wheezes Cardiovascular: RRR, no murmur, no edema Gastrointestinal (Abdomen): normal bowel sounds, soft, nontender, no hepatosplenomegaly Musculoskeletal: Extremities: extremities normal to inspection Skin: no rashes, warm and dry Lymphatic: no cervical lymphadenopathy Results & Data Results & Data ([facility]) Vital Signs (Past 12 Hours) Vital Signs Temp Pulse Pulse Resp BP Pulse Ox O2 Del Method 07/13/22 08:00 113 H 07/13/22 07:57 36.6 C 120 H 20 106/70 92 High Flow Nasal Cannula 07/13/22 04:00 36.8 C 117 H 20 91/59 L 93 High Flow Nasal Cannula 07/13/22 00:57 36.8 C 124 H 22 108/67 92 Nasal Cannula 07/13/22 00:00 119 H 07/12/22 23:15 37.0 C 124 H 24 92/59 L 90 Nasal Cannula O2 Flow Rate 07/13/22 08:00 07/13/22 07:57 15 07/13/22 04:00 15 07/13/22 00:57 15 07/13/22 00:00 07/12/22 23:15 15 Laboratory Results 07/13/22 07:17 07/13/22 04:49 Diagnostic Findings Chest x-ray today was reviewed. There is significant improvement in the pleural effusion however there does appear to be a small apical pneumothorax. Parenchyma along is quite abnormal at the right lung base. PG Care Time/CCT Total # of Minutes Spent Total Time Spent with Patient: Total time spent is greater than 50% in coordination of care (as documented) at patient's floor/unit and/or counseling patient: Coding Level of Care Code 15107 Subseq Hosp Care Lvl 2 Diagnoses Lung mass R91.8 Mediastinal adenopathy R59.0
[2022-07-13] MEDS: oxyCODONE HCL IR 5 MG TAB (IMMEDIATE RELEASE) PO PRN ×2 (16:04→21:37)
[2022-07-13] MEDS: SODIUM CHLORIDE 0.9% 1,000 ML IV SCH (18:40)
--- NOTE | 2022-07-13 18:50 | Billing Data ---
Date of Service July 13, 2022 Coding Level of Care Code 59186 Subseq Hosp Care Lvl 3
[2022-07-14] MEDS: SODIUM CHLORIDE 0.9% 1,000 ML IV SCH ×3 (02:43→22:26)
[2022-07-14] MEDS: oxyCODONE HCL IR 5 MG TAB (IMMEDIATE RELEASE) PO PRN ×3 (03:21→23:07)
[2022-07-14 07:18] LABS: Hematocrit (blood only) 31.3 % (34.1-44.9); Hemoglobin 10.1 g/dl (12.0-16.0); Mean Corpuscular Hemoglobin 28.1 pg (25.0-34.0); Mean Corpuscular Hgb Conc 32.3 g/dL (32.0-36.0); Mean Corpuscular Volume 86.9 fL (80.0-100.0); Mean Platelet Volume 10.1 fL (9.4-12.3); Platelet Count 203 K/uL (130-400); RDW Coefficient of Variation 15.1 % (11.5-14.5); RDW Standard Deviation 47.9 fL (36.4-46.3); White Blood Count 58.86 K/ul (4.8-10.8)
[2022-07-14 07:34] LABS: Albumin Level 2.4 gm/dl (3.4-5.0); BUN Creatinine Ratio 25.4 (10-20); Bilirubin,Total 0.4 mg/dl (0.2-1.0); Calcium 7.7 mg/dl (8.5-10.1); Creatinine Clr Calc Pharmacy 69.2 ml/min; Est GFR (African American) 106.9 ml/min; Est GFR (Non-African American) 92.2 ml/min; Globulin 2.4 gm/dl (2.5-4.0); Potassium 4.1 mmol/L (3.5-5.1); Total Protein 4.8 gm/dl (6.0-8.3)
--- NOTE | 2022-07-14 07:55 | Hospitalist Progress Note ---
Date of Service July 14, 2022 Assessment & Plan (1) Acute respiratory failure with hypoxia: Plan: Pt is a 67 yo female with PMH of metastatic non small cell lung cancer in current tx, CLL, GERD, COPD, osteoporosis, and depression presenting to the hospital with increased SOB over the past few days found to be hypoxia upon arrival. Acute hypoxic respiratory failure, right pleural effusion, stage IV lung adenocarcinoma, COPD - Hypoxia on arrival improved with 4L NC; suspect tachycardia is secondary to increased WOB - Labs primarily notable for marked leukocytosis (58.86) likely related to known metastatic disease, though an active infection could be contributing - CXR: large right pleural effusion with underlying atelectasis, new from prior exam. CT chest: showed right pleural effusion most likely related to malignancy; new mets in left lung base - Suspect AHRF is due to patient's new pleural effusion, which is possibly secondary to patient's known lung adenocarcinoma, though differential includes pneumonia vs others - Blood cultures neg after 24 hrs; MRSA nares negative, Procal 7.22 - 07/10 Thoracentesis w/ placement of pleurx cath performed removing almost 1 L of fluid; post procedural CXR showed no pneumothorax - plan for daily drainage from catheter PRN - pleural fluid shows moderate WBCs and mononucleated cells, neg for acid fast bacilli (awaiting culture) - Increased oxygen requirement over the past 24 hours Plan: - Continue Augmentin; could consider change of Abs if clinically worsens - Incentive spirometry Q1HWA - Continue home inhaler regimen - pulmonary added soul-Medrol 40mg daily Goals of Care - Discuses goal of care and pt would like to be DNR; still debating DNI - Palliative care also saw pt - Hopeful for family meeting later in the week JUAN - Cr upon admission 0.78 - Cr today 1.50 1.68 yesterday - most likely d/t removal of fluid and lack of adequate PO intake - holding meloxicam Hypotensive - Pt was hypotensive yesterday - Started on NS 100ml/hr Elevated troponin - On admission, troponin elevated to 14.3, repeat 16.6 - EKG: NSR, no overt sign of ischemic change - Patient without chest pain at this time Asthma: home regimen inhaler as above CLL: patient is not currently on treatment for her CLL Osteoporosis: continue home raloxifene GERD: continue home protonix MDD: continue home bupropion (2) Lung cancer: (3) Pleural effusion: (4) SOB (shortness of breath): (5) Chronic lymphocytic leukemia: (6) Depression: (7) GERD (gastroesophageal reflux disease): (8) Acute kidney injury: Plan FEN: regular diet Code status: DNR (intubation/ventilation OK) DVT ppx: SCDs Dispo: med/telemetry Admission and Anticipated Discharge Date Admission Date: July 10, 2022 Supervising Physician Co-Signing Physician Notes Attending attestation Pt seen and examined in concert with Dr. Pham. In agreement with the documented findings as noted in the resident documentation with any exceptions or additions as noted here. Worsening SOB which is stabilized by increased O2 requirement, presently remaining mostly in bed 2/2 fatigue prompted by activity. VS, nursing notes, labs, consultatons reviewed. On examination, S1/S2 nl RRR no MCG. CTAB. Abd NT/ND BS+ve Acute on chronic hypoxic respiratory failure in the setting of NSCLC, CLL - pulm, palliative consult - chest tube in place. Extensive goals of care conversation today similar to palliative documentation re: variable response to depth of illness and course of treatment. Reviewed code status in detail due to concern for worsening respiratory status - patient remains DNR, still considering intubation and would like to remain open to intubation at this time. Else see resident documentation as noted. Subjective Pt is a 67 y/o female with PMH of metastatic non small cell lung cancer in current tx, CLL, GERD, COPD, osteoporosis, and depression presenting to the hospital with increased SOB over the past few days found to be hypoxia upon arrival. Increased dyspnea this morning; worse with coughing. Increased oxygen requirement. Trouble sleeping overnight. Denies chest pain/nausea/fever/chills. Review of Systems Review of Systems: As per HPI Physical Exam Physical Exam: Constitutional: well-appearing, no acute distress HEENT: NCAT, no conjunctival injection CV: regular rhythm, no murmur appreciated, extremities well-perfused, no LE edema Resp: increased work of breathing; lung sounds on the lung GI: soft, nondistended, nontender, BS normoactive MSK: no gross deformities appreciated Skin: warm, dry, no rash appreciated Neuro: alert, oriented, no focal neurologic deficit appreciated Results & Data Results & Data ([facility]) Vital Signs (Past 12 Hours) Vital Signs Temp Pulse Pulse Pulse Resp BP Pulse Ox 07/14/22 04:37 100 07/14/22 02:44 36.6 C 133 H 24 121/81 90 07/14/22 02:33 128 H 33 H 95 07/13/22 23:00 126 H 07/13/22 22:55 36.7 C 123 H 22 92/57 L 90 07/13/22 20:00 37.1 C 140 H 26 H 122/67 91 O2 Del Method O2 Flow Rate FiO2 07/14/22 04:37 High Flow Nasal Cannula 30 90 07/14/22 02:44 High Flow Nasal Cannula 30 70 07/14/22 02:33 High Flow Nasal Cannula 30 70 07/13/22 23:00 07/13/22 22:55 High Flow Nasal Cannula 15 07/13/22 20:00 Nasal Cannula 15 Resident Activity Tracking Resident Involvement: Resident Care Provided Care Provided: Adult Hospital Medicine (1) Lung cancer Laterality: right Lung location: unspecified part of lung Qualified Code(s): C34.91 - Malignant neoplasm of unspecified part of right bronchus or lung
[2022-07-14 07:58] LABS: Basophils # (auto) 0.04 K/uL (0-0.2); Basophils % (auto) 0.1 %; Eosinophils # (auto) 0.03 K/uL (0-0.50); Eosinophils % (auto) 0.1 %; Immature Granulocytes # (auto) 0.95 K/uL (0.00-0.02); Immature Granulocytes % (auto) 1.6 %; Lymphocytes # (auto) 41.35 K/uL (1.2-3.4); Lymphocytes % (auto) 70.3 %; Monocytes # (auto) 2.12 K/uL (0.24-0.82); Monocytes % (auto) 3.6 %; Neutrophils # (auto) 14.37 K/uL (1.4-6.5); Neutrophils % (auto) 24.3 %; Polychromasia 1+; Smudge Cells Present
[2022-07-14] MEDS: ONDANSETRON INJ 2 MG/ML 2 ML VIAL IV PRN (08:07)
--- NOTE | 2022-07-14 08:33 | Pulmonology Progress Note ---
Date of Service July 14, 2022 Assessment & Plan (1) Lung mass: (2) Mediastinal adenopathy: Plan Impression: 66-year-old female with metastatic adenocarcinoma lung in the setting of severe aggressive CLL. She has shown progression despite chemotherapy and was admitted a few weeks ago with progression of metastatic disease and bone pain as well as diffuse pulmonary infiltrates with the differential being pulmonary edema versus pulmonary toxicity from chemotherapeutics. She presented for this admission with respiratory distress and a large pleural effusion and is status post Pleurx catheter placement 07/10/2022 with drainage of about a liter of fluid. Fluid is a lymphocytic exudate with cytology pending and likely malignant CT chest 07/09/2022 personally reviewed: Large right-sided pleural effusion with compression atelectasis of the right lower lobe Significant mediastinal as well as right supraclavicular lymphadenopathy 20 ABLA emphysema appreciated -- Acute respiratory failure with hypoxia Multifactorial Likely from underlying progression of malignancy Patient also had pleural effusion when she presented Procalcitonin elevated, COVID negative Continue with antibiotics Continue with O2 supplementation to keep oxygen saturation between 90-92% -- Right-sided pleural effusion S/p Pleurx catheter placement Follow-up cytology Continue drainage every other to every third day --COPD with emphysema Not on any inhalers at home I will start the patient on Anoro to be used on a daily basis Not in exacerbation -- Metastatic non-small cell lung cancer Adenocarcinoma of unknown primary S/p chemoradiation, carboplatin/paclitaxel completed 04/03/2022 The right lower lobe mass is increasing in size along with right hilar and mediastinal lymphadenopathy -- History of CLL --DNR Plan: Chest x-ray from today shows resolvent of the right-sided pneumothorax Pulse catheter is in place. Palliative care consult pending I did explain to the patient that her clinical worsening especially in the last month or so is likely from progression of her underlying disease Intubation in such instances would not be appropriate thing to do is unfortunately there is nothing reversible through intubation. She is going to think over and let us know her final decision regarding intubation in future if need be. I will add Solu-Medrol 40 mg on a daily basis as patient responded significantly well when she was admitted last time for steroids. Continue with diuretics Please note the above document was generated using voice recognition software. It may contain grammatical, syntax or spelling errors.Any formal questions or concerns about the content, text or information contained within the body of this dictation should be directly addressed to the provider for clarification. Admission and Anticipated Discharge Date Admission Date: July 10, 2022 Subjective Patient seen and examined at bedside. No acute distress, no adverse events overnight She was saturating 97% on 40 L, 90% FiO2, I was able to go down to 80%. Patient stated that she is doing the same when it comes to her breathing Not bringing up any phlegm Denies any headache, no blurry vision No fever or chills Review of Systems Review of Systems: All systems reviewed & are unremarkable except as noted in Subjective Physical Exam Physical Exam: Constitutional: No acute distress, frail-appearing HEENT: EOMI, PERRLA Respiratory system: Decreased air entry bilaterally, more decreased on the right side, no wheeze, no rhonchi, positive crackles bilateral lower lobes CVS: S1-S2 positive, no murmurs or gallops, tachycardia Abdomen: Soft, nontender, nondistended, positive bowel sounds x4 Extremities: +2 pulses bilaterally radialis/ dorsalis pedis, no cyanosis, no edema Neuro: Awake alert oriented x3 Psych: Normal mood and affect G/U: No Ruff Skin: no rashes, warm and dry Lymphatic: no cervical or axillary lymphadenopathy Results & Data Results & Data ([facility]) Vital Signs (Past 12 Hours) Vital Signs Temp Pulse Pulse Pulse Resp BP Pulse Ox 07/14/22 08:00 36.7 C 133 H 20 110/72 96 07/14/22 04:37 100 07/14/22 02:44 36.6 C 133 H 24 121/81 90 07/14/22 02:33 128 H 33 H 95 07/13/22 23:00 126 H 07/13/22 22:55 36.7 C 123 H 22 92/57 L 90 O2 Del Method O2 Flow Rate FiO2 07/14/22 08:00 High Flow Nasal Cannula 40 100 07/14/22 04:37 High Flow Nasal Cannula 30 90 07/14/22 02:44 High Flow Nasal Cannula 30 70 07/14/22 02:33 High Flow Nasal Cannula 30 70 07/13/22 23:00 07/13/22 22:55 High Flow Nasal Cannula 15 Laboratory Results 07/14/22 06:45 07/14/22 06:45 PG Care Time/CCT Total # of Minutes Spent Total Time Spent with Patient: Total time spent is greater than 50% in coordination of care (as documented) at patient's floor/unit and/or counseling patient: Coding Level of Care Code 98989 Subseq Hosp Care Lvl 3 Diagnoses Lung mass R91.8 Mediastinal adenopathy R59.0
[2022-07-14] MEDS: GABAPENTIN 300 MG CAP PO SCH ×3 (09:03→20:09)
[2022-07-14] MEDS: AMOXICILLIN/CLAVULANATE 875 MG TAB PO SCH ×2 (09:03→16:45)
[2022-07-14] MEDS: RALOXIFENE HCL 60 MG TAB PO SCH (09:03)
[2022-07-14] MEDS: buPROPion XL 300 MG TABCR PO SCH (09:03)
[2022-07-14] MEDS: PANTOprazole 40 MG TAB PO SCH (09:03)
[2022-07-14] MEDS: ACETAMINOPHEN 500 MG TAB PO PRN ×2 (09:23→20:09)
--- NOTE | 2022-07-14 13:22 | XRay Report ---
XR chest 1V portable HISTORY: Right-sided pleural effusion. Follow-up. COMPARISON: Chest 07/13/2022. FINDINGS: The heart remains stable in size. No pneumothorax. Right jugular Port-A-Cath terminates at the SVC. The right apical pneumothorax has almost completely resolved in the interval. There may be a tiny pneumothorax remaining. Right-sided chest tube is in place. Partially loculated small right ple ural effusion and right lung opacities remain stable. Emphysema again noted. Left basilar linear dens ity persists. IMPRESSION: 1. Near-complete resolution of the right-sided pneumothorax. There may be a tiny pneumothorax remaini ng. 2. Right-sided chest tube and small right pleural effusion again noted. 3. No change in the right mid to lower lung zone airspace opacities. ACT 112: Negative or not required by law. Electronically signed by: Ramo Mcintosh M.D. 07/14/2022 1:21 PM
[2022-07-14] MEDS: methylPREDNISolone 40 MG in SYRINGE 0 ML IV SCH (15:21)
--- NOTE | 2022-07-14 17:07 | Palliative Care Consultation ---
Date of Consultation July 14, 2022 Assessment & Plan (1) Pain from bone metastases: Continue prn oxycodone. Added range for moderate to severe pain to give her more control with drowsiness. Also added decadron as this is primarily due to her bone mets. (2) SOB (shortness of breath): We discussed use of opioid for relief of air hunger as well as pain. She voices frustration that dyspnea has not improved with thoracentesis. We did discuss tumor mass and deconditioning as well. She acknowledges this but continues to have an expectation that this will get better (3) Palliative care encounter: I talked with Krystal about what her greatest worries and hopes were. Her hope is that she will get better to be more independent. She worries about not being able to travel to [place] for her [facility] appointment. I expressed similar worry that she would likely not be up to that. She gets her support from several close friends and her sister, Lynsey, who lives in [place]. Lynsey is also her surrogate decision maker. They lost their sister and father in a short time span several years ago and are very close. Krystal was clear with me that she does not want to hear how much time she has left. She does acknowledge in passing that she knows that she is "terminal", but goes back to talking about getting better. We discussed concern that by not having some understanding of her prognosis, she may miss the opportunity to finish her unfinished business. She tells me that she hasn't really thought about what she would want for her care when she is near her dying time. She feels that she will address that in the future. Will follow and continue to talk with her. It would likely be beneficial to have a family conference call with her sister in the next day or two. History of Present Illness Reason for Consultation: goals of care Requesting Physician: Dr. Lemons Attending Physician: Steve Dye MD History of Present Illness 67 yo lady with history of CLL who was recently diagnosed with Stage IV adenocar cinoma of the lung. She had chemoradiation therapy over the summer but subsequently had disease progression. She had a recent hospitalization for shortness of breath and was admitted for the same on 07/09. She has a large pleural effusion on the right and had pleurx catheter placed. She has extensive bony metastatic disease and has had back pain, ankle and leg pain. She is currently receiving oxycodone as needed for pain but is reluctant to take it because it makes her drowsy. She is very short of breath with conversation and on high flow O2. Allergies Allergy/AdvReac Type Severity Reaction Status Date / Time No Known Allergies Allergy Verified 07/09/22 19:35 Home Medications Medication Instructions Recorded Confirmed Type pantoprazole 40 mg tablet,delayed 40 mg PO QAM 12/20/21 07/09/22 History release mesalamine 1,000 mg rectal 1 g RI QPM 02/13/22 07/09/22 History suppository bupropion HCl 300 mg 24 hr tablet, 300 mg PO QAM #90 tabs 05/02/22 07/09/22 Rx extended release gabapentin 300 mg capsule 300 mg PO TID 06/09/22 07/09/22 History multivitamin with minerals 1 tab PO DAILY 06/09/22 07/09/22 History (Multiple Vitamin-Minerals tablet) meloxicam 7.5 mg tablet 15 mg PO QAM 30 days #60 tabs 06/18/22 07/09/22 Rx raloxifene 60 mg tablet 60 mg PO QAM #90 tabs 06/19/22 07/09/22 Rx acetaminophen 500 mg tablet 500 mg PO Q6H PRN Pain 07/02/22 07/09/22 History (Tylenol Extra Strength) buprenorphine 5 mcg/hour weekly 1 patch transdermal Q7D #4 ea 07/02/22 07/09/22 Rx transdermal patch (Butrans) oxycodone 10 mg tablet 10 mg PO Q4H PRN pain #40 tabs 07/02/22 07/09/22 Rx sulfamethoxazole 800 1 tab PO BID 7 days #14 tabs 07/02/22 07/09/22 Rx mg-trimethoprim 160 mg tablet (Bactrim DS) Portable Oxygen #1 ea 07/04/22 Rx Spacer for Inhaler #1 ea 07/07/22 Rx albuterol sulfate 90 mcg/actuation 2 puff inhalation .COMPLEX PRN 07/07/22 07/09/22 Rx aerosol inhaler (ProAir HFA) shortness of breath or wheezing #8.5 grams lidocaine 5 % topical patch 1 patch transdermal QAM PRN Pain 07/09/22 07/09/22 History Patient History Medical History Abnormal CT scan of lung Acute respiratory failure with hypoxia Chronic lymphocytic leukemia Depression GERD (gastroesophageal reflux disease) History of squamous cell carcinoma of skin On chest and on abdomen Hypercholesterolemia Nausea and vomiting after administration of anesthetic agent Non-small cell cancer of right lung Non-small cell lung cancer with metastasis Osteoporosis Primary cancer of right lower lobe of lung (12/13/21) Right lower lobe pneumonia Sepsis SNHL (sensorineural hearing loss) Tachycardia Ulcerative proctitis Surgical History Dental root implant present Ganglion cyst right wrist 1993 History of biopsy (01/23/22) Lymph Node, Left Axilla, Core Biopsy History of bronchoscopy (12/13/21) Fiberoptic Bronchoscopy + Endobronchial Ultrasound with Transbronchial [place] Aspiration of LN Dr. Compa Lemons at [facility] History of colonoscopy with polypectomy History of squamous cell carcinoma excision x2--one off chest, one off abdomen History of tooth extraction Hx of colonoscopy Port-A-Cath in place (02/19/22) Port Placement with Fluoroscope(Right) - Patel Shea, DO S/P biopsy of cervix Family History Mother Bone cancer unknown primary Cancer Sister Uterine cancer Cancer Grandfather (Maternal) Pancreatic cancer Cancer Family/Other Family hx of colon cancer cousin Grandmother (Paternal) Cancer Melanoma Family/Other Cancer Father No problems noted. Sister No problems noted. Other Colorectal cancer Has no children Denies family history of Ovarian cancer Prostate cancer No family history of adverse response to anesthesia No family history of bleeding disorder Heart disease Allergies Myocardial infarction Breast cancer Hypertension Stroke Asthma Social History Smoking Status: Former smoker Tobacco Type: Cigarettes Age Started Using Tobacco: 20; Age Quit Using Tobacco: 41; packs per day: 1; Second Hand Exposure: No; Do You Dip or Chew Tobacco: No; Hx Alcohol Use: No Hx Substance Use: No Preferred Language: Serbian Communication Ability: Effective Visual Impairment: No Limitations 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: Normal Android Framework Developer Required: No Beliefs That Will Affect Care: None marital status: Current Living Situation: Alone current occupational status: retired 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 How many Children do You have: 0 Feels Safe at Home: Yes Childhood Exposure to Second-Hand Smoke: Yes Diet Comment: No red meat caffeine: Yes during the past year weight has: decreased > 10 lbs Dental Care, Regularly: Yes Physical Activity Frequency: Daily Seatbelt Use: always Sunscreen Use: Yes Assistive Devices: None Review of Systems Review of Systems: ESAS Pain 2/3 Dyspnea 3/3 Nausea 0/3 Drowsiness 0/3 Physical Exam Constitutional: + uncomfortable Respiratory: + labored breathing and + tachypneic Cardiovascular: Rate/Rhythm: regular rate and regular rhythm Neurologic: Speech / Cognition: normal cognition Results & [facility] ([facility]) Vital Signs (Past 12 Hours) Vital Signs Temp Pulse Pulse Pulse Resp BP Pulse Ox 07/14/22 11:00 120 H 24 94 07/14/22 16:39 96.8 F L 120 H 24 116/57 L 07/14/22 15:00 123 H 07/14/22 12:39 07/14/22 11:06 97.3 F L 120 H 20 103/68 94 07/14/22 07:00 132 H 07/14/22 07:15 133 H 26 H 97 07/14/22 08:00 98.1 F 133 H 20 110/72 96 O2 Del Method O2 Flow Rate FiO2 07/14/22 11:00 High Flow Nasal Cannula 30 80 07/14/22 16:39 Other 07/14/22 15:00 07/14/22 12:39 40 80 07/14/22 11:06 High Flow Nasal Cannula 40 80 07/14/22 07:00 07/14/22 07:15 High Flow Nasal Cannula 30 90 07/14/22 08:00 High Flow Nasal Cannula 40 100 PG Care Time/CCT Total # of Minutes Spent Total Time Spent: 55 Total Time Spent with Patient: Total time spent is greater than 50% in coordination of care (as documented) at patient's floor/unit and/or counseling patient: symptom management, goals of care, surrogate decision maker Coding Level of Care Code 49075 Initial Inpt Care Lvl 2 Diagnoses Pain from bone metastases G89.3; C79.51 SOB (shortness of breath) R06.02 Palliative care encounter Z51.5
[2022-07-14] MEDS: SODIUM CHLORIDE 0.9% 500 ML IV SCH (21:14)
[2022-07-15] MEDS: ACETAMINOPHEN 500 MG TAB PO PRN (03:53)
[2022-07-15 05:52] LABS: Hematocrit (blood only) 28.8 % (34.1-44.9); Mean Corpuscular Hemoglobin 27.8 pg (25.0-34.0); Mean Corpuscular Hgb Conc 31.3 g/dL (32.0-36.0); Mean Corpuscular Volume 88.9 fL (80.0-100.0); Mean Platelet Volume 9.9 fL (9.4-12.3); Platelet Count 197 K/uL (130-400); RDW Coefficient of Variation 15.3 % (11.5-14.5); RDW Standard Deviation 49.2 fL (36.4-46.3); Red Blood Count 3.24 M/uL (3.93-5.22)
[2022-07-15 05:57] LABS: Albumin Level 2.3 gm/dl (3.4-5.0); Bilirubin,Total 0.4 mg/dl (0.2-1.0); Calcium 7.8 mg/dl (8.5-10.1); Creatinine Clr Calc Pharmacy 96.7 ml/min; Est GFR (African American) 119.3 ml/min; Est GFR (Non-African American) 102.9 ml/min; Globulin 2.4 gm/dl (2.5-4.0); Potassium 4.4 mmol/L (3.5-5.1); Total Protein 4.7 gm/dl (6.0-8.3)
--- NOTE | 2022-07-15 07:20 | Hospitalist Progress Note ---
Date of Service July 15, 2022 Assessment & Plan (1) Acute respiratory failure with hypoxia: Plan: Pt is a 67 yo female with PMH of metastatic non small cell lung cancer in current tx, CLL, GERD, COPD, osteoporosis, and depression presenting to the hospital with increased SOB over the past few days found to be hypoxia upon arrival. Acute hypoxic respiratory failure, right pleural effusion, stage IV lung adenocarcinoma, COPD - Hypoxia on arrival improved with 4L NC; suspect tachycardia is secondary to increased WOB - Labs primarily notable for marked leukocytosis (58.86) likely related to known metastatic disease, though an active infection could be contributing - CXR: large right pleural effusion with underlying atelectasis, new from prior exam. CT chest: showed right pleural effusion most likely related to malignancy; new mets in left lung base - Suspect AHRF is due to patient's new pleural effusion, which is possibly secondary to patient's known lung adenocarcinoma, though differential includes pneumonia vs others - Blood cultures neg after 24 hrs; MRSA nares negative, Procal 7.22 - 07/10 Thoracentesis w/ placement of pleurx cath performed removing almost 1 L of fluid; post procedural CXR showed no pneumothorax - plan for daily drainage from catheter PRN - pleural fluid shows moderate WBCs and mononucleated cells, neg for acid fast bacilli (awaiting culture) -Oxygen requirement stable from yesterday Plan: - Continue Augmentin - Incentive spirometry Q1HWA - Continue home inhaler regimen - pulmonary added soul-Medrol 40mg daily Goals of Care - Discuses goals of care and pt would like to be DNR/DNI - Discussed with Krystal and her sister Patricia. Patricia is from [place] and hopeful to be able to drive up by Thursday or Thursday. Pain from Bony Metastases - Continue Decadron, prn oxycodone, Tylenol JUAN - Cr upon admission 0.78 - Cr today 1.50 1.68 yesterday; back down to 0.48 today - resolved Hypotensive - Pt was hypotensive over the weekend - Started on NS 100ml/hr Elevated troponin - On admission, troponin elevated to 14.3, repeat 16.6 - EKG: NSR, no overt sign of ischemic change - Patient without chest pain at this time Asthma: home regimen inhaler as above CLL: patient is not currently on treatment for her CLL Osteoporosis: continue home raloxifene GERD: continue home protonix MDD: continue home bupropion (2) Lung cancer: (3) Pleural effusion: (4) SOB (shortness of breath): (5) Chronic lymphocytic leukemia: (6) Depression: (7) GERD (gastroesophageal reflux disease): (8) Acute kidney injury: Plan FEN: regular diet Code status: DNR (intubation/ventilation OK) DVT ppx: SCDs Dispo: med/telemetry Admission and Anticipated Discharge Date Admission Date: July 10, 2022 Supervising Physician Co-Signing Physician Notes Attending attestation Pt seen and examined in concert with Dr. Pham. In agreement with the documented findings as noted in the resident documentation with any exceptions or additions as noted here. Stable SOB still requiring high flow 40L with ongoing fatigue. Patient discussed risks/benefits and medical impacts of intubation with pulmonology this morning. on revisiting that conversation, she reports that "it doesn't sound like something that I would want to do" especially if she "would have a hard time coming off of it. No reason to prolong that pain." In light of that, I clarified her wishes for future care that she would want to be DNI in addition to DNR, to which she agrees. I encouraged her to speak candidly with her sister about this, but we will also d/w her at future family meeting. VS, nursing notes, labs, consultations reviewed. On examination, S1/S2 nl RRR no MCG. breath sound decreased throughout. Abd NT/ND BS+ve Acute on chronic hypoxic respiratory failure in the setting of NSCLC, CLL - pulm, palliative consult - chest tube in place. Revisited goals of care today with update to code status as noted. DNR/DNI. Else see resident documentation as noted. Subjective Pt is a 67 y/o female with PMH of metastatic non small cell lung cancer in current tx, CLL, GERD, COPD, osteoporosis, and depression presenting to the hospital with increased SOB over the past few days found to be hypoxia upon arrival. Some mild improvement in dyspnea this morning, improvement in cough from yesterday. Increased oxygen requirement. Trouble sleeping overnight. Denies chest pain/nausea/fever/chills. Review of Systems Review of Systems: As per HPI Physical Exam Physical Exam: Constitutional: well-appearing, no acute distress HEENT: NCAT, no conjunctival injection CV: regular rhythm, no murmur appreciated, extremities well-perfused, no LE edema Resp: increased work of breathing; lung sounds on the lung GI: soft, nondistended, nontender, BS normoactive MSK: no gross deformities appreciated Skin: warm, dry, no rash appreciated Neuro: alert, oriented, no focal neurologic deficit appreciated Results & Data Results & Data ([facility]) Vital Signs (Past 12 Hours) Vital Signs Temp Pulse Pulse Resp BP Pulse Ox O2 Del Method 07/15/22 05:00 106 H 18 93 High Flow Nasal Cannula 07/15/22 02:41 36.7 C 104 H 22 105/69 94 High Flow Nasal Cannula 07/15/22 02:28 103 H 22 94 High Flow Nasal Cannula 07/14/22 22:12 108 H 07/14/22 20:10 124 H 24 93 High Flow Nasal Cannula 07/14/22 22:59 111 H 24 95 High Flow Nasal Cannula 07/14/22 22:48 36.4 C L 108 H 22 111/76 93 High Flow Nasal Cannula 07/14/22 19:31 High Flow Nasal Cannula 07/14/22 19:24 36.6 C 122 H 22 122/76 92 High Flow Nasal Cannula O2 Flow Rate FiO2 07/15/22 05:00 40 65 07/15/22 02:41 07/15/22 02:28 40 65 07/14/22 22:12 07/14/22 20:10 40 75 07/14/22 22:59 40 70 07/14/22 22:48 70 07/14/22 19:31 40 80 07/14/22 19:24 (1) Lung cancer Laterality: right Lung location: unspecified part of lung Qualified Code(s): C34.91 - Malignant neoplasm of unspecified part of right bronchus or lung
[2022-07-15 08:13] LABS: Basophilic Stippling 1+; Basophils # (auto) 0.03 K/uL (0-0.2); Basophils % (auto) 0.1 %; Echinocytes 1+; Immature Granulocytes # (auto) 0.65 K/uL (0.00-0.02); Immature Granulocytes % (auto) 1.1 %; Lymphocytes # (auto) 45.18 K/uL (1.2-3.4); Lymphocytes % (auto) 77.5 %; Monocytes # (auto) 1.11 K/uL (0.24-0.82); Monocytes % (auto) 1.9 %; Neutrophils # (auto) 11.33 K/uL (1.4-6.5); Neutrophils % (auto) 19.4 %; Polychromasia 1+; Smudge Cells Present
[2022-07-15] MEDS: SODIUM CHLORIDE 0.9% 1,000 ML IV SCH ×2 (08:45→18:27)
[2022-07-15] MEDS: PANTOprazole 40 MG TAB PO SCH (09:22)
[2022-07-15] MEDS: GABAPENTIN 300 MG CAP PO SCH ×4 (09:22→20:24)
[2022-07-15] MEDS: buPROPion XL 300 MG TABCR PO SCH (09:22)
[2022-07-15] MEDS: RALOXIFENE HCL 60 MG TAB PO SCH (09:22)
[2022-07-15] MEDS: AMOXICILLIN/CLAVULANATE 875 MG TAB PO SCH (09:22)
[2022-07-15] MEDS: oxyCODONE HCL IR 5 MG TAB (IMMEDIATE RELEASE) PO PRN ×4 (09:23→22:32)
[2022-07-15] MEDS: methylPREDNISolone 40 MG in SYRINGE 0 ML IV SCH (09:24)
[2022-07-15] MEDS: dexAMETHasone 6 MG in SYRINGE 0 ML IV SCH (09:24)
--- NOTE | 2022-07-15 09:34 | XRay Report ---
XR chest 1V portable HISTORY: 67 years-old Female f/u follow-up study in a patient with shortness of breath COMPARISON: 07/14/2022 TECHNIQUE: AP view of the chest FINDINGS: Cardiac silhouette is stable in size. Trace left pleural effusion with mildly progressed left lung ba se densities. Pulmonary vascular congestion. Stable positioning of the right IJ Izlear-m-Bpmu cathete r and right-sided chest tube. No pneumothorax. Stable right pleural effusion with right mid lung and right basilar consolidation. The bones appear grossly intact. IMPRESSION: 1. Stable positioning of the right-sided chest tube. No definite right-sided pneumothorax identified. 2. Generally unchanged extensive right lung airspace opacities. 3. Small right and trace left pleural effusions. 4. Progressively worsened left lung base opacities. ACT 112: Negative or not required by law. The above report was generated using voice recognition software. It may contain grammatical, syntax o r spelling errors. Electronically signed by: Brandon Morales M.D. 07/15/2022 9:32 AM
--- NOTE | 2022-07-15 09:59 | Palliative Care Progress Note ---
Date of Service July 15, 2022 Assessment & Plan (1) SOB (shortness of breath): Plan: Increased O2 requirement. She has said that she would want intubation if needed. She would benefit from using oxycodone for dyspnea but seems reluctant to do that. (2) Pain from bone metastases: Plan: Decadron started today. Continue prn oxycodone and tylenol. (3) Palliative care encounter: Plan: Krystal tells me that she is too tired and short of breath to talk today. She does say that she has agreed to discussion with her sister and Dr. Pham tomorrow. I will not be able to attend that family meeting. Will follow peripherally. Admission and Anticipated Discharge Date Admission Date: July 10, 2022 Subjective Short of breath at rest. Reports being to tired to talk today. Oxygen requirement up to 40L 70%. Review of Systems Review of Systems: ESAS Pain 2/3 Dyspnea 3/3 Drowsiness 0/3 Physical Exam Constitutional: + ill appearing Respiratory: + labored breathing, + uses accessory muscles and + tachypneic Neurologic: Speech / Cognition: normal cognition Genitourinary: continent Results & Data ([facility]) Vital Signs (Past 12 Hours) Vital Signs Temp Pulse Pulse Resp BP BP Pulse Ox 07/15/22 07:55 97.5 F L 109 H 22 114/71 94 07/15/22 05:00 106 H 18 93 07/15/22 02:41 98.1 F 104 H 22 105/69 94 07/15/22 02:28 103 H 22 94 07/14/22 22:12 108 H 07/14/22 22:59 111 H 24 95 07/14/22 22:48 97.5 F L 108 H 22 111/76 93 O2 Del Method O2 Flow Rate FiO2 07/15/22 07:55 High Flow Nasal Cannula 07/15/22 05:00 High Flow Nasal Cannula 40 65 07/15/22 02:41 High Flow Nasal Cannula 07/15/22 02:28 High Flow Nasal Cannula 40 65 07/14/22 22:12 07/14/22 22:59 High Flow Nasal Cannula 40 70 07/14/22 22:48 High Flow Nasal Cannula 70 PG Care Time/CCT Total # of Minutes Spent Total Time Spent with Patient: Total time spent is greater than 50% in coordination of care (as documented) at patient's floor/unit and/or counseling patient: Coding Level of Care Code 04769 Subseq Hosp Care Lvl 1 Diagnoses SOB (shortness of breath) R06.02 Pain from bone metastases G89.3; C79.51 Palliative care encounter Z51.5
--- NOTE | 2022-07-15 12:53 | Pulmonology Progress Note ---
Date of Service July 15, 2022 Assessment & Plan (1) Lung mass: (2) Mediastinal adenopathy: Plan Impression: 66-year-old female with metastatic adenocarcinoma lung in the setting of severe aggressive CLL. She has shown progression despite chemotherapy and was admitted a few weeks ago with progression of metastatic disease and bone pain as well as diffuse pulmonary infiltrates with the differential being pulmonary edema versus pulmonary toxicity from chemotherapeutics. She presented for this admission with respiratory distress and a large pleural effusion and is status post Pleurx catheter placement 07/10/2022 with drainage of about a liter of fluid. Fluid is a lymphocytic exudate with cytology pending and likely malignant CT chest 07/09/2022 personally reviewed: Large right-sided pleural effusion with compression atelectasis of the right lower lobe Significant mediastinal as well as right supraclavicular lymphadenopathy 20 ABLA emphysema appreciated -- Acute respiratory failure with hypoxia Multifactorial Likely from underlying progression of malignancy Patient also had pleural effusion when she presented Procalcitonin elevated, COVID negative Continue with antibiotics Continue with O2 supplementation to keep oxygen saturation between 90-92% -- Right-sided pleural effusion S/p Pleurx catheter placement Follow-up cytology Continue drainage every other to every third day --COPD with emphysema Not on any inhalers at home I will start the patient on Anoro to be used on a daily basis Not in exacerbation -- Metastatic non-small cell lung cancer Adenocarcinoma of unknown primary S/p chemoradiation, carboplatin/paclitaxel completed 04/03/2022 The right lower lobe mass is increasing in size along with right hilar and m ediastinal lymphadenopathy -- History of CLL --DNR Plan: Chest x-ray from today shows mild worsening on the right side. Can drain the Pleurx catheter tomorrow Continue with Solu-Medrol. Overall prognosis is poor. I do not think intubation would be in the best interest for the patient. I did explain to the patient again She wants to talk to her sister tomorrow and then make the decision regarding intubation Please note the above document was generated using voice recognition software. It may contain grammatical, syntax or spelling errors.Any formal questions or concerns about the content, text or information contained within the body of this dictation should be directly addressed to the provider for clarification. Admission and Anticipated Discharge Date Admission Date: July 10, 2022 Subjective Patient seen and examined at bedside. No acute distress. Overall she still feels the same. Not bringing up any phlegm. Shortness of breath is the same. Denies any chest pain No headache No leg pain Abdominal pain Fair appetite I was able to go down on FiO2 to 60%. Review of Systems Review of Systems: All systems reviewed & are unremarkable except as noted in Subjective Physical Exam Physical Exam: Constitutional: No acute distress, frail-appearing HEENT: EOMI, PERRLA Respiratory system: Decreased air entry bilaterally, more decreased on the right side, no wheeze, no rhonchi, positive crackles bilateral lower lobes CVS: S1-S2 positive, no murmurs or gallops, tachycardia Abdomen: Soft, nontender, nondistended, positive bowel sounds x4 Extremities: +2 pulses bilaterally radialis/ dorsalis pedis, no cyanosis, no edema Neuro: Awake alert oriented x3 Psych: Normal mood and affect G/U: No Ruff Skin: no rashes, warm and dry Lymphatic: no cervical or axillary lymphadenopathy Results & Data Results & Data ([facility]) Vital Signs (Past 12 Hours) Vital Signs Temp Pulse Resp BP BP Pulse Ox O2 Del Method 07/15/22 10:55 118 H 26 H 90 High Flow Nasal Cannula 07/15/22 10:52 36.4 C L 118 H 24 115/70 90 High Flow Nasal Cannula 07/15/22 07:55 36.4 C L 109 H 22 114/71 94 High Flow Nasal Cannula 07/15/22 05:00 106 H 18 93 High Flow Nasal Cannula 07/15/22 02:41 36.7 C 104 H 22 105/69 94 High Flow Nasal Cannula 07/15/22 02:28 103 H 22 94 High Flow Nasal Cannula O2 Flow Rate FiO2 07/15/22 10:55 40 70 07/15/22 10:52 40 70 07/15/22 07:55 07/15/22 05:00 40 65 07/15/22 02:41 07/15/22 02:28 40 65 Laboratory Results 07/15/22 05:10 07/15/22 05:10 PG Care Time/CCT Total # of Minutes Spent Total Time Spent with Patient: Total time spent is greater than 50% in coordination of care (as documented) at patient's floor/unit and/or counseling patient: Coding Level of Care Code 46438 Subseq Hosp Care Lvl 2 Diagnoses Lung mass R91.8 Mediastinal adenopathy R59.0
[2022-07-15] MEDS: MELATONIN 3 MG TAB PO PRN (22:32)
[2022-07-16] MEDS: ACETAMINOPHEN 500 MG TAB PO PRN (01:20)
[2022-07-16] MEDS: SODIUM CHLORIDE 0.9% 1,000 ML IV SCH (03:52)
[2022-07-16] MEDS: oxyCODONE HCL IR 5 MG TAB (IMMEDIATE RELEASE) PO PRN ×3 (06:40→23:00)
[2022-07-16 07:05] LABS: Hemoglobin 9.8 g/dl (12.0-16.0); Mean Corpuscular Hemoglobin 28.2 pg (25.0-34.0); Mean Corpuscular Hgb Conc 31.6 g/dL (32.0-36.0); Mean Corpuscular Volume 89.1 fL (80.0-100.0); Mean Platelet Volume 9.9 fL (9.4-12.3); Nucleated RBC # (auto) 0.06 K/uL (0-0); Nucleated RBC % (auto) 0.1 %; Platelet Count 250 K/uL (130-400); RDW Coefficient of Variation 15.6 % (11.5-14.5); RDW Standard Deviation 49.7 fL (36.4-46.3); Red Blood Count 3.48 M/uL (3.93-5.22); White Blood Count 89.42 K/ul (4.8-10.8)
--- NOTE | 2022-07-16 07:21 | Hospitalist Progress Note ---
Date of Service July 16, 2022 Assessment & Plan (1) Acute respiratory failure with hypoxia: Plan: Pt is a 67 yo female with PMH of metastatic non small cell lung cancer in current tx, CLL, GERD, COPD, osteoporosis, and depression presenting to the hospital with increased SOB over the past few days found to be hypoxia upon arrival. Acute hypoxic respiratory failure, right pleural effusion, stage IV lung adenocarcinoma, COPD - Hypoxia on arrival improved with 4L NC; suspect tachycardia is secondary to increased WOB - Labs primarily notable for marked leukocytosis (58.86) likely related to known metastatic disease, though an active infection could be contributing - CXR: large right pleural effusion with underlying atelectasis, new from prior exam. CT chest: showed right pleural effusion most likely related to malignancy; new mets in left lung base - Suspect AHRF is due to patient's new pleural effusion, which is possibly secondary to patient's known lung adenocarcinoma, though differential includes pneumonia vs others - Blood cultures neg after 24 hrs; MRSA nares negative, Procal 7.22 - 07/10 Thoracentesis w/ placement of pleurx cath performed removing almost 1 L of fluid; post procedural CXR showed no pneumothorax - plan for daily drainage from catheter PRN - pleural fluid shows moderate WBCs and mononucleated cells, neg for acid fast bacilli -Oxygen requirement increased from yesterday Plan: - Continue Augmentin - Incentive spirometry Q1HWA - Continue home inhaler regimen - continue soul-Medrol 40mg daily - Hopeful to remove more fluid from your lungs today Goals of Care - Discuses goals of care and pt would like to be DNR/DNI - Discussed with Krystal and her sister Patricia. Patricia is from [place] and hopeful to come here within next day or 2 Pain from Bony Metastases - Continue Decadron, prn oxycodone, Tylenol JUAN - Cr upon admission 0.78 - Cr today 1.50 1.68 yesterday; back down to 0.48 today - resolved Hypotensive - Pt was hypotensive over the weekend - Started on NS 100ml/hr Elevated troponin - On admission, troponin elevated to 14.3, repeat 16.6 - EKG: NSR, no overt sign of ischemic change - Patient without chest pain at this time Asthma: home regimen inhaler as above CLL: patient is not currently on treatment for her CLL Osteoporosis: continue home raloxifene GERD: continue home protonix MDD: continue home bupropion (2) Lung cancer: (3) Pleural effusion: (4) SOB (shortness of breath): (5) Chronic lymphocytic leukemia: (6) Depression: (7) GERD (gastroesophageal reflux disease): (8) Acute kidney injury: Plan FEN: regular diet Code status: DNR (intubation/ventilation OK) DVT ppx: SCDs Dispo: med/telemetry Admission and Anticipated Discharge Date Admission Date: July 10, 2022 Supervising Physician Co-Signing Physician Notes Attending attestation Pt seen and examined in concert with Dr. Pham. In agreement with the documented findings as noted in the resident documentation with any exceptions or additions as noted here. Ongoing SOB with toileting with accompanying fatigue. Still endorses code status as DNR/DNI. VS, nursing notes, labs, consultations reviewed. On examination, S1/S2 nl RRR no MCG. breath sound decreased throughout R> L. Abd NT/ND BS+ve Acute on chronic hypoxic respiratory failure in the setting of NSCLC, CLL - pulm, palliative consult - chest tube in place for drain today, continue current therapy Else see resident documentation as noted. Subjective Pt is a 67 y/o female with PMH of metastatic non small cell lung cancer in current tx, CLL, GERD, COPD, osteoporosis, and depression presenting to the hospital with increased SOB over the past few days found to be hypoxia upon arrival. Worsening dyspnea this morning. Increased oxygen requirement. Trouble sleeping overnight. Denies chest pain/nausea/fever/chills. Spoke with sister this morning and she is hopeful to get here from [place] as soon as possible. Review of Systems Review of Systems: As per HPI Physical Exam Physical Exam: Constitutional: well-appearing, no acute distress HEENT: NCAT, no conjunctival injection CV: regular rhythm, no murmur appreciated, extremities well-perfused, no LE edema Resp: increased work of breathing; lung sounds on the lung GI: soft, nondistended, nontender, BS normoactive MSK: no gross deformities appreciated Skin: warm, dry, no rash appreciated Neuro: alert, oriented, no focal neurologic deficit appreciated Results & Data Results & Data ([facility]) Vital Signs (Past 12 Hours) Vital Signs Temp Pulse Pulse Resp BP Pulse Ox O2 Del Method 07/16/22 03:31 112 H 19 92 High Flow Nasal Cannula 07/16/22 03:20 36.6 C 116 H 22 125/75 90 High Flow Nasal Cannula 07/16/22 00:00 113 H 07/15/22 23:08 36.6 C 118 H 22 130/76 92 High Flow Nasal Cannula 07/15/22 22:05 115 H 19 92 High Flow Nasal Cannula 07/15/22 20:00 High Flow Nasal Cannula 07/15/22 20:56 120 H 22 92 High Flow Nasal Cannula 07/15/22 19:32 36.4 C L 110 H 18 130/77 93 High Flow Nasal Cannula O2 Flow Rate FiO2 07/16/22 03:31 40 60 07/16/22 03:20 07/16/22 00:00 07/15/22 23:08 07/15/22 22:05 40 60 07/15/22 20:00 40 60 07/15/22 20:56 40 60 07/15/22 19:32 (1) Lung cancer Laterality: right Lung location: unspecified part of lung Qualified Code(s): C34.91 - Malignant neoplasm of unspecified part of right bronchus or lung
[2022-07-16 07:29] LABS: Albumin Globulin Ratio 1.1 (0.9-2); Albumin Level 2.5 gm/dl (3.4-5.0); BUN Creatinine Ratio 28.6 (10-20); Bilirubin,Total 0.4 mg/dl (0.2-1.0); Calcium 7.9 mg/dl (8.5-10.1); Creatinine Clr Calc Pharmacy 94.7 ml/min; Est GFR (African American) 118.5 ml/min; Est GFR (Non-African American) 102.2 ml/min; Globulin 2.3 gm/dl (2.5-4.0); Potassium 4.2 mmol/L (3.5-5.1); Total Protein 4.8 gm/dl (6.0-8.3)
[2022-07-16 07:53] LABS: Basophils # (auto) 0.04 K/uL (0-0.2); Immature Granulocytes # (auto) 1.14 K/uL (0.00-0.02); Immature Granulocytes % (auto) 1.3 %; Lymphocytes # (auto) 71.73 K/uL (1.2-3.4); Lymphocytes % (auto) 80.2 %; Monocytes # (auto) 1.79 K/uL (0.24-0.82); Neutrophils # (auto) 14.72 K/uL (1.4-6.5); Neutrophils % (auto) 16.5 %; Polychromasia 1+; Smudge Cells Present
[2022-07-16] MEDS: methylPREDNISolone 40 MG in SYRINGE 0 ML IV SCH (08:44)
[2022-07-16] MEDS: RALOXIFENE HCL 60 MG TAB PO SCH (08:45)
[2022-07-16] MEDS: dexAMETHasone 6 MG in SYRINGE 0 ML IV SCH (08:45)
[2022-07-16] MEDS: buPROPion XL 300 MG TABCR PO SCH (08:46)
[2022-07-16] MEDS: GABAPENTIN 300 MG CAP PO SCH ×3 (08:47→19:49)
[2022-07-16] MEDS: PANTOprazole 40 MG TAB PO SCH (08:47)
[2022-07-16] MEDS ORDERED: MoRPHine SULFATE 2 MG/ML CARP IV ONE (10:59)
--- NOTE | 2022-07-16 11:05 | Pulmonology Progress Note ---
Date of Service July 16, 2022 Assessment & Plan (1) Lung mass: (2) Mediastinal adenopathy: Plan Impression: 66-year-old female with metastatic adenocarcinoma lung in the setting of severe aggressive CLL. She has shown progression despite chemotherapy and was admitted a few weeks ago with progression of metastatic disease and bone pain as well as diffuse pulmonary infiltrates with the differential being pulmonary edema versus pulmonary toxicity from chemotherapeutics. She presented for this admission with respiratory distress and a large pleural effusion and is status post Pleurx catheter placement 07/10/2022 with drainage of about a liter of fluid. Fluid is a lymphocytic exudate with cytology pending and likely malignant CT chest 07/09/2022 personally reviewed: Large right-sided pleural effusion with compression atelectasis of the right lower lobe Significant mediastinal as well as right supraclavicular lymphadenopathy 20 ABLA emphysema appreciated -- Acute respiratory failure with hypoxia Multifactorial Likely from underlying progression of malignancy Patient also had pleural effusion when she presented Procalcitonin elevated, COVID negative Continue with antibiotics Continue with O2 supplementation to keep oxygen saturation between 90-92% -- Right-sided pleural effusion S/p Pleurx catheter placement Follow-up cytology Continue drainage every other to every third day --COPD with emphysema Not on any inhalers at home I will start the patient on Anoro to be used on a daily basis Not in exacerbation -- Metastatic non-small cell lung cancer Adenocarcinoma of unknown primary S/p chemoradiation, carboplatin/paclitaxel completed 04/03/2022 The right lower lobe mass is increasing in size along with right hilar and m ediastinal lymphadenopathy -- History of CLL --DNR/DNI Plan: C/w steroids. Incentive spirometry Repeat CXR in am. Please note the above document was generated using voice recognition software. It may contain grammatical, syntax or spelling errors.Any formal questions or concerns about the content, text or information contained within the body of this dictation should be directly addressed to the provider for clarification. Admission and Anticipated Discharge Date Admission Date: July 10, 2022 Subjective Patient seen and examined at bedside. No acute distress Patient was on 90% FiO2, 40 L high flow She was saturating 90% at that time She had Pleurx catheter drained today with only 70 cc drained. Denies any headache, no nausea vomiting Poor appetite Review of Systems Review of Systems: All systems reviewed & are unremarkable except as noted in Subjective Physical Exam Physical Exam: Constitutional: No acute distress, frail-appearing HEENT: EOMI, PERRLA Respiratory system: Decreased air entry bilaterally, more decreased on the right side, no wheeze, no rhonchi, positive crackles bilateral lower lobes CVS: S1-S2 positive, no murmurs or gallops, tachycardia Abdomen: Soft, nontender, nondistended, positive bowel sounds x4 Extremities: +2 pulses bilaterally radialis/ dorsalis pedis, no cyanosis, no edema Neuro: Awake alert oriented x3 Psych: Normal mood and affect G/U: No Ruff Skin: no rashes, warm and dry Lymphatic: no cervical or axillary lymphadenopathy Results & Data Results & Data ([facility]) Vital Signs (Past 12 Hours) Vital Signs Temp Pulse Pulse Resp BP Pulse Ox O2 Del Method 07/16/22 07:30 117 H 27 H 89 L High Flow Nasal Cannula 07/16/22 09:44 125 H 24 141/77 H 90 High Flow Nasal Cannula 07/16/22 08:00 123 H 07/16/22 09:25 High Flow Nasal Cannula 07/16/22 09:15 24 91 High Flow Nasal Cannula 07/16/22 09:16 121 H 30 H 91 High Flow Nasal Cannula 07/16/22 07:37 36.6 C 118 H 22 139/81 87 L High Flow Nasal Cannula 07/16/22 03:31 112 H 19 92 High Flow Nasal Cannula 07/16/22 03:20 36.6 C 116 H 22 125/75 90 High Flow Nasal Cannula 07/16/22 00:00 113 H 07/15/22 23:08 36.6 C 118 H 22 130/76 92 High Flow Nasal Cannula O2 Flow Rate FiO2 07/16/22 07:30 40 65 07/16/22 09:44 40 100 07/16/22 08:00 07/16/22 09:25 40 100 07/16/22 09:15 40 90 07/16/22 09:16 40 100 07/16/22 07:37 07/16/22 03:31 40 60 07/16/22 03:20 07/16/22 00:00 07/15/22 23:08 Laboratory Results 07/16/22 06:10 07/16/22 06:10 PG Care Time/CCT Total # of Minutes Spent Total Time Spent with Patient: Total time spent is greater than 50% in coordination of care (as documented) at patient's floor/unit and/or counseling patient: Coding Level of Care Code 91506 Subseq Hosp Care Lvl 2 Diagnoses Lung mass R91.8 Mediastinal adenopathy R59.0
[2022-07-16] MEDS ORDERED: LIDOCAINE 5% 1 PATCH TD PRN (11:30)
[2022-07-16] MEDS: SODIUM CHLORIDE 0.9% 1000ML 1,000 ML IV SCH ×2 (13:43→23:02)
[2022-07-16] MEDS: MoRPHine SULFATE 2 MG/ML CARP IV PRN (19:49)
[2022-07-16] MEDS: MELATONIN 3 MG TAB PO PRN (23:00)
[2022-07-17] MEDS: MoRPHine SULFATE 2 MG/ML CARP IV PRN ×5 (02:05→23:57)
[2022-07-17] MEDS: oxyCODONE HCL IR 5 MG TAB (IMMEDIATE RELEASE) PO PRN (04:43)
[2022-07-17 06:44] LABS: Hematocrit (blood only) 30.9 % (34.1-44.9); Hemoglobin 9.5 g/dl (12.0-16.0); Mean Corpuscular Hemoglobin 27.1 pg (25.0-34.0); Mean Corpuscular Hgb Conc 30.7 g/dL (32.0-36.0); Mean Platelet Volume 10.1 fL (9.4-12.3); Nucleated RBC # (auto) 0.11 K/uL (0-0); Nucleated RBC % (auto) 0.1 %; Platelet Count 207 K/uL (130-400); RDW Coefficient of Variation 15.8 % (11.5-14.5); RDW Standard Deviation 49.3 fL (36.4-46.3); Red Blood Count 3.51 M/uL (3.93-5.22); White Blood Count 98.91 K/ul (4.8-10.8)
[2022-07-17 06:46] LABS: Albumin Globulin Ratio 1.1 (0.9-2); Albumin Level 2.5 gm/dl (3.4-5.0); BUN Creatinine Ratio 26.7 (10-20); Bilirubin,Total 0.4 mg/dl (0.2-1.0); Creatinine Clr Calc Pharmacy 103.1 ml/min; Est GFR (African American) 121.9 ml/min; Est GFR (Non-African American) 105.1 ml/min; Globulin 2.2 gm/dl (2.5-4.0); Potassium 4.2 mmol/L (3.5-5.1); Total Protein 4.7 gm/dl (6.0-8.3)
[2022-07-17 07:34] LABS: Basophils # (auto) 0.06 K/uL (0-0.2); Basophils % (auto) 0.1 %; Immature Granulocytes # (auto) 1.32 K/uL (0.00-0.02); Immature Granulocytes % (auto) 1.3 %; Lymphocytes # (auto) 80.81 K/uL (1.2-3.4); Lymphocytes % (auto) 81.7 %; Monocytes # (auto) 2.21 K/uL (0.24-0.82); Monocytes % (auto) 2.2 %; Neutrophils # (auto) 14.51 K/uL (1.4-6.5); Neutrophils % (auto) 14.7 %
--- NOTE | 2022-07-17 08:17 | Pulmonology Progress Note ---
Date of Service July 17, 2022 Assessment & Plan (1) Lung mass: (2) Mediastinal adenopathy: Plan Impression: 66-year-old female with metastatic adenocarcinoma lung in the setting of severe aggressive CLL. She has shown progression despite chemotherapy and was admitted a few weeks ago with progression of metastatic disease and bone pain as well as diffuse pulmonary infiltrates with the differential being pulmonary edema versus pulmonary toxicity from chemotherapeutics. She presented for this admission with respiratory distress and a large pleural effusion and is status post Pleurx catheter placement 07/10/2022 with drainage of about a liter of fluid. Fluid is a lymphocytic exudate with cytology pending and likely malignant CT chest 07/09/2022 personally reviewed: Large right-sided pleural effusion with compression atelectasis of the right lower lobe Significant mediastinal as well as right supraclavicular lymphadenopathy 20 ABLA emphysema appreciated -- Acute respiratory failure with hypoxia Multifactorial Likely from underlying progression of malignancy Patient also had pleural effusion when she presented Procalcitonin elevated, COVID negative Continue with antibiotics Continue with O2 supplementation to keep oxygen saturation between 90-92% -- Right-sided pleural effusion S/p Pleurx catheter placement Follow-up cytology Continue drainage every other to every third day --COPD with emphysema Not on any inhalers at home I will start the patient on Anoro to be used on a daily basis Not in exacerbation -- Metastatic non-small cell lung cancer Adenocarcinoma of unknown primary S/p chemoradiation, carboplatin/paclitaxel completed 04/03/2022 The right lower lobe mass is increasing in size along with right hilar and me diastinal lymphadenopathy -- History of CLL --DNR/DNI Plan: Chest x-ray from today does not show any significant change compared to the previous chest x-ray Dense right sided opacity/infiltrate persist. Patient has diffuse rhonchi today. Flutter valve trial could be given although given the patient is drowsy from the pain medications he may not be able to use it If the patient is able to tolerate CoughAssist it can be tried Continue with Solu-Medrol for 2 more days and then can transition to p.o. prednisone for 5 days Continue with incentive spirometry Unfortunately there is not much to offer from pulmonary perspective. Will sign off. Please call directly with any questions Case was discussed with RN at bedside Please note the above document was generated using voice recognition software. It may contain grammatical, syntax or spelling errors.Any formal questions or concerns about the content, text or information contained within the body of this dictation should be directly addressed to the provider for clarification. Admission and Anticipated Discharge Date Admission Date: July 10, 2022 Subjective Patient seen and examined at bedside. Was in respiratory distress Was saturating 91% on 40 L, 100% FiO2 with nonrebreather on top of that Complain of mild chest pain. She is complaining of chest congestion but not able to bring up phlegm. No nausea or vomiting Review of Systems Review of Systems: All systems reviewed & are unremarkable except as noted in Subjective Physical Exam Physical Exam: Constitutional: No acute distress, frail-appearing HEENT: EOMI, PERRLA Respiratory system: Decreased air entry bilaterally, more decreased on the right side, no wheeze, positive rhonchi appreciated bilaterally, positive crackles bilateral lower lobes CVS: S1-S2 positive, no murmurs or gallops, tachycardia Abdomen: Soft, nontender, nondistended, positive bowel sounds x4 Extremities: +2 pulses bilaterally radialis/ dorsalis pedis, no cyanosis, no edema Neuro: Awake alert oriented x3 Psych: Normal mood and affect G/U: No Ruff Skin: no rashes, warm and dry Lymphatic: no cervical or axillary lymphadenopathy Results & Data Results & Data ([facility]) Vital Signs (Past 12 Hours) Vital Signs Temp Pulse Pulse Resp BP Pulse Ox O2 Del Method 07/17/22 08:02 36.9 C 117 H 20 122/80 93 High Flow Nasal Cannula 07/17/22 07:53 High Flow Nasal Cannula 07/17/22 05:30 117 H 24 91 High Flow Nasal Cannula 07/17/22 02:42 118 H 20 92 High Flow Nasal Cannula 07/17/22 02:47 36.6 C 117 H 16 130/84 90 High Flow Nasal Cannula 07/17/22 00:00 117 H 07/16/22 22:39 36.8 C 119 H 18 129/79 91 High Flow Nasal Cannula 07/16/22 22:16 121 H 24 89 L High Flow Nasal Cannula 07/16/22 20:17 122 H 20 93 High Flow Nasal Cannula O2 Flow Rate FiO2 07/17/22 08:02 40 100 07/17/22 07:53 40 90 07/17/22 05:30 40 90 07/17/22 02:42 40 80 07/17/22 02:47 07/17/22 00:00 07/16/22 22:39 07/16/22 22:16 40 80 07/16/22 20:17 40 80 Laboratory Results 07/17/22 05:55 07/17/22 05:55 PG Care Time/CCT Total # of Minutes Spent Total Time Spent with Patient: Total time spent is greater than 50% in coordination of care (as documented) at patient's floor/unit and/or counseling patient: Coding Level of Care Code 80301 Subseq Hosp Care Lvl 2 Diagnoses Lung mass R91.8 Mediastinal adenopathy R59.0
--- NOTE | 2022-07-17 08:22 | Hospitalist Progress Note ---
Date of Service July 17, 2022 Assessment & Plan (1) Acute respiratory failure with hypoxia: Plan: Pt is a 67 yo female with PMH of metastatic non small cell lung cancer in current tx, CLL, GERD, COPD, osteoporosis, and depression presenting to the hospital with increased SOB over the past few days found to be hypoxia upon arrival. Acute hypoxic respiratory failure, right pleural effusion, stage IV lung adenocarcinoma, COPD - Hypoxia on arrival improved with 4L NC; suspect tachycardia is secondary to increased WOB - Labs primarily notable for marked leukocytosis (58.86) likely related to known metastatic disease, though an active infection could be contributing - CXR: large right pleural effusion with underlying atelectasis, new from prior exam. CT chest: showed right pleural effusion most likely related to malignancy; new mets in left lung base - Suspect AHRF is due to patient's new pleural effusion, which is possibly secondary to patient's known lung adenocarcinoma, though differential includes pneumonia vs others - Blood cultures neg after 24 hrs; MRSA nares negative, Procal 7.22 - 07/10 Thoracentesis w/ placement of pleurx cath performed removing almost 1 L of fluid; post procedural CXR showed no pneumothorax - plan for daily drainage from catheter PRN - pleural fluid shows moderate WBCs and mononucleated cells, neg for acid fast bacilli Plan: - Continue Augmentin - Incentive spirometry Q1HWA - Continue home inhaler regimen - continue soul-Medrol 40mg daily --Oxygen requirement increased from yesterday. Increased work of breathing. Goal to try and support until sister gets here this afternoon. Goals of Care - Discuses goals of care and pt would like to be DNR/DNI - Discussed with Krystal and her sister Patricia. Patricia will be here this afternoon with brother in law [place]. - Pt states that once she is no longer awake/alert she would like comfort care. Pain from Bony Metastases - Continue Decadron, prn oxycodone, Tylenol JUAN - Cr upon admission 0.78 - Cr today 1.50 1.68 yesterday; back down to 0.48 today - resolved Elevated troponin - On admission, troponin elevated to 14.3, repeat 16.6 - EKG: NSR, no overt sign of ischemic change - Patient without chest pain at this time Asthma: home regimen inhaler as above CLL: patient is not currently on treatment for her CLL Osteoporosis: continue home raloxifene GERD: continue home protonix MDD: continue home bupropion (2) Lung cancer: (3) Pleural effusion: (4) SOB (shortness of breath): (5) Chronic lymphocytic leukemia: (6) Depression: (7) GERD (gastroesophageal reflux disease): (8) Acute kidney injury: Plan FEN: regular diet Code status: DNR (intubation/ventilation OK) DVT ppx: SCDs Dispo: med/telemetry Admission and Anticipated Discharge Date Admission Date: July 10, 2022 Supervising Physician Co-Signing Physician Notes Attending attestation Pt seen and examined in concert with Dr. Pham. In agreement with the documented findings as noted in the resident documentation with any exceptions or additions as noted here. Progression of shortness of breath and effort of breathing increased. Prolonged conversation today with both patient and family regarding goals of care - patient is presently DNR/DNI and wishes very much to see her sister arriving this afternoon. Acknowledges worsening and declines further invasive threapy for testing or support. Would like to be transitioned to comfort care following seeing her sister with accompanying medication and nursing support. VS, nursing notes, labs, consultations reviewed. On examination, S1/S2 nl tachycardic, no MCG. breath sound decreased throughout R > L, some rales. Abd NT/ND BS+ve Acute on chronic hypoxic respiratory failure in the setting of NSCLC, CLL - -p-u-l-m-, palliative consult - worsening symptoms on maximal medical therapy with patient requesting transition to comfort after discussion of options and interventions. Comfort orders placed as noted following patient request. Else see resident documentation as noted. Total attending physician time spent with this patient's care on this day of service: 40 minutes. Subjective Pt is a 67 y/o female with PMH of metastatic non small cell lung cancer in current tx, CLL, GERD, COPD, osteoporosis, and depression presenting to the hospital with increased SOB over the past few days found to be hypoxia upon arrival. Worsening dyspnea this morning with increased work of breathing. Worsening tachycardia. Discussed again with her goals; she would like to remain as awake as possible until her sister gets here this afternoon. Spoke with brother-in law and they should be here around 14:30. Pt again reiterates DNR/DNI. Declines BiPap. States that when she reaches a point where she is no longer awake/alert she would like comfort measures. Review of Systems Review of Systems: As per HPI Physical Exam Physical Exam: Constitutional: well-appearing, no acute distress HEENT: NCAT, no conjunctival injection CV: regular rhythm, no murmur appreciated, extremities well-perfused, no LE edema Resp: increased work of breathing; lung sounds on the lung GI: soft, nondistended, nontender, BS normoactive MSK: no gross deformities appreciated Skin: warm, dry, no rash appreciated Neuro: alert, oriented, no focal neurologic deficit appreciated Results & Data Results & Data ([facility]) Vital Signs (Past 12 Hours) Vital Signs Temp Pulse Pulse Resp BP Pulse Ox O2 Del Method 07/17/22 08:02 36.9 C 117 H 20 122/80 93 High Flow Nasal Cannula 07/17/22 07:53 High Flow Nasal Cannula 07/17/22 05:30 117 H 24 91 High Flow Nasal Cannula 07/17/22 02:42 118 H 20 92 High Flow Nasal Cannula 07/17/22 02:47 36.6 C 117 H 16 130/84 90 High Flow Nasal Cannula 07/17/22 00:00 117 H 07/16/22 22:39 36.8 C 119 H 18 129/79 91 High Flow Nasal Cannula 07/16/22 22:16 121 H 24 89 L High Flow Nasal Cannula O2 Flow Rate FiO2 07/17/22 08:02 40 100 07/17/22 07:53 40 90 07/17/22 05:30 40 90 07/17/22 02:42 40 80 07/17/22 02:47 07/17/22 00:00 07/16/22 22:39 07/16/22 22:16 40 80 (1) Lung cancer Laterality: right Lung location: unspecified part of lung Qualified Code(s): C34.91 - Malignant neoplasm of unspecified part of right bronchus or lung
[2022-07-17] MEDS: dexAMETHasone 6 MG in SYRINGE 0 ML IV SCH (08:35)
[2022-07-17] MEDS: methylPREDNISolone 40 MG in SYRINGE 0 ML IV SCH (08:35)
[2022-07-17] MEDS: buPROPion XL 300 MG TABCR PO SCH (08:36)
[2022-07-17] MEDS: GABAPENTIN 300 MG CAP PO SCH ×3 (08:36→21:07)
[2022-07-17] MEDS: PANTOprazole 40 MG TAB PO SCH (08:36)
[2022-07-17] MEDS: RALOXIFENE HCL 60 MG TAB PO SCH (08:36)
--- NOTE | 2022-07-17 08:36 | XRay Report ---
XR chest 1V portable HISTORY: Right pleural effusions with right-sided chest tube. Follow-up. COMPARISON: Chest 07/15/2022. FINDINGS: No change in the partially loculated small right pleural effusion and placement of a right- sided chest tube. Right mid to lower lung zone airspace opacities persist. There is a small left pleu ral effusion which is slightly progressed. Emphysema again noted. The heart is stable in size. Right jugular Port-A-Cath terminates at the SVC. No pneumothorax. IMPRESSION: 1. No change in the right-sided chest tube and small right pleural effusion. No pneumothorax. 2. A small left pleural effusion/densities have slightly progressed. ACT 112: Negative or not required by law. Electronically signed by: Ramo Mcintosh M.D. 07/17/2022 8:34 AM
[2022-07-17] MEDS: SODIUM CHLORIDE 0.9% 1000ML 1,000 ML IV SCH (08:42)
[2022-07-17] MEDS ORDERED: ALBUTEROL 0.083% NEBU SOLN 3 ML VIAL NEB STA (09:36)
[2022-07-17] MEDS ORDERED: LORazepam 0.5 MG in SYRINGE 0 ML IV PRN (09:48)
[2022-07-17] MEDS ORDERED: GLYCOPYRROLATE 0.2 MG/ML VIAL IM ONE (11:15)
[2022-07-17] MEDS ORDERED: GLYCOPYRROLATE 1 MG TAB PO ONE (11:33)
[2022-07-17] MEDS ORDERED: Nursing to Pharmacy Communication SCH (11:45)
--- NOTE | 2022-07-17 14:11 | Palliative Care Progress Note ---
Date of Service July 17, 2022 Assessment & Plan (1) Pain from bone metastases: Plan: improved with steroid (2) SOB (shortness of breath): Plan: Progressive respiratory failure with increasing O2 requirement. Discussed medications available to relieve her air hunger if she would like. She prefers to be more awake and aware to visit with family and friends. (3) Palliative care encounter: Admission and Anticipated Discharge Date Admission Date: July 10, 2022 Subjective Labored breathing. Denies pain. Visiting with friends and expecting her sister later this afternoon. Review of Systems Review of Systems: ESAS Pain 1/3 Dyspnea 3/3 Drowsiness 1/3 Physical Exam Constitutional: + uncomfortable Respiratory: + labored breathing, + uses accessory muscles and + tachypneic Cardiovascular: Rate/Rhythm: regular rate and regular rhythm Results & Data ([facility]) Vital Signs (Past 12 Hours) Vital Signs Temp Pulse Pulse Resp BP Pulse Ox O2 Del Method 07/17/22 11:46 98.2 F 131 H 22 119/64 88 L Oxymask, High Flow Nasal Cannula 07/17/22 11:35 132 H 86 L High Flow Nasal Cannula 07/17/22 08:00 119 H 07/17/22 09:27 136 H 32 H 86 L High Flow Nasal Cannula 07/17/22 08:02 98.4 F 117 H 20 122/80 93 High Flow Nasal Cannula 07/17/22 07:53 High Flow Nasal Cannula 07/17/22 05:30 117 H 24 91 High Flow Nasal Cannula 07/17/22 02:42 118 H 20 92 High Flow Nasal Cannula 07/17/22 02:47 97.9 F 117 H 16 130/84 90 High Flow Nasal Cannula O2 Flow Rate FiO2 07/17/22 11:46 40 100 07/17/22 11:35 40 100 07/17/22 08:00 07/17/22 09:27 40 100 07/17/22 08:02 40 100 07/17/22 07:53 40 90 07/17/22 05:30 40 90 07/17/22 02:42 40 80 07/17/22 02:47 PG Care Time/CCT Total # of Minutes Spent Total Time Spent with Patient: Total time spent is greater than 50% in coordination of care (as documented) at patient's floor/unit and/or counseling patient: Coding Level of Care Code 38716 Subseq Hosp Care Lvl 1 Diagnoses Pain from bone metastases G89.3; C79.51 SOB (shortness of breath) R06.02 Palliative care encounter Z51.5
[2022-07-17] MEDS: GLYCOPYRROLATE 0.2 MG/ML VIAL IV PRN (18:45)
--- NOTE | 2022-07-17 18:45 | Communication Note ---
Date of Service: July 17, 2022 Informed by primary team that patient and their family have decided to pursue comfort measures only. Orders entered. Will monitor and assist as needed.
[2022-07-18] MEDS: LORazepam 0.5 MG in SYRINGE 0 ML IV PRN ×3 (04:24→17:41)
[2022-07-18 05:25] VITALS: BP 121/73; TEMP 98.4
[2022-07-18] MEDS: MoRPHine SULFATE 2 MG/ML CARP IV PRN ×7 (06:23→23:09)
--- NOTE | 2022-07-18 08:00 | Hospitalist Progress Note ---
Date of Service July 18, 2022 Assessment & Plan (1) Acute respiratory failure with hypoxia: Plan: Pt is a 67 yo female with PMH of metastatic non small cell lung cancer in current tx, CLL, GERD, COPD, osteoporosis, and depression presenting to the hospital with increased SOB over the past few days found to be hypoxia upon arrival. Acute hypoxic respiratory failure, right pleural effusion, stage IV lung adenocarcinoma, COPD - Hypoxia on arrival improved with 4L NC; suspect tachycardia is secondary to increased WOB - Labs primarily notable for marked leukocytosis (58.86) likely related to known metastatic disease, though an active infection could be contributing - CXR: large right pleural effusion with underlying atelectasis, new from prior exam. CT chest: showed right pleural effusion most likely related to malignancy; new mets in left lung base - Suspect AHRF is due to patient's new pleural effusion, which is possibly secondary to patient's known lung adenocarcinoma, though differential includes pneumonia vs others - Blood cultures neg after 24 hrs; MRSA nares negative, Procal 7.22 - 07/10 Thoracentesis w/ placement of pleurx cath performed removing almost 1 L of fluid; post procedural CXR showed no pneumothorax - plan for daily drainage from catheter PRN - pleural fluid shows moderate WBCs and mononucleated cells, neg for acid fast bacilli Plan: - Pt transitioned to comfort yesterday evening. - Continue home inhaler regimen - continue soul-Medrol 40mg daily Goals of Care - Discuses goals of care and pt would like to be DNR/DNI - transitioned to comfort yesterday; has been able to visit with her sister JUAN - resolved Elevated troponin - On admission, troponin elevated to 14.3, repeat 16.6 - EKG: NSR, no overt sign of ischemic change - Patient without chest pain at this time Asthma: home regimen inhaler as above CLL: patient is not currently on treatment for her CLL Osteoporosis: continue home raloxifene GERD: continue home protonix MDD: continue home bupropion; decrease to 150 and consider stopping (2) Lung cancer: (3) Pleural effusion: (4) SOB (shortness of breath): (5) Chronic lymphocytic leukemia: (6) Depression: (7) GERD (gastroesophageal reflux disease): (8) Acute kidney injury: Plan FEN: regular diet Code status: DNR (intubation/ventilation OK) DVT ppx: SCDs Dispo: med/telemetry Admission and Anticipated Discharge Date Admission Date: July 10, 2022 Supervising Physician Co-Signing Physician Notes ATTENDING I also saw the patient with the resident physician and confirmed arriola portions of the history and physical examination. I agree with impression plan as noted in the resident documentation. Upon our late afternoon exam, the patient was semireclined in bed, sister and friend visiting. Patient had increased energy today, notably better when compared to yesterday. Exam 121/73, 128, 22, 86% on high flow nasal cannula at 40 L/min, FiO2 100% Awake, oriented Mildly dyspneic Impression and plan Acute on chronic hypoxic respiratory failure in the setting of NSCLC, CLL Comfort care measures Palliative consultation appreciated Discussed medications, patient goals Discontinue additional blood draws Continue medications for comfort Will continue Wellbutrin but lower the dose, abrupt cessation may create some issues related to rebound (although if she is no longer taking p.o., rebound symptoms would be managed with as needed medications) Continue steroids; Mobic is on hold, unlikely of additional benefit in the setting of IV steroids. Subjective Pt transitioned to comfort last night. Increased work of breathing. She is alert and is asking for morphine/Ativan as needed. Wants to be more awake while sister and friends are here to visit. Review of Systems Review of Systems: As per HPI Physical Exam Physical Exam: Constitutional: well-appearing, no acute distress HEENT: NCAT, no conjunctival injection CV: regular rhythm, no murmur appreciated, extremities well-perfused, no LE edema Resp: increased work of breathing; lung sounds on the lung GI: soft, nondistended, nontender, BS normoactive MSK: no gross deformities appreciated Skin: warm, dry, no rash appreciated Neuro: alert, oriented, no focal neurologic deficit appreciated Results & Data Results & Data ([facility]) Vital Signs (Past 12 Hours) Vital Signs Temp Pulse Resp BP BP Pulse Ox O2 Del Method 07/18/22 04:40 36.9 C 123 H 22 121/73 88 L Oxymask, High Flow Nasal Cannula 07/18/22 03:41 121 H 32 H 88 L High Flow Nasal Cannula 07/18/22 00:33 129 H 30 H 88 L Oxymask, High Flow Nasal Cannula 07/18/22 00:02 36.6 C 119 H 22 121/78 89 L Oxymask, High Flow Nasal Cannula 07/17/22 23:12 Oxymask, High Flow Nasal Cannula 07/17/22 20:27 36.3 C L 127 H 24 130/81 90 High Flow Nasal Cannula O2 Flow Rate FiO2 07/18/22 04:40 07/18/22 03:41 40 100 07/18/22 00:33 40 100 07/18/22 00:02 07/17/22 23:12 40 100 07/17/22 20:27 Resident Activity Tracking Resident Involvement: Resident Care Provided Care Provided: Adult [facility] Medicine (1) Lung cancer Laterality: right Lung location: unspecified part of lung Qualified Code(s): C34.91 - Malignant neoplasm of unspecified part of right bronchus or lung
[2022-07-18] MEDS: dexAMETHasone 6 MG in SYRINGE 0 ML IV SCH (09:10)
[2022-07-18] MEDS: methylPREDNISolone 40 MG in SYRINGE 0 ML IV SCH (09:10)
[2022-07-18] MEDS: buPROPion XL 300 MG TABCR PO SCH (09:17)
[2022-07-18] MEDS: PANTOprazole 40 MG TAB PO SCH (09:17)
[2022-07-18] MEDS: GABAPENTIN 300 MG CAP PO SCH ×3 (09:17→20:28)
[2022-07-18] MEDS: RALOXIFENE HCL 60 MG TAB PO SCH (09:18)
[2022-07-18] MEDS: GLYCOPYRROLATE 0.2 MG/ML VIAL IV PRN ×2 (11:47→23:09)
--- NOTE | 2022-07-18 12:07 | Palliative Care Progress Note ---
Date of Service July 18, 2022 Assessment & Plan (1) SOB (shortness of breath): Plan: I have spoken with both Krystal and her sister, Patricia, about medications available for air hunger and anxiety. Krystal has consistently said been cautious with medications and is concerned with not being able to interact with family and friends. Patricia tells me that she has been able to talk to Krystal about her affairs and wishes for arrangements. Patricia feels that Krystal is concerned about using morphine which may end her life. I reassured Patricia that when Krystal's dying time comes, it will be from the cancer, not from the medications. Krystal was asleep at that time. (2) Pain from bone metastases: Plan: SHe has been on decadron for pain related to bone metastases. She is now also on solumedrol per Dr. Bryant. Will discontinue decadron. Continue morphine as needed for pain as well. (3) Palliative care encounter: Plan: I talked with Patricia and answered her questions about prognosis, what to expect and what will happen when Krystal dies. She is likely to within hours to a day or two and Patricia would like to be called if there are signs of imminent . Admission and Anticipated Discharge Date Admission Date: July 10, 2022 Subjective Lethargic but arousable. Recognized her vocational teacher at bedside. Review of Systems Review of Systems: Unobtainable due to reduced consciousness Physical Exam Constitutional: + ill appearing ENMT: Mouth: + dry oral mucous membranes Respiratory: tachypnea moaning with respiration no apnea noted Cardiovascular: Rate/Rhythm: + tachycardic Skin: no mottling Results & Data ([facility]) Vital Signs (Past 12 Hours) Vital Signs Temp Pulse Pulse Resp BP Pulse Ox O2 Del Method 07/18/22 11:12 Oxymask, High Flow Nasal Cannula 07/18/22 11:09 136 H 34 H 86 L Oxymask, High Flow Nasal Cannula 07/18/22 08:00 133 H 07/18/22 08:01 128 H 34 H 83 L Oxymask, High Flow Nasal Cannula 07/18/22 04:40 98.4 F 123 H 22 121/73 88 L Oxymask, High Flow Nasal Cannula 07/18/22 03:41 121 H 32 H 88 L High Flow Nasal Cannula 07/18/22 00:33 129 H 30 H 88 L Oxymask, High Flow Nasal Cannula 07/18/22 00:02 97.9 F 119 H 22 121/78 89 L Oxymask, High Flow Nasal Cannula O2 Flow Rate FiO2 07/18/22 11:12 07/18/22 11:09 40 100 07/18/22 08:00 07/18/22 08:01 40 100 07/18/22 04:40 07/18/22 03:41 40 100 07/18/22 00:33 40 100 07/18/22 00:02 PG Care Time/CCT Total # of Minutes Spent Total Time Spent: 38 Total Time Spent with Patient: Total time spent is greater than 50% in coordination of care (as documented) at patient's floor/unit and/or counseling patient: symptom management, family education and support, prognosis Coding Level of Care Code 34844 Subseq Hosp Care Lvl 3 Diagnoses SOB (shortness of breath) R06.02 Pain from bone metastases G89.3; C79.51 Palliative care encounter Z51.5
[2022-07-18] MEDS: buPROPion SR 150 MG TABCR PO SCH (20:28)
[2022-07-19] MEDS: MoRPHine SULFATE 2 MG/ML CARP IV PRN ×10 (01:38→22:29)
[2022-07-19] MEDS: LORazepam 0.5 MG in SYRINGE 0 ML IV PRN ×3 (04:26→18:17)
[2022-07-19] MEDS: GLYCOPYRROLATE 0.2 MG/ML VIAL IV PRN ×4 (06:41→19:04)
--- NOTE | 2022-07-19 07:24 | Hospitalist Progress Note ---
Date of Service July 19, 2022 Assessment & Plan (1) Acute respiratory failure with hypoxia: Plan: Pt is a 67 yo female with PMH of metastatic non small cell lung cancer in current tx, CLL, GERD, COPD, osteoporosis, and depression presenting to the hospital with increased SOB over the past few days found to be hypoxia upon arrival. Acute hypoxic respiratory failure, right pleural effusion, stage IV lung adenocarcinoma, COPD - Hypoxia on arrival improved with 4L NC; suspect tachycardia is secondary to increased WOB - Labs primarily notable for marked leukocytosis (58.86) likely related to known metastatic disease, though an active infection could be contributing - CXR: large right pleural effusion with underlying atelectasis, new from prior exam. CT chest: showed right pleural effusion most likely related to malignancy; new mets in left lung base - Suspect AHRF is due to patient's new pleural effusion, which is possibly secondary to patient's known lung adenocarcinoma, though differential includes pneumonia vs others - Blood cultures neg after 24 hrs; MRSA nares negative, Procal 7.22 - 07/10 Thoracentesis w/ placement of pleurx cath performed removing almost 1 L of fluid; post procedural CXR showed no pneumothorax - plan for daily drainage from catheter PRN - pleural fluid shows moderate WBCs and mononucleated cells, neg for acid fast bacilli Plan: - Pt transitioned to comfort. - Continue home inhaler regimen - continue soul-Medrol 40mg daily - Morphine/Ativan prn - Glycopyrrolate prn for secretions Goals of Care - Discuses goals of care and pt would like to be DNR/DNI - transitioned to comfort; has been able to visit with her sister JUAN - resolved Elevated troponin - On admission, troponin elevated to 14.3, repeat 16.6 - EKG: NSR, no overt sign of ischemic change - Patient without chest pain at this time Asthma: home regimen inhaler as above CLL: patient is not currently on treatment for her CLL Osteoporosis: continue home raloxifene GERD: continue home protonix MDD: continue home bupropion; decrease to 150 and consider stopping (2) Lung cancer: (3) Pleural effusion: (4) SOB (shortness of breath): (5) Chronic lymphocytic leukemia: (6) Depression: (7) GERD (gastroesophageal reflux disease): (8) Acute kidney injury: Plan FEN: regular diet Code status: DNR/DNI DVT ppx: SCDs Admission and Anticipated Discharge Date Admission Date: July 10, 2022 Supervising Physician Co-Signing Physician Notes ATTENDING I also saw the patient with the resident physician and confirmed arriola portions of the history and physical examination. I agree with impression plan as noted in the resident documentation. Sister and other friend are visiting. Patient is awake and oriented. Talking with friends. Exam Awake, oriented Mildly dyspneic Increasing bilateral lower extremity edema; she also looks to have some upper extremity edema Impression and plan Acute on chronic hypoxic respiratory failure in the setting of NSCLC, CLL Comfort care measures Palliative consultation appreciated Discussed medications, patient goals Discontinue additional blood draws Continue medications for comfort Will continue Wellbutrin but lower the dose, abrupt cessation may create some issues related to rebound (although if she is no longer taking p.o., rebound symptoms would be managed with as needed medications) Continue steroids; Mobic is on hold, unlikely of additional benefit in the setting of IV steroids. Sister brought the idea of removing rings to avoid having them be cut off; suggested may be able to remove and put on a necklace or similar to preserve personal meaning. Subjective Pt is currently on comfort care. At bedside today was visiting with sister and friend. Looked comfortable. Review of Systems Review of Systems: As per HPI Physical Exam Physical Exam: Constitutional: well-appearing, no acute distress HEENT: NCAT, no conjunctival injection CV: regular rhythm, no murmur appreciated, extremities well-perfused, no LE edema Resp: increased work of breathing; lung sounds, crackles at bases GI: soft, nondistended, nontender, BS normoactive MSK: no gross deformities appreciated Skin: warm, dry, no rash appreciated Neuro: alert, oriented, no focal neurologic deficit appreciated Results & Data Results & Data ([facility]) Vital Signs (Past 12 Hours) Vital Signs Pulse Resp Pulse Ox O2 Del Method O2 Flow Rate FiO2 07/18/22 23:13 128 H 30 H 82 L High Flow Nasal Cannula 40 100 07/18/22 21:52 Oxymask, High Flow Nasal Cannula 40 100 Resident Activity Tracking Resident Involvement: Resident Care Provided Care Provided: Adult Hospital Medicine (1) Lung cancer Laterality: right Lung location: unspecified part of lung Qualified Code(s): C34.91 - Malignant neoplasm of unspecified part of right bronchus or lung
[2022-07-19] MEDS: GABAPENTIN 300 MG CAP PO SCH ×3 (08:32→19:23)
[2022-07-19] MEDS: methylPREDNISolone 40 MG in SYRINGE 0 ML IV SCH (08:32)
[2022-07-19] MEDS: RALOXIFENE HCL 60 MG TAB PO SCH (08:33)
[2022-07-19] MEDS: PANTOprazole 40 MG TAB PO SCH (08:33)
[2022-07-19] MEDS: buPROPion SR 150 MG TABCR PO SCH (08:33)
[2022-07-19] MEDS: LORazepam 1 MG in SYRINGE 0 ML IV PRN (22:29)
[2022-07-20] MEDS: MoRPHine SULFATE 2 MG/ML CARP IV PRN ×5 (01:11→09:44)
[2022-07-20] MEDS: GLYCOPYRROLATE 0.2 MG/ML VIAL IV PRN ×3 (02:55→11:30)
[2022-07-20] MEDS: LORazepam 0.5 MG in SYRINGE 0 ML IV PRN (05:20)
[2022-07-20] MEDS: LORazepam 1 MG in SYRINGE 0 ML IV PRN ×4 (07:29→11:36)
[2022-07-20 07:41] VITALS: O2SAT 80
[2022-07-20 08:23] VITALS: PULSE 140
[2022-07-20] MEDS ORDERED: buPROPion SR 150 MG TABCR PO SCH (09:00)
[2022-07-20] MEDS ORDERED: MoRPHine SULFATE PCA 30 MG/30 ML IV PRN (09:06)
[2022-07-20] MEDS ORDERED: NALOXONE HCL 0.4 MG/1 ML VIAL/CARP IV PRN (09:06)
[2022-07-20] MEDS ORDERED: SODIUM CHLORIDE 0.9% 1000ML 1,000 ML IV SCH (09:15)
[2022-07-20] MEDS ORDERED: MoRPHine SULFATE 2 MG/ML CARP IV STA (09:18)
[2022-07-20] MEDS ORDERED: LORazepam 1 MG in SYRINGE 0 ML IV PRN (09:19)
[2022-07-20] MEDS: GABAPENTIN 300 MG CAP PO SCH (09:56)
[2022-07-20] MEDS: PANTOprazole 40 MG TAB PO SCH (09:56)
[2022-07-20] MEDS: RALOXIFENE HCL 60 MG TAB PO SCH (09:56)
[2022-07-20] MEDS: methylPREDNISolone 40 MG in SYRINGE 0 ML IV SCH (10:23)
[2022-07-20] MEDS ORDERED: MoRPHine BOLUS from BAG IV PRN (10:40)
[2022-07-20] MEDS ORDERED: MoRPHine SULF/NSS 250 MG/250 ML BTL IV SCH (10:45)
--- NOTE | 2022-07-20 14:38 | Discharge Summary ---
Date of Service July 20, 2022 Admission HPI Per Admitting Provider 67yo female with a history of metastatic stage IV lung adenocarcinoma, CLL, osteoporosis, GERD, and MDD presents with a 4-5-day history of worsening SOB, found to be hypoxic on arrival. Patient has been on 3-4L oxygen since being discharged from [facility] on 06/18/22 (details below). Patient notes her oxygen requirement has not increased since then and her spO2 has always been above 92% when she checks, but for the past five days she has had worsening SOB with exertion, and then over the past two or so days, developed SOB at rest. Patient denies fever, chills, headache, vision changes, CP, edema, abdominal pain, nausea, vomiting, dysuria, hematochezia, melena, lightheadedness, dizziness, numbness, tingling, weakness, or other symptoms. Of note, patient was admitted here at [facility] from Jun 09 to Jun 18 of this year with SOB and hypoxia, suspected to be secondary to pneumonia vs radiation pneumonitis +/- pulmonary edema; patient was treated with an eight-day course of zosyn, during which her symptoms and hypoxia improved. During that hospitalization, patient had an oxygen requirement that peaked at 10L; this improved during her hospitalization to 2L. Patient was discharged on 3-4L oxygen as-needed. Additionally patient was discharged with a three-week prednisone taper. Upon arrival, vitals were notable for tachycardia (100-120s) and hypoxia (85) which normalized with supplemental oxygen. BP was not elevated, no tachypnea, patient afebrile. Initial labs were notable for marked leukocytosis (54.8), mild hyponatremia (132), elevated alk phos (231), and trivially elevated hsTroponin (14.3); no anemia, platelets wnl, no additional electrolyte abnormalities, creatinine not elevated, Tbili not elevated, covid/flu/RSV PCR negative. In the ED, patient received NSS 500mL bolus (x1) and a dose of cefepime. EKG: sinus tachycardia without overt ischemic change Imaging: CXR: large right pleural effusion with underlying atelectasis, new from prior CT chest: pending Principal Diagnosis Metastatic Lung Cancer Discharge Exam Constitutional: well-appearing, no acute distress HEENT: NCAT, no conjunctival injection CV: regular rhythm, no murmur appreciated, extremities well-perfused, no LE edema Resp: increased work of breathing; lung sounds, crackles at bases GI: soft, nondistended, nontender, BS normoactive MSK: no gross deformities appreciated Skin: warm, dry, no rash appreciated Neuro: alert, oriented, no focal neurologic deficit appreciated Discharge Data Allergies Allergy/AdvReac Type Severity Reaction Status Date / Time No Known Allergies Allergy Verified 07/09/22 19:35 Consultations 07/09/22 19:24 ED Decision to Admit Stat 07/10/22 09:56 Consult Palliative Care Routine 07/10/22 19:00 Consult Pulmonology Routine Ordered Studies 07/09/22 20:46 CT chest diagnostic wo con Urgent 07/10/22 08:32 sono, invasive monitoring [US point of care ultrasound] Routine Hospital Course (1) Acute respiratory failure with hypoxia: Pt is a 67 yo female with PMH of metastatic non small cell lung cancer in current tx, CLL, GERD, COPD, osteoporosis, and depression presenting to the hospital with increased SOB over the past few days found to be hypoxia upon arrival. Acute hypoxic respiratory failure, right pleural effusion, stage IV lung adenocarcinoma, COPD - Pt presented with acute hypoxic respiratory failure with pleural effusions secondary to stage IV lung - Had Pleurx placed and fluid was drained from lungs - Was seen by pulmonology and started on steroids - Her breathing status continued to worsen, she eventually elected to move to comfort care - Was given prn morphine and Ativan and eventually transition to morphine drip. (2) Lung cancer: (3) Pleural effusion: (4) SOB (shortness of breath): (5) Chronic lymphocytic leukemia: (6) Depression: (7) GERD (gastroesophageal reflux disease): (8) Acute kidney injury: Total Time Total Time Spent Total Time Spent (In Minutes): 30 Discharge Plan Discharge Items Patient Disposition: Other Date/Time: 07/20/22 12:23 Supervising Physician Co-Signing Physician Notes ATTENDING I also saw the patient with the resident physician and confirmed arriola portion of the history and physical examination. Upon our first exam this morning, the patient was somewhat responsive, tachypneic. She was given additional dose of IV morphine and IV Ativan while orders for a morphine drip were initiated at 1 mg/h, which was consistent with her 2 mg/2- hour dosing previous. Following initiation of the morphine drip, the patient appeared much more comfortable. About 2 hours later, was notified by nursing that the patient had passed. Family (sister and 2 friends) were at bedside at the time of the patient's passing. Cause of Adenocarcinoma the lung CLL Contributing conditions COPD Please see the resident discharge summary for complete details of the patient's hospitalization.
== END 2022-07-20 14:33 | disposition expired | DRG 180 ==
LOC: ED 17:27 → 4W 17:27 → SUATTDRO 21:17 → 4W 22:17 → SUATTDRO 07-10 10:17